=== PATIENT | female | born 1945 | race Hispanic/Latino ===

== ENCOUNTER 2016-10-29 18:25 | Emergency (ER) | payer MEDICARE, OTHER ==
[2016-10-29 18:25] VITALS: BMI 14.4
[2016-10-29 18:45] VITALS: BP 94/54; PULSE 70; RESP 20; TEMP 97.7; O2SAT 100
--- NOTE | 2016-10-29 20:02 | ED PDOC ---
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 She denies any associated trauma, chest pain, or shortness of breath, and states that she is compliant with her medications. PMD: Greg Correa Past Medical History Reviewed: Historical Data, Nursing Documentation, Vital Signs Vital Signs: Last Vital Signs Temp 97.7 F 10/29/16 18:42 Pulse 70 10/29/16 18:42 Resp 20 10/29/16 18:42 BP 94/54 L 10/29/16 18:42 Pulse Ox 100 10/29/16 18:42 - Medical History PMH: Anemia, Depression, Deep Vein Thrombosis, Chronic Kidney Disease Denies: HIV - Family History Family History: States: Unknown Family Hx - Home Medications Home Medications: Ambulatory Orders Medication Instructions Recorded Potassium Chloride [K-Dur 20 mEq 20 meq PO DAILY 07/23/16 ER Tab] Lactobacillus Acidophilus 1 cap PO DAILY 08/27/16 [Acidophilus] Sodium Bicarbonate Tab 1,300 mg PO BID 08/27/16 Acetaminophen [Tylenol 325mg tab] 650 mg PO ONCE tab 10/03/16 Calcitriol [Rocaltrol] 0.5 mcg PO BID #14 sgl 10/04/16 Calcium Carbonate [Tums] 1,000 mg PO BID #30 ctb 10/04/16 Cholestyramine [Questran] 4 gm PO BID #14 packet 10/04/16 Cyanocobalamin (Vitamin B-12) 1,000 mcg PO DAILY #7 tablet.er 10/04/16 [B-12] Ergocalciferol [Drisdol 50,000 1 cap PO Q7D cap 10/04/16 Intl Units Cap] Escitalopram [Lexapro] 10 mg PO DAILY #7 tab 10/04/16 Folic Acid 1 mg PO DAILY #7 tab 10/04/16 Apixaban [Eliquis] 2.5 mg PO DAILY 10/22/16 Non-Formulary 1 ea .ROUTE DAILY #3 10/29/16 - Allergies Allergies/Adverse Reactions: Allergies Allergy/AdvReac Type Severity Reaction Status Date / Time ciprofloxacin [From Cipro] Allergy RASH Verified 10/29/16 18:42 ciprofloxacin HCl Allergy RASH Verified 10/29/16 18:42 [From Cipro] vancomycin Allergy RASH Verified 10/29/16 18:42 Review of Systems Cardiovascular: Positive for: Edema (swelling around left ankle). Negative for : Chest Pain Respiratory: Negative for: Shortness of Breath Physical Exam - Reviewed Nursing Documentation Reviewed: Yes Vital Signs Reviewed: Yes - Physical Exam Appears: Positive for: Non-toxic, No Acute Distress (Patient is well-appearing) Head Exam: Positive for: ATRAUMATIC, NORMOCEPHALIC Skin: Positive for: Normal Color, Warm Cardiovascular/Chest: Positive for: Regular Rate, Rhythm. Negative for: Murmur Respiratory: Positive for: Normal Breath Sounds. Negative for: Respiratory Distress Extremity: Positive for: Pedal Edema (2+ pitting edema localized to left ankle) , Calf Tenderness (mild bilateral calf tenderness), Other (mild ecchymosis to anterior tibia bilaterally). Negative for: Tenderness (no tenderness to palpation), Deformity Neurologic/Psych: Positive for: Alert, Oriented - ECG O2 Sat by Pulse Oximetry: 100 (RA) Pulse Ox Interpretation: Normal Medical Decision Making Medical Decision Makin:54 Initial Impression: Left Ankle Swelling from Sprain vs. DVT Initial Plan: * US Lower Extremities * Reevaluation 21:10 US Lower Extremities Findings FINDINGS: Deep veins: Lack of compressibility of common femoral, mid to distal superficial femoral veins. No significant flow on color or spectral Doppler imaging. Incomplete compressibility of proximal superficial femoral vein. Flow on color or spectral Doppler imaging. Duplicated superficial femoral vein with compressibility, color and spectral Doppler flow. Superficial veins: No thrombosis. Soft tissues: No popliteal cyst. IMPRESSION: 1. Occlusive and nonocclusive thrombus as above. 2. Incidental/non-acute findings are described above. Discussed findings with jamil Martíneztient will have left ankle x-ray performed as well. If negative, patient will be discharged home with recommendation for compression stockings. LEFT ankle xray: No fx/dislocation. +osteopenia Scribe Attestation: Documented by Hedy Doston, acting as a scribe for Patricia Valencia MD. Provider Scribe Attestation: All medical record entries made by the Scribe were at my direction and personally dictated by me. I have reviewed the chart and agree that the record accurately reflects my personal performance of the history, physical exam, medical decision making, and the department course for this patient. I have also personally directed, reviewed, and agree with the discharge instructions and disposition Disposition - Clinical Impression Clinical Impression: Swelling of ankle joint, left Counseled Patient/Family Regarding: Studies Performed, Diagnosis, Need For Followup - Disposition Referrals: Greg Correa MD [Family Provider] - 10/30/16 Disposition: Routine/Home Disposition Time: 21:45 Condition: STABLE Additional Instructions: PLEASE USE GRADUATED COMPRESSION STOCKINGS IN YOUR LEGS TO IMPROVE SWELLING SEE DR CORREA TOMORROW FOR REEVALUATION Prescriptions: Non-Formulary 1 ea .ROUTE DAILY #3 Instructions: Leg Edema (ED)
--- NOTE | 2016-10-29 21:03 | US ---
EXAM: US Duplex Left Lower Extremity Veins CLINICAL HISTORY: 71 years old, female; Signs and symptoms; Swelling of limb; Lower extremity, left; Additional info: Lle swelling R/O new dvt TECHNIQUE: Real-time ultrasound scan of the veins of the left lower extremity with color Doppler flow, spectral waveform analysis and compression. COMPARISON: No relevant prior studies available. FINDINGS: Deep veins: Lack of compressibility of common femoral, mid to distal superficial femoral veins. No significant flow on color or spectral Doppler imaging. Incomplete compressibility of proximal superficial femoral vein. Flow on color or spectral Doppler imaging. Duplicated superficial femoral vein with compressibility, color and spectral Doppler flow. Superficial veins: No thrombosis. Soft tissues: No popliteal cyst. IMPRESSION: 1. Occlusive and nonocclusive thrombus as above. 2. Incidental/non-acute findings are described above.
--- NOTE | 2016-10-30 10:34 | RAD ---
PROCEDURE: Left Ankle Radiographs. HISTORY: ankle swelling COMPARISON: None FINDINGS: BONES: There is diffuse bone demineralization. There is no acute displaced fracture or bone destruction. JOINTS: Normal. No osteoarthritis. Ankle mortise maintained. Talar dome intact SOFT TISSUES: There is mild lateral soft tissue swelling. OTHER FINDINGS: None. IMPRESSION: No acute displaced fracture or dislocation. Mild lateral soft tissue swelling.
== END 2016-10-29 22:39 | disposition home or self-care (01) ==
LOC: H.ER 18:25
DX: M25.472 Effusion, left ankle (principal); N18.9 Chronic kidney disease, unspecified; Z79.01 Long term (current) use of anticoagulants; Z86.718 Personal history of other venous thrombosis and embolism

== ENCOUNTER 2016-12-25 10:41 | Inpatient (IN) | payer MEDICARE, OTHER ==
[2016-12-25 10:47] VITALS: BMI 14.9
--- NOTE | 2016-12-25 11:21 | ED PDOC ---
HPI: General Adult Time Seen by Provider: 12/25/16 11:07 Chief Complaint (Nursing): Weakness/Neurological Deficit History Per: Patient, Family History/Exam Limitations: no limitations Onset/Duration Of Symptoms: Gradual (chronic sx worse this week) Current Symptoms Are (Timing): Still Present Severity: Mild Additional History Per: Patient, Family Additional Complaint(s): per pt and family has chronic dehydration treated weakly for iv fluids pmd [facility] but just transferred care from [facility]. pt has urostomy and ileostomy with nml floow. no head trauma no cp or sob Past Medical History Reviewed: Historical Data, Nursing Documentation, Vital Signs Vital Signs: Last Vital Signs Temp 97.8 F 12/25/16 10:47 Pulse 76 12/25/16 10:47 Resp 19 12/25/16 10:47 BP 114/77 12/25/16 10:47 Pulse Ox 100 12/25/16 11:23 - Medical History PMH: Anemia, Depression, Deep Vein Thrombosis, Chronic Kidney Disease Denies: HIV - Family History Family History: States: Unknown Family Hx - Living Arrangements Living Arrangements: With Family - Social History Current smoker - smoking cessation education provided: No - Home Medications Home Medications: Ambulatory Orders Medication Instructions Recorded Potassium Chloride [K-Dur 20 mEq 20 meq PO DAILY 07/23/16 ER Tab] Lactobacillus Acidophilus 1 cap PO DAILY 08/27/16 [Acidophilus] Sodium Bicarbonate Tab 1,300 mg PO BID 08/27/16 Calcitriol [Rocaltrol] 0.5 mcg PO BID #14 sgl 10/04/16 Cholestyramine [Questran] 4 gm PO BID #14 packet 10/04/16 Cyanocobalamin (Vitamin B-12) 1,000 mcg PO DAILY #7 tablet.er 10/04/16 [B-12] Escitalopram [Lexapro] 10 mg PO DAILY #7 tab 10/04/16 Folic Acid 1 mg PO DAILY #7 tab 10/04/16 Apixaban [Eliquis] 2.5 mg PO BID 10/22/16 Calcium Carbonate [Caltrate] 600 mg PO BID 12/25/16 Calcium Carbonate [Tums] 750 mg PO BID 12/25/16 Ergocalciferol [Drisdol 50,000 50,000 unit PO SAT 12/25/16 Intl Units Cap] - Allergies Allergies/Adverse Reactions: Allergies Allergy/AdvReac Type Severity Reaction Status Date / Time ciprofloxacin [From Cipro] Allergy RASH Verified 12/25/16 11:16 ciprofloxacin HCl Allergy RASH Verified 12/25/16 11:16 [From Cipro] vancomycin Allergy RASH Verified 12/25/16 11:16 Review of Systems ROS Statement: Except As Marked, All Systems Reviewed And Found Negative Constitutional: Positive for: Weakness (diffuse). Negative for: Fever, Chills Cardiovascular: Negative for: Chest Pain, Palpitations Respiratory: Negative for: Cough, Shortness of Breath Gastrointestinal: Negative for: Nausea, Vomiting, Abdominal Pain, Diarrhea Neurological: Negative for: Weakness, Numbness, Headache Physical Exam - Reviewed Nursing Documentation Reviewed: Yes Vital Signs Reviewed: Yes - Physical Exam Appears: Positive for: Well, No Acute Distress Head Exam: Positive for: ATRAUMATIC, NORMAL INSPECTION, NORMOCEPHALIC Eye Exam: Positive for: Normal appearance, EOMI, PERRL Neck: Positive for: Normal, Painless ROM, Supple Cardiovascular/Chest: Positive for: Regular Rate, Rhythm. Negative for: Edema, Gallop, Murmur, Bradycardia, Tachycardia Respiratory: Positive for: Normal Breath Sounds. Negative for: Decreased Breath Sounds, Accessory Muscle Use, Crackles, Rales, Rhonchi, Stridor, Wheezing Gastrointestinal/Abdominal: Positive for: Soft, Other (urostomy in llq with clear urine and rlq ileostomy with brown stool). Negative for: Tenderness Back: Positive for: Normal Inspection. Negative for: L CVA Tenderness, R CVA Tenderness Extremity: Positive for: Normal ROM. 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 Negative for: Motor/Sensory Deficits - Laboratory Results Result Diagrams: 12/25/16 11:45 12/25/16 11:45 - ECG ECG: Positive for: Interpreted By Me ECG Rhythm: Positive for: Normal QRS, Normal ST Segment, Sinus Rhythm (64). Negative for: ST/T Changes Interpretation Of Abn EKG: no evidence of ischemia O2 Sat by Pulse Oximetry: 100 Pulse Ox Interpretation: Normal - Radiology X-Ray: Interpreted by Me X-Ray Interpretation: No Acute Disease - Progress ED Course And Treament: per dr ford will give magnesium and admit to tele obs Re-evaluation Time: 13:00 Condition: Unchanged Disposition - Clinical Impression Clinical Impression: Hypomagnesemia - Patient ED Disposition Is Patient to be Admitted: No Counseled Patient/Family Regarding: Studies Performed, Diagnosis - Disposition Disposition Time: 13:00 Condition: STABLE - Pt Status Changed To: Hospital Disposition Of: Observation - POA Present On Arrival: None
[2016-12-25] MEDS: Sodium Chloride 0.9% 1,000 ML IV SCH (11:54)
[2016-12-25 12:03] LABS: BASO % 0.4 % (0.0-2.0); EOS # 0.1 K/uL (0.0-0.7); EOS % 1.7 % (0.0-4.0); HEMATOCRIT 27.1 % (34.0-47.0); LYMPH # 0.9 K/uL (1.0-4.3); LYMPH % 14.6 % (20.0-40.0); MEAN CELL VOLUME 100.6 fl (81.0-99.0); MEAN CORPUSCULAR HEMOGLOBIN 33.7 pg (27.0-31.0); MEAN CORPUSCULAR HGB CONC 33.5 g/dL (33.0-37.0); MEAN PLATELET VOLUME 8.6 fl (7.2-11.7); MONO # 0.5 K/uL (0.0-0.8); MONO % 7.5 % (0.0-10.0); NEUT # 4.7 K/uL (1.8-7.0); NEUT % 75.8 % (50.0-75.0); NRBC % 0.1 % (0.0-0.0); WHITE BLOOD COUNT 6.2 K/uL (4.8-10.8)
[2016-12-25 12:11] LABS: ALB/GLOB RATIO 1.1 (1.0-2.1); BILIRUBIN,TOTAL 0.2 mg/dl (0.2-1.3); CALCIUM 12.3 mg/dL (8.4-10.2); POTASSIUM 4.4 MMOL/L (3.6-5.0); TOTAL PROTEIN 7.4 G/DL (6.3-8.2)
[2016-12-25 12:14] LABS: RBC URINE 38 /hpf (0-3); URINE BACTERIA OCC (<OCC); URINE BILIRUBIN NEGATIVE (NEGATIVE); URINE BLOOD SMALL (NEGATIVE); URINE COLOR YELLOW (YELLOW); URINE GLUCOSE (UA) NEG (Normal); URINE KETONE NEGATIVE (NEGATIVE); URINE LEUKOCYTE ESTERASE LARGE Leu/uL (Negative); URINE PROTEIN 100 mg/dL (NEGATIVE); URINE UROBILINOGEN 0.2-1.0 mg/dL (0.2-1.0); WBC URINE 493 /hpf (0-5)
--- NOTE | 2016-12-25 12:55 | CT ---
PROCEDURE: CT HEAD WITHOUT CONTRAST. HISTORY: ams COMPARISON: None available. TECHNIQUE: Axial computed tomography images were obtained through the head/brain without intravenous contrast. Radiation dose: Total exam DLP = 827 mGy-cm. This CT exam was performed using one or more of the following dose reduction techniques: Automated exposure control, adjustment of the mA and/or kV according to patient size, and/or use of iterative reconstruction technique. FINDINGS: HEMORRHAGE: No intracranial hemorrhage. BRAIN: No mass effect or edema. atrophy and chronic microvascular ischemic changes. VENTRICLES: Unremarkable. No hydrocephalus. CALVARIUM: Unremarkable. PARANASAL SINUSES: Unremarkable as visualized. No significant inflammatory changes. MASTOID AIR CELLS: Unremarkable as visualized. No inflammatory changes. OTHER FINDINGS: None. IMPRESSION: No bleed.
[2016-12-25] MEDS ORDERED: Magnesium Sulfate 1 gm in D5W 1 GM/100 ML BAG IVPB ONE (13:57)
[2016-12-25] MEDS ORDERED: Magnesium Sulfate 2 GM in Sodium Chloride 0.9% 100 ML IVPB ONE (14:03)
[2016-12-25] MEDS ORDERED: Magnesium Sulfate 2 gm/50 ml 2 GM/50 ML BAG ONE (14:15)
[2016-12-25] MEDS ORDERED: Magnesium Sulfate 2 gm/50 ml 2 GM/50 ML BAG IVPB ONE (14:30)
--- NOTE | 2016-12-25 15:44 | RAD ---
HISTORY: weak COMPARISON: 08/27/2016 FINDINGS: The right MediPort terminates in the SVC. LUNGS: The lungs are hyperinflated and there is peribronchial thickening with chronic changes in both lungs. PLEURA: No significant pleural effusion identified, no pneumothorax apparent. CARDIOVASCULAR: Normal. OSSEOUS STRUCTURES: No significant abnormalities. VISUALIZED UPPER ABDOMEN: Normal. OTHER FINDINGS: None. IMPRESSION: No active pulmonary disease. COPD.
--- NOTE | 2016-12-25 15:59 | CARD ---
APPROVED REPORT EKG Measurement Heart [id number] <Conclusion> Sinus rhythm with short [place] Otherwise normal ECG
[2016-12-25] MEDS ORDERED: Potassium Chl 20 mEq in D5-NS 1,000 ML IV SCH (23:45)
[2016-12-26] MEDS ORDERED: CALCIUM CARBONATE 750 MG PO SCH (09:00)
[2016-12-26] MEDS ORDERED: LACTOBACILLUS ACIDOPHILUS PO SCH (09:00)
[2016-12-26] MEDS ORDERED: Patient's Own Med (Cyanocobalamin (Vitamin B-12) [B-12] 1,000 MCG) PO SCH (09:00)
[2016-12-26] MEDS: Potassium Chloride 20 mEq ER Tab PO SCH (09:57)
[2016-12-26] MEDS: Cholestyramine 4 gm/Pkt UD PO SCH ×2 (09:58→17:56)
[2016-12-26 11:25] LABS: CALCIUM 10.3 mg/dL (8.4-10.2); MAGNESIUM 1.4 MG/DL (1.6-2.3); POTASSIUM 4.2 MMOL/L (3.6-5.0)
[2016-12-26] MEDS ORDERED: Magnesium Sulfate 1 gm in D5W 1 GM/100 ML BAG IVPB ONE (11:34)
[2016-12-26] MEDS: Dextrose 5%/0.9% NS 1,000 ML IV SCH ×2 (13:18→21:45)
[2016-12-26] MEDS: Lactobacillus Acidophilus 500 MU Cap PO SCH (13:21)
[2016-12-26] MEDS: Sodium Chloride 0.9% 1,000 ML IV SCH ×2 (18:00→18:01)
[2016-12-27 07:16] LABS: CALCIUM 9.7 mg/dL (8.4-10.2); MAGNESIUM 1.5 MG/DL (1.6-2.3); POTASSIUM 3.8 MMOL/L (3.6-5.0)
--- NOTE | 2016-12-27 08:28 | HP ---
HISTORY OF PRESENT ILLNESS: This is a 71-year-old female with history of multiple medical problems, presented to Emergency Room with symptoms of generalized weakness and change of mental status. The patient was evaluated in the Emergency Room, and she was found to be dehydrated with electrolyte imbalance. The patient was found to have hypercalcemia and increased BUN of 45 and creatinine 2.0 and magnesium 0.9. The patient has colostomy bag and urine diversion into an ileostomy. The patient was not fully aware of why she was in the hospital today. The patient was brought by her daughter. REVIEW OF SYSTEMS: Other review of systems is negative. PAST MEDICAL HISTORY: Cancer of the cervix status post radiation therapy and eventually the patient had a colostomy as well as urine diversion to ileostomy. The patient has chronic normal anion gap metabolic acidosis and chronic kidney disease stage III. SOCIAL HISTORY: No history of smoking, ETOH or substance abuse. FAMILY HISTORY: Noncontributory. HOME MEDICATIONS: vitamin D 50,000 once a week, sodium bicarbonate 1300 mg twice a day, potassium chloride 20 mEq once a day, Lexapro 10 mg daily, vitamin B12 at 1000 mg daily, cholestyramine 4 grams twice a day, Rocaltrol 0.5 mcg twice a day, Eliquis 2.5 mg twice a day for bilateral DVT. PHYSICAL EXAMINATION: GENERAL: The patient is not in cardiopulmonary distress. VITAL SIGNS: Blood pressure 110/72, respiratory rate 18, pulse 82. HEENT: Pupils equal, round and reactive to light. Mildly pale mucosa of the conjunctivae. NECK: Supple, no JVD, no carotid bruits, no lymph nodes, no thyromegaly. CHEST AND LUNGS: Bilateral symmetrical expansion, good air exchange bilaterally. No rales, no rhonchi. CARDIOVASCULAR: PMI not localized. S1, S2. There are no additional sounds. ABDOMEN: Colostomy and ileostomy bags are in place and there is dark cloudy urine as well as there is watery stool in the colostomy bag. EXTREMITIES: No cyanosis, no clubbing, no edema. CENTRAL NERVOUS SYSTEM: Alert, awake, oriented x 2. No neurologic deficits are appreciated. LABORATORY DATA: Blood work showed BUN of 45, creatinine 2.0, calcium 12.6, magnesium 0.9. Urine culture showed gram negative rods and the ID of the organism are not identified yet. ASSESSMENT: Dehydration, hypercalcemia, hypomagnesemia, chronic kidney disease stage III, bacteriuria. PLAN: We will continue IV fluids and we will supplement magnesium. Will stop calcium, Glucotrol and vitamin D as calcium level is high on admission. Physical therapy. Resume Eliquis 2.5 mg twice a day. [facility] S Sunny FELICIANO cc: 167 TT: 12/27/2016 00:11:02 12/27/2016 04:09:35 FELIPA
[2016-12-27] MEDS: Dextrose 5%/0.9% NS 1,000 ML IV SCH (09:50)
[2016-12-27] MEDS: Cholestyramine 4 gm/Pkt UD PO SCH ×2 (09:52→16:55)
[2016-12-27] MEDS: Potassium Chloride 20 mEq ER Tab PO SCH (09:52)
[2016-12-27] MEDS: Lactobacillus Acidophilus 500 MU Cap PO SCH (09:53)
--- NOTE | 2016-12-27 10:11 | PQF GENQUE ---
This form is a permanent part of the medical record 12/27/16 Dr. Correa, Please clarify the site(s) and acuity of the bilateral DVT if known. Please see physician response section Documentation that the patient is being treated with Eliquis for bilateral DVT. Clarification of your documentation is requested to better reflect the severity of illness and intensity of treatment of your patient. PHYSICIAN'S RESPONSE 1) Please specify the acuity: [ ] Acute [ ] Chronic [ ] History of/healed with prophylaxis [ ] Other (please specify) [ ] Unable to determine [ ] Unknown 2) Please specify the specific vessel (vein) involved, including laterality Based on your medical judgment of the clinical indicators outlined above please clarify the following: [] Practitioner response [] If unable to determine, please check the box, sign and date. Present On Admission (POA) Indicator: [] Present at the time of admission [] Not present at the time of admission [] Clinically Undetermined In responding to this query, please exercise your independent professional judgment. The fact that a question is asked does not imply that any particular answer is desired or expected. Thank you for your clarification on this documentation. If you have any questions please call:extension [phone] * Thank you, Theodora Ly RN CDMP It is a history of bilateral DVT MTDD
--- NOTE | 2016-12-27 20:49 | PN ---
DATE: 12/27/2016 SUBJECTIVE: The patient is seen today, 12/27/2016. She continued to be more alert and awake. PHYSICAL EXAMINATION: VITAL SIGNS: Blood pressure is 122/75, temperature 98.4, respiratory rate 20, and pulse 72. HEENT: Pupils equal, reactive to light. Normal-appearing mucosa of the conjunctivae, oropharyngeal and nasal membrane mucosa. NECK: Supple, no JVD, no carotid bruit, no lymph node, no thyromegaly. CHEST AND LUNGS: Bilateral symmetrical expansion, good air exchange, no rales, no rhonchi. CARDIOVASCULAR: PMI not localized. S1, S2. No additional sounds. ABDOMEN: Normoactive bowel sounds, no tenderness, no organomegaly, no masses. EXTREMITIES: No cyanosis, no clubbing, no edema. CENTRAL NERVOUS SYSTEM: Alert, awake, oriented x 2. No neurological deficits could be appreciated. ASSESSMENT: 1. Dehydration. 2. Acute on chronic kidney disease stage III. 3. History of cancer cervix, status post radiation with colostomy and ileostomy and urine divergent into ileostomy. 4. Hypomagnesemia. 5. Hypercalcemia. PLAN: Supplement magnesium. Continue IV fluids. We will repeat blood work in the morning. Suellen Catherine Correa MD cc: 167 TT: 12/27/2016 20:48:50 Confirmation # [id number] Dictation # [id number] mike
[2016-12-28] MEDS: Cholestyramine 4 gm/Pkt UD PO SCH (09:34)
[2016-12-28] MEDS: Potassium Chloride 20 mEq ER Tab PO SCH (09:35)
[2016-12-28] MEDS: Lactobacillus Acidophilus 500 MU Cap PO SCH (09:36)
[2016-12-28 12:01] LABS: CALCIUM 9.2 mg/dL (8.4-10.2); POTASSIUM 3.8 MMOL/L (3.6-5.0)
[2016-12-28 15:42] VITALS: BP 111/66; PULSE 73; RESP 20; TEMP 97.9; O2SAT 99
--- NOTE | 2016-12-28 19:08 | DS ---
REASON FOR ADMISSION: This is a 71-year-old female with history of multiple medical proble ms who was admitted for dehydration and electrolyte imbalance. COURSE OF HOSPITALIZATION: The patient was admitted to telemetry floor and magnesium was supplemente d and patient was started on IV fluid due to hypercalcemia with calcium level 12.3 on admission and c kyra down to 9.2. The patient also had bacteriuria, but it was asymptomatic and antibiotics were with held at this point as patient did not have any fever or leukocytosis. The patient has urine diversio n through an ileostomy and she has colostomy bag also. The patient was advised to stop Rocaltrol and calcium supplement and to continue IV fluid therapy with sodium bicarbonate as an outpatient. FINAL DIAGNOSES: Dehydration, hypercalcemia, acute on chronic kidney disease stage III, history of c ancer of cervix, status post radiation with current colostomy and urine diversion to ileostomy. Suellen Catherine Correa MD cc: 167 TT: 12/28/2016 19:07:54 maribell
[2016-12-29] MEDS ORDERED: Ergocalciferol 50,000 Intl Units Cap PO SCH (09:00)
== END 2016-12-28 18:30 | disposition home or self-care (01) | DRG 641 ==
LOC: H.ER 10:41 → H.ERHOLD 14:04 → H.TEL 12-26 00:06 → OBSVTOIN 12-26 11:42
PROVIDERS: ADMIT Internal Medicine; ATTEND Internal Medicine
DX: E86.0 Dehydration (principal); N18.3 Chronic kidney disease, stage 3 (moderate); E83.52 Hypercalcemia; E83.42 Hypomagnesemia; R82.71 Bacteriuria; D64.9 Anemia, unspecified; Z93.3 Colostomy status; Z93.2 Ileostomy status; Z85.41 Personal history of malignant neoplasm of cervix uteri; Z92.3 Personal history of irradiation; Z86.718 Personal history of other venous thrombosis and embolism; Z79.01 Long term (current) use of anticoagulants; Z88.1 Allergy status to other antibiotic agents

== ENCOUNTER 2017-01-10 10:38 | Inpatient (IN) | payer MEDICARE, OTHER ==
[2017-01-10 10:39] VITALS: BMI 15.4
[2017-01-10] MEDS ORDERED: Calcitonin 400 Intl Units/2mL Inj IM STA (11:23)
[2017-01-10] MEDS ORDERED: Sodium Chloride 0.9% 1,000 ML IV SCH (11:30)
--- NOTE | 2017-01-10 11:43 | ED PDOC ---
HPI: Altered Mental Status Chief Complaint (Provider): "not sure" History Per: Family History/Exam Limitations: Clinical Condition Onset/Duration Of Symptoms: Days Onset Of Symptoms: Cannot Confirm Onset Current Symptoms Are (Timing): Still Present Description Of Symptoms: Not At Baseline Usual Baseline: Alert Oriented (greater than 1 month ago) Use Of Anticoag/Antiplatlets: Yes (Eliquis) Associated Symptoms: Fever (home 100.1F), Chills, Confused, Trouble Thinking. denies: Sweating, Agitated, Vomiting, Dyspnea, Syncope Additional Complaint(s): 71 yo F w PMHx CKD, urostomy, and colostomy presents to ER from TCU for r/o fever, dehydration, and one month h/o confusion. She is unaware as to why she has been transferred to ER, but son describes that he had mentioned the patient' s home temperature last night was 100.1. She states abdominal pain, but is unable to recall when it began, describe it's intensity or quality. Her son states her confusion has been slowly worsening over previous month, to point of her calling same person(s) several times within several minutes for the same request. PMHx: h/o Cervical Cancer s/p rad therapy, Colostomy, Urostomy, CKD, chronic normal anion gap metabolic acidosis PSHx: Colostomy, Urostomy, Ileostomy Home Meds: Vit D, NaHCO3 twice weekly, KCl 20 mEq Daily, Lexapro 10mg Daily, Vit B12 1000mg Daily, Cholestyramine 4g BID, Rocaltrol 0.5mcg BID, Eliquis 2.5mg BID <Randal Cash T - Last Filed: 01/10/17 13:15> <Lamont Oconnor F - Last Filed: 01/10/17 13:43> Time Seen by Provider: 01/10/17 11:16 Chief Complaint (Nursing): Fever Past Medical History Vital Signs: Last Vital Signs Temp 97.7 F 01/10/17 11:02 Pulse 53 L 01/10/17 11:02 Resp 16 01/10/17 11:02 BP 135/78 01/10/17 11:02 Pulse Ox 97 01/10/17 11:02 - Medical History PMH: Anemia, Depression, Deep Vein Thrombosis, Chronic Kidney Disease Denies: HIV - Family History Family History: States: Unknown Family Hx <Randal Cash T - Last Filed: 01/10/17 13:15> Vital Signs: Last Vital Signs Temp 97.7 F 01/10/17 11:02 Pulse 53 L 01/10/17 11:02 Resp 16 01/10/17 11:02 BP 135/78 01/10/17 11:02 Pulse Ox 97 01/10/17 13:15 <Lamont Oconnor F - Last Filed: 01/10/17 13:43> - Home Medications Home Medications: Ambulatory Orders Medication Instructions Recorded Potassium Chloride [K-Dur 20 mEq 20 meq PO DAILY 07/23/16 ER Tab] Lactobacillus Acidophilus 1 cap PO DAILY 08/27/16 [Acidophilus] Sodium Bicarbonate Tab 1,300 mg PO BID 08/27/16 Cholestyramine [Questran] 4 gm PO BID #14 packet 10/04/16 Escitalopram [Lexapro] 10 mg PO DAILY #7 tab 10/04/16 Folic Acid 1 mg PO DAILY #7 tab 10/04/16 Apixaban [Eliquis] 2.5 mg PO BID 10/22/16 Ergocalciferol [Drisdol 50,000 50,000 unit PO SAT 12/25/16 Intl Units Cap] Calcitriol [Rocaltrol] 0.5 mcg PO BID 01/10/17 Calcium Carbonate [Caltrate] 1 tab PO BID 01/10/17 Calcium Carbonate [Tums] 1 tab PO BID 01/10/17 [place]-3 Fatty Acids/Fish Oil [Fish 1 cap PO DAILY 01/10/17 Oil 1,000 mg Capsule] - Allergies Allergies/Adverse Reactions: Allergies Allergy/AdvReac Type Severity Reaction Status Date / Time ciprofloxacin [From Cipro] Allergy RASH Verified 12/25/16 11:16 ciprofloxacin HCl Allergy RASH Verified 12/25/16 11:16 [From Cipro] vancomycin Allergy RASH Verified 12/25/16 11:16 Review of Systems ROS Statement: Except As Marked, All Systems Reviewed And Found Negative (see HPI) <Randal Cash T - Last Filed: 01/10/17 13:15> Physical Exam - Reviewed Nursing Documentation Reviewed: Yes Vital Signs Reviewed: Yes - Physical Exam Appears: Positive for: No Acute Distress Head Exam: Positive for: ATRAUMATIC, NORMOCEPHALIC Skin: Positive for: Normal Color, Warm, Dry Eye Exam: Positive for: Normal appearance, EOMI Neck: Positive for: Normal Cardiovascular/Chest: Positive for: Regular Rate, Rhythm. Negative for: Edema Respiratory: Positive for: Normal Breath Sounds. Negative for: Rhonchi, Wheezing Gastrointestinal/Abdominal: Positive for: Soft, Other (urostomy on R, colostomy on L; no erythematous or inflamed skin observed). Negative for: Tenderness, Distended, Guarding Back: Positive for: Normal Inspection. Negative for: L CVA Tenderness, R CVA Tenderness Extremity: Negative for: Pedal Edema, Calf Tenderness Neurologic/Psych: Positive for: Alert, Oriented (AAOx2) <Randal Cash T - Last Filed: 01/10/17 13:15> - Laboratory Results Result Diagrams: 01/10/17 11:59 01/10/17 11:59 - ECG O2 Sat by Pulse Oximetry: 97 - Progress ED Course And Treament: 71 yo F w PMHx CKD, urostomy, and colostomy presents to ER from TCU for r/o fever, dehydration, and one month h/o confusion -CBC -CMP -Mg -Phos -UA -UCx -BCx -CXR -EKG -NS 1L x1 -Zometa Update 1300: -Hypercalcemia 13.8 --pt had been receiving calcium supplements at home -No acute EKG changes -Zometa d/c'ed due to newly discovered source of Hypercalcemia -Spoken w Dr Correa. Will admit patient under his service. Condition: Re-examined <Randal Cash T - Last Filed: 01/10/17 13:15> - Laboratory Results Result Diagrams: 01/10/17 11:59 01/10/17 11:59 <Lamont Oconnor F - Last Filed: 01/10/17 13:43> Medical Decision Making Medical Decision Making: Discussed with family who report continuing giving the patient calcium pills twice a day despite previous discharge instructions. Hypercalcemia is most likely due to iatrogenic administration of calcium. Family made aware to discontinue administering calcium. <Lamont Oconnor - Last Filed: 01/10/17 13:43> Disposition - Patient ED Disposition Is Patient to be Admitted: Yes Discussed With DrXochitl: Greg Correa Doctor Will See Patient In The: Hospital - Disposition Disposition Time: 13:00 - Pt Status Changed To: Hospital Disposition Of: Observation <Randal Cash T - Last Filed: 01/10/17 13:15> <Lamont Oconnor - Last Filed: 01/10/17 13:43> - Clinical Impression Clinical Impression: Hypercalcemia, Altered mental status - Disposition Condition: STABLE
[2017-01-10] MEDS ORDERED: Zoledronic Acid 4 MG in Sodium Chloride 0.9% 100 ML IVPB ONE (11:50)
[2017-01-10 12:09] LABS: BASO % 0.5 % (0.0-2.0); EOS # 0.2 K/uL (0.0-0.7); EOS % 2.6 % (0.0-4.0); HEMATOCRIT 34.7 % (34.0-47.0); LYMPH # 1.1 K/uL (1.0-4.3); LYMPH % 16.2 % (20.0-40.0); MEAN CORPUSCULAR HEMOGLOBIN 32.4 pg (27.0-31.0); MEAN CORPUSCULAR HGB CONC 33.1 g/dL (33.0-37.0); MONO # 0.4 K/uL (0.0-0.8); MONO % 6.1 % (0.0-10.0); NEUT # 4.8 K/uL (1.8-7.0); NEUT % 74.6 % (50.0-75.0); NRBC % 0.1 % (0.0-0.0); RED CELL DISTRIBUTION WIDTH 13.7 % (11.5-14.5); WHITE BLOOD COUNT 6.5 K/uL (4.8-10.8)
[2017-01-10 12:16] LABS: BILIRUBIN,TOTAL 0.3 mg/dl (0.2-1.3); MAGNESIUM 1.2 MG/DL (1.6-2.3); PHOSPHOROUS 3.8 mg/dl (2.5-4.5); POTASSIUM 4.2 MMOL/L (3.6-5.0); TOTAL PROTEIN 6.9 G/DL (6.3-8.2)
[2017-01-10 12:20] LABS: CALCIUM 13.8 mg/dL (8.4-10.2)
--- NOTE | 2017-01-10 12:42 | RAD ---
HISTORY: r/o infectious process COMPARISON: Comparison made with prior study 12/25/2016 TECHNIQUE: Chest PA and lateral FINDINGS: LUNGS: Re- demonstrated is hyperinflation. Previously noted mild bibasilar atelectasis slightly improved. Mild biapical pleural thickening. No effusion. PLEURA: As above. No apparent pneumothorax apparent. CARDIOVASCULAR: Heart size within range of normal OSSEOUS STRUCTURES: No significant abnormalities. VISUALIZED UPPER ABDOMEN: Normal. OTHER FINDINGS: No change right IJ MediPort. IMPRESSION: Re- demonstrated is hyperinflation. Next Previously noted mild bibasilar atelectasis slightly improved. Mild biapical pleural thickening. No effusion.
[2017-01-10 13:04] LABS: RBC URINE 24 /hpf (0-3); URINE BACTERIA MANY (<OCC); URINE BILIRUBIN NEGATIVE (NEGATIVE); URINE BLOOD MODERATE (NEGATIVE); URINE COLOR YELLOW (YELLOW); URINE GLUCOSE (UA) NEG (Normal); URINE KETONE NEGATIVE (NEGATIVE); URINE LEUKOCYTE ESTERASE LARGE Leu/uL (Negative); URINE PROTEIN 100 mg/dL (NEGATIVE); URINE UROBILINOGEN 0.2-1.0 mg/dL (0.2-1.0); WBC CLUMPS MANY /hpf; WBC URINE 351 /hpf (0-5)
[2017-01-10] MEDS ORDERED: Magnesium Sulfate 2 gm/50 ml 2 GM/50 ML BAG IVPB ONE (14:38)
[2017-01-10] MEDS: Sodium Chloride 0.9% 1,000 ML IV SCH (16:27)
[2017-01-11] MEDS: Sodium Chloride 0.9% 1,000 ML IV SCH ×3 (03:10→17:07)
[2017-01-11 06:53] LABS: CALCIUM 11.8 mg/dL (8.4-10.2); MAGNESIUM 1.9 MG/DL (1.6-2.3); POTASSIUM 4.2 MMOL/L (3.6-5.0)
--- NOTE | 2017-01-11 08:11 | HP ---
HISTORY OF PRESENT ILLNESS: This is a 71-year-old female with history of multiple medical problems including cancer or cervix status post total hysterectomy, as well as followed by radiation therapy and complicated years later by colostomy and urine diversion to an ileostomy. The patient wa s noted by the family to be lethargic and she was brought to Emergency Room for evaluation where she was found to have hypercalcemia with calcium level of . The patient was started on IV fluid and admitted for further management. REVIEWOF SYSTEMS: Generalized weakness. ALLERGIES: THE PATIENT HAS ALLERGY TO CIPROFLOXACIN AND VANCOMYCIN. SOCIAL HISTORY: No history of smoking, ETOH or substance. FAMILY HISTORY: Noncontributory. PAST MEDICAL HISTORY: As above. HOME MEDICATIONS: Lexapro 10 mg daily, vitamin B12 1000 mg daily, omega-3 two capsules daily, sodium bicarbonate 2 tablets twice a day. PHYSICAL EXAMINATION: GENERAL: The patient is in bed, comfortable, not in any cardiopulmonary distress. VITAL SIGNS: Blood pressure 132/70, temperature 97.6, respiratory rate 18, and pulse 50. HEENT: Pupils equal, reactive to light. Normal appearing mucosa of conjunctivae NECK: Supple , no JVD, no carotid bruit, no lymph node, no thyromegaly. CARDIOVASCULAR: PMI not localized. S1, S2. No additional sounds. ABDOMEN: Normal back in place . EXTREMITIES: No cyanosis, clubbing, no edema. CENTRAL NERVOUS SYSTEM: Alert, awake, oriented x 2. No neurological deficits could be appreciated. ASSESSMENT: 1. Severe hypercalcemia. 2. Chronic kidney disease stage III. 3. History of cancer or cervix, status post ____. PLAN: Continue calcium and daily progress note. Greg Correa MD cc: [phone] TT: 01/10/2017 23:22:37 loi
--- NOTE | 2017-01-11 13:24 | CP.PCM.CON ---
History of Present Illness - History of Present Illness History of Present Illness: Infectious Disease Consultation note- asked to see this patient at the request of for pos blood cx. HPI- pt. known to me from previous admission in 08/2016. Pt. is a 71 year old female with pmh of cervical cancer s/p CTX and radiation s/ p colostomy and Ileostomy who is admitted for AMS and is found to have gram pod cocci in pairs on admission blood cx and hence i'm asked to evaluate and treat. Pt. has h/o c.diff in past along with h/o enterobacter bacteremia for which she was treated with IV antibiotics and infection was cleared. Pt. has been afebrile since admission and has norm a wbc and normal BP and vital. Pt. does not have any port or picc or central line. She states her colostomy and ileostomy bags have been leaking slightly recently. She is alert currently and can answer my questions and denies any chills or any abd. pain. She states the colostomy output is about the same. Review of Systems - Review of Systems Review of Systems: ROS- denies any fever or chills, denies any n/v, denies any MO, states is eating well , denies any bad. pain , sattes the colostomy and ileostomy bags have been leaking, denies any cough, denies any sob, denies any chest pain Past Patient History - Infectious Disease Hx of Infectious Diseases: None - Past Medical History & Family History Past Medical History?: Yes - Past Social History Smoking Status: Former Smoker Home Situation {Lives}: With Family - CARDIAC Hx Cardiac Disorders: No - PULMONARY Hx Respiratory Disorders: No - NEUROLOGICAL Hx Neurological Disorder: No - HEENT Hx HEENT Problems: Yes Hx Cataracts: Yes ([place] 2012) - RENAL Hx Chronic Kidney Disease: Yes Hx Dialysis: No Other/Comment: urostomy - ENDOCRINE/METABOLIC Hx Endocrine Disorders: No Other/Comment: DEHYDRATION - HEMATOLOGICAL/ONCOLOGICAL Hx Human Immunodeficiency Virus (HIV): No - INTEGUMENTARY Hx Dermatological Problems: No - MUSCULOSKELETAL/RHEUMATOLOGICAL Hx Musculoskeletal Disorders: No Hx Falls: No - GASTROINTESTINAL Hx Gastrointestinal Disorders: Yes Other/Comment: Ileostomy - GENITOURINARY/GYNECOLOGICAL Hx Genitourinary Disorders: Yes Hx Cervical Cancer: Yes - PSYCHIATRIC Hx Psychophysiologic Disorder: Yes Hx Depression: Yes Hx Substance Use: No - SURGICAL HISTORY Hx Surgeries: Yes Hx Hysterectomy: Yes Hx Joint Replacement: Yes (Right hip replacement) Hx Vascular Access Device: Yes (Right s/c Portacath) Other/Comment: Left Urostomy - ANESTHESIA Hx Anesthesia: Yes Hx Anesthesia Reactions: No Hx Malignant Hyperthermia: No Meds Allergies/Adverse Reactions: Allergies Allergy/AdvReac Type Severity Reaction Status Date / Time ciprofloxacin [From Cipro] Allergy RASH Verified 12/25/16 11:16 ciprofloxacin HCl Allergy RASH Verified 12/25/16 11:16 [From Cipro] vancomycin Allergy RASH Verified 12/25/16 11:16 - Medications Medications: Current Medications Apixaban (Eliquis) 2.5 mg PO BID [facility] PRN Reason: Protocol Last Admin: 01/11/17 08:14 Dose: 2.5 mg Escitalopram Oxalate (Lexapro) 10 mg PO DAILY [facility] Last Admin: 01/11/17 08:14 Dose: 10 mg Folic Acid (Folic Acid) 1 mg PO DAILY [facility] Last Admin: 01/11/17 08:14 Dose: 1 mg Sodium Chloride (Sodium Chloride 0.9%) 1,000 mls @ 100 mls/hr IV .Q10H [facility] Stop: 01/11/17 15:03 Last Admin: 01/11/17 03:10 Dose: 100 mls/hr Sodium Chloride (Sodium Chloride 0.9%) 1,000 mls @ 100 mls/hr IV .Q10H [facility] Stop: 01/12/17 11:18 Physical Exam - Constitutional Appears: No Acute Distress - Head Exam Head Exam: ATRAUMATIC - Eye Exam Eye Exam: EOMI - Neck Exam Neck exam: Positive for: Full Rom - Respiratory Exam Respiratory Exam: Clear to Auscultation Bilateral, NORMAL BREATHING PATTERN - Cardiovascular Exam Cardiovascular Exam: RRR, +S1, +S2 - GI/Abdominal Exam Additional comments: soft, +BS No tenderness colostomy bag full of light brown liquid with foul odor ileostomy bag full of yellow fluid no surrounding erythema of the skin - Extremities Exam Additional comments: No edema in B/L LE - Neurological Exam Neurological exam: Alert, Oriented x3 Results - Vital Signs Recent Vital Signs: Last Vital Signs Temp 98.8 F 01/11/17 12:37 Pulse 53 L 01/11/17 12:37 Resp 20 01/11/17 12:37 BP 92/52 L 01/11/17 12:37 Pulse Ox 98 01/11/17 12:37 - Labs Result Diagrams: 01/10/17 11:59 01/11/17 05:45 Labs: Laboratory Results - last 24 hr 01/11/17 05:45 Sodium 136 Potassium 4.2 Chloride 108 H Carbon Dioxide 24 Anion Gap 8 L BUN 52 H Creatinine 2.1 H Est GFR ( Amer) 28 Est GFR (Non-Af Amer) 23 Random Glucose 77 Calcium 11.8 H Magnesium 1.9 Laboratory Results - last 72 hr 01/10/17 01/10/17 01/10/17 11:59 11:59 12:00 WBC 6.5 RBC 3.54 L Hgb 11.5 L D Hct 34.7 MCV 98.0 D MCH 32.4 H MCHC 33.1 RDW 13.7 Plt Count 139 MPV 8.0 Neut % (Auto) 74.6 Lymph % (Auto) 16.2 L [place] % (Auto) 6.1 Eos % (Auto) 2.6 Baso % (Auto) 0.5 Neut # 4.8 Lymph # 1.1 [place] # 0.4 Eos # 0.2 Baso # 0.0 Sodium 137 Potassium 4.2 Chloride 104 Carbon Dioxide 27 Anion Gap 10 BUN 47 H Creatinine 2.0 H Est GFR ( Amer) 30 Est GFR (Non-Af Amer) 25 Random Glucose 77 Calcium 13.8 H* Phosphorus 3.8 Magnesium 1.2 L Total Bilirubin 0.3 AST 19 ALT 28 Alkaline Phosphatase 48 Total Protein 6.9 Albumin 3.5 Globulin 3.4 Albumin/Globulin Ratio 1.0 Urine Color Yellow Urine Clarity Cloudy Urine pH 7.0 Ur Specific [place] 1.009 Urine Protein 100 Urine Glucose (UA) Neg Urine Ketones Negative Urine Blood Moderate Urine Nitrate Negative Urine Bilirubin Negative Urine Urobilinogen 0.2-1.0 Ur Leukocyte Esterase Large Urine RBC (Auto) 24 H Urine WBC Clumps (Auto) Many H Urine Microscopic WBC 351 H Amorphous Sediment Rare H Urine Bacteria Many H 01/11/17 05:45 WBC RBC Hgb Hct MCV MCH MCHC RDW Plt Count MPV Neut % (Auto) Lymph % (Auto) [place] % (Auto) Eos % (Auto) Baso % (Auto) Neut # Lymph # Treasure # Eos # Baso # Sodium 136 Potassium 4.2 Chloride 108 H Carbon Dioxide 24 Anion Gap 8 L BUN 52 H Creatinine 2.1 H Est GFR ( Amer) 28 Est GFR (Non-Af Amer) 23 Random Glucose 77 Calcium 11.8 H Phosphorus Magnesium 1.9 Total Bilirubin AST ALT Alkaline Phosphatase Total Protein Albumin Globulin Albumin/Globulin Ratio Urine Color Urine Clarity Urine pH Ur Specific [place] Urine Protein Urine Glucose (UA) Urine Ketones Urine Blood Urine Nitrate Urine Bilirubin Urine Urobilinogen Ur Leukocyte Esterase Urine RBC (Auto) Urine WBC Clumps (Auto) Urine Microscopic WBC Amorphous Sediment Urine Bacteria Microbiology 01/10/17 12:00 Urine Urine Culture - Final 50-100,000 CFU/ML. MULTIPLE SPECIES. SUGGEST REPEAT SPECIMEM. 01/10/17 11:59 Blood Blood Culture - Preliminary Gram Positive Cocci 01/10/17 11:59 Blood Gram Stain - Final Microbiology 08/31/16 18:45 Blood-Venous Blood Culture - Final 08/31/16 18:45 Blood-Venous Gram Stain - Final NO GROWTH AFTER 5 DAYS TEST NOT PERFORMED 08/29/16 15:00 Blood-Venous Blood Culture - Final 08/29/16 15:00 Blood-Venous Gram Stain - Final NO GROWTH AFTER 5 DAYS TEST NOT PERFORMED 08/27/16 22:10 Blood-Thru Central Line Blood Culture - Final 08/27/16 22:10 Blood-Thru Central Line Gram Stain - Final Enterobacter Aerogenes 08/27/16 19:55 Urine,Suprapubic Urine Culture - Final Enterobacter Aerogenes Accession No. : [id number] Patient Name / ID : SHANICE GILES / [id number] Exam Date : 01/10/2017 11:59:18 ( Approved ) Study Comment : Sex / Age : F / 71Y Creator : Brayan West MD Dictator : Brayan West MD Technical Support Representative : Audio Visual Coordinator : Brayan West MD Approver2 : Report Date : 01/10/2017 12:40:44 My Comment : HISTORY: r/o infectious process COMPARISON: Comparison made with prior study 12/25/2016 TECHNIQUE: Chest PA and lateral FINDINGS: LUNGS: Re- demonstrated is hyperinflation. Previously noted mild bibasilar atelectasis slightly improved. Mild biapical pleural thickening. No effusion. PLEURA: As above. No apparent pneumothorax apparent. CARDIOVASCULAR: Heart size within range of normal OSSEOUS STRUCTURES: No significant abnormalities. VISUALIZED UPPER ABDOMEN: Normal. OTHER FINDINGS: No change right IJ MediPort. IMPRESSION: Re- demonstrated is hyperinflation. Next Previously noted mild bibasilar atelectasis slightly improved. Mild biapical pleural thickening. No effusion. Assessment & Plan (1) Bacteremia Status: Acute (2) Acute kidney injury Status: Acute (3) History of UTI Status: Acute (4) CKD (chronic kidney disease), stage III Status: Acute (5) S/P colostomy Status: Acute - Assessment and Plan (Free Text) Assessment: A/P- 71 year old female with h/o cervical ca s/p ctx and radiation and s/p both colostomy and Ileostomy with h/o CKD and UTI and enterobacter bactermia and c.diff who was admitted with AMS found to be hypercalcemic and prelim blood cx GPC in pairs. currently pt. is not septic. is afebrile has normal wbc count is alert and oriented. does have foul smelling liquid from colostomy bag and hence advise to rule out recurrent c.diff. blood cx- prelim GPC in pairs plan- await final ID adn sensitivity of GPC in pairs in blood cx could be enterococci. check repeat blood cx. start pt. on Linezolid 600 mg q12 pending ID and sensitivity of the blood cx. check Ua and urine cx result. check stool c.diff x 3 start Pt. empirically on oral flagyl Thank you for allowing met o take part in the care oft his patient. Will f/u while inpatient.
[2017-01-11 19:00] LABS: RBC URINE 17 /hpf (0-3); URINE BACTERIA OCC (<OCC); URINE BILIRUBIN NEGATIVE (NEGATIVE); URINE BLOOD SMALL (NEGATIVE); URINE COLOR YELLOW (YELLOW); URINE GLUCOSE (UA) NEG (Normal); URINE KETONE NEGATIVE (NEGATIVE); URINE LEUKOCYTE ESTERASE LARGE Leu/uL (Negative); URINE PROTEIN 30 mg/dL (NEGATIVE); URINE UROBILINOGEN 0.2-1.0 mg/dL (0.2-1.0); WBC CLUMPS MANY /hpf; WBC URINE 471 /hpf (0-5)
--- NOTE | 2017-01-11 19:28 | CARD ---
APPROVED REPORT EKG Measurement Heart [id number] <Conclusion> Sinus bradycardia
[2017-01-11] MEDS: Linezolid 600 mg in D5W 300 ml 600 MG/300 ML BAG IVPB SCH (21:03)
--- NOTE | 2017-01-11 23:36 | PN ---
DATE: 01/11/2017 SUBJECTIVE: The patient is seen today on 01/11/2017. She is not in any cardiopulmonary distress. PHYSICAL EXAMINATION: VITAL SIGNS: Blood pressure is 107/58, temperature 98.1, respiratory rate 18, and pulse is 51. HEENT: Pupils equal, reactive to light. Normal-appearing mucosa of the conjunctivae, oropharyngeal and nasal membrane mucosa. NECK: Supple, no JVD, no carotid bruit, no lymph node, no thyromegaly. CHEST AND LUNGS: Bilateral symmetrical expansion, good air exchange, no rales, no rhonchi. CARDIOVASCULAR: PMI not localized. S1, S2. No additional sounds. ABDOMEN: Normoactive bowel sounds, no tenderness, no organomegaly, no masses. EXTREMITIES: No cyanosis, no clubbing, no edema. CENTRAL NERVOUS SYSTEM: Alert, awake, oriented x 2. No neurological deficits could be appreciated. ASSESSMENT: Severe hypercalcemia, dehydration, chronic kidney disease stage III. PLAN: Continue current IV fluids and hold all agents and continue also Eliquis and current med ications. [facility] Catherine Correa MD cc: [phone] TT: 01/11/2017 23:36:03 Confirmation # [id number] Dictation # [id number]
[2017-01-12] MEDS: Sodium Chloride 0.9% 1,000 ML IV SCH ×2 (01:57→11:43)
[2017-01-12] MEDS: Linezolid 600 mg in D5W 300 ml 600 MG/300 ML BAG IVPB SCH ×2 (10:17→21:22)
[2017-01-13] MEDS: Linezolid 600 mg in D5W 300 ml 600 MG/300 ML BAG IVPB SCH ×2 (10:14→20:46)
--- NOTE | 2017-01-13 17:39 | CP.PCM.PN ---
Subjective - Date & Time of Evaluation Date of Evaluation: 01/13/17 Time of Evaluation: 15:40 - Subjective Subjective: ID Note- Pt. seen and examined today. She denies any fever or chills, denies any abd. pain. Objective - Vital Signs/Intake and Output Vital Signs (last 24 hours): Temp Pulse Resp BP Pulse Ox 97.8 F 57 L 18 101/60 99 01/13/17 17:00 01/13/17 17:00 01/13/17 17:00 01/13/17 17:00 01/13/17 17:00 Intake and Output: 01/13/17 01/13/17 06:59 18:59 Intake Total 350 Output Total 1050 Balance -700 - Medications Medications: Current Medications - Additional Findings Additional findings: - Constitutional Appears: No Acute Distress - Head Exam Head Exam: ATRAUMATIC - Eye Exam Eye Exam: EOMI - Neck Exam Neck exam: Positive for: Full Rom - Respiratory Exam Respiratory Exam: Clear to Auscultation Bilateral, NORMAL BREATHING PATTERN - Cardiovascular Exam Cardiovascular Exam: RRR, +S1, +S2 - GI/Abdominal Exam Additional comments: soft, +BS No tenderness colostomy bag half full of watery brown liquid ileostomy bag full of yellow fluid no surrounding erythema of the skin - Extremities Exam Additional comments: No edema in B/L LE - Neurological Exam Neurological exam: Alert, Oriented x 3 Lines- right chest life port in plcae ( as per pt. has been in place for past 6 months). Laboratory Results - last 72 hr 01/11/17 01/11/17 01/12/17 05:45 18:40 15:08 Sodium 136 Potassium 4.2 Chloride 108 H Carbon Dioxide 24 Anion Gap 8 L BUN 52 H Creatinine 2.1 H Est GFR ( Amer) 28 Est GFR (Non-Af Amer) 23 Random Glucose 77 Calcium 11.8 H Magnesium 1.9 Urine Color Yellow Urine Clarity Cloudy Urine pH 7.0 Ur Specific [place] 1.006 Urine Protein 30 Urine Glucose (UA) Neg Urine Ketones Negative Urine Blood Small Urine Nitrate Negative Urine Bilirubin Negative Urine Urobilinogen 0.2-1.0 Ur Leukocyte Esterase Large Urine RBC (Auto) 17 H Urine WBC Clumps (Auto) Many H Urine Microscopic WBC 471 H Urine Bacteria Occ H Urine Yeast (Budding) Many H C. difficile Ag & Toxin Negative Microbiology 01/11/17 18:30 Blood-Venous Blood Culture - Preliminary NO GROWTH AFTER 48 HOURS 01/10/17 11:59 Blood S.aureus & Coag-Neg Staph PNA FISH - Final 01/10/17 11:59 Blood Blood Culture - Final Vancomycin Resistant E.faecium 01/10/17 11:59 Blood Gram Stain - Final 01/11/17 23:23 Urine Urine Culture - Preliminary Gram Negative Rey 01/11/17 18:40 Blood-Venous S.aureus & Coag-Neg Staph PNA FISH - Preliminary 01/11/17 18:40 Blood-Venous Blood Culture - Preliminary Gram Positive Cocci 01/11/17 18:40 Blood-Venous Gram Stain - Final 01/10/17 12:00 Urine Urine Culture - Final 50-100,000 CFU/ML. MULTIPLE SPECIES. SUGGEST REPEAT SPECIMEM. Assessment and Plan (1) Bacteremia Status: Acute (2) Acute kidney injury Status: Acute (3) History of UTI Status: Acute (4) CKD (chronic kidney disease), stage III Status: Acute (5) S/P colostomy Status: Acute - Assessment and Plan (Free Text) Assessment: A/P- 71 year old female with h/o cervical ca s/p ctx and radiation and s/p both colostomy and Ileostomy with h/o CKD and UTI and enterobacter bactermia and c.diff who was admitted with AMS found to be hypercalcemic and prelim blood cx GPC in pairs. clinically stable remains afebrile. has normal wbc count blood cx reported today- VRE x 2 urine cx- GNR anna c.diff - neg x 1 plan- Continue with Linezolid. day #3. check 2 blood cx one from port and one peripherally. monitor platelets while on linezolid. If blood cx from port comes back as pos then port may need to be removed. continue with empiric flagyl.
--- NOTE | 2017-01-13 22:56 | PN ---
DATE: 01/13/2017 SUBJECTIVE: The patient is seen today, 01/13/2017. She is more alert, awake. PHYSICAL EXAMINATION: VITAL SIGNS: Blood pressure 101/ , temperature , respiratory rate , pulse 57. HEENT: Pupils equal, reactive to light. Normal-appearing mucosa of the conjunctivae, oropharyngeal and nasal membrane mucosa. NECK: Supple, no JVD, no carotid bruit, no lymph node, no thyromegaly. CHEST AND LUNGS: Bilateral symmetrical expansion, good air exchange, no rales, no rhonchi. CARDIOVASCULAR: PMI not localized. S1, S2. No additional sounds. ABDOMEN: Normoactive bowel sounds, no tenderness, no organomegaly, no masses. The patient has colos yisel and ileostomy in place. EXTREMITIES: No cyanosis, no clubbing, no edema. CENTRAL NERVOUS SYSTEM: Alert, awake, oriented x 2. Moves all extremities equally. ASSESSMENT: 1. Hypercalcemia. 2. Chronic kidney disease, stage III. 3. Cancer of cervix with radiation. 4. Status post colostomy and urine diversion to ileostomy. 5. bacteremia. PLAN: Follow ID recommendations. Continue current IV antibiotics. Greg Correa MD cc: [phone] TT: 01/13/2017 22:55:28 Confirmation # [id number] Dictation # [id number] mn
[2017-01-14 05:25] LABS: BASO % 0.4 % (0.0-2.0); EOS # 0.2 K/uL (0.0-0.7); EOS % 3.8 % (0.0-4.0); HEMATOCRIT 33.7 % (34.0-47.0); LYMPH # 1.1 K/uL (1.0-4.3); LYMPH % 19.4 % (20.0-40.0); MEAN CELL VOLUME 100.2 fl (81.0-99.0); MEAN CORPUSCULAR HEMOGLOBIN 32.8 pg (27.0-31.0); MEAN CORPUSCULAR HGB CONC 32.7 g/dL (33.0-37.0); MEAN PLATELET VOLUME 8.4 fl (7.2-11.7); MONO # 0.5 K/uL (0.0-0.8); MONO % 7.9 % (0.0-10.0); NEUT % 68.5 % (50.0-75.0); WHITE BLOOD COUNT 5.8 K/uL (4.8-10.8)
[2017-01-14] MEDS: Linezolid 600 mg in D5W 300 ml 600 MG/300 ML BAG IVPB SCH ×2 (08:32→21:23)
--- NOTE | 2017-01-14 10:34 | PQF GENQUE ---
Dr. Correa, Please clarify the underlying cause of patient's altered mental status and relate that cause to the alteration in mental status: if known Cardiac condition Electrolyte/metabolic imbalance Infectious process Neurologic condition Psychiatric condition Respiratory condition Other condition (please specify) OR: Unable to determine OR: Unknown ER MD note: Chief Complaint (Provider): "not sure" Associated Symptoms: Fever (home 100.1F), Chills, Confused, Trouble Thinking; Additional Complaint(s) : 71 yo F w PMHx CKD, urostomy, and colostomy presents to ER from TCU for r/o fever, dehydration, and one month h/o confusion. She is unaware as to why she has been transferred to ER, but son describes that he had mentioned the patient' s home temperature last night was 100.1. She states abdominal pain , but is unable to recall when it began, describe it's intensity or quality. Her son states her confusion has been slowly worsening over previous month, to point of her calling same person(s) several times within several minutes for the same request Clinical Impression: Hypercalcemia, Altered mental status ID consult: : admitted with AMS found to be hypercalcemic and prelim blood cx GPC in pairs. ;currently pt. is not septic ;is afebrile has normal wbc count is alert and oriented. does have foul smelling liquid from colostomy bag and hence advise to rule out recurrent c.diff. blood cx- prelim GPC in pairs plan- : await final ID adn sensitivity of GPC in pairs in blood cx could be enterococci. check repeat blood cx. start pt. on Linezolid 600 mg q12 pending ID and sensitivity of the blood cx. check Ua and urine cx result. check stool c.diff x 3 start Pt. empirically on oral flagyl ID: Assessment (1) Bacteremia Status: Acute (2) Acute kidney injury Status: Acute (3) History of UTI Status: Acute (4) CKD (chronic kidney disease), stage III Status: Acute (5) S/P colostomy Status: Acute urine culture: Klebsiella Pneumoniae Ssp Pneu This form is a permanent part of the medical record Clarification of your documentation is requested to better reflect the severity of illness and intensity of treatment of your patient. Indicators present [] Specify: [] [] Specify: [] [] Specify: [] [] Specify: [] Location in the medical record that reflects the above clinical findings: [] Treatment Provided: [] PHYSICIAN'S RESPONSE Based on your medical judgment of the clinical indicators outlined above please clarify the following: [] Practitioner response [] If unable to determine, please check the box, sign and date. Present On Admission (POA) Indicator: [] Present at the time of admission [] Not present at the time of admission [] Clinically Undetermined In responding to this query, please exercise your independent professional judgment. The fact that a question is asked does not imply that any particular answer is desired or expected. Thank you for your clarification on this documentation. If you have any questions please call. * Thank you, Lakia Gomez RN BSN ext. #[phone] MTDD
--- NOTE | 2017-01-14 10:41 | PQF GENQUE ---
Dr. Correa, Is there an associated diagnosis to go along with the BMI:15.4 :listed in the RD note? OR: Disagree OR:Other explanation of clinical finding OR: Unable to determine RD note:BMI 15.4: Underweight:monitor wt,labs, intake and skin EMR: BMI 15.4 5ft 4in 90lb Clarification of your documentation is requested to better reflect the severity of illness and intensity of treatment of your patient. Indicators present [] Specify: [] [] Specify: [] [] Specify: [] [] Specify: [] Location in the medical record that reflects the above clinical findings: [] Treatment Provided: [] PHYSICIAN'S RESPONSE Based on your medical judgment of the clinical indicators outlined above please clarify the following: [] Practitioner response [] If unable to determine, please check the box, sign and date. Present On Admission (POA) Indicator: [] Present at the time of admission [] Not present at the time of admission [] Clinically Undetermined In responding to this query, please exercise your independent professional judgment. The fact that a question is asked does not imply that any particular answer is desired or expected. Thank you for your clarification on this documentation. If you have any questions please call. * Thank you, Lakia Gomez RN BSN ext. #[phone] MTDD
[2017-01-14 12:15] LABS: POTASSIUM 3.9 MMOL/L (3.6-5.0)
[2017-01-14 12:18] LABS: CALCIUM 9.6 mg/dL (8.4-10.2)
[2017-01-14 12:38] LABS: BASO % 0.5 % (0.0-2.0); EOS # 0.2 K/uL (0.0-0.7); EOS % 2.7 % (0.0-4.0); LYMPH % 15.9 % (20.0-40.0); MEAN CELL VOLUME 99.5 fl (81.0-99.0); MEAN CORPUSCULAR HEMOGLOBIN 32.8 pg (27.0-31.0); MEAN PLATELET VOLUME 8.2 fl (7.2-11.7); MONO # 0.4 K/uL (0.0-0.8); MONO % 6.9 % (0.0-10.0); NEUT # 4.7 K/uL (1.8-7.0); NRBC % 0.1 % (0.0-0.0); RED CELL DISTRIBUTION WIDTH 13.8 % (11.5-14.5); WHITE BLOOD COUNT 6.4 K/uL (4.8-10.8)
[2017-01-14 13:06] LABS: CALCIUM 9.9 mg/dL (8.4-10.2); POTASSIUM 4.4 MMOL/L (3.6-5.0)
--- NOTE | 2017-01-14 13:08 | CP.PCM.PN ---
Subjective - Date & Time of Evaluation Date of Evaluation: 01/14/17 Time of Evaluation: 13:08 - Subjective Subjective: ID Note- Pt. seen and examined today. Denies any complaints. Objective - Vital Signs/Intake and Output Vital Signs (last 24 hours): Temp Pulse Resp BP Pulse Ox 97.3 F L 59 L 18 92/62 L 97 01/14/17 11:58 01/14/17 11:58 01/14/17 11:58 01/14/17 11:58 01/14/17 11:58 Intake and Output: 01/14/17 01/14/17 06:59 18:59 Intake Total 420 Output Total 955 Balance -535 - Medications Medications: Current Medications Apixaban (Eliquis) 2.5 mg PO BID [facility] PRN Reason: Protocol Last Admin: 01/14/17 08:30 Dose: 2.5 mg Escitalopram Oxalate (Lexapro) 10 mg PO DAILY [facility] Last Admin: 01/14/17 08:32 Dose: 10 mg Folic Acid (Folic Acid) 1 mg PO DAILY [facility] Last Admin: 01/14/17 08:31 Dose: 1 mg Linezolid (Zyvox 600mg/300ml D5w) 600 mg in 300 mls @ 300 mls/hr IVPB Q12 [facility] Last Admin: 01/14/17 08:32 Dose: 300 mls/hr Sodium Chloride (Sodium Chloride 0.9%) 1,000 mls @ 100 mls/hr IV .Q10H [facility] Stop: 01/15/17 12:57 Metronidazole (Flagyl) 500 mg PO Q8 [facility] Last Admin: 01/14/17 08:32 Dose: 500 mg Ondansetron HCl (Zofran Inj) 4 mg IVP Q6 PRN PRN Reason: Nausea/Vomiting - Labs Labs: - Additional Findings Additional findings: - Constitutional Appears: No Acute Distress - Head Exam Head Exam: ATRAUMATIC - Eye Exam Eye Exam: EOMI - Neck Exam Neck exam: Positive for: Full Rom - Respiratory Exam Respiratory Exam: Clear to Auscultation Bilateral, NORMAL BREATHING PATTERN - Cardiovascular Exam Cardiovascular Exam: RRR, +S1, +S2 - GI/Abdominal Exam Additional comments: soft, +BS No tenderness colostomy bag half full of watery brown liquid ileostomy bag full of yellow fluid no surrounding erythema of the skin - Extremities Exam Additional comments: No edema in B/L LE - Neurological Exam Neurological exam: Alert, Oriented x 3 Lines- right chest life port in plcae ( as per pt. has been in place for past 6 months). Laboratory Results - last 72 hr 01/11/17 01/12/17 01/14/17 18:40 15:08 04:45 WBC 5.8 RBC 3.37 L Hgb 11.0 L Hct 33.7 L MCV 100.2 H D MCH 32.8 H MCHC 32.7 L RDW 14.0 Plt Count 132 MPV 8.4 Neut % (Auto) 68.5 Lymph % (Auto) 19.4 L Webster % (Auto) 7.9 Eos % (Auto) 3.8 Baso % (Auto) 0.4 Neut # 4.0 Lymph # 1.1 Webster # 0.5 Eos # 0.2 Baso # 0.0 Sodium Potassium Chloride Carbon Dioxide Anion Gap BUN Creatinine Est GFR ( Amer) Est GFR (Non-Af Amer) Random Glucose Calcium Urine Color Yellow Urine Clarity Cloudy Urine pH 7.0 Ur Specific Armstrong 1.006 Urine Protein 30 Urine Glucose (UA) Neg Urine Ketones Negative Urine Blood Small Urine Nitrate Negative Urine Bilirubin Negative Urine Urobilinogen 0.2-1.0 Ur Leukocyte Esterase Large Urine RBC (Auto) 17 H Urine WBC Clumps (Auto) Many H Urine Microscopic WBC 471 H Urine Bacteria Occ H Urine Yeast (Budding) Many H C. difficile Ag & Toxin Negative 01/14/17 01/14/17 01/14/17 11:40 12:10 12:10 WBC 6.4 RBC 3.62 L Hgb 11.9 L Hct 36.0 MCV 99.5 H MCH 32.8 H MCHC 33.0 RDW 13.8 Plt Count 147 MPV 8.2 Neut % (Auto) 74.0 Lymph % (Auto) 15.9 L Webster % (Auto) 6.9 Eos % (Auto) 2.7 Baso % (Auto) 0.5 Neut # 4.7 Lymph # 1.0 Webster # 0.4 Eos # 0.2 Baso # 0.0 Sodium 133 136 Potassium 3.9 4.4 Chloride 108 H 112 H Carbon Dioxide 16 L 14 L Anion Gap 13 14 BUN 46 H 47 H Creatinine 2.7 H 2.7 H Est GFR ( Amer) 21 21 Est GFR (Non-Af Amer) 17 17 Random Glucose 140 H 75 Calcium 9.6 9.9 Urine Color Urine Clarity Urine pH Ur Specific Armstrong Urine Protein Urine Glucose (UA) Urine Ketones Urine Blood Urine Nitrate Urine Bilirubin Urine Urobilinogen Ur Leukocyte Esterase Urine RBC (Auto) Urine WBC Clumps (Auto) Urine Microscopic WBC Urine Bacteria Urine Yeast (Budding) C. difficile Ag & Toxin Microbiology 01/11/17 23:23 Urine Urine Culture - Final Klebsiella Pneumoniae Ssp Pneu 01/11/17 18:30 Blood-Venous Blood Culture - Preliminary NO GROWTH AFTER 48 HOURS 01/10/17 11:59 Blood S.aureus & Coag-Neg Staph PNA FISH - Final 01/10/17 11:59 Blood Blood Culture - Final Vancomycin Resistant E.faecium 01/10/17 11:59 Blood Gram Stain - Final 01/11/17 18:40 Blood-Venous S.aureus & Coag-Neg Staph PNA FISH - Preliminary 01/11/17 18:40 Blood-Venous Blood Culture - Preliminary Gram Positive Cocci 01/11/17 18:40 Blood-Venous Gram Stain - Final 01/10/17 12:00 Urine Urine Culture - Final 50-100,000 CFU/ML. MULTIPLE SPECIES. SUGGEST REPEAT SPECIMEM. Assessment and Plan (1) Bacteremia Status: Acute (2) Acute kidney injury Status: Acute (3) History of UTI Status: Acute (4) CKD (chronic kidney disease), stage III Status: Acute (5) S/P colostomy Status: Acute - Assessment and Plan (Free Text) Assessment: A/P- 71 year old female with h/o cervical ca s/p ctx and radiation and s/p both colostomy and Ileostomy with h/o CKD and UTI and enterobacter bactermia and c.diff who was admitted with AMS found to be hypercalcemic and prelim blood cx GPC in pairs. clinically stable remains afebrile. has normal wbc count blood cx reported today- VRE x 2 urine cx- Klebsiella pneumonia not ESBL anna c.diff - neg x 1 plan- Continue with Linezolid. day #4 for VRE bacteremia. await 2 repeat blood cx one from port and one peripherally. monitor platelets while on linezolid. If blood cx from port comes back as pos then port may need to be removed. continue with empiric flagyl. also start pt. on cefepime to treat the Klebsiella pneumonia UTI.
[2017-01-14] MEDS: Sodium Chloride 0.9% 1,000 ML IV SCH (14:00)
[2017-01-14] MEDS: Cefepime 1 GM in Sodium Chloride 0.9% 100 ML IVPB SCH (15:40)
[2017-01-14] MEDS ORDERED: Cefepime 1 GM in Sodium Chloride 0.9% 100 ML IVPB SCH (21:00)
--- NOTE | 2017-01-14 23:30 | PN ---
DATE: 01/14/2017 SUBJECTIVE: The patient is seen today 01/14/2017. She is more alert and awake. PHYSICAL EXAMINATION: VITAL SIGNS: Temperature is 96/59, temperature 98.5, respiratory rate 20, and pulse 65. HEENT: Pupils equal, reactive to light. Normal-appearing mucosa of the conjunctivae, oropharyngeal and nasal membrane mucosa. NECK: Supple, no JVD, no carotid bruit. No lymph node. No thyromegaly. CHEST AND LUNGS: Bilateral symmetrical expansion, good air exchange, no rales, no rhonchi. CARDIOVASCULAR: PMI not localized. S1, S2. No additional sounds. ABDOMEN: Normoactive bowel sounds, no tenderness, no organomegaly, no masses. The patient has a col ostomy and ileostomy bags are in place. EXTREMITIES: No cyanosis, no clubbing, no edema. CENTRAL NERVOUS SYSTEM: Alert, awake, oriented x 2. No neurological deficits could be appreciated. ASSESSMENT: 1. Hypercalcemia. 2. Chronic kidney disease stage III. 3. Anemia, multifactorial. 4. anion gap metabolic acidosis. PLAN: We will add sodium bicarbonate and continue current IV antibiotics as per infectious disease c onsultant. Greg Correa MD cc: [phone] TT: 01/14/2017 23:29:43 Confirmation # [id number] Dictation # [id number] mn
[2017-01-15] MEDS: Sodium Chloride 0.9% 1,000 ML IV SCH (00:45)
[2017-01-15 06:47] LABS: CALCIUM 9.1 mg/dL (8.4-10.2); POTASSIUM 3.7 MMOL/L (3.6-5.0)
[2017-01-15] MEDS: Linezolid 600 mg in D5W 300 ml 600 MG/300 ML BAG IVPB SCH ×2 (09:17→21:35)
[2017-01-15] MEDS: Cefepime 1 GM in Sodium Chloride 0.9% 100 ML IVPB SCH (10:52)
--- NOTE | 2017-01-15 11:15 | CP.PCM.PN ---
Subjective - Date & Time of Evaluation Date of Evaluation: 01/15/17 Time of Evaluation: 13:00 - Subjective Subjective: Id Note- Pt. seen and examined today. She denies any fever or chills, denies any abd. pain. is in good spirits. Objective - Vital Signs/Intake and Output Vital Signs (last 24 hours): Temp Pulse Resp BP Pulse Ox 97.6 F 52 L 20 97/62 L 98 01/15/17 08:00 01/15/17 08:00 01/15/17 08:00 01/15/17 08:00 01/15/17 08:00 Intake and Output: 01/15/17 01/15/17 06:59 18:59 Intake Total 1500 Output Total 2100 Balance -600 - Medications Medications: Current Medications Apixaban (Eliquis) 2.5 mg PO BID [facility] PRN Reason: Protocol Last Admin: 01/15/17 09:13 Dose: 2.5 mg Escitalopram Oxalate (Lexapro) 10 mg PO DAILY [facility] Last Admin: 01/15/17 09:15 Dose: 10 mg Folic Acid (Folic Acid) 1 mg PO DAILY [facility] Last Admin: 01/15/17 09:13 Dose: 1 mg Linezolid (Zyvox 600mg/300ml D5w) 600 mg in 300 mls @ 300 mls/hr IVPB Q12 [facility] Last Admin: 01/15/17 09:17 Dose: 300 mls/hr Sodium Chloride (Sodium Chloride 0.9%) 1,000 mls @ 100 mls/hr IV .Q10H [facility] Stop: 01/15/17 12:57 Last Admin: 01/15/17 00:45 Dose: 100 mls/hr Cefepime HCl 1 gm/ Sodium (Chloride) 100 mls @ 100 mls/hr IVPB DAILY [facility] Last Admin: 01/15/17 10:52 Dose: 100 mls/hr Metronidazole (Flagyl) 500 mg PO Q8 [facility] Last Admin: 01/15/17 09:13 Dose: 500 mg Ondansetron HCl (Zofran Inj) 4 mg IVP Q6 PRN PRN Reason: Nausea/Vomiting Sodium Bicarbonate (Sodium Bicarbonate Tab) 650 mg PO Q6 [facility] Last Admin: 01/15/17 09:15 Dose: 650 mg - Labs Labs: - Additional Findings Additional findings: - Constitutional Appears: No Acute Distress - Head Exam Head Exam: ATRAUMATIC - Eye Exam Eye Exam: EOMI - Neck Exam Neck exam: Positive for: Full Rom - Respiratory Exam Respiratory Exam: Clear to Auscultation Bilateral, NORMAL BREATHING PATTERN - Cardiovascular Exam Cardiovascular Exam: RRR, +S1, +S2 - GI/Abdominal Exam Additional comments: soft, +BS No tenderness colostomy bag half full of watery brown liquid ileostomy bag full of yellow fluid no surrounding erythema of the skin - Extremities Exam Additional comments: No edema in B/L LE - Neurological Exam Neurological exam: Alert, Oriented x 3 Lines- right chest life port in plcae ( as per pt. has been in place for past 6 months). Laboratory Results - last 72 hr 01/14/17 01/14/17 01/14/17 04:45 11:40 12:10 WBC 5.8 6.4 RBC 3.37 L 3.62 L Hgb 11.0 L 11.9 L Hct 33.7 L 36.0 MCV 100.2 H D 99.5 H MCH 32.8 H 32.8 H MCHC 32.7 L 33.0 RDW 14.0 13.8 Plt Count 132 147 MPV 8.4 8.2 Neut % (Auto) 68.5 74.0 Lymph % (Auto) 19.4 L 15.9 L Gove % (Auto) 7.9 6.9 Eos % (Auto) 3.8 2.7 Baso % (Auto) 0.4 0.5 Neut # 4.0 4.7 Lymph # 1.1 1.0 Gove # 0.5 0.4 Eos # 0.2 0.2 Baso # 0.0 0.0 Sodium 133 Potassium 3.9 Chloride 108 H Carbon Dioxide 16 L Anion Gap 13 BUN 46 H Creatinine 2.7 H Est GFR ( Amer) 21 Est GFR (Non-Af Amer) 17 Random Glucose 140 H Calcium 9.6 01/14/17 01/15/17 12:10 05:30 WBC RBC Hgb Hct MCV MCH MCHC RDW Plt Count MPV Neut % (Auto) Lymph % (Auto) Gove % (Auto) Eos % (Auto) Baso % (Auto) Neut # Lymph # Gove # Eos # Baso # Sodium 136 140 Potassium 4.4 3.7 Chloride 112 H 114 H Carbon Dioxide 14 L 15 L Anion Gap 14 15 BUN 47 H 47 H Creatinine 2.7 H 3.1 H Est GFR ( Amer) 21 18 Est GFR (Non-Af Amer) 17 15 Random Glucose 75 74 Calcium 9.9 9.1 Microbiology 01/13/17 15:30 Blood-Venous S.aureus & Coag-Neg Staph PNA FISH - Final 01/13/17 15:30 Blood-Venous Blood Culture - Preliminary Gram Positive Cocci 01/13/17 15:30 Blood-Venous Gram Stain - Final 01/11/17 18:40 Blood-Venous S.aureus & Coag-Neg Staph PNA FISH - Final 01/11/17 18:40 Blood-Venous Blood Culture - Final Vancomycin Resistant E.faecium 01/11/17 18:40 Blood-Venous Gram Stain - Final 01/11/17 18:30 Blood-Venous Blood Culture - Preliminary NO GROWTH AFTER 3 DAYS 01/13/17 16:05 Blood-Thru Central Line Blood Culture - Preliminary NO GROWTH AFTER 24 HOURS 01/11/17 23:23 Urine Urine Culture - Final Klebsiella Pneumoniae Ssp Pneu 01/10/17 11:59 Blood S.aureus & Coag-Neg Staph PNA FISH - Final 01/10/17 11:59 Blood Blood Culture - Final Vancomycin Resistant E.faecium 01/10/17 11:59 Blood Gram Stain - Final 01/10/17 12:00 Urine Urine Culture - Final 50-100,000 CFU/ML. MULTIPLE SPECIES. SUGGEST REPEAT SPECIMEM. Assessment and Plan (1) Bacteremia Status: Acute (2) Acute kidney injury Status: Acute (3) History of UTI Status: Acute (4) CKD (chronic kidney disease), stage III Status: Acute (5) S/P colostomy Status: Chronic - Assessment and Plan (Free Text) Assessment: A/P- 71 year old female with h/o cervical ca s/p ctx and radiation and s/p both colostomy and Ileostomy with h/o CKD and UTI and enterobacter bactermia and c.diff who was admitted with AMS found to be hypercalcemic and prelim blood cx GPC in pairs. clinically stable remains afebrile. has normal wbc count blood cx reported today- VRE x 2 urine cx- Klebsiella pneumonia not ESBL anna c.diff - neg x 1 repeat blood cx- from peripheral - pos VRE from port- negative plan- Continue with Linezolid. day #5 for VRE bacteremia. monitor platelets while on linezolid. If blood cx from port comes back as pos then port may need to be removed. continue with empiric flagyl. continue with cefepime to treat the Klebsiella pneumonia UTI. day #2. check echo r/o any vegetations in light of VRE bacteremia.
[2017-01-15] MEDS ORDERED: Sodium Bicarbonate 8.4% 50 MEQ in Dextrose 5%/0.9% NS 1,000 ML IV SCH ×2 (11:45→12:45)
--- NOTE | 2017-01-15 12:47 | CP.PCM.CON ---
History of Present Illness - History of Present Illness History of Present Illness: This patient who is 71 years old, I was called to see her for abnormal electrolytes and abnormal kidney function. This patient known to me previously from previous admission was multitude of medical problem. Patient had past medical history related to cervical CVA and status post radiation and chemotherapy around 2004. Then patient did have abdominal hysterectomy and bilateral oophorectomy on or around 2006. Her also on 2004 this patient has what appeared to be ureterostomy and ileal a conduit and also cholesterol mating. Patient complaining of a lot of diarrhea and the last time as discussed with the primary care physician patient was come in as outpatient to receive intravenous fluid with sodium bicarbonate twice in the last time she had that infusion this past Saturday. Past medical and surgical history as above cervical CVA with chemoirradiation ileostomy and colostomy and chronic electrolyte imbalance and abnormal kidney function intermittently was recurrent dehydration and recurrent metabolic acidosis. Patient was seen by a urologist in [place] and the nothing specific to be done. Review of Systems - Constitutional Constitutional: As Per HPI - Cardiovascular Cardiovascular: absent: Chest Pain - Respiratory Respiratory: absent: Dyspnea - Gastrointestinal Gastrointestinal: As Per HPI, Abdominal Pain, Bloating - Genitourinary Genitourinary: As Per HPI - Musculoskeletal Musculoskeletal: Muscle Weakness - Neurological Neurological: As Per HPI, Abnormal Gait Past Patient History - Infectious Disease Hx of Infectious Diseases: None - Past Medical History & Family History Past Medical History?: Yes - Past Social History Smoking Status: Former Smoker Home Situation {Lives}: With Family - CARDIAC Hx Cardiac Disorders: No - PULMONARY Hx Respiratory Disorders: No - NEUROLOGICAL Hx Neurological Disorder: No - HEENT Hx HEENT Problems: Yes Hx Cataracts: Yes (milan 2012) - RENAL Hx Chronic Kidney Disease: Yes Hx Dialysis: No Other/Comment: urostomy - ENDOCRINE/METABOLIC Hx Endocrine Disorders: No Other/Comment: DEHYDRATION - HEMATOLOGICAL/ONCOLOGICAL Hx Human Immunodeficiency Virus (HIV): No - INTEGUMENTARY Hx Dermatological Problems: No - MUSCULOSKELETAL/RHEUMATOLOGICAL Hx Musculoskeletal Disorders: No Hx Falls: No - GASTROINTESTINAL Hx Gastrointestinal Disorders: Yes Other/Comment: Ileostomy - GENITOURINARY/GYNECOLOGICAL Hx Genitourinary Disorders: Yes Hx Cervical Cancer: Yes - PSYCHIATRIC Hx Psychophysiologic Disorder: Yes Hx Depression: Yes Hx Substance Use: No - SURGICAL HISTORY Hx Surgeries: Yes Hx Hysterectomy: Yes Hx Joint Replacement: Yes (Right hip replacement) Hx Vascular Access Device: Yes (Right s/c Portacath) Other/Comment: Left Urostomy - ANESTHESIA Hx Anesthesia: Yes Hx Anesthesia Reactions: No Hx Malignant Hyperthermia: No Meds Allergies/Adverse Reactions: Allergies Allergy/AdvReac Type Severity Reaction Status Date / Time ciprofloxacin [From Cipro] Allergy RASH Verified 12/25/16 11:16 ciprofloxacin HCl Allergy RASH Verified 12/25/16 11:16 [From Cipro] vancomycin Allergy RASH Verified 12/25/16 11:16 - Medications Medications: Current Medications Apixaban (Eliquis) 2.5 mg PO BID [facility] PRN Reason: Protocol Last Admin: 01/15/17 09:13 Dose: 2.5 mg Escitalopram Oxalate (Lexapro) 10 mg PO DAILY [facility] Last Admin: 01/15/17 09:15 Dose: 10 mg Folic Acid (Folic Acid) 1 mg PO DAILY [facility] Last Admin: 01/15/17 09:13 Dose: 1 mg Linezolid (Zyvox 600mg/300ml D5w) 600 mg in 300 mls @ 300 mls/hr IVPB Q12 [facility] Last Admin: 01/15/17 09:17 Dose: 300 mls/hr Cefepime HCl 1 gm/ Sodium (Chloride) 100 mls @ 100 mls/hr IVPB DAILY [facility] Last Admin: 01/15/17 10:52 Dose: 100 mls/hr Sodium Bicarbonate 50 meq/ (Dextrose/Sodium Chloride) 1,050 mls @ 100 mls/min IV .Q11M [facility] Stop: 01/15/17 12:55 Metronidazole (Flagyl) 500 mg PO Q8 [facility] Last Admin: 01/15/17 09:13 Dose: 500 mg Ondansetron HCl (Zofran Inj) 4 mg IVP Q6 PRN PRN Reason: Nausea/Vomiting Sodium Bicarbonate (Sodium Bicarbonate Tab) 650 mg PO Q6 [facility] Last Admin: 01/15/17 09:15 Dose: 650 mg Physical Exam - Constitutional Appears: No Acute Distress, Cachectic - ENT Exam ENT Exam: Mucous Membranes Dry - Respiratory Exam Respiratory Exam: NORMAL BREATHING PATTERN. absent: Chest Wall Tenderness - Cardiovascular Exam Cardiovascular Exam: REGULAR RHYTHM. absent: Rubs - GI/Abdominal Exam GI & Abdominal Exam: Normal Bowel Sounds - Extremities Exam Extremities exam: Negative for: calf tenderness - Back Exam Back exam: absent: CVA tenderness (L), CVA tenderness (R) - Neurological Exam Neurological exam: Alert Results - Vital Signs Recent Vital Signs: Last Vital Signs Temp 97.6 F 01/15/17 08:00 Pulse 52 L 01/15/17 08:00 Resp 20 01/15/17 08:00 BP 97/62 L 01/15/17 08:00 Pulse Ox 98 01/15/17 08:00 - Labs Result Diagrams: 01/14/17 12:10 01/15/17 05:30 Labs: Laboratory Results - last 24 hr 01/14/17 01/15/17 12:10 05:30 Sodium 136 140 Potassium 4.4 3.7 Chloride 112 H 114 H Carbon Dioxide 14 L 15 L Anion Gap 14 15 BUN 47 H 47 H Creatinine 2.7 H 3.1 H Est GFR ( Amer) 21 18 Est GFR (Non-Af Amer) 17 15 Random Glucose 75 74 Calcium 9.9 9.1 Assessment & Plan (1) Hypercalcemia Status: Acute (2) Acute kidney injury Assessment and Plan: Patient appeared to have acute kidney injury superimposed on chronic kidney disease perhaps his stage III in addition patient has chronic metabolic acidosis chronic dehydration secondary to severe diarrhea and ileostomy patient has been receiving intravenous infusion with sodium bicarbonate as outpatient twice a week. For now we will continue IV D5 half-normal saline with 1 amp of sodium bicarbonate at 100 mL/h Monitor serum magnesium at present it's normal 1.9 Metabolic acidosis with hyperchloremic near-normal Anion gap consistent perhaps with renal tubular acidosis. Continue hydration we will monitor the kidney function closely Patient did have previously about 6 month ago ultrasound which was consistent with bilateral hydronephrosis we might have to repeat renal ultrasound if not done in the recent past. To get serum phosphorus level and PTH Status: Acute (3) Dehydration Status: Acute (4) S/P colostomy Status: Chronic (5) S/P ileostomy Status: Chronic
--- NOTE | 2017-01-15 23:38 | PN ---
DATE: 01/15/2017 SUBJECTIVE: This patient is seen today at, 01/15/2017. She is not in any cardiopulmonary distress. PHYSICAL EXAMINATION: VITAL SIGNS: Blood pressure 197/60, temperature 97.6, respiratory rate 18 and pulse 58. HEENT: Pupils equal, reactive to light. Normal-appearing mucosa of the conjunctivae, oropharyngeal and nasal membrane mucosa. NECK: Supple, no JVD, no carotid bruit, no lymph node, no thyromegaly. CHEST AND LUNGS: Bilateral symmetrical expansion. Good air exchange. No rales. No rhonchi. CARDIOVASCULAR: PMI not localized. S1, S2. No additional sounds. ABDOMEN: Colostomy and ileostomy bags in place. Positive bowel sounds. EXTREMITIES: No cyanosis, no clubbing, no edema. CENTRAL NERVOUS SYSTEM: Alert, awake, oriented x 2 and moves all extremities equally. ASSESSMENT: 1. VRE bacteremia. 2. Urinary tract infection. 3. Status post hypercalcemia. 4. Chronic kidney disease, stage III, which has been worsening recently. PLAN: Continue IV fluid, renal consultation and follow the recommendations. Continue current antibi otics as per ID. Greg Correa MD cc: [id number] TT: 01/15/2017 23:37:12 Confirmation # [id number] Dictation # [id number]
[2017-01-16 05:48] LABS: CALCIUM 8.4 mg/dL (8.4-10.2); POTASSIUM 3.3 MMOL/L (3.6-5.0)
[2017-01-16] MEDS: Linezolid 600 mg in D5W 300 ml 600 MG/300 ML BAG IVPB SCH ×2 (08:51→20:36)
[2017-01-16] MEDS: Cefepime 1 GM in Sodium Chloride 0.9% 100 ML IVPB SCH (08:52)
--- NOTE | 2017-01-16 09:16 | CP.PCM.PN ---
Subjective - Date & Time of Evaluation Date of Evaluation: 01/16/17 Time of Evaluation: 09:14 - Subjective Subjective: Patient sitting got been bed awake she is taken have breakfast Patient continued to complain of a lot of diarrhea. Objective - Vital Signs/Intake and Output Vital Signs (last 24 hours): Temp Pulse Resp BP Pulse Ox 97.8 F 54 L 20 94/56 L 99 01/16/17 08:00 01/16/17 08:00 01/16/17 08:00 01/16/17 08:00 01/16/17 08:00 - Medications Medications: Current Medications Apixaban (Eliquis) 2.5 mg PO BID [facility] PRN Reason: Protocol Last Admin: 01/16/17 08:52 Dose: 2.5 mg Escitalopram Oxalate (Lexapro) 10 mg PO DAILY [facility] Last Admin: 01/16/17 08:52 Dose: 10 mg Folic Acid (Folic Acid) 1 mg PO DAILY [facility] Last Admin: 01/16/17 08:52 Dose: 1 mg Linezolid (Zyvox 600mg/300ml D5w) 600 mg in 300 mls @ 300 mls/hr IVPB Q12 [facility] Last Admin: 01/16/17 08:51 Dose: 300 mls/hr Cefepime HCl 1 gm/ Sodium (Chloride) 100 mls @ 100 mls/hr IVPB DAILY [facility] Last Admin: 01/16/17 08:52 Dose: 100 mls/hr Sodium Bicarbonate 50 meq/ (Dextrose/Sodium Chloride) 1,050 mls @ 80 mls/hr IV .Q13H8M [facility] Stop: 01/17/17 08:32 Metronidazole (Flagyl) 500 mg PO Q8 [facility] Last Admin: 01/16/17 08:52 Dose: 500 mg Ondansetron HCl (Zofran Inj) 4 mg IVP Q6 PRN PRN Reason: Nausea/Vomiting Potassium Chloride (K-Dur 20 Meq Er Tab) 20 meq PO BID [facility] Sodium Bicarbonate (Sodium Bicarbonate Tab) 650 mg PO Q6 [facility] Last Admin: 01/16/17 08:59 Dose: 650 mg - Labs Labs: 01/14/17 12:10 01/16/17 04:30 - Constitutional Appears: No Acute Distress - ENT Exam ENT Exam: Mucous Membranes Dry - Respiratory Exam Respiratory Exam: NORMAL BREATHING PATTERN - Cardiovascular Exam Cardiovascular Exam: REGULAR RHYTHM. absent: Rubs - Extremities Exam Extremities Exam: absent: Calf Tenderness - Back Exam Back Exam: absent: CVA tenderness (L), CVA tenderness (R) - Neurological Exam Neurological Exam: Alert Assessment and Plan (1) Hypercalcemia Status: Acute (2) Acute kidney injury Assessment & Plan: Patient appeared to have acute kidney injury superimposed on chronic kidney disease perhaps his stage III in addition patient has chronic metabolic acidosis chronic dehydration secondary to severe diarrhea and ileostomy Serum bicarbonate still low around 16 continue intravenous D5 and half-normal saline and sodium bicarbonate I discussed with the nurse at the bedside to continue with the IV fluid as ordered. Also serum potassium low or other potassium chloride has been given however we will consider intravenous of potassium chloride hypocalcemia corrected continue to monitor repeat serum magnesium Status: Acute (3) Dehydration Status: Acute (4) S/P colostomy Status: Chronic (5) S/P ileostomy Status: Chronic
[2017-01-16] MEDS ORDERED: Magnesium Sulfate 2 gm/50 ml 2 GM/50 ML BAG IVPB ONE (10:41)
[2017-01-16] MEDS: Sodium Bicarbonate 8.4% 50 MEQ in Dextrose 5%/0.45% NS 1,000 ML IV SCH (10:54)
[2017-01-16] MEDS: Potassium Chloride 20 mEq ER Tab PO SCH ×2 (10:55→16:17)
--- NOTE | 2017-01-16 19:00 | PN ---
DATE: 01/16/2017 SUBJECTIVE: The patient is seen today, 01/16/2017. PHYSICAL EXAMINATION: GENERAL: She is not in any cardiopulmonary distress. VITAL SIGNS:. Blood pressure is 102/64, temperature 98.0, respiratory rate , pulse 58. HEENT: Pupils equal, reactive to light. Normal-appearing mucosa of the conjunctivae, oropharyngeal and nasal membrane mucosa. NECK: Supple, no JVD, no carotid bruit, no lymph node, no thyromegaly. CHEST AND LUNGS: Bilateral symmetrical expansion, good air exchange, no rales, no rhonchi. CARDIOVASCULAR: PMI not localized. S1, S2. No additional sounds. ABDOMEN: Normoactive bowel sounds, no tenderness, no organomegaly, no masses. EXTREMITIES: No cyanosis, no clubbing, no edema. CENTRAL NERVOUS SYSTEM: Alert, awake, oriented x 2. No neurological deficits could be appreciated. ASSESSMENT: 1. Vancomycin-resistant bacteremia. 2. Urinary tract infection. 3. Acute on chronic kidney disease with metabolic acidosis. PLAN: Continue IV fluid with sodium bicarb, continue current IV antibiotics as per ID. [facility] Catherine Correa MD cc: [phone] TT: 01/16/2017 19:00:12 Confirmation # [id number] Dictation # [id number]
[2017-01-17] MEDS: Sodium Bicarbonate 8.4% 50 MEQ in Dextrose 5%/0.45% NS 1,000 ML IV SCH (05:33)
[2017-01-17 08:36] LABS: CALCIUM 8.3 mg/dL (8.4-10.2); MAGNESIUM 1.6 MG/DL (1.6-2.3); POTASSIUM 3.7 MMOL/L (3.6-5.0)
[2017-01-17] MEDS: Potassium Chloride 20 mEq ER Tab PO SCH ×2 (09:22→17:04)
[2017-01-17] MEDS: Cefepime 1 GM in Sodium Chloride 0.9% 100 ML IVPB SCH (09:23)
[2017-01-17] MEDS: Linezolid 600 mg in D5W 300 ml 600 MG/300 ML BAG IVPB SCH ×2 (09:25→21:00)
--- NOTE | 2017-01-17 10:42 | CP.PCM.PN ---
Subjective - Date & Time of Evaluation Date of Evaluation: 01/17/17 Time of Evaluation: 10:41 - Subjective Subjective: Patient appeared to be comfortable continued to have diarrhea Serum sodium corrected Serum chloride is still elevated as noted CO2 improving up to 18 Continue D5 and half-normal saline with sodium bicarbonate Kidney function is still elevated consistent with acute kidney injury superimposed on chronic kidney disease perhaps his stage IV apportioning stage V. We will continue to monitor Objective - Vital Signs/Intake and Output Vital Signs (last 24 hours): Temp Pulse Resp BP Pulse Ox 97.6 F 54 L 20 111/72 99 01/17/17 08:00 01/17/17 08:00 01/17/17 08:00 01/17/17 08:00 01/17/17 08:00 - Medications Medications: Current Medications Apixaban (Eliquis) 2.5 mg PO BID [facility] PRN Reason: Protocol Last Admin: 01/17/17 09:21 Dose: 2.5 mg Escitalopram Oxalate (Lexapro) 10 mg PO DAILY [facility] Last Admin: 01/17/17 09:23 Dose: 10 mg Folic Acid (Folic Acid) 1 mg PO DAILY [facility] Last Admin: 01/17/17 09:22 Dose: 1 mg Linezolid (Zyvox 600mg/300ml D5w) 600 mg in 300 mls @ 300 mls/hr IVPB Q12 [facility] Last Admin: 01/17/17 09:25 Dose: 300 mls/hr Cefepime HCl 1 gm/ Sodium (Chloride) 100 mls @ 100 mls/hr IVPB DAILY [facility] Last Admin: 01/17/17 09:23 Dose: 100 mls/hr Metronidazole (Flagyl) 500 mg PO Q8 [facility] Last Admin: 01/17/17 09:22 Dose: 500 mg Ondansetron HCl (Zofran Inj) 4 mg IVP Q6 PRN PRN Reason: Nausea/Vomiting Last Admin: 01/16/17 10:54 Dose: 4 mg Potassium Chloride (K-Dur 20 Meq Er Tab) 20 meq PO BID [facility] Last Admin: 01/17/17 09:22 Dose: 20 meq Sodium Bicarbonate (Sodium Bicarbonate Tab) 650 mg PO Q6 [facility] Last Admin: 01/17/17 09:24 Dose: 650 mg - Labs Labs: 01/14/17 12:10 01/17/17 06:30 Assessment and Plan (1) Hypercalcemia Status: Acute (2) Acute kidney injury Status: Acute (3) Dehydration Status: Acute (4) S/P colostomy Status: Chronic (5) S/P ileostomy Status: Chronic
--- NOTE | 2017-01-17 10:55 | PN ---
DATE: 01/17/2017 The patient is seen today, 01/17/2017. She is not in any cardiopulmonary distress. The patient is s till on IV antibiotics. PHYSICAL EXAMINATION: VITAL SIGNS: Blood pressure is 111/72, temperature 97.6, respiratory rate 20, and pulse 54. HEENT: Pupils equal, reactive to light. Normal-appearing mucosa of the conjunctivae, oropharyngeal, nasal membrane mucosa. NECK: Supple, no JVD, no carotid bruit, no lymph node, no thyromegaly. CHEST AND LUNGS: Bilateral expansion, good air exchange, no rales, no rhonchi. CARDIOVASCULAR: PMI not localized. S1, S2. No additional sounds. ABDOMEN: Normoactive bowel sounds, no tenderness, no organomegaly, no masses. EXTREMITIES: No cyanosis, no clubbing, no edema. CENTRAL NERVOUS SYSTEM: Alert, awake, oriented x 3. No neurological deficits could be appreciated. ASSESSMENT: 1. Bacteremia. 2. Urinary tract infection. 3. Acute on chronic kidney disease. 4. Hypomagnesemia. PLAN: Continue current IV fluid and antibiotics as per applications systems analyst and ID and follow the recommenda tions. The patient is also for echocardiogram today as per infectious disease reimbursement consultant. Greg Correa MD cc: [phone] TT: 01/17/2017 10:55:24 Confirmation # [id number] Dictation # [id number]
--- NOTE | 2017-01-17 11:55 | CP.PCM.PN ---
Subjective - Date & Time of Evaluation Date of Evaluation: 01/17/17 Time of Evaluation: 11:55 - Subjective Subjective: Id Note- Pt. seen and examined today. denies any complaints. denies any fever or chills. Objective - Vital Signs/Intake and Output Vital Signs (last 24 hours): Temp Pulse Resp BP Pulse Ox 97.6 F 54 L 20 111/72 99 01/17/17 08:00 01/17/17 08:00 01/17/17 08:00 01/17/17 08:00 01/17/17 08:00 - Medications Medications: Current Medications Apixaban (Eliquis) 2.5 mg PO BID [facility] PRN Reason: Protocol Last Admin: 01/17/17 09:21 Dose: 2.5 mg Escitalopram Oxalate (Lexapro) 10 mg PO DAILY [facility] Last Admin: 01/17/17 09:23 Dose: 10 mg Folic Acid (Folic Acid) 1 mg PO DAILY [facility] Last Admin: 01/17/17 09:22 Dose: 1 mg Linezolid (Zyvox 600mg/300ml D5w) 600 mg in 300 mls @ 300 mls/hr IVPB Q12 [facility] Last Admin: 01/17/17 09:25 Dose: 300 mls/hr Cefepime HCl 1 gm/ Sodium (Chloride) 100 mls @ 100 mls/hr IVPB DAILY [facility] Last Admin: 01/17/17 09:23 Dose: 100 mls/hr Metronidazole (Flagyl) 500 mg PO Q8 [facility] Last Admin: 01/17/17 09:22 Dose: 500 mg Ondansetron HCl (Zofran Inj) 4 mg IVP Q6 PRN PRN Reason: Nausea/Vomiting Last Admin: 01/16/17 10:54 Dose: 4 mg Potassium Chloride (K-Dur 20 Meq Er Tab) 20 meq PO BID [facility] Last Admin: 01/17/17 09:22 Dose: 20 meq Sodium Bicarbonate (Sodium Bicarbonate Tab) 650 mg PO Q6 [facility] Last Admin: 01/17/17 09:24 Dose: 650 mg - Labs Labs: - Additional Findings Additional findings: - Constitutional Appears: No Acute Distress - Head Exam Head Exam: ATRAUMATIC - Eye Exam Eye Exam: EOMI - Neck Exam Neck exam: Positive for: Full Rom - Respiratory Exam Respiratory Exam: Clear to Auscultation Bilateral, NORMAL BREATHING PATTERN - Cardiovascular Exam Cardiovascular Exam: RRR, +S1, +S2 - GI/Abdominal Exam Additional comments: soft, +BS No tenderness colostomy bag half full of watery brown liquid ileostomy bag full of yellow fluid no surrounding erythema of the skin - Extremities Exam Additional comments: No edema in B/L LE - Neurological Exam Neurological exam: Alert, Oriented x 3 Lines- right chest life port in place ( as per pt. has been in place for past 6 months). Laboratory Results - last 72 hr 01/14/17 01/15/17 01/16/17 12:10 05:30 04:30 Sodium 136 140 141 Potassium 4.4 3.7 3.3 L Chloride 112 H 114 H 114 H Carbon Dioxide 14 L 15 L 16 L Anion Gap 14 15 14 BUN 47 H 47 H 41 H Creatinine 2.7 H 3.1 H 3.0 H Est GFR ( Amer) 21 18 19 Est GFR (Non-Af Amer) 17 15 15 Random Glucose 75 74 74 Calcium 9.9 9.1 8.4 Magnesium 01/16/17 01/17/17 09:51 06:30 Sodium 140 Potassium 3.7 Chloride 112 H Carbon Dioxide 18 L Anion Gap 14 BUN 37 H Creatinine 3.0 H Est GFR ( Amer) 19 Est GFR (Non-Af Amer) 15 Random Glucose 84 Calcium 8.3 L Magnesium 0.9 L* D 1.6 Microbiology 01/11/17 18:30 Blood-Venous Blood Culture - Final NO GROWTH AFTER 5 DAYS 01/11/17 18:30 Blood-Venous Gram Stain - Final TEST NOT PERFORMED 01/13/17 16:05 Blood-Thru Central Line Blood Culture - Preliminary NO GROWTH AFTER 3 DAYS 01/13/17 15:30 Blood-Venous S.aureus & Coag-Neg Staph PNA FISH - Final 01/13/17 15:30 Blood-Venous Blood Culture - Final Coagulase Neg Staphylococcus 01/13/17 15:30 Blood-Venous Gram Stain - Final 01/11/17 18:40 Blood-Venous S.aureus & Coag-Neg Staph PNA FISH - Final 01/11/17 18:40 Blood-Venous Blood Culture - Final Vancomycin Resistant E.faecium 01/11/17 18:40 Blood-Venous Gram Stain - Final 01/11/17 23:23 Urine Urine Culture - Final Klebsiella Pneumoniae Ssp Pneu 01/10/17 11:59 Blood S.aureus & Coag-Neg Staph PNA FISH - Final 01/10/17 11:59 Blood Blood Culture - Final Vancomycin Resistant E.faecium 01/10/17 11:59 Blood Gram Stain - Final 01/10/17 12:00 Urine Urine Culture - Final 50-100,000 CFU/ML. MULTIPLE SPECIES. SUGGEST REPEAT SPECIMEM. Assessment and Plan (1) Bacteremia Status: Acute (2) Acute kidney injury Status: Acute (3) History of UTI Status: Acute (4) CKD (chronic kidney disease), stage III Status: Acute (5) S/P colostomy Status: Chronic - Assessment and Plan (Free Text) Assessment: A/P- 71 year old female with h/o cervical ca s/p ctx and radiation and s/p both colostomy and Ileostomy with h/o CKD and UTI and enterobacter bactermia and c.diff who was admitted with AMS found to be hypercalcemic and prelim blood cx GPC in pairs. clinically stable remains afebrile. has normal wbc count blood cx reported today- VRE x 2 urine cx- Klebsiella pneumonia not ESBL anna c.diff - neg x 1 repeat blood cx- one is coag neg staph peripheral blood cx blood cx from port- negative plan- Continue with Linezolid. day #6 for VRE bacteremia and would treat the coag neg staph as well. could be contaminant the coag neg staph. repeat 2 more blood cx. monitor platelets while on linezolid. If blood cx from port comes back as pos then port may need to be removed. continue with empiric flagyl. also start pt. on cefepime to treat the Klebsiella pneumonia UTI. day #3. await echo report r/o vegetations.
--- NOTE | 2017-01-17 23:09 | CARD ---
APPROVED REPORT EXAM: Two-dimensional and M-mode echocardiogram with Doppler and color Doppler. Other Information Quality : GoodRhythm : NSR INDICATION Infection:Subacute bacterial endocarditis 2D DIMENSIONS IVSd1.19 (0.7-1.1cm)LVDd4.45 (3.9-5.9cm) PWd0.92 (0.7-1.1cm)IVSs1.13 (0.8-1.2cm) LVDs2.76 (2.5-4.0cm)FS (%) 38.0 % PWs1.01 (0.8-1.2cm)LVEF (%)55.0 (>50%) M-Mode DIMENSIONS Left Atrium (MM)2.53 (2.5-4.0cm)Aortic Root2.82 (2.2-3.7cm) Aortic Cusp Exc.1.88 (1.5-2.0cm) Mitral Valve MV E Dohrdien70.4cm/sMV DECEL [id number] A Terecjjw00.1cm/s MV [id number] ratio1.0MVA (PHT)3.30cm2 TDI Lateral E' Peak V11.33cm/sMedial E' Peak V10.10cm/sE/Lateral E'7.2 E/Medial E'8.1 Tricuspid Valve TR Peak [id number]/sRAP [id number] Peak Gr.15mmHg [id number] LEFT VENTRICLE The left ventricle is normal size. There is normal left ventricular wall thickness. The left ventricular function is normal. The left ventricular ejection fraction is within the normal range. There is normal LV segmental wall motion. Transmitral Doppler flow pattern is Grade I-abnormal relaxation pattern. RIGHT VENTRICLE The right ventricle is normal size. There is normal right ventricular wall thickness. The right ventricular systolic function is normal. ATRIA The left atrium size is normal. The right atrium size is normal. AORTIC VALVE The aortic valve is not well visualized. No aortic regurgitation is present. There is no aortic valvular stenosis. MITRAL VALVE The mitral valve is moderately thickened, no mitral vegitation seen There is no mitral valve stenosis. Mitral regurgitation is trace. TRICUSPID VALVE The tricuspid valve is normal in structure and function. There is no tricuspid valve regurgitation noted. PULMONIC VALVE The pulmonary valve is normal in structure and function. There is no pulmonic valvular regurgitation. GREAT VESSELS The aortic root is normal in size. The IVC was not visualized. PERICARDIAL EFFUSION The pericardium appears normal. <Conclusion> The left ventricle is normal size. There is normal left ventricular wall thickness. The left ventricular function is normal. The left ventricular ejection fraction is within the normal range. There is normal LV segmental wall motion. Transmitral Doppler flow pattern is Grade I-abnormal relaxation pattern. The aortic valve is not well visualized. The mitral valve is moderately thickened, no mitral vegitation seen
[2017-01-18 07:08] LABS: BASO % 0.6 % (0.0-2.0); EOS # 0.2 K/uL (0.0-0.7); EOS % 2.9 % (0.0-4.0); HEMATOCRIT 32.5 % (34.0-47.0); LYMPH % 12.5 % (20.0-40.0); MEAN CELL VOLUME 99.6 fl (81.0-99.0); MEAN CORPUSCULAR HEMOGLOBIN 32.4 pg (27.0-31.0); MEAN CORPUSCULAR HGB CONC 32.6 g/dL (33.0-37.0); MEAN PLATELET VOLUME 8.1 fl (7.2-11.7); MONO # 0.4 K/uL (0.0-0.8); MONO % 5.3 % (0.0-10.0); NEUT # 6.4 K/uL (1.8-7.0); NEUT % 78.7 % (50.0-75.0); NRBC % 0.1 % (0.0-0.0); RED CELL DISTRIBUTION WIDTH 13.7 % (11.5-14.5); WHITE BLOOD COUNT 8.2 K/uL (4.8-10.8)
[2017-01-18] MEDS: Potassium Chloride 20 mEq ER Tab PO SCH ×2 (09:17→16:46)
[2017-01-18] MEDS: Cefepime 1 GM in Sodium Chloride 0.9% 100 ML IVPB SCH (09:19)
[2017-01-18] MEDS: Linezolid 600 mg in D5W 300 ml 600 MG/300 ML BAG IVPB SCH ×2 (09:20→21:08)
--- NOTE | 2017-01-18 12:53 | CP.PCM.PN ---
Subjective - Date & Time of Evaluation Date of Evaluation: 01/18/17 Time of Evaluation: 12:50 - Subjective Subjective: Patient appeared to be comfortable although still complaining of chronic diarrhea Serum creatinine is still around 3.0 consistent with the same chronic kidney disease Serum bicarbonate improving And electrolyte improving except of chloride is still high Then patient and plan history as above cervical CA with chemoirradiation ileostomy and colostomy and chronic electrolyte imbalance With a chronic metabolic acidosis continue intravenous with sodium bicarbonate as ordered Objective - Vital Signs/Intake and Output Vital Signs (last 24 hours): Temp Pulse Resp BP Pulse Ox 97.7 F 61 20 101/64 98 01/18/17 08:33 01/18/17 08:33 01/18/17 08:33 01/18/17 08:33 01/18/17 08:33 - Medications Medications: Current Medications Acetaminophen (Tylenol 325mg Tab) 650 mg PO Q6 PRN PRN Reason: Headache Last Admin: 01/17/17 23:45 Dose: 650 mg Escitalopram Oxalate (Lexapro) 10 mg PO DAILY [facility] Last Admin: 01/18/17 09:17 Dose: 10 mg Folic Acid (Folic Acid) 1 mg PO DAILY [facility] Last Admin: 01/18/17 09:17 Dose: 1 mg Linezolid (Zyvox 600mg/300ml D5w) 600 mg in 300 mls @ 300 mls/hr IVPB Q12 [facility] Last Admin: 01/18/17 09:20 Dose: 300 mls/hr Cefepime HCl 1 gm/ Sodium (Chloride) 100 mls @ 100 mls/hr IVPB DAILY [facility] Last Admin: 01/18/17 09:19 Dose: 100 mls/hr Metronidazole (Flagyl) 500 mg PO Q8 [facility] Last Admin: 01/18/17 09:17 Dose: 500 mg Ondansetron HCl (Zofran Inj) 4 mg IVP Q6 PRN PRN Reason: Nausea/Vomiting Last Admin: 01/16/17 10:54 Dose: 4 mg Potassium Chloride (K-Dur 20 Meq Er Tab) 20 meq PO BID [facility] Last Admin: 01/18/17 09:17 Dose: 20 meq Sodium Bicarbonate (Sodium Bicarbonate Tab) 650 mg PO Q6 [facility] Last Admin: 01/18/17 09:17 Dose: 650 mg - Labs Labs: 01/18/17 06:30 01/17/17 06:30 Assessment and Plan (1) Hypercalcemia Status: Acute (2) Acute kidney injury Status: Acute (3) Dehydration Status: Acute (4) S/P colostomy Status: Chronic (5) S/P ileostomy Status: Chronic
[2017-01-18 13:01] LABS: POTASSIUM 3.8 MMOL/L (3.6-5.0)
--- NOTE | 2017-01-18 13:32 | CP.PCM.PN ---
Subjective - Date & Time of Evaluation Date of Evaluation: 01/18/17 Time of Evaluation: 13:32 - Subjective Subjective: ID Note- Pt. seen and examined today. denies any complaints. Objective - Vital Signs/Intake and Output Vital Signs (last 24 hours): Temp Pulse Resp BP Pulse Ox 97.7 F 61 20 101/64 98 01/18/17 08:33 01/18/17 08:33 01/18/17 08:33 01/18/17 08:33 01/18/17 08:33 - Medications Medications: Current Medications Acetaminophen (Tylenol 325mg Tab) 650 mg PO Q6 PRN PRN Reason: Headache Last Admin: 01/17/17 23:45 Dose: 650 mg Escitalopram Oxalate (Lexapro) 10 mg PO DAILY [facility] Last Admin: 01/18/17 09:17 Dose: 10 mg Folic Acid (Folic Acid) 1 mg PO DAILY [facility] Last Admin: 01/18/17 09:17 Dose: 1 mg Linezolid (Zyvox 600mg/300ml D5w) 600 mg in 300 mls @ 300 mls/hr IVPB Q12 [facility] Last Admin: 01/18/17 09:20 Dose: 300 mls/hr Cefepime HCl 1 gm/ Sodium (Chloride) 100 mls @ 100 mls/hr IVPB DAILY [facility] Last Admin: 01/18/17 09:19 Dose: 100 mls/hr Metronidazole (Flagyl) 500 mg PO Q8 [facility] Last Admin: 01/18/17 09:17 Dose: 500 mg Ondansetron HCl (Zofran Inj) 4 mg IVP Q6 PRN PRN Reason: Nausea/Vomiting Last Admin: 01/16/17 10:54 Dose: 4 mg Potassium Chloride (K-Dur 20 Meq Er Tab) 20 meq PO BID [facility] Last Admin: 01/18/17 09:17 Dose: 20 meq Sodium Bicarbonate (Sodium Bicarbonate Tab) 650 mg PO Q6 [facility] Last Admin: 01/18/17 09:17 Dose: 650 mg - Labs Labs: - Additional Findings Additional findings: - Constitutional Appears: No Acute Distress - Head Exam Head Exam: ATRAUMATIC - Eye Exam Eye Exam: EOMI - Neck Exam Neck exam: Positive for: Full Rom - Respiratory Exam Respiratory Exam: Clear to Auscultation Bilateral, NORMAL BREATHING PATTERN - Cardiovascular Exam Cardiovascular Exam: RRR, +S1, +S2 - GI/Abdominal Exam Additional comments: soft, +BS No tenderness colostomy bag half full of watery brown liquid ileostomy bag full of yellow fluid no surrounding erythema of the skin - Extremities Exam Additional comments: No edema in B/L LE - Neurological Exam Neurological exam: Alert, Oriented x 3 Lines- right chest life port in place ( as per pt. has been in place for past 6 months). No erythema, no tenderness Laboratory Results - last 72 hr 01/16/17 01/16/17 01/17/17 04:30 09:51 06:30 WBC RBC Hgb Hct MCV MCH MCHC RDW Plt Count MPV Neut % (Auto) Lymph % (Auto) [place] % (Auto) Eos % (Auto) Baso % (Auto) Neut # Lymph # [place] # Eos # Baso # Sodium 141 140 Potassium 3.3 L 3.7 Chloride 114 H 112 H Carbon Dioxide 16 L 18 L Anion Gap 14 14 BUN 41 H 37 H Creatinine 3.0 H 3.0 H Est GFR ( Amer) 19 19 Est GFR (Non-Af Amer) 15 15 Random Glucose 74 84 Calcium 8.4 8.3 L Magnesium 0.9 L* D 1.6 01/18/17 01/18/17 06:30 11:05 WBC 8.2 RBC 3.26 L Hgb 10.6 L Hct 32.5 L MCV 99.6 H MCH 32.4 H MCHC 32.6 L RDW 13.7 Plt Count 135 MPV 8.1 Neut % (Auto) 78.7 H Lymph % (Auto) 12.5 L [place] % (Auto) 5.3 Eos % (Auto) 2.9 Baso % (Auto) 0.6 Neut # 6.4 Lymph # 1.0 [place] # 0.4 Eos # 0.2 Baso # 0.0 Sodium 139 Potassium 3.8 Chloride 111 H Carbon Dioxide 16 L Anion Gap 16 BUN 33 H Creatinine 2.8 H Est GFR ( Amer) 20 Est GFR (Non-Af Amer) 17 Random Glucose 97 Calcium 8.0 L Magnesium Microbiology 01/17/17 14:55 Blood-Venous Blood Culture - Preliminary NO GROWTH AFTER 24 HOURS 01/17/17 14:40 Blood-Venous Blood Culture - Preliminary NO GROWTH AFTER 24 HOURS 01/17/17 14:30 Blood-Thru Central Line Blood Culture - Preliminary NO GROWTH AFTER 24 HOURS 01/13/17 16:05 Blood-Thru Central Line Blood Culture - Preliminary NO GROWTH AFTER 4 DAYS 01/11/17 18:30 Blood-Venous Blood Culture - Final NO GROWTH AFTER 5 DAYS 01/11/17 18:30 Blood-Venous Gram Stain - Final TEST NOT PERFORMED 01/13/17 15:30 Blood-Venous S.aureus & Coag-Neg Staph PNA FISH - Final 01/13/17 15:30 Blood-Venous Blood Culture - Final Coagulase Neg Staphylococcus 01/13/17 15:30 Blood-Venous Gram Stain - Final 01/11/17 18:40 Blood-Venous S.aureus & Coag-Neg Staph PNA FISH - Final 01/11/17 18:40 Blood-Venous Blood Culture - Final Vancomycin Resistant E.faecium 01/11/17 18:40 Blood-Venous Gram Stain - Final 01/11/17 23:23 Urine Urine Culture - Final Klebsiella Pneumoniae Ssp Pneu 01/10/17 11:59 Blood S.aureus & Coag-Neg Staph PNA FISH - Final 01/10/17 11:59 Blood Blood Culture - Final Vancomycin Resistant E.faecium 01/10/17 11:59 Blood Gram Stain - Final 01/10/17 12:00 Urine Urine Culture - Final 50-100,000 CFU/ML. MULTIPLE SPECIES. SUGGEST REPEAT SPECIMEM. Assessment and Plan (1) Bacteremia Status: Acute (2) Acute kidney injury Status: Acute (3) History of UTI Status: Acute (4) CKD (chronic kidney disease), stage III Status: Acute (5) S/P colostomy Status: Chronic - Assessment and Plan (Free Text) Assessment: A/P- 71 year old female with h/o cervical ca s/p ctx and radiation and s/p both colostomy and Ileostomy with h/o CKD and UTI and enterobacter bactermia and c.diff who was admitted with AMS found to be hypercalcemic and prelim blood cx GPC in pairs. clinically stable remains afebrile. has normal wbc count initial blood cx - VRE x 2 urine cx- Klebsiella pneumonia not ESBL anna c.diff - neg x 1 repeat blood cx- one is coag neg staph peripheral blood cx blood cx from port- negative repeat blood cx from 01/17/2017- neg x 3 one from port and 2 from peripheral blood TTE- no vegetation as per report read by chemical mixer. plan- Continue with Linezolid. day #7 for VRE bacteremia and would treat the coag neg staph as well. could be contaminant the coag neg staph. repeat blood cx from both peripheral and port negative. monitor platelets while on linezolid. advise 2 more week of abx for the bacteremia. If blood cx from port comes back as pos then port may need to be removed. continue with empiric flagyl. also continue with cefepime to treat the Klebsiella pneumonia UTI. day #4 advise 6 more days of abx for the UTI. abx can be done as outpatient once pt. is deemed stable for discharge.
--- NOTE | 2017-01-18 20:41 | PN ---
DATE: 01/18/2017 SUBJECTIVE: The patient is seen today 10/18/2016. The patient is not in . PHYSICAL EXAMINATION: VITAL SIGNS: Blood pressure 117/75, temperature 98.5, respiratory rate 20, and pulse is 61. HEENT: Pupils equal, reactive to light. Normal-appearing mucosa of the conjunctivae, oropharyngeal and nasal membrane mucosa. NECK: Supple, no JVD, no carotid bruit, no lymph node, no thyromegaly. CHEST AND LUNGS: Bilateral symmetrical expansion, good air exchange, no rales, no rhonchi. CARDIOVASCULAR: PMI not localized. S1, S2. No additional sounds. ABDOMEN: Normoactive bowel sounds. The colostomy and ileostomy bag in place. EXTREMITIES: No cyanosis, no clubbing, no edema. CENTRAL NERVOUS SYSTEM: Alert, awake, oriented x 3. No neurological deficits could be appreciated. ASSESSMENT: 1. Vancomycin-resistant enterococcus bacteremia. 2. Urinary tract infection. 3. Gdpdx-jk-nmesezz kidney disease. PLAN: Continue current IV antibiotics as per ID and continue IV fluid hydration and follow recommend ations of both infectious disease and regional office coordinator. I will be away until Monday 01/22. Dr. Chris Quintero will be covering for me. Greg Correa MD cc: [phone] TT: 01/18/2017 20:41:42 Confirmation # [id number] Dictation # [id number] dn
[2017-01-19] MEDS: Potassium Chloride 20 mEq ER Tab PO SCH ×2 (09:32→17:04)
[2017-01-19] MEDS: Cefepime 1 GM in Sodium Chloride 0.9% 100 ML IVPB SCH (09:33)
[2017-01-19] MEDS: Linezolid 600 mg in D5W 300 ml 600 MG/300 ML BAG IVPB SCH ×2 (09:35→20:48)
--- NOTE | 2017-01-19 09:42 | PN ---
DATE: 01/19/2017 The patient seen and examined. The patient seen for Dr. Correa while he is away. The patient is not able to provide informative history or review of systems. The patient remains in progressive care un it on telemetry monitoring. The patient with vancomycin-resistant bacteremia, urinary tract infectio n, renal insufficiency. No specific issues reported by nursing staff. PHYSICAL EXAMINATION: GENERAL: The patient is in no acute distress. VITAL SIGNS: Temperature 98.3, pulse 65, respiration 18, blood pressure 110/72. HEENT: Pupils reacting to light. HEART: S1, S2 normal, regular. LUNGS: Good bilateral air exchange. ABDOMEN: Soft, nontender. EXTREMITIES: No edema, no calf swelling, no tenderness. No acute ischemia. CENTRAL NERVOUS SYSTEM: Essentially unchanged. DIAGNOSTIC DATA: Available diagnostic data reviewed. Telemetry monitoring does not reveal significa nt arrhythmias. WBC 8, hemoglobin 10.6, hematocrit 32.5, platelet 135. Sodium 139, potassium 3.8, c hloride 111, bicarb 16, BUN 33, creatinine 2.8. Infectious disease and nephrology consult and follow up noted and appreciated. Overall, patient's general medical condition is essentially the same. PLAN: As ordered. Chris Quintero MD cc: [id number] TT: 01/19/2017 09:42:05 Confirmation # [id number] Dictation # [id number] tn
--- NOTE | 2017-01-19 22:38 | CP.PCM.PN ---
Subjective - Date & Time of Evaluation Date of Evaluation: 01/19/17 Time of Evaluation: 14:00 - Subjective Subjective: no events overnight Objective - Vital Signs/Intake and Output Vital Signs (last 24 hours): Temp Pulse Resp BP Pulse Ox 98.7 F 70 20 111/73 97 01/19/17 17:00 01/19/17 17:00 01/19/17 17:00 01/19/17 17:00 01/19/17 17:00 - Medications Medications: Current Medications Acetaminophen (Tylenol 325mg Tab) 650 mg PO Q6 PRN PRN Reason: Headache Last Admin: 01/17/17 23:45 Dose: 650 mg Apixaban (Eliquis) 2.5 mg PO BID@0900,2100 [facility] PRN Reason: Protocol Last Admin: 01/19/17 20:51 Dose: 2.5 mg Escitalopram Oxalate (Lexapro) 10 mg PO DAILY [facility] Last Admin: 01/19/17 09:32 Dose: 10 mg Folic Acid (Folic Acid) 1 mg PO DAILY [facility] Last Admin: 01/19/17 09:32 Dose: 1 mg Linezolid (Zyvox 600mg/300ml D5w) 600 mg in 300 mls @ 300 mls/hr IVPB Q12 [facility] Last Admin: 01/19/17 20:48 Dose: 300 mls/hr Metronidazole (Flagyl) 500 mg PO Q8 [facility] Last Admin: 01/19/17 17:04 Dose: 500 mg Ondansetron HCl (Zofran Inj) 4 mg IVP Q6 PRN PRN Reason: Nausea/Vomiting Last Admin: 01/19/17 04:22 Dose: 4 mg Potassium Chloride (K-Dur 20 Meq Er Tab) 20 meq PO BID [facility] Last Admin: 01/19/17 17:04 Dose: 20 meq Sodium Bicarbonate (Sodium Bicarbonate Tab) 650 mg PO Q6 [facility] Last Admin: 01/19/17 22:35 Dose: 650 mg - Labs Labs: 01/18/17 06:30 01/18/17 11:05 - Constitutional Appears: Non-toxic, Chronically Ill - Head Exam Head Exam: NORMAL INSPECTION - Eye Exam Eye Exam: Normal appearance - ENT Exam ENT Exam: Mucous Membranes Moist - Neck Exam Neck Exam: Normal Inspection - Respiratory Exam Respiratory Exam: NORMAL BREATHING PATTERN - Cardiovascular Exam Cardiovascular Exam: +S1, +S2 - GI/Abdominal Exam GI & Abdominal Exam: Soft - Extremities Exam Extremities Exam: Normal Inspection - Neurological Exam Neurological Exam: Alert, Awake, Oriented x3 Assessment and Plan - Assessment and Plan (Free Text) Plan: ckd stage 4/chronic diarrhea/acidosis cr stable acidosis sec to ckd and diarrhea: she has been switched to oral bicarb by primary team, monitor levels closely non oliguric
--- NOTE | 2017-01-20 08:19 | PN ---
DATE: 01/20/2017 The patient seen and examined. Interim events noted. The patient seen for Dr. Correa while he is annalisa y. The patient feels better. No chest pain, no shortness of breath, no dizziness. PHYSICAL EXAMINATION: GENERAL: The patient is in no acute distress. VITAL SIGNS: Stable. HEART: S1, S2 normal, regular. LUNGS: Good bilateral air exchange. ABDOMEN: Soft, nontender. EXTREMITIES: No calf swelling, no tenderness, no acute ischemia. CENTRAL NERVOUS SYSTEM: Essentially unchanged. DIAGNOSTIC DATA: Available diagnostic data reviewed. Nephrology consult noted and appreciated. The patient is now transferred to regular floor. Overall, patient is clinically stable. PLAN: As ordered. Chris Quintero MD cc: [id number] TT: 01/20/2017 08:18:03 Confirmation # [id number] Dictation # [id number]
[2017-01-20] MEDS: Potassium Chloride 20 mEq ER Tab PO SCH ×2 (08:54→16:23)
[2017-01-20] MEDS: Linezolid 600 mg in D5W 300 ml 600 MG/300 ML BAG IVPB SCH ×2 (10:16→21:34)
[2017-01-20 10:52] LABS: MEAN CELL VOLUME 99.3 fl (81.0-99.0); MEAN CORPUSCULAR HEMOGLOBIN 32.7 pg (27.0-31.0); MEAN CORPUSCULAR HGB CONC 32.9 g/dL (33.0-37.0); RED CELL DISTRIBUTION WIDTH 14.3 % (11.5-14.5)
[2017-01-20 11:05] LABS: BILIRUBIN,TOTAL 0.6 mg/dl (0.2-1.3); CALCIUM 8.8 mg/dL (8.4-10.2); POTASSIUM 4.5 MMOL/L (3.6-5.0); TOTAL PROTEIN 8.4 G/DL (6.3-8.2)
[2017-01-21 06:15] LABS: HEMATOCRIT 40.4 % (34.0-47.0); MEAN CELL VOLUME 98.4 fl (81.0-99.0); MEAN CORPUSCULAR HEMOGLOBIN 32.7 pg (27.0-31.0); MEAN CORPUSCULAR HGB CONC 33.2 g/dL (33.0-37.0); RED CELL DISTRIBUTION WIDTH 14.2 % (11.5-14.5); WHITE BLOOD COUNT 11.2 K/uL (4.8-10.8)
[2017-01-21 06:32] LABS: ALB/GLOB RATIO 1.1 (1.0-2.1); BILIRUBIN,TOTAL 0.5 mg/dl (0.2-1.3); CALCIUM 8.7 mg/dL (8.4-10.2); POTASSIUM 3.9 MMOL/L (3.6-5.0); TOTAL PROTEIN 8.2 G/DL (6.3-8.2)
[2017-01-21] MEDS: Linezolid 600 mg in D5W 300 ml 600 MG/300 ML BAG IVPB SCH (08:33)
[2017-01-21] MEDS: Potassium Chloride 20 mEq ER Tab PO SCH (08:34)
[2017-01-21] MEDS ORDERED: Cefepime 1 GM in Sodium Chloride 0.9% 100 ML IVPB SCH (09:00)
[2017-01-21 09:01] VITALS: BP 101/66; RESP 20; TEMP 99
--- NOTE | 2017-01-21 10:57 | CP.PCM.PN ---
Subjective - Date & Time of Evaluation Date of Evaluation: 01/21/17 Time of Evaluation: 10:55 - Subjective Subjective: Patient and bed no significant changes Patient is chronically ill and debilitated Continue to have a chronic diarrhea Sodium bicarbonate dropping down again Plan Restart the IV D5 and half-normal saline with 1 amp of sodium bicarbonate at 80 mL/h Again metabolic acidosis was worsening kidney function chronic renal failure with superimposed element of prerenal I discussed with the patient for the possibility of dialysis in the future perhaps Objective - Vital Signs/Intake and Output Vital Signs (last 24 hours): Temp Pulse Resp BP Pulse Ox 99 F 80 20 101/66 98 01/21/17 09:01 01/21/17 09:01 01/21/17 09:01 01/21/17 09:01 01/21/17 09:01 - Medications Medications: Current Medications Acetaminophen (Tylenol 325mg Tab) 650 mg PO Q6 PRN PRN Reason: Headache Last Admin: 01/17/17 23:45 Dose: 650 mg Apixaban (Eliquis) 2.5 mg PO BID@0900,2100 [facility] PRN Reason: Protocol Last Admin: 01/21/17 08:34 Dose: 2.5 mg Escitalopram Oxalate (Lexapro) 10 mg PO DAILY [facility] Last Admin: 01/21/17 08:34 Dose: 10 mg Folic Acid (Folic Acid) 1 mg PO DAILY [facility] Last Admin: 01/21/17 08:34 Dose: 1 mg Linezolid (Zyvox 600mg/300ml D5w) 600 mg in 300 mls @ 300 mls/hr IVPB Q12 [facility] Last Admin: 01/21/17 08:33 Dose: 300 mls/hr Cefepime HCl 1 gm/ Sodium (Chloride) 100 mls @ 100 mls/hr IVPB DAILY [facility] Metronidazole (Flagyl) 500 mg PO Q8 [facility] Last Admin: 01/21/17 08:34 Dose: 500 mg Ondansetron HCl (Zofran Inj) 4 mg IVP Q6 PRN PRN Reason: Nausea/Vomiting Last Admin: 01/21/17 01:44 Dose: 4 mg Potassium Chloride (K-Dur 20 Meq Er Tab) 20 meq PO BID [facility] Last Admin: 01/21/17 08:34 Dose: 20 meq Sodium Bicarbonate (Sodium Bicarbonate Tab) 650 mg PO Q6 [facility] Last Admin: 01/21/17 10:35 Dose: 650 mg - Labs Labs: 01/21/17 05:00 01/21/17 05:00 - Constitutional Appears: No Acute Distress - ENT Exam ENT Exam: Mucous Membranes Dry - Respiratory Exam Respiratory Exam: NORMAL BREATHING PATTERN. absent: Chest Wall Tenderness - GI/Abdominal Exam GI & Abdominal Exam: Guarding - Extremities Exam Extremities Exam: absent: Calf Tenderness - Back Exam Back Exam: absent: CVA tenderness (L), CVA tenderness (R) - Neurological Exam Neurological Exam: Alert Assessment and Plan (1) Hypercalcemia Status: Acute (2) Acute kidney injury Status: Acute (3) Dehydration Status: Acute (4) S/P colostomy Status: Chronic (5) S/P ileostomy Status: Chronic
[2017-01-21] MEDS ORDERED: SODIUM BICARBONATE IV SCH ×2 (12:15)
[2017-01-21] MEDS ORDERED: DEXTROSE IV SCH ×2 (12:15)
[2017-01-21] MEDS ORDERED: [UNRECOGNIZED DRUG - OTHER] IV SCH (12:15)
[2017-01-21] MEDS ORDERED: SODIUM CHLORIDE IV SCH (12:15)
--- NOTE | 2017-01-21 13:44 | CP.PCM.PN ---
Subjective - Date & Time of Evaluation Date of Evaluation: 01/21/17 Time of Evaluation: 13:43 - Subjective Subjective: ID Note- Pt. seen and examined today. Pt. in good spirits and denies any complaints. as per P[employer] OPERATOR pt. going to TCU today for IV hydration and to complete her abx therapy. Objective - Vital Signs/Intake and Output Vital Signs (last 24 hours): Temp Pulse Resp BP Pulse Ox 99 F 80 20 101/66 98 01/21/17 09:01 01/21/17 09:01 01/21/17 09:01 01/21/17 09:01 01/21/17 09:01 - Medications Medications: Current Medications Acetaminophen (Tylenol 325mg Tab) 650 mg PO Q6 PRN PRN Reason: Headache Last Admin: 01/17/17 23:45 Dose: 650 mg Apixaban (Eliquis) 2.5 mg PO BID@0900,2100 [facility] PRN Reason: Protocol Last Admin: 01/21/17 08:34 Dose: 2.5 mg Escitalopram Oxalate (Lexapro) 10 mg PO DAILY [facility] Last Admin: 01/21/17 08:34 Dose: 10 mg Folic Acid (Folic Acid) 1 mg PO DAILY [facility] Last Admin: 01/21/17 08:34 Dose: 1 mg Linezolid (Zyvox 600mg/300ml D5w) 600 mg in 300 mls @ 300 mls/hr IVPB Q12 [facility] Last Admin: 01/21/17 08:33 Dose: 300 mls/hr Cefepime HCl 1 gm/ Sodium (Chloride) 100 mls @ 100 mls/hr IVPB DAILY [facility] Last Admin: 01/21/17 11:45 Dose: 100 mls/hr Sodium Bicarbonate 44.6 meq/ (Dextrose/Sodium Chloride) 1,050 mls @ 80 mls/hr IV .Q13H8M [facility] Stop: 01/23/17 03:37 Metronidazole (Flagyl) 500 mg PO Q8 [facility] Last Admin: 01/21/17 08:34 Dose: 500 mg Ondansetron HCl (Zofran Inj) 4 mg IVP Q6 PRN PRN Reason: Nausea/Vomiting Last Admin: 01/21/17 01:44 Dose: 4 mg Potassium Chloride (K-Dur 20 Meq Er Tab) 20 meq PO BID [facility] Last Admin: 01/21/17 08:34 Dose: 20 meq Sodium Bicarbonate (Sodium Bicarbonate Tab) 650 mg PO Q6 [facility] Last Admin: 01/21/17 10:35 Dose: 650 mg - Labs Labs: - Additional Findings Additional findings: - Constitutional Appears: No Acute Distress - Head Exam Head Exam: ATRAUMATIC - Eye Exam Eye Exam: EOMI - Neck Exam Neck exam: Positive for: Full Rom - Respiratory Exam Respiratory Exam: Clear to Auscultation Bilateral, NORMAL BREATHING PATTERN - Cardiovascular Exam Cardiovascular Exam: RRR, +S1, +S2 - GI/Abdominal Exam Additional comments: soft, +BS No tenderness colostomy bag full of watery brown liquid ileostomy bag full of yellow fluid no surrounding erythema of the skin - Extremities Exam Additional comments: No edema in B/L LE - Neurological Exam Neurological exam: Alert, Oriented x 3 Lines- right chest life port in place ( as per pt. has been in place for past 6 months). No erythema, no tenderness Laboratory Results - last 72 hr 01/18/17 01/20/17 01/20/17 11:05 10:30 10:30 WBC 10.0 RBC 3.72 L Hgb 12.2 Hct 37.0 MCV 99.3 H MCH 32.7 H MCHC 32.9 L RDW 14.3 Plt Count 133 Sodium 139 140 Potassium 3.8 4.5 Chloride 111 H 109 H Carbon Dioxide 16 L 16 L Anion Gap 16 20 BUN 33 H 40 H Creatinine 2.8 H 3.3 H Est GFR ( Amer) 20 17 Est GFR (Non-Af Amer) 17 14 Random Glucose 97 86 Calcium 8.0 L 8.8 Total Bilirubin 0.6 AST 22 ALT 38 Alkaline Phosphatase 54 Total Protein 8.4 H Albumin 4.2 Globulin 4.2 H Albumin/Globulin Ratio 1.0 01/21/17 01/21/17 05:00 05:00 WBC 11.2 H RBC 4.10 Hgb 13.4 Hct 40.4 MCV 98.4 MCH 32.7 H MCHC 33.2 RDW 14.2 Plt Count 146 Sodium 139 Potassium 3.9 Chloride 111 H Carbon Dioxide 13 L Anion Gap 19 BUN 43 H Creatinine 3.4 H Est GFR ( Amer) 16 Est GFR (Non-Af Amer) 13 Random Glucose 97 Calcium 8.7 Total Bilirubin 0.5 AST 16 ALT 34 Alkaline Phosphatase 56 Total Protein 8.2 Albumin 4.2 Globulin 4.0 H Albumin/Globulin Ratio 1.1 Microbiology 01/17/17 14:55 Blood-Venous Blood Culture - Preliminary NO GROWTH AFTER 3 DAYS 01/17/17 14:40 Blood-Venous Blood Culture - Preliminary NO GROWTH AFTER 3 DAYS 01/17/17 14:30 Blood-Thru Central Line Blood Culture - Preliminary NO GROWTH AFTER 3 DAYS 01/13/17 16:05 Blood-Thru Central Line Blood Culture - Final NO GROWTH AFTER 5 DAYS 01/13/17 16:05 Blood-Thru Central Line Gram Stain - Final TEST NOT PERFORMED 01/11/17 18:30 Blood-Venous Blood Culture - Final NO GROWTH AFTER 5 DAYS 01/11/17 18:30 Blood-Venous Gram Stain - Final TEST NOT PERFORMED 01/13/17 15:30 Blood-Venous S.aureus & Coag-Neg Staph PNA FISH - Final 01/13/17 15:30 Blood-Venous Blood Culture - Final Coagulase Neg Staphylococcus 01/13/17 15:30 Blood-Venous Gram Stain - Final 01/11/17 18:40 Blood-Venous S.aureus & Coag-Neg Staph PNA FISH - Final 01/11/17 18:40 Blood-Venous Blood Culture - Final Vancomycin Resistant E.faecium 01/11/17 18:40 Blood-Venous Gram Stain - Final 01/11/17 23:23 Urine Urine Culture - Final Klebsiella Pneumoniae Ssp Pneu 01/10/17 11:59 Blood S.aureus & Coag-Neg Staph PNA FISH - Final 01/10/17 11:59 Blood Blood Culture - Final Vancomycin Resistant E.faecium 01/10/17 11:59 Blood Gram Stain - Final 01/10/17 12:00 Urine Urine Culture - Final 50-100,000 CFU/ML. MULTIPLE SPECIES. SUGGEST REPEAT SPECIMEM. Assessment and Plan (1) Bacteremia Status: Acute (2) Acute kidney injury Status: Acute (3) History of UTI Status: Acute (4) CKD (chronic kidney disease), stage III Status: Acute (5) S/P colostomy Status: Chronic - Assessment and Plan (Free Text) Assessment: A/P- 71 year old female with h/o cervical ca s/p ctx and radiation and s/p both colostomy and Ileostomy with h/o CKD and UTI and enterobacter bactermia and c.diff who was admitted with AMS found to be hypercalcemic and prelim blood cx GPC in pairs. clinically stable remains afebrile. slight leukocytosis today. initial blood cx - VRE x 2 urine cx- Klebsiella pneumonia not ESBL anna c.diff - neg x 1 repeat blood cx- one is coag neg staph blood cx from port- negative x2 repeat blood cx from 01/17/2017- neg x 3 one from port and 2 from peripheral blood TTE- no vegetation as per report read by dermatology specialist. plan- Continue with Linezolid. day #10 for VRE bacteremia and would treat the coag neg staph as well. could be contaminant the coag neg staph. repeat blood cx from both peripheral and port negative. monitor platelets while on linezolid. advise 10 more days of abx for the bacteremia. after 7 more days of IV linezolid can be switched to oral linezolid for another 3 days. continue with empiric flagyl. also continue with cefepime to treat the Klebsiella pneumonia UTI. day #7 advise 3 more days of abx for the UTI. check another stool c.diff today. All above d/w Pt and with Cardiac Rehab Nurse Meghan.
[2017-01-21 14:04] VITALS: PULSE 76; O2SAT 99
== END 2017-01-21 15:30 | DRG 683 ==
LOC: H.ER 10:38 → H.ERHOLD 13:15 → H.TEL 14:56 → OBSVTOIN 01-11 11:23 → H.TEL 01-12 05:20 → H.MEDSURG1 01-19 18:30
PROVIDERS: ADMIT Internal Medicine; ATTEND Internal Medicine
DX: N17.9 Acute kidney failure, unspecified (principal); E87.2 Acidosis; N39.0 Urinary tract infection, site not specified; B96.1 Klebsiella pneumoniae [K. pneumoniae] as the cause of diseases classified elsewhere; Z68.1 Body mass index [BMI] 19.9 or less, adult; E86.0 Dehydration; E83.52 Hypercalcemia; N18.3 Chronic kidney disease, stage 3 (moderate); K52.9 Noninfective gastroenteritis and colitis, unspecified; B95.2 Enterococcus as the cause of diseases classified elsewhere; E83.42 Hypomagnesemia; D64.89 Other specified anemias; R63.6 Underweight; Z16.21 Resistance to vancomycin; Z93.6 Other artificial openings of urinary tract status; Z93.3 Colostomy status; Z93.2 Ileostomy status; Z87.891 Personal history of nicotine dependence; Z85.41 Personal history of malignant neoplasm of cervix uteri; Z90.710 Acquired absence of both cervix and uterus; Z92.21 Personal history of antineoplastic chemotherapy; Z92.3 Personal history of irradiation; Z79.01 Long term (current) use of anticoagulants; Z96.641 Presence of right artificial hip joint; Z87.440 Personal history of urinary (tract) infections; Z86.718 Personal history of other venous thrombosis and embolism; Z88.1 Allergy status to other antibiotic agents; Z88.3 Allergy status to other anti-infective agents

== ENCOUNTER 2017-01-21 13:50 | Inpatient (IN) | payer OTHER ==
[2017-01-21 15:40] VITALS: BMI 15.0
[2017-01-21 16:24] VITALS: RESP 20
[2017-01-21] MEDS ORDERED: DEXTROSE IV SCH (16:35)
[2017-01-21] MEDS ORDERED: NS IV SCH (16:35)
[2017-01-21] MEDS ORDERED: SODIUM BICARBONATE IV SCH (16:35)
[2017-01-21] MEDS: SODIUM BICARBONATE IV SCH (17:15)
[2017-01-21] MEDS: DEXTROSE IV SCH (17:15)
[2017-01-21] MEDS: [UNRECOGNIZED DRUG - OTHER] IV SCH (17:15)
[2017-01-21] MEDS ORDERED: Patient's Own Med (Linezolid 600 Mg In D5w 300 Ml [Zyvox 600mg/300ml D5w] 600 MG) IVPB SCH (21:00)
[2017-01-21] MEDS: Linezolid 600 mg in D5W 300 ml 600 MG/300 ML BAG IVPB SCH (21:30)
[2017-01-22] MEDS: [UNRECOGNIZED DRUG - OTHER] IV SCH (06:44)
[2017-01-22] MEDS: DEXTROSE IV SCH (06:44)
[2017-01-22] MEDS: SODIUM BICARBONATE IV SCH (06:44)
[2017-01-22] MEDS: Potassium Chloride 20 mEq ER Tab PO SCH (08:05)
[2017-01-22] MEDS: Cefepime 1 GM in Sodium Chloride 0.9% 100 ML IVPB SCH (08:07)
[2017-01-22] MEDS ORDERED: CEFEPIME IVPB SCH (09:00)
[2017-01-22] MEDS ORDERED: NS IVPB SCH (09:00)
[2017-01-22 15:35] LABS: HEMOGLOBIN 12.2 g/dL (12.0-16.0); MEAN CELL VOLUME 99.6 fl (81.0-99.0); MEAN CORPUSCULAR HEMOGLOBIN 32.5 pg (27.0-31.0); MEAN CORPUSCULAR HGB CONC 32.6 g/dL (33.0-37.0); RBC 3.74 Mil/uL (3.80-5.20); RED CELL DISTRIBUTION WIDTH 13.8 % (11.5-14.5)
[2017-01-22 15:44] LABS: CALCIUM 8.2 mg/dL (8.4-10.2); MAGNESIUM 1.4 MG/DL (1.6-2.3)
[2017-01-22] MEDS: Linezolid 600 mg in D5W 300 ml 600 MG/300 ML BAG IVPB SCH ×2 (16:44→16:46)
[2017-01-22] MEDS ORDERED: Magnesium Sulfate 2 gm/50 ml 2 GM/50 ML BAG IVPB ONE (20:29)
[2017-01-23] MEDS: SODIUM BICARBONATE IV SCH ×2 (00:51→09:46)
[2017-01-23] MEDS: DEXTROSE IV SCH ×2 (00:51→09:46)
[2017-01-23] MEDS: [UNRECOGNIZED DRUG - OTHER] IV SCH ×2 (00:51→09:46)
[2017-01-23] MEDS: Linezolid 600 mg in D5W 300 ml 600 MG/300 ML BAG IVPB SCH ×2 (04:32→16:27)
[2017-01-23] MEDS: Potassium Chloride 20 mEq ER Tab PO SCH (08:26)
[2017-01-23] MEDS: Cefepime 1 GM in Sodium Chloride 0.9% 100 ML IVPB SCH ×2 (12:27→16:26)
[2017-01-24] MEDS: Linezolid 600 mg in D5W 300 ml 600 MG/300 ML BAG IVPB SCH ×2 (05:19→17:58)
[2017-01-24] MEDS: Potassium Chloride 20 mEq ER Tab PO SCH (08:45)
[2017-01-24 15:29] LABS: CALCIUM 8.7 mg/dL (8.4-10.2)
[2017-01-24] MEDS: Cefepime 1 GM in Sodium Chloride 0.9% 100 ML IVPB SCH (17:06)
[2017-01-24] MEDS ORDERED: Potassium Chloride 20 mEq ER Tab PO ONE (19:40)
--- NOTE | 2017-01-24 21:49 | CP.PCM.PN ---
Subjective - Date & Time of Evaluation Date of Evaluation: 01/24/17 Time of Evaluation: 10:00 - Subjective Subjective: Feels better , , cooperative with PT and OT Objective - Vital Signs/Intake and Output Vital Signs (last 24 hours): Temp Pulse Resp BP Pulse Ox 98.8 F 86 20 111/75 97 01/24/17 21:03 01/24/17 21:03 01/24/17 21:03 01/24/17 21:03 01/24/17 21:03 - Medications Medications: Current Medications Apixaban (Eliquis) 2.5 mg PO BID [facility] PRN Reason: Protocol Last Admin: 01/24/17 17:53 Dose: 2.5 mg Escitalopram Oxalate (Lexapro) 10 mg PO DAILY [facility] Last Admin: 01/24/17 08:45 Dose: 10 mg Folic Acid (Folic Acid) 1 mg PO DAILY [facility] Last Admin: 01/24/17 08:45 Dose: 1 mg Linezolid (Zyvox 600mg/300ml D5w) 600 mg in 300 mls @ 300 mls/hr IVPB Q12H [facility] Last Admin: 01/24/17 17:58 Dose: 300 mls/hr Cefepime HCl 1 gm/ Sodium (Chloride) 100 mls @ 100 mls/hr IVPB DAILY@1700 [facility] Last Admin: 01/24/17 17:06 Dose: 100 mls/hr Metronidazole (Flagyl) 500 mg PO Q8 [facility] Last Admin: 01/24/17 17:54 Dose: 500 mg Nystatin (Nystop Topical Powder) 1 applic TOP TID [facility] Last Admin: 01/24/17 17:00 Dose: 1 applic Ondansetron HCl (Zofran Inj) 4 mg IVP Q4 [facility] PRN Reason: Nausea/Vomiting Last Admin: 01/24/17 13:11 Dose: 4 mg Potassium Chloride (K-Dur 20 Meq Er Tab) 20 meq PO DAILY [facility] Last Admin: 01/24/17 08:45 Dose: 20 meq Sodium Bicarbonate (Sodium Bicarbonate Tab) 650 mg PO Q6 [facility] Last Admin: 01/24/17 21:33 Dose: 650 mg - Labs Labs: 01/22/17 15:20 01/24/17 15:09 - Head Exam Head Exam: ATRAUMATIC, NORMOCEPHALIC - Eye Exam Eye Exam: Normal appearance, PERRL - Neck Exam Neck Exam: Full ROM - Respiratory Exam Respiratory Exam: Clear to Ausculation Bilateral, NORMAL BREATHING PATTERN - Cardiovascular Exam Cardiovascular Exam: REGULAR RHYTHM - GI/Abdominal Exam GI & Abdominal Exam: Normal Bowel Sounds - Exam Additional comments: Colostomy and iliostomy bags are in place - Extremities Exam Extremities Exam: Full ROM - Neurological Exam Neurological Exam: Oriented x3 Assessment and Plan - Assessment and Plan (Free Text) Assessment: Acute on chronic kidney disease Bactremia UTI H/O cancer cervix Plan: Continue IV fluids Continue current antibiotics and follow recommendation of ID oracle consultant
--- NOTE | 2017-01-24 22:03 | CP.PCM.HP ---
History of Present Illness - History of Present Illness History of Present Illness: 71 years old caucasion female with history of multiple medical problems. Recently patient was admitted for bacteremia and UTI. Patient is being admitted to TCU for completion of IV antibiotic course as well as deconditioning and PT. Past Patient History - Infectious Disease Hx of Infectious Diseases: None - Past Medical History & Family History Past Medical History?: Yes - Past Social History Smoking Status: Former Smoker - CARDIAC Hx Hypercholesterolemia: Yes Hx Hypertension: Yes - PULMONARY Hx Respiratory Disorders: No - NEUROLOGICAL Hx Neurological Disorder: No - HEENT Hx HEENT Problems: Yes Hx Cataracts: Yes (bilat 2012) - RENAL Hx Chronic Kidney Disease: Yes Hx Dialysis: No Other/Comment: urostomy - ENDOCRINE/METABOLIC Hx Endocrine Disorders: No Other/Comment: DEHYDRATION - HEMATOLOGICAL/ONCOLOGICAL Hx Human Immunodeficiency Virus (HIV): No - INTEGUMENTARY Hx Dermatological Problems: No - MUSCULOSKELETAL/RHEUMATOLOGICAL Hx Musculoskeletal Disorders: No Hx Falls: No - GASTROINTESTINAL Hx Gastrointestinal Disorders: Yes Other/Comment: Ileostomy - GENITOURINARY/GYNECOLOGICAL Hx Genitourinary Disorders: Yes Hx Cervical Cancer: Yes - PSYCHIATRIC Hx Psychophysiologic Disorder: Yes Hx Depression: Yes Hx Substance Use: No - SURGICAL HISTORY Hx Surgeries: Yes Hx Hysterectomy: Yes Hx Joint Replacement: Yes (Right hip replacement) Hx Vascular Access Device: Yes (Right s/c Portacath) Other/Comment: Left Urostomy - ANESTHESIA Hx Anesthesia: Yes Hx Anesthesia Reactions: No Hx Malignant Hyperthermia: No Meds Allergies/Adverse Reactions: Allergies Allergy/AdvReac Type Severity Reaction Status Date / Time ciprofloxacin [From Cipro] Allergy RASH Verified 01/21/17 15:40 ciprofloxacin HCl Allergy RASH Verified 01/21/17 15:40 [From Cipro] vancomycin Allergy RASH Verified 01/21/17 15:40 Physical Exam - Head Exam Head Exam: ATRAUMATIC, NORMOCEPHALIC - Eye Exam Eye Exam: Normal appearance, PERRL - ENT Exam ENT Exam: Mucous Membranes Moist - Neck Exam Neck exam: Positive for: Full Rom - Respiratory Exam Respiratory Exam: Clear to Auscultation Bilateral, NORMAL BREATHING PATTERN - Cardiovascular Exam Cardiovascular Exam: REGULAR RHYTHM - GI/Abdominal Exam Additional comments: Colostomy and iliostomy bags are in place. Results - Vital Signs Recent Vital Signs: Last Vital Signs Temp 98.8 F 01/24/17 21:03 Pulse 86 01/24/17 21:03 Resp 20 01/24/17 21:03 BP 111/75 01/24/17 21:03 Pulse Ox 97 01/24/17 21:03 - Labs Result Diagrams: 01/22/17 15:20 01/24/17 15:09 Labs: Laboratory Results - last 24 hr 01/24/17 15:09 Sodium 138 Potassium 3.1 L Chloride 104 Carbon Dioxide 19 L Anion Gap 18 BUN 35 H Creatinine 2.6 H Est GFR ( Amer) 22 Est GFR (Non-Af Amer) 18 Random Glucose 156 H Calcium 8.7 Magnesium 2.0 Assessment & Plan - Assessment and Plan (Free Text) Assessment: Acute on Chronic kidney disease Bacteremia UTI H/O of Cancer cervix Plan: Continue current IV fluids and antibiotcs , f/u recommendations of ID - Date & Time Date: 01/22/17 Time: 10:00
[2017-01-25] MEDS: Linezolid 600 mg in D5W 300 ml 600 MG/300 ML BAG IVPB SCH ×2 (05:34→16:37)
[2017-01-25] MEDS: Potassium Chloride 20 mEq ER Tab PO SCH (08:47)
--- NOTE | 2017-01-25 14:56 | CP.PCM.PN ---
Subjective - Date & Time of Evaluation Date of Evaluation: 01/25/17 Time of Evaluation: 14:55 - Subjective Subjective: ID Note- Pt. seen and examined in TCU today. Pt. transferred to TCU to get PT and complete her Iv abx and IV fluids . Pt. is in good spirits and denies any complaints. denies any fever or chills, states has good appetite Objective - Vital Signs/Intake and Output Vital Signs (last 24 hours): Temp Pulse Resp BP Pulse Ox 98.4 F 88 20 101/62 97 01/25/17 10:00 01/25/17 10:00 01/25/17 10:00 01/25/17 10:00 01/25/17 10:00 - Medications Medications: Current Medications Apixaban (Eliquis) 2.5 mg PO BID [facility] PRN Reason: Protocol Last Admin: 01/25/17 08:46 Dose: 2.5 mg Escitalopram Oxalate (Lexapro) 10 mg PO DAILY [facility] Last Admin: 01/25/17 08:47 Dose: 10 mg Folic Acid (Folic Acid) 1 mg PO DAILY [facility] Last Admin: 01/25/17 08:47 Dose: 1 mg Linezolid (Zyvox 600mg/300ml D5w) 600 mg in 300 mls @ 300 mls/hr IVPB Q12H [facility] Last Admin: 01/25/17 05:34 Dose: 300 mls/hr Cefepime HCl 1 gm/ Sodium (Chloride) 100 mls @ 100 mls/hr IVPB DAILY@1700 [facility] Last Admin: 01/24/17 17:06 Dose: 100 mls/hr Metronidazole (Flagyl) 500 mg PO Q8 [facility] Last Admin: 01/25/17 08:46 Dose: 500 mg Nystatin (Nystop Topical Powder) 1 applic TOP TID [facility] Last Admin: 01/25/17 10:26 Dose: 1 applic Ondansetron HCl (Zofran Inj) 4 mg IVP Q4 PRN PRN Reason: Nausea/Vomiting Last Admin: 01/24/17 13:11 Dose: 4 mg Potassium Chloride (K-Dur 20 Meq Er Tab) 20 meq PO DAILY [facility] Last Admin: 01/25/17 08:47 Dose: 20 meq Sodium Bicarbonate (Sodium Bicarbonate Tab) 650 mg PO Q6 [facility] Last Admin: 01/25/17 10:26 Dose: 650 mg - Labs Labs: - Additional Findings Additional findings: - Constitutional Appears: No Acute Distress - Head Exam Head Exam: ATRAUMATIC - Eye Exam Eye Exam: EOMI - Neck Exam Neck exam: Positive for: Full Rom - Respiratory Exam Respiratory Exam: Clear to Auscultation Bilateral, NORMAL BREATHING PATTERN - Cardiovascular Exam Cardiovascular Exam: RRR, +S1, +S2 - GI/Abdominal Exam Additional comments: soft, +BS No tenderness colostomy bag full of watery brown liquid ileostomy bag full of yellow fluid no surrounding erythema of the skin - Extremities Exam Additional comments: No edema in B/L LE - Neurological Exam Neurological exam: Alert, Oriented x 3 Lines- right chest life port in place ( as per pt. has been in place for past 6 months). No erythema, no tenderness Laboratory Results - last 72 hr 01/22/17 01/22/17 01/24/17 15:20 15:20 15:09 WBC 7.0 RBC 3.74 L Hgb 12.2 Hct 37.3 MCV 99.6 H MCH 32.5 H MCHC 32.6 L RDW 13.8 Plt Count 109 L D Sodium 136 138 Potassium 3.9 3.1 L Chloride 105 104 Carbon Dioxide 17 L 19 L Anion Gap 18 18 BUN 43 H 35 H Creatinine 3.0 H 2.6 H Est GFR ( Amer) 19 22 Est GFR (Non-Af Amer) 15 18 Random Glucose 92 156 H Calcium 8.2 L 8.7 Magnesium 1.4 L 2.0 Microbiology 01/17/17 14:55 Blood-Venous Blood Culture - Final 01/17/17 14:55 Blood-Venous Gram Stain - Final NO GROWTH AFTER 5 DAYS TEST NOT PERFORMED 01/17/17 14:40 Blood-Venous Blood Culture - Final 01/17/17 14:40 Blood-Venous Gram Stain - Final NO GROWTH AFTER 5 DAYS TEST NOT PERFORMED 01/17/17 14:30 Blood-Thru Central Line Blood Culture - Final 01/17/17 14:30 Blood-Thru Central Line Gram Stain - Final NO GROWTH AFTER 5 DAYS TEST NOT PERFORMED 01/13/17 16:05 Blood-Thru Central Line Blood Culture - Final 01/13/17 16:05 Blood-Thru Central Line Gram Stain - Final NO GROWTH AFTER 5 DAYS TEST NOT PERFORMED 01/11/17 23:23 Urine Urine Culture - Final Klebsiella Pneumoniae Ssp Pneu 01/11/17 18:40 Blood-Venous S.aureus & Coag-Neg Staph PNA FISH - Final 01/11/17 18:40 Blood-Venous Gram Stain - Final Vancomycin Resistant E.faecium 01/11/17 18:30 Blood-Venous Blood Culture - Final 01/11/17 18:30 Blood-Venous Gram Stain - Final NO GROWTH AFTER 5 DAYS TEST NOT PERFORMED Assessment and Plan (1) Bacteremia Status: Acute (2) CKD (chronic kidney disease), stage III Status: Acute (3) S/P colostomy Status: Chronic (4) S/P ileostomy Status: Chronic (5) UTI (urinary tract infection) Status: Acute - Assessment and Plan (Free Text) Assessment: A/P- 71 year old female with h/o cervical ca s/p ctx and radiation and s/p both colostomy and Ileostomy with h/o CKD and UTI and enterobacter bactermia and c.diff who was admitted with AMS found to be hypercalcemic and prelim blood cx GPC in pairs. clinically stable remains afebrile. slight leukocytosis today. initial blood cx - VRE x 2 urine cx- Klebsiella pneumonia not ESBL anna c.diff - neg x 1 repeat blood cx- one is coag neg staph blood cx from port- negative x2 repeat blood cx from 01/17/2017- neg x 3 one from port and 2 from peripheral blood TTE- no vegetation as per report read by chemical production technician. plan- Continue with Linezolid. day #14 for VRE bacteremia and would treat the coag neg staph as well. repeat blood cx from both peripheral and port negative. monitor platelets while on linezolid. advise 7 more days of abx for the bacteremia. can be switched darwin linezolid. continue with empiric flagyl while on antibiotics. check repeat UA today. today is day #10 of cefepime for treatment of the Klebsiella pneumonia UTI. day #10 can d/c cefepime at this time. All above d/w pt. and her nurse.
[2017-01-25 17:34] LABS: HEMOGLOBIN 13.1 g/dL (12.0-16.0); MEAN CELL VOLUME 97.2 fl (81.0-99.0); MEAN CORPUSCULAR HEMOGLOBIN 32.5 pg (27.0-31.0); MEAN CORPUSCULAR HGB CONC 33.5 g/dL (33.0-37.0); RBC 4.02 Mil/uL (3.80-5.20); RED CELL DISTRIBUTION WIDTH 13.8 % (11.5-14.5)
[2017-01-25 20:58] LABS: URINE BACTERIA OCC (<OCC); URINE BILIRUBIN NEGATIVE (NEGATIVE); URINE BLOOD SMALL (NEGATIVE); URINE CLARITY CLOUDY (Clear); URINE COLOR YELLOW (YELLOW); URINE GLUCOSE (UA) NEG (Normal); URINE LEUKOCYTE ESTERASE LARGE Leu/uL (Negative); URINE NITRATE NEGATIVE (NEGATIVE); URINE PROTEIN 100 mg/dL (NEGATIVE); URINE UROBILINOGEN 0.2-1.0 mg/dL (0.2-1.0); WBC CLUMPS MOD /hpf
[2017-01-26] MEDS: Linezolid 600 mg in D5W 300 ml 600 MG/300 ML BAG IVPB SCH (04:14)
[2017-01-26 08:25] LABS: HEMOGLOBIN 12.3 g/dL (12.0-16.0); MEAN CELL VOLUME 97.7 fl (81.0-99.0); MEAN CORPUSCULAR HEMOGLOBIN 32.2 pg (27.0-31.0); RBC 3.82 Mil/uL (3.80-5.20); RED CELL DISTRIBUTION WIDTH 13.9 % (11.5-14.5); WHITE BLOOD COUNT 5.9 K/uL (4.8-10.8)
[2017-01-26] MEDS: Potassium Chloride 20 mEq ER Tab PO SCH (08:55)
[2017-01-26] MEDS ORDERED: Potassium Chloride 20 mEq ER Tab PO ONE (09:00)
[2017-01-26] MEDS ORDERED: Linezolid 600 mg in D5W 300 ml IVPB ONE (09:00)
[2017-01-26] MEDS ORDERED: metroNIDAZOLE 500mg/100ml NS IVPB ONE (09:00)
--- NOTE | 2017-01-26 22:12 | CP.PCM.PN ---
Subjective - Date & Time of Evaluation Date of Evaluation: 01/26/17 Time of Evaluation: 10:30 - Subjective Subjective: Feels better , cooperative to physical therapy Objective - Vital Signs/Intake and Output Vital Signs (last 24 hours): Temp Pulse Resp BP Pulse Ox 97.7 F 82 20 104/72 97 01/26/17 08:43 01/26/17 08:43 01/26/17 08:43 01/26/17 08:43 01/26/17 08:43 - Medications Medications: Current Medications Apixaban (Eliquis) 2.5 mg PO BID [facility] PRN Reason: Protocol Last Admin: 01/26/17 08:55 Dose: 2.5 mg Escitalopram Oxalate (Lexapro) 10 mg PO DAILY [facility] Last Admin: 01/26/17 08:55 Dose: 10 mg Folic Acid (Folic Acid) 1 mg PO DAILY [facility] Last Admin: 01/26/17 08:54 Dose: 1 mg Linezolid (Zyvox 600mg/300ml D5w) 600 mg in 300 mls @ 300 mls/hr IVPB Q12H [facility] Last Admin: 01/26/17 04:14 Dose: 300 mls/hr Metronidazole (Flagyl) 500 mg PO Q8 [facility] Last Admin: 01/26/17 08:54 Dose: 500 mg Nystatin (Nystop Topical Powder) 1 applic TOP TID [facility] Last Admin: 01/26/17 12:37 Dose: 1 applic Ondansetron HCl (Zofran Inj) 4 mg IVP Q4 PRN PRN Reason: Nausea/Vomiting Last Admin: 01/26/17 08:55 Dose: 4 mg Potassium Chloride (K-Dur 20 Meq Er Tab) 20 meq PO DAILY [facility] Last Admin: 01/26/17 08:55 Dose: 20 meq Sodium Bicarbonate (Sodium Bicarbonate Tab) 650 mg PO Q6 [facility] Last Admin: 01/26/17 21:52 Dose: 650 mg - Labs Labs: 01/26/17 05:30 01/24/17 15:09 - Constitutional Appears: Non-toxic - Head Exam Head Exam: ATRAUMATIC, NORMOCEPHALIC - Eye Exam Eye Exam: PERRL Pupil Exam: NORMAL ACCOMODATION, PERRL - ENT Exam ENT Exam: Mucous Membranes Moist - Neck Exam Neck Exam: Full ROM, Normal Inspection - Respiratory Exam Respiratory Exam: Clear to Ausculation Bilateral, NORMAL BREATHING PATTERN - Cardiovascular Exam Cardiovascular Exam: REGULAR RHYTHM Assessment and Plan - Assessment and Plan (Free Text) Assessment: Acute on Chronic kidney disease Bacteremia UTI H/O of Cancer cervix Plan: Continue current IV antibiotics, will follow the ID recommendations
[2017-01-27] MEDS: Linezolid 600 mg in D5W 300 ml 600 MG/300 ML BAG IVPB SCH (04:53)
[2017-01-27] MEDS: Potassium Chloride 20 mEq ER Tab PO SCH (09:10)
[2017-01-28] MEDS: Potassium Chloride 20 mEq ER Tab PO SCH (08:51)
--- NOTE | 2017-01-28 11:21 | CP.PCM.PN ---
Subjective - Date & Time of Evaluation Date of Evaluation: 01/28/17 Time of Evaluation: 11:21 - Subjective Subjective: ID Note- Pt. seen and examined today. Pt. in good spirits and drinking milkshake . Her daughter at her bedside. Pt. denies any fever or chills. denies any abd pain. asper her nurse she had some nausea the other day but not now. Objective - Vital Signs/Intake and Output Vital Signs (last 24 hours): Temp Pulse Resp BP Pulse Ox 97.3 F L 90 20 98/58 L 99 01/28/17 08:00 01/28/17 08:00 01/28/17 08:00 01/28/17 08:00 01/28/17 08:00 - Medications Medications: Current Medications Apixaban (Eliquis) 2.5 mg PO BID [facility] PRN Reason: Protocol Last Admin: 01/28/17 08:51 Dose: 2.5 mg Escitalopram Oxalate (Lexapro) 10 mg PO DAILY [facility] Last Admin: 01/28/17 08:51 Dose: 10 mg Folic Acid (Folic Acid) 1 mg PO DAILY [facility] Last Admin: 01/28/17 08:51 Dose: 1 mg Linezolid (Zyvox) 600 mg PO Q12 [facility] Last Admin: 01/28/17 08:51 Dose: 600 mg Nystatin (Nystop Topical Powder) 1 applic TOP TID [facility] Last Admin: 01/28/17 08:51 Dose: 1 applic Ondansetron HCl (Zofran Inj) 4 mg IVP Q4 PRN PRN Reason: Nausea/Vomiting Last Admin: 01/28/17 10:30 Dose: 4 mg Potassium Chloride (K-Dur 20 Meq Er Tab) 20 meq PO DAILY [facility] Last Admin: 01/28/17 08:51 Dose: 20 meq Sodium Bicarbonate (Sodium Bicarbonate Tab) 650 mg PO Q6 [facility] Last Admin: 01/28/17 09:32 Dose: 650 mg - Labs Labs: - Additional Findings Additional findings: - Constitutional Appears: No Acute Distress - Head Exam Head Exam: ATRAUMATIC - Eye Exam Eye Exam: EOMI - Neck Exam Neck exam: Positive for: Full Rom - Respiratory Exam Respiratory Exam: Clear to Auscultation Bilateral, NORMAL BREATHING PATTERN - Cardiovascular Exam Cardiovascular Exam: RRR, +S1, +S2 - GI/Abdominal Exam Additional comments: soft, +BS No tenderness, No distention colostomy bag empty, Ileostomy bag empty - Extremities Exam Additional comments: No edema in B/L LE - Neurological Exam Neurological exam: Alert, Oriented x 3 Lines- right chest life port in place No erythema, no tenderness Laboratory Results - last 72 hr 01/25/17 01/25/17 01/26/17 16:45 20:47 05:30 WBC 8.0 5.9 RBC 4.02 3.82 Hgb 13.1 12.3 Hct 39.1 37.3 MCV 97.2 D 97.7 MCH 32.5 H 32.2 H MCHC 33.5 33.0 RDW 13.8 13.9 Plt Count 123 L 97 L D Urine Color Yellow Urine Clarity Cloudy Urine pH 7.0 Ur Specific [place] 1.012 Urine Protein 100 Urine Glucose (UA) Neg Urine Ketones Negative Urine Blood Small Urine Nitrate Negative Urine Bilirubin Negative Urine Urobilinogen 0.2-1.0 Ur Leukocyte Esterase Large Urine RBC (Auto) 16 H Urine WBC Clumps (Auto) Mod H Urine Microscopic WBC 198 H Urine Bacteria Occ H Urine Yeast (Budding) Occ H Microbiology 01/17/17 14:55 Blood-Venous Blood Culture - Final 01/17/17 14:55 Blood-Venous Gram Stain - Final NO GROWTH AFTER 5 DAYS TEST NOT PERFORMED 01/17/17 14:40 Blood-Venous Blood Culture - Final 01/17/17 14:40 Blood-Venous Gram Stain - Final NO GROWTH AFTER 5 DAYS TEST NOT PERFORMED 01/17/17 14:30 Blood-Thru Central Line Blood Culture - Final 01/17/17 14:30 Blood-Thru Central Line Gram Stain - Final NO GROWTH AFTER 5 DAYS TEST NOT PERFORMED 01/13/17 16:05 Blood-Thru Central Line Blood Culture - Final 01/13/17 16:05 Blood-Thru Central Line Gram Stain - Final NO GROWTH AFTER 5 DAYS TEST NOT PERFORMED 01/13/17 15:30 Blood-Venous S.aureus & Coag-Neg Staph PNA FISH - Final 01/13/17 15:30 Blood-Venous Gram Stain - Final Coagulase Neg Staphylococcus 01/11/17 23:23 Urine Urine Culture - Final Klebsiella Pneumoniae Ssp Pneu 01/11/17 18:40 Blood-Venous S.aureus & Coag-Neg Staph PNA FISH - Final 01/11/17 18:40 Blood-Venous Gram Stain - Final Vancomycin Resistant E.faecium 01/11/17 18:30 Blood-Venous Blood Culture - Final 01/11/17 18:30 Blood-Venous Gram Stain - Final NO GROWTH AFTER 5 DAYS TEST NOT PERFORMED 01/10/17 12:00 Urine Urine Culture - Final 50-100,000 CFU/ML. MULTIPLE SPECIES. SUGGEST REPEAT SPECIMEM. 01/10/17 11:59 Blood S.aureus & Coag-Neg Staph PNA FISH - Final 01/10/17 11:59 Blood Gram Stain - Final Vancomycin Resistant E.faecium Assessment and Plan (1) Bacteremia Status: Acute (2) CKD (chronic kidney disease), stage III Status: Acute (3) S/P colostomy Status: Chronic (4) S/P ileostomy Status: Chronic (5) UTI (urinary tract infection) Status: Acute - Assessment and Plan (Free Text) Assessment: A/P- 71 year old female with h/o cervical ca s/p ctx and radiation and s/p both colostomy and Ileostomy with h/o CKD and UTI and enterobacter bactermia and c.diff who was admitted with AMS found to be hypercalcemic and prelim blood cx GPC in pairs. clinically stable remains afebrile. normal wbc count initial blood cx - VRE x 2 urine cx- Klebsiella pneumonia not ESBL anna c.diff - neg x 1 repeat blood cx- one is coag neg staph blood cx from port- negative x 2 repeat blood cx from 01/17/2017- neg x 4 both from port and peripheral TTE- no vegetation as per report read by services rep. plan- day #16 of linezolid for VRE bacteremia repeat blood cx from both peripheral and port negative. advise to hold linezolid since plt slightly decreased . check repeat plt count today. completed 10 days of Iv cefepime for klebsiella UTI. continue with prophylactic oral flagyl for now. All above d/w pt. and her nurse.
[2017-01-28 15:28] LABS: BASO % 0.6 % (0.0-2.0); EOS # 0.1 K/uL (0.0-0.7); HEMOGLOBIN 13.6 g/dL (12.0-16.0); LYMPH % 15.3 % (20.0-40.0); MEAN CELL VOLUME 95.6 fl (81.0-99.0); MEAN CORPUSCULAR HEMOGLOBIN 32.1 pg (27.0-31.0); MEAN CORPUSCULAR HGB CONC 33.6 g/dL (33.0-37.0); MEAN PLATELET VOLUME 9.4 fl (7.2-11.7); MONO # 0.6 K/uL (0.0-0.8); MONO % 8.8 % (0.0-10.0); NEUT # 5.1 K/uL (1.8-7.0); NEUT % 74.3 % (50.0-75.0); NRBC % 0.1 % (0.0-0.0); RBC 4.23 Mil/uL (3.80-5.20); RED CELL DISTRIBUTION WIDTH 13.4 % (11.5-14.5); WHITE BLOOD COUNT 6.8 K/uL (4.8-10.8)
[2017-01-28 15:36] LABS: ALB/GLOB RATIO 1.2 (1.0-2.1); ALBUMIN 4.4 g/dL (3.5-5.0); CALCIUM 9.6 mg/dL (8.4-10.2); MAGNESIUM 1.7 MG/DL (1.6-2.3)
[2017-01-28] MEDS: DEXTROSE IV SCH (17:30)
[2017-01-28] MEDS: SODIUM BICARBONATE IV SCH (17:30)
[2017-01-28] MEDS: NS IV SCH (17:30)
[2017-01-29] MEDS: SODIUM BICARBONATE IV SCH (06:26)
[2017-01-29] MEDS: NS IV SCH (06:26)
[2017-01-29] MEDS: DEXTROSE IV SCH (06:26)
[2017-01-29] MEDS: Potassium Chloride 20 mEq ER Tab PO SCH (08:47)
--- NOTE | 2017-01-29 15:49 | CP.PCM.PN ---
Subjective - Date & Time of Evaluation Date of Evaluation: 01/28/17 Time of Evaluation: 15:20 - Subjective Subjective: Pt. is feeling dry mouth . She vomited twice. she is also slightly confused. Objective - Vital Signs/Intake and Output Vital Signs (last 24 hours): Temp Pulse Resp BP Pulse Ox 97.2 F L 74 20 91/34 L 100 01/29/17 07:56 01/29/17 07:56 01/29/17 07:56 01/29/17 07:56 01/29/17 07:56 - Medications Medications: Current Medications Apixaban (Eliquis) 2.5 mg PO BID [facility] PRN Reason: Protocol Last Admin: 01/29/17 13:00 Dose: 2.5 mg Escitalopram Oxalate (Lexapro) 10 mg PO DAILY [facility] Last Admin: 01/29/17 08:46 Dose: 10 mg Folic Acid (Folic Acid) 1 mg PO DAILY [facility] Last Admin: 01/29/17 08:47 Dose: 1 mg Metronidazole (Flagyl) 250 mg PO Q8 [facility] Last Admin: 01/29/17 08:47 Dose: 250 mg Nystatin (Nystop Topical Powder) 1 applic TOP TID [facility] Last Admin: 01/29/17 13:47 Dose: 1 applic Ondansetron HCl (Zofran Inj) 4 mg IVP Q4 PRN PRN Reason: Nausea/Vomiting Last Admin: 01/29/17 08:51 Dose: 4 mg Potassium Chloride (K-Dur 20 Meq Er Tab) 20 meq PO DAILY [facility] Last Admin: 01/29/17 08:47 Dose: 20 meq Sodium Bicarbonate (Sodium Bicarbonate Tab) 650 mg PO Q6 [facility] Last Admin: 01/29/17 10:00 Dose: 650 mg - Labs Labs: 01/28/17 15:00 01/28/17 15:00 - Head Exam Head Exam: ATRAUMATIC, NORMOCEPHALIC - Eye Exam Eye Exam: Normal appearance, PERRL - ENT Exam ENT Exam: Mucous Membranes Moist, Normal Exam - Neck Exam Neck Exam: Full ROM - Respiratory Exam Respiratory Exam: Clear to Ausculation Bilateral, NORMAL BREATHING PATTERN - Cardiovascular Exam Cardiovascular Exam: REGULAR RHYTHM - GI/Abdominal Exam GI & Abdominal Exam: Normal Bowel Sounds Additional comments: Both colostomy and iliostomy bags are in place. - Back Exam Back Exam: Full ROM - Neurological Exam Neurological Exam: Awake Assessment and Plan - Assessment and Plan (Free Text) Assessment: (1) Bacteremia Status: Acute (2) CKD (chronic kidney disease), stage III Status: Acute (3) S/P colostomy Status: Chronic (4) S/P ileostomy Status: Chronic (5) UTI (urinary tract infection) Status: Acute Plan: Follow ID recommendations . Start IV fluids with sod bicarbonate. Continue anticoagulant treating recurrent DVT
[2017-01-29] MEDS ORDERED: SODIUM BICARBONATE IV SCH (19:15)
[2017-01-29] MEDS ORDERED: NS IV SCH (19:15)
[2017-01-29] MEDS ORDERED: DEXTROSE IV SCH (19:15)
[2017-01-30] MEDS: DEXTROSE IV ONE ×2 (04:52→13:29)
[2017-01-30] MEDS: NS IV ONE ×2 (04:52→13:29)
[2017-01-30] MEDS: SODIUM BICARBONATE IV ONE ×2 (04:52→13:29)
[2017-01-30] MEDS: Potassium Chloride 20 mEq ER Tab PO SCH (09:34)
[2017-01-30] MEDS ORDERED: Sodium Bicarbonate 8.4% 10 MEQ/10 ML (PED) IV SCH (13:00)
--- NOTE | 2017-01-30 22:47 | CP.PCM.PN ---
Subjective - Date & Time of Evaluation Date of Evaluation: 01/30/17 Time of Evaluation: 17:00 - Subjective Subjective: Life port is not functioning. IV fluids was temporarirly stopped due to lack of venous access. Patient is tolerating food today without vomiting. Objective - Vital Signs/Intake and Output Vital Signs (last 24 hours): Temp Pulse Resp BP Pulse Ox 98.2 F 78 20 95/58 L 98 01/30/17 20:19 01/30/17 20:19 01/30/17 20:19 01/30/17 20:19 01/30/17 20:19 - Medications Medications: Current Medications Apixaban (Eliquis) 2.5 mg PO BID [facility] PRN Reason: Protocol Last Admin: 01/30/17 17:09 Dose: 2.5 mg Escitalopram Oxalate (Lexapro) 10 mg PO DAILY [facility] Last Admin: 01/30/17 09:35 Dose: 10 mg Folic Acid (Folic Acid) 1 mg PO DAILY [facility] Last Admin: 01/30/17 09:35 Dose: 1 mg Sodium Bicarbonate 44 meq/ (Dextrose/Sodium Chloride) 1,049.327 mls @ 80 mls/ hr IV .Q13H7M ONE Stop: 01/31/17 02:06 Last Admin: 01/30/17 13:29 Dose: 80 mls/hr Metronidazole (Flagyl) 250 mg PO Q8 [facility] Last Admin: 01/30/17 17:09 Dose: 250 mg Nystatin (Nystop Topical Powder) 1 applic TOP TID [facility] Last Admin: 01/30/17 17:09 Dose: 1 applic Ondansetron HCl (Zofran Inj) 4 mg IVP Q4 PRN PRN Reason: Nausea/Vomiting Last Admin: 01/29/17 08:51 Dose: 4 mg Potassium Chloride (K-Dur 20 Meq Er Tab) 20 meq PO DAILY [facility] Last Admin: 01/30/17 09:34 Dose: 20 meq Sodium Bicarbonate (Sodium Bicarbonate Tab) 650 mg PO Q6 [facility] Last Admin: 01/30/17 21:17 Dose: 650 mg - Labs Labs: 01/28/17 15:00 01/28/17 15:00 - Head Exam Head Exam: ATRAUMATIC, NORMOCEPHALIC - Eye Exam Eye Exam: PERRL - ENT Exam ENT Exam: Mucous Membranes Moist - Neck Exam Neck Exam: Full ROM - Respiratory Exam Respiratory Exam: Clear to Ausculation Bilateral, NORMAL BREATHING PATTERN - Cardiovascular Exam Cardiovascular Exam: REGULAR RHYTHM - Rectal Exam Additional comments: Colostomy and iliostomy bags are in place. - Neurological Exam Neurological Exam: Awake - Skin Skin Exam: Normal Color, Warm Assessment and Plan - Assessment and Plan (Free Text) Assessment: (1) Bacteremia Status: Acute (2) CKD (chronic kidney disease), stage III Status: Acute (3) S/P colostomy Status: Chronic (4) S/P ileostomy Status: Chronic (5) UTI (urinary tract infection) Status: Acute Plan: IR for malfunctioning life port. Continue current medications. Discharge planning on IV fluid therapy after life port is repaired.
[2017-01-31] MEDS: Potassium Chloride 20 mEq ER Tab PO SCH (09:37)
[2017-02-01] MEDS: Potassium Chloride 20 mEq ER Tab PO SCH (08:58)
[2017-02-02] MEDS: Potassium Chloride 20 mEq ER Tab PO SCH (08:31)
--- NOTE | 2017-02-02 14:00 | CP.PCM.PN ---
Subjective - Date & Time of Evaluation Date of Evaluation: 02/02/17 Time of Evaluation: 14:00 - Subjective Subjective: ID Note- Pt. seen and examined today. Pt's daughter is at her bedside. as per nurse pt's port is not functioning well and pt. is supposed to have CT done today to see if there is any clot. Pt. denies any pain around port site. She denies any fever or chills. denies any cough. Objective - Vital Signs/Intake and Output Vital Signs (last 24 hours): Temp Pulse Resp BP Pulse Ox 97.5 F L 80 20 106/70 98 02/02/17 08:37 02/02/17 08:37 02/02/17 08:37 02/02/17 08:37 02/02/17 08:37 Intake and Output: 02/02/17 02/02/17 06:59 18:59 Output Total 300 Balance -300 - Medications Medications: Current Medications Apixaban (Eliquis) 2.5 mg PO BID [facility] PRN Reason: Protocol Last Admin: 02/02/17 08:30 Dose: 2.5 mg Escitalopram Oxalate (Lexapro) 10 mg PO DAILY [facility] Last Admin: 02/02/17 08:31 Dose: 10 mg Folic Acid (Folic Acid) 1 mg PO DAILY [facility] Last Admin: 02/02/17 08:31 Dose: 1 mg Metronidazole (Flagyl) 250 mg PO Q8 [facility] Last Admin: 02/02/17 08:30 Dose: 250 mg Nystatin (Nystop Topical Powder) 1 applic TOP TID [facility] Last Admin: 02/02/17 12:00 Dose: 1 applic Ondansetron HCl (Zofran Inj) 4 mg IVP Q4 PRN PRN Reason: Nausea/Vomiting Last Admin: 01/29/17 08:51 Dose: 4 mg Potassium Chloride (K-Dur 20 Meq Er Tab) 20 meq PO DAILY [facility] Last Admin: 02/02/17 08:31 Dose: 20 meq Sodium Bicarbonate (Sodium Bicarbonate Tab) 650 mg PO Q6 [facility] Last Admin: 02/02/17 10:52 Dose: 650 mg - Labs Labs: - Additional Findings Additional findings: - Head Exam Head Exam: ATRAUMATIC - Eye Exam Eye Exam: EOMI - Neck Exam Neck exam: Positive for: Full Rom - Respiratory Exam Respiratory Exam: Clear to Auscultation Bilateral, NORMAL BREATHING PATTERN - Cardiovascular Exam Cardiovascular Exam: RRR, +S1, +S2 - GI/Abdominal Exam Additional comments: soft, +BS No tenderness, No distention colostomy bag half full with brown semi liquid stool, Ileostomy bag full of yellow fluid - Extremities Exam Additional comments: No edema in B/L LE - Neurological Exam Neurological exam: Alert, Oriented x 3 Lines- right chest life port in place No erythema, no tenderness Microbiology 01/17/17 14:55 Blood-Venous Blood Culture - Final 01/17/17 14:55 Blood-Venous Gram Stain - Final NO GROWTH AFTER 5 DAYS TEST NOT PERFORMED 01/17/17 14:40 Blood-Venous Blood Culture - Final 01/17/17 14:40 Blood-Venous Gram Stain - Final NO GROWTH AFTER 5 DAYS TEST NOT PERFORMED 01/17/17 14:30 Blood-Thru Central Line Blood Culture - Final 01/17/17 14:30 Blood-Thru Central Line Gram Stain - Final NO GROWTH AFTER 5 DAYS TEST NOT PERFORMED 01/13/17 16:05 Blood-Thru Central Line Blood Culture - Final 01/13/17 16:05 Blood-Thru Central Line Gram Stain - Final NO GROWTH AFTER 5 DAYS TEST NOT PERFORMED 01/13/17 15:30 Blood-Venous S.aureus & Coag-Neg Staph PNA FISH - Final 01/13/17 15:30 Blood-Venous Gram Stain - Final Coagulase Neg Staphylococcus 01/11/17 23:23 Urine Urine Culture - Final Klebsiella Pneumoniae Ssp Pneu 01/11/17 18:40 Blood-Venous S.aureus & Coag-Neg Staph PNA FISH - Final 01/11/17 18:40 Blood-Venous Gram Stain - Final Vancomycin Resistant E.faecium Assessment and Plan (1) Bacteremia Status: Acute (2) CKD (chronic kidney disease), stage III Status: Acute (3) S/P colostomy Status: Chronic (4) S/P ileostomy Status: Chronic (5) UTI (urinary tract infection) Status: Acute - Assessment and Plan (Free Text) Assessment: A/P- 71 year old female with h/o cervical ca s/p ctx and radiation and s/p both colostomy and Ileostomy with h/o CKD and UTI and enterobacter bactermia and c.diff who was admitted with AMS found to be hypercalcemic and prelim blood cx GPC in pairs. clinically stable remains afebrile. normal wbc count initial blood cx - VRE x 2 urine cx- Klebsiella pneumonia not ESBL anna c.diff - neg x 1 repeat blood cx- one is coag neg staph blood cx from port- negative x 2 repeat blood cx from 01/17/2017- neg x 4 both from port and peripheral TTE- no vegetation as per report read by traverse rod assembler. plan- completed 16 days of linezolid for VRE bacteremia on 01/28/2017. completed 10 days of Iv cefepime for klebsiella UTI. continue with prophylactic oral flagyl for now. port management as per primary doc,if there is no need for continued IV hydration as outpatient then maybe port can be removed . All above d/w pt. and her daughter who is at her bedside and they verbalize full understanding of all above and her nurse.
[2017-02-02 21:36] VITALS: BP 111/75; PULSE 76; TEMP 98.1; O2SAT 98
== END 2017-02-02 21:05 | disposition home health service (06) | DRG 872 ==
LOC: H.TCU 15:47
PROVIDERS: ADMIT Internal Medicine; ATTEND Internal Medicine
PROC: 3E03329 Introduction of Other Anti-infective into Peripheral Vein, Percutaneous Approach (ICD-10-PCS; principal; 2017-01-21)
PROC: F07Z9FZ Gait Training/Functional Ambulation Treatment using Assistive, Adaptive, Supportive or Protective Equipment (ICD-10-PCS; 2017-01-21)
PROC: F08Z4FZ Home Management Treatment using Assistive, Adaptive, Supportive or Protective Equipment (ICD-10-PCS; 2017-01-22)
DX: R78.81 Bacteremia (principal); N39.0 Urinary tract infection, site not specified; N18.3 Chronic kidney disease, stage 3 (moderate); B96.1 Klebsiella pneumoniae [K. pneumoniae] as the cause of diseases classified elsewhere; Z16.21 Resistance to vancomycin; Z93.6 Other artificial openings of urinary tract status; Z93.3 Colostomy status; Z93.2 Ileostomy status; Z96.641 Presence of right artificial hip joint; Z88.1 Allergy status to other antibiotic agents; Z85.41 Personal history of malignant neoplasm of cervix uteri; Z87.891 Personal history of nicotine dependence; Z92.21 Personal history of antineoplastic chemotherapy; Z92.3 Personal history of irradiation; Z90.710 Acquired absence of both cervix and uterus

== ENCOUNTER 2017-02-01 09:17 | Day surgery (SDC) | payer MEDICARE, OTHER ==
[2017-02-01 10:01] VITALS: BMI 14.9
[2017-02-01] MEDS ORDERED: Iodixanol 320 MG/ML 100 ML BOTTLE IV ONE (11:38)
[2017-02-01 11:53] VITALS: RESP 18; O2SAT 100
--- NOTE | 2017-02-01 12:01 | CP.SDSHP ---
Same Day Surgery H & P - History Proposed Procedure: Port evaluation Pre-Op Diagnosis: Port dysfunction - Allergies Allergies: Allergies ciprofloxacin [From Cipro] Allergy (Verified 01/21/17 15:40) RASH ciprofloxacin HCl [From Cipro] Allergy (Verified 01/21/17 15:40) RASH vancomycin Allergy (Verified 01/21/17 15:40) RASH - Physical Exam Vital Signs: Vital Signs 02/01/17 02/01/17 02/01/17 09:53 10:05 11:52 Temperature 98 F 97.2 F L Pulse Rate 76 76 76 Respiratory 16 18 Rate Blood Pressure 99/71 L 125/75 O2 Sat by Pulse 99 100 Oximetry - Impression Impression: Pt referred for port evaluation. Pt. Evaluated Today:Candidate for Anesthesia & Procedure: No Short Stay Discharge - Short Stay Discharge Admitting Diagnosis/Reason for Visit: MALFUNCTIONING LIFE PORT Disposition: REHAB FACILITY/REHAB UNIT Referrals: FAMILY PROVIDER,NO [Primary Care Provider] -
--- NOTE | 2017-02-01 12:03 | PCM.SURG1 ---
Surgeon's Initial Post Op Note - Surgeon's Notes Surgeon: Carlos Myers MD Bicycle Service Technician: NONE Type of Anesthesia: None Pre-Operative Diagnosis: Port dysfunction Operative Findings: Right subclavian vein port is intact. SVC gram showed filling defect in the SVC. This may represent thrombus. Injection through the port is unremarkable. Unable to reliably aspirate. Post-Operative Diagnosis: Port dysfunction Operation Performed: Port evaluation, superIOR venacavagram. Specimen/Specimens Removed: nONE Estimated Blood Loss: EBL {In ML}: 0 Blood Products Given: N/A Drains Used: No Drains Post-Op Condition: Good Date of Surgery/Procedure: 02/01/17 Time of Surgery/Procedure: 12:00
[2017-02-01 12:34] VITALS: BP 104/62; PULSE 74; TEMP 97.6
--- NOTE | 2017-02-01 14:30 | VASCULAR ---
PROCEDURE: Date of study: 02/01/2017 Procedure: 1. Portogram. 2. Superior vena cavagram. Medications: None EBL: 0 Fluoro time: 10.7 seconds. Radiation: 1.56 MGy HISTORY: No blood return from right subclavian vein port. TECHNIQUE: History and physical performed prior to the procedure. Following formed consent the procedure time-out, the patient placed supine on interventional table and the right neck and chest were prepped and draped in the usual sterile fashion. A fluoroscopic image showed a right subclavian port catheter placement The port was accessed with a Prajapati needle using standard sterile technique. Contrast injected through the needle a showed outline of the port and catheter which are intact. A superior vena cavagram was performed. Superior vena cavagram showed a filling defect within the SVC likely representing thrombus. There is also small amount of fibrin sheeth at the end of the port catheter. Blood was aspirated from the port but not reliably. The port was flushed and locked with heparin. IMPRESSION: Right subclavian port is intact. Superior vena cavagram showed filling defect within the SVC likely representing thrombus. There is also fibrin sheath at the tip of the port catheter preventing aspiration. Findings were communicated to referring physician.
== END 2017-02-01 12:36 ==
LOC: H.OPSURG 09:17
PROVIDERS: ATTEND Internal Medicine
DX: T82.318A Breakdown (mechanical) of other vascular grafts, initial encounter (principal); Y83.8 Other surgical procedures as the cause of abnormal reaction of the patient, or of later complication, without mention of misadventure at the time of the procedure; Z88.1 Allergy status to other antibiotic agents
CPT/HCPCS: 36598; 75827; A4310; Q9967

== ENCOUNTER 2017-03-28 08:48 | Inpatient (IN) | payer MEDICARE, OTHER ==
[2017-03-28 08:48] VITALS: BMI 14.7
[2017-03-28] MEDS ORDERED: Sodium Chloride 0.9% 500 ML IV SCH (09:15)
[2017-03-28] MEDS ORDERED: SODIUM CHLORIDE 0.9% IV SCH (09:19)
[2017-03-28] MEDS ORDERED: SODIUM BICARBONATE IV SCH (09:19)
--- NOTE | 2017-03-28 10:57 | ED PDOC ---
Lower Extremity Pain/Injury Time Seen by Provider: 03/28/17 08:51 Chief Complaint (Nursing): Lower Extremity Problem/Injury History Per: Patient, Family History/Exam Limitations: no limitations Onset/Duration Of Symptoms: Days (3 weeks) Current Symptoms Are (Timing): Still Present Severity: Moderate Pain Scale Rating Of: 0 Additional Complaint(s): 71 y/o female with pmhx of DVT, depression, chronic dehydration, Chronic renal insufficiency, seen at bedside in the ED for left lower extremity swelling and redness x 3 weeks. Patient's daughter states that her mother has been confused the last 48 hours and noticed leg swelling. Patient states that she comes to the hospital for IV fluid replacement on mondays and . Patient states that she had a previous DVT in august and is on eliquis and had an IVC filter placed. Patient denies any pain in her leg or calf tenderness. She denies any other complaints at this time. Patient denies n/f/c/d/v/sob/ cp. PMD: Dr. Correa Pmhx: DVT, depression, chronic dehydration, chronic renal insufficiency, cervical cancer Pshx: colostomy, ileostomy, SH: quit smoking 30 years ago, denies etoh use All: Cipro, Vanco - Risk Factors DVT Risk Factors: Pos: History Of DVT Past Medical History - Medical History PMH: Anemia, Depression, Deep Vein Thrombosis, HTN, Hypercholesterolemia, Chronic Kidney Disease Denies: HIV - Family History Family History: States: Unknown Family Hx - Home Medications Home Medications: Ambulatory Orders Medication Instructions Recorded Potassium Chloride [K-Dur 20 mEq 20 meq PO DAILY 07/23/16 ER Tab] Sodium Bicarbonate Tab 1,300 mg PO BID 08/27/16 Cholestyramine [Questran] 4 gm PO BID #14 packet 10/04/16 Folic Acid 1 mg PO DAILY #7 tab 10/04/16 Apixaban [Eliquis] 2.5 mg PO BID 10/22/16 Cyanocobalamin [Vitamin B12 1000 1,000 mcg PO DAILY 01/10/17 mcg Tab] [place]-3 Fatty Acids/Fish Oil [Fish 2 cap PO DAILY 01/10/17 Oil 1,000 mg Capsule] Escitalopram [Lexapro] 20 mg PO DAILY 03/28/17 - Allergies Allergies/Adverse Reactions: Allergies Allergy/AdvReac Type Severity Reaction Status Date / Time ciprofloxacin [From Cipro] Allergy RASH Verified 03/11/17 10:56 ciprofloxacin HCl Allergy RASH Verified 03/11/17 10:56 [From Cipro] vancomycin Allergy RASH Verified 03/11/17 10:56 Wells Criteria for PE - Wells Criteria for Pulmonary Embolism Clinical Signs and Symptoms of DVT: Yes Heart Rate >100: No Immobilization at least 3 days;Surgery previous 4 weeks: No Previous, objectively diagnosed PE or DVT: Yes Hemoptysis: No Malignancy w/treatment within 6 months, or palliative: No Total Score: 4.5 Review of Systems Constitutional: Negative for: Fever, Chills, Sweats, Weakness, Malaise Eyes: Negative for: Vision Change Cardiovascular: Negative for: Chest Pain, Palpitations, Orthopnea Respiratory: Negative for: Cough, Shortness of Breath, Hemoptysis Gastrointestinal: Negative for: Nausea, Vomiting, Abdominal Pain, Diarrhea, Constipation Musculoskeletal: Negative for: Neck Pain Neurological: Positive for: Confusion Psych: Positive for: Anxiety, Depression Physical Exam - Physical Exam Appears: Positive for: Well, Non-toxic, No Acute Distress Eye Exam: Positive for: Normal appearance ENT: Positive for: Normal ENT Inspection Neck: Positive for: Normal Cardiovascular/Chest: Positive for: Chest Non Tender Respiratory: Positive for: Normal Breath Sounds Gastrointestinal/Abdominal: Positive for: Normal Exam Extremity: Positive for: Pedal Edema (nonpitting), Swelling, Other (left leg edema, erythema, palpable pedal pulses). Negative for: Tenderness, Calf Tenderness Neurologic/Psych: Positive for: Alert, Oriented - Laboratory Results Result Diagrams: 03/28/17 10:31 Medical Decision Making Medical Decision Makin71 y/o female presents to ED for left leg swelling and redness x 3 weeks with previous history of DVT Plan: CBC, BMP, hepatic panel, PT/INR Venous duplex US L leg- positive for DVT IV fluids with sodium bicarb for fluid replacement EKG IV calcium admit to obs for hypocalcemia PCP= Dr. Correa consult- Dr. Felix Disposition - Clinical Impression Clinical Impression: DVT (deep venous thrombosis), Hypocalcemia - Patient ED Disposition Is Patient to be Admitted: Yes - Disposition Referrals: Malu Felix MD [Medical Doctor] - Disposition Time: 11:47 Condition: FAIR Forms: [employer] ([place]) - Pt Status Changed To: Hospital Disposition Of: Observation
[2017-03-28 11:10] LABS: POTASSIUM 3.7 MMOL/L (3.6-5.0)
[2017-03-28 11:15] LABS: CALCIUM 5.7 mg/dL (8.4-10.2)
--- NOTE | 2017-03-28 11:19 | US ---
HISTORY: rule out DVT . PRIORS: 10/29/2016 FINDINGS: 2-D, color and duplex Doppler analysis of the lower extremity venous circulation using routine protocol from the femoral veins through the popliteal veins. Venous compressibility: There is redemonstration of lack of compressibility in the common femoral, mid and distal superficial femoral veins. There is also thrombus at the greater saphenous junction. There is normal flow in the popliteal vein and posterior tibial vein. Flow and augmentation patterns: Absent. Visualized veins upper third of calf: Thrombosis in the posterior tibial vein. Kulkarni cyst: None. IMPRESSION: Acute thrombosis in the left greater saphenous junction, common femoral, mid and distal superficial femoral veins.
[2017-03-28 12:46] LABS: BASO % 0.8 % (0.0-2.0); EOS # 0.1 K/uL (0.0-0.7); EOS % 2.2 % (0.0-4.0); HEMATOCRIT 26.8 % (34.0-47.0); LYMPH % 22.6 % (20.0-40.0); MEAN CELL VOLUME 103.3 fl (81.0-99.0); MEAN CORPUSCULAR HEMOGLOBIN 33.4 pg (27.0-31.0); MEAN CORPUSCULAR HGB CONC 32.4 g/dL (33.0-37.0); MEAN PLATELET VOLUME 8.2 fl (7.2-11.7); MONO # 0.3 K/uL (0.0-0.8); MONO % 6.5 % (0.0-10.0); NEUT # 2.9 K/uL (1.8-7.0); NEUT % 67.9 % (50.0-75.0); NRBC % 0.1 % (0.0-0.0); RED CELL DISTRIBUTION WIDTH 15.7 % (11.5-14.5); WHITE BLOOD COUNT 4.3 K/uL (4.8-10.8)
[2017-03-28 13:07] LABS: BILIRUBIN,TOTAL 0.4 mg/dl (0.2-1.3); TOTAL PROTEIN 6.5 G/DL (6.3-8.2)
[2017-03-28 13:15] LABS: CALCIUM 5.6 mg/dL (8.4-10.2)
[2017-03-28 13:16] LABS: POTASSIUM 4.3 MMOL/L (3.6-5.0)
[2017-03-28] MEDS: Cholestyramine 4 gm/Pkt UD PO SCH (21:58)
--- NOTE | 2017-03-28 23:54 | CARD ---
APPROVED REPORT EKG Measurement Heart [id number] <Conclusion> Sinus rhythm with premature atrial complexes Otherwise normal ECG
--- NOTE | 2017-03-29 03:05 | CON ---
ENDOCRINOLOGY CONSULT LOCATION: ER holding. HISTORY OF PRESENT ILLNESS: This is a 71-year-old female with known history of hypertension and dyslipidemia, currently admitted with sudden onset of altered mental status and progressively worsening left leg swelling and evaluated to have a left deep vein thrombosis as noted. She is being referred also now for evaluation of hypocalcemia with the calcium level done of 5.7 mg/dL. PAST MEDICAL HISTORY: History of previous hypocalcemia, the etiology of which was not related to parathyroid disorder by the chemical assessment; history of hypertension and dyslipidemia; history of chronic kidney disease with underlying progressive renal insufficiency; history of deep vein thrombosis and had the previous admission in August for the same thing and has been placed on Eliquis with a subsequent IVC filter insertion; history of prior colonic obstruction with ileostomy and colostomy procedures undertaken; other prior history of cervical cancer with cervicectomy procedure undertaken; history of generalized anxiety and depression. FAMILY HISTORY: Positive for hypertension and diabetes. SOCIAL HISTORY: The patient has a supportive family. No known substance use. REVIEW OF SYSTEMS: As mentioned above. Admits to generalized body weakness with easy fatigability and tiredness and suboptimal energy level. Also admits to episodic dizziness and lightheadedness, worse on the day of admission. No chest pains or palpitations or PNDs. Her oral intake has been variable with nausea, dyspepsia and vague upper abdominal pain. Also admits to habitual constipation. PHYSICAL EXAMINATION GENERAL: This is an average-built female, in no apparent distress. VITAL SIGNS: Blood pressure of 140/80, pulse of 70 beats per minute and regular, temperature 98, respirations 20, height is 5 feet 4 inches, weight is 90 pounds. HEENT: Head normocephalic. Eyes anicteric with pink conjunctivae. Funduscopy was not possible at this time. Ears, nose and throat otherwise normal. NECK: Supple. Thyroid gland is normal in size. No carotid bruits or cervical adenopathy. HEART: Adynamic precordium. S1 and S2 is rapid and regular. LUNGS: Clear to auscultation. ABDOMEN: Flat and soft with positive bowel sounds. EXTREMITIES: No peripheral edema. Pulses are +2 bilaterally. LABORATORY DATA: The initial chemistry shows a BUN of 41, sodium 143, potassium 3.7, chloride 114, CO2 of 16, glucose is 80 and creatinine is 2.6 with a calcium level of 5.7. ASSESSMENT: This is a 71-year-old female with symptomatic hypocalcemia and associated upper and lower extremity paresthesias with generalized body weakness and increasing lethargy with progressively worsening, altered mental status with the family. The possibility of whether we are dealing with the parathyroid versus non-parathyroid, etiology of the hypocalcemia is yet to be determined. Moreover, the possibility of hypovitaminosis D also has to be considered as noted. PLAN OF MANAGEMENT: As discussed with the patient and the staff. We will obtain a comprehensive metabolic profile with TSH and parathyroid hormone intact level and serum phosphorus and magnesium levels to be obtained tomorrow morning. We will also do a 25-hydroxyvitamin D level, and in the meantime, start empirically on calcitriol, given at 0.25 mcg b.i.d. as well as normal saline. We will obtain serial chemistry and supplement accordingly as needed. We will also continue the calcium gluconate infusion that was given initially in the emergency room as ER physician in the emergency room. We will follow and advise accordingly. Malu Felix MD
[2017-03-29 07:29] LABS: BILIRUBIN,TOTAL 0.3 mg/dl (0.2-1.3); MAGNESIUM 0.5 MG/DL (1.6-2.3); PHOSPHOROUS 3.7 mg/dl (2.5-4.5); POTASSIUM 3.4 MMOL/L (3.6-5.0); TOTAL PROTEIN 6.2 G/DL (6.3-8.2)
[2017-03-29 07:31] LABS: CALCIUM 5.7 mg/dL (8.4-10.2)
[2017-03-29 07:58] LABS: THYROID STIMULATING HORMONE 4.45 mIU/ML (0.46-4.68)
[2017-03-29] MEDS ORDERED: Potassium Chloride 20 mEq ER Tab PO ONE (08:19)
[2017-03-29] MEDS ORDERED: Magnesium Sulfate 2 gm/50 ml 2 GM/50 ML BAG IVPB ONE (08:20)
[2017-03-29] MEDS ORDERED: Calcium Gluconate 1,000 MG in Sodium Chloride 0.45% 1,000 ML IV SCH (08:30)
[2017-03-29] MEDS: Cholestyramine 4 gm/Pkt UD PO SCH ×2 (10:39→17:02)
[2017-03-29] MEDS: Omega-3-Acid Ethyl Esters 1 GM Cap PO SCH (10:41)
[2017-03-29] MEDS: Potassium Chloride 20 mEq ER Tab PO SCH (10:41)
[2017-03-29 11:53] LABS: HEMATOCRIT 25.7 % (34.0-47.0); MEAN CELL VOLUME 102.2 fl (81.0-99.0); MEAN CORPUSCULAR HEMOGLOBIN 33.2 pg (27.0-31.0); MEAN CORPUSCULAR HGB CONC 32.5 g/dL (33.0-37.0); RED CELL DISTRIBUTION WIDTH 15.3 % (11.5-14.5); WHITE BLOOD COUNT 4.8 K/uL (4.8-10.8)
[2017-03-29] MEDS: SODIUM CHLORIDE 0.9% IV SCH ×2 (11:56→23:09)
[2017-03-29] MEDS: CALCIUM GLUCONATE IV SCH ×2 (11:56→23:09)
--- NOTE | 2017-03-29 13:20 | HP ---
HISTORY OF PRESENT ILLNESS: This is a 71-year-old female with past medical history of deep venous thrombosis, status post IVC filter placement; chronic kidney disease; history of cancer cervix with status post radiation with current colostomy and urinary diversion to ileostomy. The patient was brought to emergency room by her daughter due to the swelling of the left lower extremity. The patient's daughter states that her mother had been confused for the last 48 hours and noticed leg swelling. The patient has been on IV fluid therapy twice a week. The patient is currently on Eliquis for recurrent DVT. The patient was evaluated in the emergency room and she was found to have an acute DVT in spite of the Eliquis and also she was found to be in severe hypocalcemia even the albumin is above 3. The patient was started on calcium gluconate, endocrinology consult was called and the patient was admitted to telemetry floor. REVIEW OF SYSTEMS: All the review of systems is negative. ALLERGIES: The patient has allergy to CIPROFLOXACIN AND VANCOMYCIN. SOCIAL HISTORY: No history of smoking, EtOH or substance abuse. FAMILY HISTORY: Not contributory. MEDICATIONS: Include Eliquis 2.5 mg twice a day, potassium chloride 20 mEq daily, omega-3 1000 two capsule twice a day, folic acid 1 mg daily, Lexapro 20 mg daily, vitamin B12 of 1000 mg daily, and Questran 4 g twice a day p.r.n. PAST MEDICAL HISTORY: As above. PHYSICAL EXAMINATION: GENERAL: The patient is in bed, comfortable. Not in any cardiopulmonary distress at the time of this examination. VITAL SIGNS: Blood pressure 117/72, temperature 98.1, respiratory rate 18 and pulse 76. HEENT: Pupils are equal and reactive to light. Normal appearing mucosa of the conjunctivae, oropharyngeal, and nasal membrane mucosa. NECK: Supple. No JVD. No carotid bruit. No lymph nodes. No thyromegaly. CHEST AND LUNGS: Bilateral symmetrical expansion. No rhonchi, no rales. CARDIOVASCULAR SYSTEM: PMI not localized. S1 and S2. No additional sounds. ABDOMEN: Normoactive bowel sounds. No tenderness. No organomegaly. No masses. EXTREMITIES: No cyanosis, no clubbing. There is slight swelling of the left lower extremity. ASSESSMENT: 1. Severe hypocalcemia. 2. Acute deep venous thrombosis of the left lower extremity, status post inferior vena cava placement. Currently, she is on anticoagulant. 3. Chronic kidney disease. 4. History of cancer cervix, status post radiation with current colostomy and urinary diversion to ileostomy. PLAN: 1. Endocrinology consult and follow recommendations of calcium supplement. 2. Monitor the patient on telemetry. 3. Resume the patient's home medications. [facility] MD Sunny
--- NOTE | 2017-03-29 13:28 | PN ---
DATE: Room #411. This is a 71-year-old female with recent admission for generalized body weakness and weight loss and was found to have marked hypocalcemia. She admits occasional bouts of upper and lower extremity paresthesias, but they are quite bearable with no extremes of cramping sensation or painful dysesthesias. Her latest chemistry showed a BUN of 38, sodium 141, potassium 3.4, chloride 116, CO2 is 14, glucose is 79 and creatinine is 2.6. Her calcium level is 5.7 with an albumin level of 3.1 and a corrected calcium of 6.6 mg/dL. So, at this time we will restart once again the calcium infusion therapy with calcium gluconate 1 amp to be placed in half normal saline to run a 100 mL/hour as ordered. Moreover, her magnesium level was also 0.5 which will contribute to the hypocalcemia and so we will add magnesium sulphate 2 g, given IV piggyback as ordered and noted. We will obtain serum chemistry and supplement accordingly as needed. We are awaiting the reports of the parathyroid hormone intact level as we speak today. We will obtain serial chemistry and supplement accordingly as needed. Malu Felix MD
[2017-03-30 07:29] LABS: HEMATOCRIT 26.2 % (34.0-47.0); MEAN CELL VOLUME 103.6 fl (81.0-99.0); MEAN CORPUSCULAR HEMOGLOBIN 33.4 pg (27.0-31.0); MEAN CORPUSCULAR HGB CONC 32.2 g/dL (33.0-37.0); RED CELL DISTRIBUTION WIDTH 15.7 % (11.5-14.5); WHITE BLOOD COUNT 4.9 K/uL (4.8-10.8)
[2017-03-30 07:41] LABS: MAGNESIUM 1.1 MG/DL (1.6-2.3)
[2017-03-30] MEDS: Cholestyramine 4 gm/Pkt UD PO SCH ×2 (09:24→16:58)
[2017-03-30] MEDS: Potassium Chloride 20 mEq ER Tab PO SCH (09:24)
[2017-03-30] MEDS: Omega-3-Acid Ethyl Esters 1 GM Cap PO SCH (09:24)
[2017-03-30] MEDS: SODIUM CHLORIDE 0.9% IV SCH (09:36)
[2017-03-30] MEDS: CALCIUM GLUCONATE IV SCH (09:36)
[2017-03-30] MEDS ORDERED: Magnesium Sulfate 2 gm/50 ml 2 GM/50 ML BAG IVPB ONE (13:20)
--- NOTE | 2017-03-30 15:28 | PN ---
ROOM: 411 This is a 71-year-old female with symptomatic hypocalcemia, yet to be determined etiology and is now being followed closely for metabolic management. She admits to having had subsidence of the upper and lower extremity paresthesia as noted. Her physical well-being is improving with less dizziness and lightheadedness and easy fatigability and tiredness. Her latest chemistries today showed a BUN of 38, sodium 141, potassium 3.4, chloride 116, CO2 is 14, glucose is 79 and creatinine is 2.6. Her calcium level now is 7 with an albumin level of 3.1 and a selective corrected calcium of 7.9 mg/dL. She received calcium gluconate infusion for 24 hours with remarkable improvement thereof. However, the vitamin D levels are less than 12.8, so the patient will be started on calcitriol, which was given at admission, at a dose of 0.5 mcg b.i.d. as ordered. We will also add vitamin B2 given at 50,000 units once a week as ordered. We will also add Os-Asad at 500 with vitamin D to be taken as 1 tablet b.i.d. as ordered. We will titrate incremental as indicated to optimize metabolic control. We will also supplement the magnesium level, which is still low at 1.1 today. It was 0.5 yesterday whereupon she received magnesium sulfate IV piggyback as ordered. We will add magnesium oxide b.i.d. as ordered. We will obtain serial chemistries and supplement accordingly as needed. We are also awaiting the reports of the parathyroid hormone level, which will confirm whether we are dealing with parathyroid versus non-parathyroid etiology for the hypocalcemia. We will follow and advise accordingly. Malu Felix MD
[2017-03-30] MEDS: Calcium-Vit D 500 mg-200 Units Tab UD PO SCH (16:58)
[2017-03-31 08:09] VITALS: O2SAT 100
[2017-03-31 08:13] LABS: BILIRUBIN,TOTAL 0.4 mg/dl (0.2-1.3); POTASSIUM 4.1 MMOL/L (3.6-5.0); TOTAL PROTEIN 6.2 G/DL (6.3-8.2)
[2017-03-31 08:27] LABS: HEMATOCRIT 30.2 % (34.0-47.0); MEAN CELL VOLUME 100.5 fl (81.0-99.0); MEAN CORPUSCULAR HEMOGLOBIN 32.6 pg (27.0-31.0); MEAN CORPUSCULAR HGB CONC 32.5 g/dL (33.0-37.0); RED CELL DISTRIBUTION WIDTH 16.3 % (11.5-14.5); WHITE BLOOD COUNT 4.5 K/uL (4.8-10.8)
[2017-03-31] MEDS: Cholestyramine 4 gm/Pkt UD PO SCH (08:52)
[2017-03-31] MEDS: Potassium Chloride 20 mEq ER Tab PO SCH (08:52)
[2017-03-31] MEDS: Omega-3-Acid Ethyl Esters 1 GM Cap PO SCH (08:53)
[2017-03-31] MEDS: Calcium-Vit D 500 mg-200 Units Tab UD PO SCH (08:53)
--- NOTE | 2017-03-31 13:47 | PN ---
DATE: ENDO FOLLOWUP NOTE LOCATION: Room 411 SUBJECTIVE: This is a 71-year-old female presenting here with symptomatic hypocalcemia. The etiology of this has to be ascertained whether we are dealing with a parathyroid versus non-parathyroid condition at this time. She received calcium gluconate bolus injection at the emergency room and followed by a calcium infusion in the telemetry unit. She has since then been taken off the calcium infusion as of yesterday with improved calcium levels as noted. LABORATORY DATA: Her latest calcium today is 8.0 with an albumin of 3.1 and corrected calcium of 8.9 mg/dL. Her vitamin D level is extremely low at 12.8. The albumin is 3.1 as mentioned. The magnesium level is 1.1, which is still low, but improved, otherwise. The hypomagnesemia will also contribute to the hypocalcemia. Likewise, the hypovitaminosis D will also contribute to hypocalcemia. Her latest chemistry showed a BUN of 34, sodium 141, potassium 4.1, chloride 118, CO2 of 14, glucose is 78 and creatinine is 2.2. PLAN: So, at this time, we will discontinue the potassium supplementation especially with underlying renal insufficiency as noted. We will supplement the magnesium level as indicated and we will continue the Os-Asad 500 mg given as a b.i.d. dosing as ordered. We will also continue the calcitriol given as 0.5 mcg b.i.d. as ordered. We will obtain serial chemistries and supplement accordingly as needed. We will follow. Malu Felix MD
[2017-03-31 15:41] VITALS: BP 92/53; PULSE 62; RESP 20; TEMP 98.2
[2017-03-31] MEDS ORDERED: Magnesium Oxide 400 mg Tab UD PO SCH (17:00)
--- NOTE | 2017-04-01 15:00 | DS ---
REASON FOR ADMISSION: This is a 71-year-old female with history of multiple medical problems including cancer of cervix, status post radiation and colostomy and urinary diversion to an ileostomy. The patient was admitted for severe hypocalcemia. COURSE OF HOSPITALIZATION: The patient was admitted to telemetry floor and she had endocrinology consult done by Dr. Malu Felix. The patient was started on calcium supplement as well as magnesium and potassium supplement. The patient also was transfused 1 unit of packed RBCs. The patient did well and she was discharged home to continue her current anticoagulation, and the patient was asked to be compliant with the Eliquis 2.5 mg twice a day as a renal dose and also Rocaltrol 0.25 mg twice a day, sodium bicarb 1300 mg twice a day, and to continue her IV fluid therapy and follow up with primary care physician as an outpatient. FINAL DIAGNOSES: 1. Severe hypocalcemia. 2. Chronic kidney disease stage III to IV. 3. History of cancer to cervix. 4. Recurrent deep venous thrombosis secondary to underlying malignancy and the patient is not compliant with the anticoagulants, and currently she has IVC filter in place. Greg Correa MD
--- NOTE | 2017-04-02 08:22 | PN ---
DATE: 03/29/2017 LATE ENTRY FOR DAILY PROGRESS NOTE SUBJECTIVE: The patient was not in any cardiopulmonary distress and she is more alert and awake. PHYSICAL EXAMINATION: VITAL SIGNS: Blood pressure was 108/69, temperature 97.8, respiratory rate 18 and pulse 76. HEENT: Pupils equal, reactive to light. Pale mucosa of the conjunctivae. NECK: Supple. No JVD. No carotid bruit. No lymph node. No thyromegaly. CHEST AND LUNGS: Bilateral symmetrical expansion. Good air exchange. No rales. No rhonchi. CARDIOVASCULAR SYSTEM: PMI not localized. S1 and S2. No additional sounds. ABDOMEN: Normoactive bowel sounds. No tenderness. No organomegaly. No masses. The patient has the colostomy and the urine diversion ileostomy in place. EXTREMITIES: No cyanosis. No clubbing. No edema. CENTRAL NERVOUS SYSTEM: Alert, awake, and oriented x2. No neurological deficit could be appreciated. LABORATORY DATA: Blood work today reveal that the patient has hemoglobin of 8.3 and potassium of 5.7 with magnesium 0.5. ASSESSMENT: Severe hypocalcemia, hypomagnesemia, chronic kidney disease, metabolic acidosis, hypokalemia. PLAN: Supplement the magnesium and potassium as well as the calcium, Follow recommendations of rotational moulding operator. Guarded prognosis. Greg Correa MD
--- NOTE | 2017-04-02 09:22 | PQF GENQUE ---
Dr. Correa, Please clarify the underlying cause of patient's altered mental status and relate that cause to the alteration in mental status: Cardiac condition Electrolyte/metabolic imbalance Infectious process Neurologic condition Psychiatric condition Respiratory condition Other condition (please specify) Clinically unable to determine Unknown H and P: Impression: Severe hypocalcemia. 2. Acute deep venous thrombosis of the left lower extremity, status post inferior vena cava placement. Currently, she is on anticoagulant. 3. Chronic kidney disease. 4. History of cancer cervix , status post radiation with current colostomy and urinary diversion to ileostomy. Attending: progress note:Assessment: Severe hypocalcemia, hypomagnesemia, chronic kidney disease, metabolic acidosis, hypokalemia Endocrinology note:with sudden onset of altered mental status and progressively worsening left leg swelling and evaluated to have a left deep vein thrombosis as noted. She is being referred also now for evaluation of hypocalcemia with the calcium level done of 5.7 mg/dL. PMH: History of previous hypocalcemia, the etiology of which was not related to parathyroid disorder by the chemical assessment; Plan of Management: start empirically on calcitriol, given at 0.25 mcg b.i.d. as well as normal saline. We will obtain serial chemistry and supplement accordingly as needed. We will also continue the calcium gluconate infusion that was given initially in the ER. D/C Summary: D/C Summary: admitted for severe hypocalcemia. Imp.: 1. Severe hypocalcemia. 2. Chronic kidney disease stage III to IV. 3. History of cancer to cervix. 4. Recurrent deep venous thrombosis secondary to underlying malignancy and This form is a permanent part of the medical record Clarification of your documentation is requested to better reflect the severity of illness and intensity of treatment of your patient. Indicators present [] Specify: [] [] Specify: [] [] Specify: [] [] Specify: [] Location in the medical record that reflects the above clinical findings: [] Treatment Provided: [] PHYSICIAN'S RESPONSE Based on your medical judgment of the clinical indicators outlined above please clarify the following: [] Practitioner response [] If unable to determine, please check the box, sign and date. Present On Admission (POA) Indicator: [] Present at the time of admission [] Not present at the time of admission [] Clinically Undetermined In responding to this query, please exercise your independent professional judgment. The fact that a question is asked does not imply that any particular answer is desired or expected. Thank you for your clarification on this documentation. If you have any questions please call. * Thank you, Lakia Gomez RN BSN ext. #[phone] MTDD
== END 2017-03-31 16:14 | disposition home or self-care (01) | DRG 640 ==
LOC: H.ER 08:48 → H.ERHOLD 11:31 → H.TEL 16:05 → OBSVTOIN 03-29 08:20
PROVIDERS: ADMIT Internal Medicine; ATTEND Internal Medicine
PROC: 30233N1 Transfusion of Nonautologous Red Blood Cells into Peripheral Vein, Percutaneous Approach (ICD-10-PCS; principal; 2017-03-30)
DX: E83.51 Hypocalcemia (principal); G93.41 Metabolic encephalopathy; E87.2 Acidosis; I82.402 Acute embolism and thrombosis of unspecified deep veins of left lower extremity; N18.4 Chronic kidney disease, stage 4 (severe); E87.6 Hypokalemia; I12.9 Hypertensive chronic kidney disease with stage 1 through stage 4 chronic kidney disease, or unspecified chronic kidney disease; E83.42 Hypomagnesemia; E78.5 Hyperlipidemia, unspecified; F41.1 Generalized anxiety disorder; F32.9 Major depressive disorder, single episode, unspecified; Z93.3 Colostomy status; Z93.2 Ileostomy status; Z85.41 Personal history of malignant neoplasm of cervix uteri; Z86.718 Personal history of other venous thrombosis and embolism; Z79.01 Long term (current) use of anticoagulants; Z87.891 Personal history of nicotine dependence; Z92.3 Personal history of irradiation; Z88.1 Allergy status to other antibiotic agents

== ENCOUNTER 2017-11-04 18:44 | Inpatient (IN) | payer MEDICARE, OTHER ==
[2017-11-04 18:44] VITALS: BMI 14.6
[2017-11-04] MEDS ORDERED: Sodium Chloride 0.9% 1,000 ML IV STA ×2 (20:14→20:27)
--- NOTE | 2017-11-04 20:36 | ED PDOC ---
HPI: General Adult Time Seen by Provider: 11/04/17 20:06 Chief Complaint (Nursing): GI Problem Chief Complaint (Provider): GI Problem History Per: Patient History/Exam Limitations: no limitations Additional Complaint(s): 72 y/o female with past medical history of colon cancer, Ileostomy, colostomy, and ureteral diversion presents to the ED for dehydration. She gets twice weekly normal saline IV fusion due to recurring malabsorption. Patient went to [place] for two weeks and missed her treatment. She was scheduled today and but she came back late and wasnt able to go for it. She is feeling weak, dizzy and lightheaded. Denies nausea, vomiting, fever or any further medical complaints. PMD: Nato Correa MD Past Medical History Reviewed: Historical Data, Nursing Documentation, Vital Signs Vital Signs: Last Vital Signs Temp 97.4 F L 11/05/17 00:57 Pulse 64 11/05/17 00:57 Resp 18 11/05/17 00:57 BP 117/73 11/05/17 00:57 Pulse Ox 99 11/05/17 04:37 - Medical History PMH: Anemia, Depression, Deep Vein Thrombosis, HTN, Hypercholesterolemia, Chronic Kidney Disease Denies: HIV Other PMH: Colon cancer - Surgical History Other surgeries: colostomy, ureteral diversion, Ileostomy - Family History Family History: States: Unknown Family Hx - Social History Current smoker - smoking cessation education provided: No (Never smoked) Alcohol: None Drugs: Denies - Home Medications Home Medications: Ambulatory Orders Medication Instructions Recorded Potassium Chloride [K-Dur 20 mEq 20 meq PO DAILY 07/23/16 ER Tab] Sodium Bicarbonate Tab 1,300 mg PO BID 08/27/16 Cholestyramine [Questran] 4 gm PO BID #14 packet 10/04/16 Folic Acid 1 mg PO DAILY #7 tab 10/04/16 Cyanocobalamin [Vitamin B12 1000 1,000 mcg PO DAILY 01/10/17 mcg Tab] Escitalopram [Lexapro] 10 mg PO DAILY 03/28/17 Calcitriol [Rocaltrol] 0.5 mcg PO BID 04/22/17 Enoxaparin [Lovenox] 40 mg SQ DAILY 04/22/17 Lactobacillus Acidophilus 1 each PO DAILY 04/22/17 [Acidophilus] - Allergies Allergies/Adverse Reactions: Allergies Allergy/AdvReac Type Severity Reaction Status Date / Time ciprofloxacin [From Cipro] Allergy RASH Verified 11/04/17 21:19 ciprofloxacin HCl Allergy RASH Verified 11/04/17 21:19 [From Cipro] vancomycin Allergy RASH Verified 11/04/17 21:19 Review of Systems ROS Statement: Except As Marked, All Systems Reviewed And Found Negative (As per HPI, otherwise negative) Constitutional: Positive for: Weakness, Other (Dehydration) Neurological: Positive for: Dizziness (and lighheadedness) Physical Exam - Reviewed Nursing Documentation Reviewed: Yes Vital Signs Reviewed: Yes - Physical Exam Appears: Positive for: Non-toxic, No Acute Distress Head Exam: Positive for: ATRAUMATIC, NORMAL INSPECTION, NORMOCEPHALIC Skin: Positive for: Normal Color (Slightly pale), Warm, Dry Eye Exam: Positive for: EOMI, Normal appearance, PERRL ENT: Positive for: Other (Dry mucouse membranes) Neck: Positive for: Normal, Painless ROM Cardiovascular/Chest: Positive for: Regular Rate, Rhythm Respiratory: Positive for: CNT, Normal Breath Sounds Gastrointestinal/Abdominal: Positive for: Normal Exam (Colostomy and ileostomy intact), Soft. Negative for: Tenderness Back: Positive for: Normal Inspection Extremity: Positive for: Normal ROM. Negative for: Deformity Neurologic/Psych: Positive for: Alert, Oriented (x3) - Laboratory Results Result Diagrams: 11/04/17 21:50 11/04/17 21:50 - ECG O2 Sat by Pulse Oximetry: 99 (RA) Pulse Ox Interpretation: Normal Medical Decision Making Medical Decision Making: Time: 21:08 Initial Impression: Patient with acute dehydration in setting of known malabsorption Plan: CMP Lactic acid Magnesium Urine dipstick CBC w/ differential Prothrombin time Sodium chloride 1L IV Heplock insertion Accucheck Urinalysis Reevaluation --Case discussed with Dr. Pitt Time: 00:15 --Labs reviewed and are significant for marked depression in carbon dioxide level consistent with metabolic acidosis with worsening anemia noted. --Hemoglobin levels have dropped approximately two grams from previous labs. --Blood type and screen were ordered as well as ABG. --Patient was upgraded to full admission in telemetry. Scribe Attestation: Documented by Sandra Waters acting as a scribe for Narendra Pagan MD. MD Roa Attestation: All medical record entries made by the Scribe were at my direction and personally dictated by me. I have reviewed the chart and agree that the record accurately reflects my personal performance of the history, physical exam, medical decision making, and the department course for this patient. I have also personally directed, reviewed, and agree with the discharge instructions and disposition. Disposition - Clinical Impression Clinical Impression: Dehydration, Metabolic acidosis, Anemia - Patient ED Disposition Is Patient to be Admitted: Yes Discussed With DrXochitl: Pancho Pitt - Disposition Disposition Time: 00:30 Condition: GUARDED - Pt Status Changed To: Hospital Disposition Of: Inpatient - Admit Certification Admit to Inpatient:: After my assessment, the patient will require hospitalization for at least two midnights. This is because of the severity of symptoms shown, intensity of services needed, and/or the medical risk in this patient being treated as an outpatient.
--- NOTE | 2017-11-04 20:51 | CP.PCM.HP ---
History of Present Illness - History of Present Illness History of Present Illness: PCP: Nato Correa MD Complaint: Generalized weakness/Vomiting The patient was seen and examined in the Ed HPI: This is a 72 years old female with hx of Cervical Cancer with Colostomy and Iliostomy, CKD with electrolyte abnormality receiving IV infusion twice weekly Mondays and . She missed two sessions of her IV fluids , today being her third missed day, [place]. She comes to the ED with generalized weakness, lightheadedness and vomited twice. No fever, headache , chest pain, body aches nor coughing. PMH: Anemia; Depression; DVT;HTN; HLD; CKD; Chronic Dehydration on chronic IV fluid therapy Mondays and ; Cervical Cancer s/p radiotherapy and Chemotherapy(2004) PSH: Colostomy; Ileostomy; Urostomy; IVC Filter; Hysterectomy with bilateral Oophorectomy 2006 [facility]: former Smoker Quit 31 years ago; Occasional Alcohol; No illegal drug use; live with daughter FH: States: Unknown Family Hx Allergies: Ciprofloxacin; Vancomycin Medication: Reviewed Present on Admission - Present on Admission Any Indicators Present on Admission: No History of DVT/PE: No History of Uncontrolled Diabetes: No Urinary Catheter: No Decubitus Ulcer Present: No Review of Systems - Constitutional Constitutional: Fatigue, Weakness. absent: Anorexia, Chills, Fever, Headache - EENT Eyes: Requires Corrective Lenses. absent: Diplopia, Floaters, Sees Flashes Ears: absent: Decreased Hearing, Ear Discharge, Ear Pain, Tinnitus Nose/Mouth/Throat: absent: Epistaxis, Nasal Congestion, Nasal Discharge, Sinus Pain, Sinus Pressure - Cardiovascular Cardiovascular: absent: Chest Pain, Dyspnea Additional comments: Intermittent lower extremity edemas - Respiratory Respiratory: Dyspnea. absent: Cough, Wheezing, Stridor - Gastrointestinal Gastrointestinal: Nausea, Vomiting. absent: Abdominal Pain Additional comments: Colostomy - Genitourinary Additional comments: Urostomy - Musculoskeletal Musculoskeletal: Muscle Cramps, Muscle Weakness. absent: Arthralgias, Back Pain - Integumentary Integumentary: absent: Pruritus, Rash, Skin Ulcer, Sores, Striae, Swelling - Neurological Neurological: Dizziness, Weakness. absent: Confusion, Focal Weakness, Headaches - Psychiatric Psychiatric: absent: Anxiety, Depression, Panic Attacks - Endocrine Endocrine: absent: Palpitations, Polydipsia, Polyphagia, Polyuria - Hematologic/Lymphatic Hematologic: absent: Easy Bleeding, Easy Bruising Past Patient History - Infectious Disease Hx of Infectious Diseases: None - Past Medical History & Family History Past Medical History?: Yes - Past Social History Smoking Status: Former Smoker Chewing Tobacco Use: No Cigar Use: No Alcohol: Occasional Drugs: Denies Home Situation {Lives}: With Family - CARDIAC Hx Hypercholesterolemia: Yes Hx Hypertension: Yes - PULMONARY Hx Respiratory Disorders: No - NEUROLOGICAL Hx Neurological Disorder: No - HEENT Hx HEENT Problems: Yes Hx Cataracts: Yes (bilat 2012) - RENAL Hx Chronic Kidney Disease: Yes - ENDOCRINE/METABOLIC Hx Endocrine Disorders: No Other/Comment: DEHYDRATION - HEMATOLOGICAL/ONCOLOGICAL Hx Anemia: Yes Hx Human Immunodeficiency Virus (HIV): No - INTEGUMENTARY Hx Dermatological Problems: No - MUSCULOSKELETAL/RHEUMATOLOGICAL Hx Falls: No - GASTROINTESTINAL Hx Gastrointestinal Disorders: Yes Other/Comment: Ileostomy - GENITOURINARY/GYNECOLOGICAL Hx Genitourinary Disorders: Yes Hx Cervical Cancer: Yes - PSYCHIATRIC Hx Depression: Yes - SURGICAL HISTORY Other/Comment: Left Urostomy; portagram - ANESTHESIA Hx Anesthesia: Yes Hx Anesthesia Reactions: No Hx Malignant Hyperthermia: No Meds Allergies/Adverse Reactions: Allergies Allergy/AdvReac Type Severity Reaction Status Date / Time ciprofloxacin [From Cipro] Allergy RASH Verified 11/04/17 21:19 ciprofloxacin HCl Allergy RASH Verified 11/04/17 21:19 [From Cipro] vancomycin Allergy RASH Verified 11/04/17 21:19 Physical Exam - Constitutional Appears: No Acute Distress - Head Exam Head Exam: ATRAUMATIC, NORMAL INSPECTION, NORMOCEPHALIC - Eye Exam Eye Exam: EOMI, Normal appearance Pupil Exam: NORMAL ACCOMODATION, PERRL - ENT Exam ENT Exam: Mucous Membranes Dry, Normal Exam, Normal External Ear Exam - Neck Exam Neck exam: Positive for: Full Rom, Normal Inspection. Negative for: Lymphadenopathy, Tenderness - Respiratory Exam Respiratory Exam: Clear to Auscultation Bilateral. absent: Rales, Rhonchi, Wheezes - Cardiovascular Exam Cardiovascular Exam: REGULAR RHYTHM, RRR, +S1, +S2 - GI/Abdominal Exam Additional comments: Abdominal flat with colostomy bag with stool and gas, Urostomy bag with urine - Rectal Exam Rectal Exam: Deferred - Extremities Exam Extremities exam: Positive for: full ROM, normal inspection - Back Exam Back exam: NORMAL INSPECTION. absent: CVA tenderness (L), CVA tenderness (R) - Neurological Exam Neurological exam: Alert, CN II-XII Intact, Oriented x3, Reflexes Normal - Psychiatric Exam Psychiatric exam: Normal Affect, Normal Mood - Skin Skin Exam: Dry, Intact, Normal Color, Warm Results - Vital Signs Recent Vital Signs: Last Vital Signs Temp 98.5 F 11/04/17 19:13 Pulse 88 11/04/17 19:13 Resp 18 11/04/17 19:13 BP 100/61 11/04/17 19:13 Pulse Ox 99 11/04/17 20:36 - Labs Result Diagrams: 11/04/17 21:50 11/04/17 21:50 Assessment & Plan - Assessment and Plan (Free Text) Assessment: #. Acute on Chronic Kidney disease #. Symptomatic Anemia #. Metabolic acidosis #. Depression #. hx of Cervical Cancer s/p radiation/ Chemotherapy Plan: 72 years old female with hx of Cervical Cancer with Colostomy and Iliostomy, CKD with electrolyte abnormality receiving IV infusion twice weekly Mondays and . She missed two sessions of her IV fluids , today being her third missed day. She comes to the ED with generalized weakness, lightheadedness and vomited twice. #. Acute on Chronic Kidney disease - Consult Dr Salas nephrology - IV Fluid - Follow renal labs #. Symptomatic Anemia - transfuse one unit of PRBC - Follow HB #. Metabolic acidosis - IV Fluid D5/NS with 100mEq Sodium Bicarbonate at 100mls/hr - Follow bicarb #. Depression - Lexapro #. DVT prophylaxis with SCD Hold Lovenox #. hx of Cervical Cancer s/p radiation/ Chemotherapy #. Code Status: Full - Date & Time Date: 11/04/17 Time: 20:51
[2017-11-04 21:54] LABS: BASO % 0.6 % (0.0-2.0); EOS # 0.1 K/uL (0.0-0.7); EOS % 1.8 % (0.0-4.0); LYMPH # 0.8 K/uL (1.0-4.3); LYMPH % 18.7 % (20.0-40.0); MEAN CELL VOLUME 93.7 fl (81.0-99.0); MEAN PLATELET VOLUME 7.8 fl (7.2-11.7); MONO # 0.5 K/uL (0.0-0.8); MONO % 11.9 % (0.0-10.0); NEUT # 2.9 K/uL (1.8-7.0); NRBC % 0.1 % (0.0-0.0); RBC 2.32 Mil/uL (3.80-5.20); RED CELL DISTRIBUTION WIDTH 14.4 % (11.5-14.5); WHITE BLOOD COUNT 4.3 K/uL (4.8-10.8)
[2017-11-04 22:10] LABS: ALB/GLOB RATIO 0.8 (1.0-2.1); ALBUMIN 2.9 g/dL (3.5-5.0); CALCIUM 7.3 mg/dL (8.4-10.2)
[2017-11-04 22:16] LABS: PROTHROMBIN TIME 11.2 Seconds (9.8-13.1)
[2017-11-04] MEDS ORDERED: Sodium Bicarbonate 8.4% 100 MEQ in Dextrose 5%/0.9% NS 1,000 ML IV SCH (23:15)
[2017-11-05 00:06] LABS: ABG ALLEN TEST YES; ARTERIAL BLOOD GAS HCO3 15.6 mmol/L (21-28); ARTERIAL BLOOD GAS HEMOGLOBIN 7.9 g/dL (11.7-17.4); ARTERIAL BLOOD GAS O2 CAPACITY 11.3 mL/dL (16-24); ARTERIAL BLOOD GAS O2 CONTENT 10.9 ML/dL (15-23); ARTERIAL BLOOD GAS O2 SAT 96.4 % (95-98); ARTERIAL BLOOD GAS PCO2 30 mm/Hg (35-45); ARTERIAL BLOOD GAS PH 7.27 (7.35-7.45); ARTERIAL BLOOD GAS PO2 115 mm/Hg (80-100); ARTERIAL BLOOD GAS TCO2 14.7 mmol/L (22-28)
[2017-11-05] MEDS ORDERED: Magnesium Sulfate 2 gm/50 ml 2 GM/50 ML BAG IVPB ONE (08:00)
[2017-11-05] MEDS: Lactobacillus Acidophilus 500 MU Cap PO SCH (09:15)
[2017-11-05 10:15] LABS: HEMOGLOBIN 8.6 g/dL (12.0-16.0); MEAN CORPUSCULAR HEMOGLOBIN 30.2 pg (27.0-31.0); RBC 2.86 Mil/uL (3.80-5.20); RED CELL DISTRIBUTION WIDTH 14.4 % (11.5-14.5); WHITE BLOOD COUNT 3.5 K/uL (4.8-10.8)
[2017-11-05 10:19] LABS: CALCIUM 8.3 mg/dL (8.4-10.2)
[2017-11-05 10:20] LABS: MEAN CELL VOLUME 91.5 fl (81.0-99.0)
--- NOTE | 2017-11-05 11:33 | PQF GENQUE ---
Dr. Roach, 2 queries: 1. Please provide a nutritional diagnosis, if known, related to the information below The following clinical indicators are present in the medical record: BMI:15.8 5ft 4in 2. Please include the BMI in your next progress note if in agreement with the listed BMI OR: Disagree OR: Other explantion of clinical finding ER: presents to the ED for dehydration. She gets twice weekly normal saline IV fusion due to recurring malabsorptionLabs reviewed sign for marked depression in carbon dioxide level consistent with metabolic acidosis with worsening anemia noted. Clinical Impression : Dehydration, Metabolic acidosis, Anemia H and P: H and P: #Acute on Chronic Kidney disease - Consult nephro- IV Fluid - Follow renal labs #. Symptomatic Anemia - transfuse one unit of PRBC - Follow HB #. Metabolic acidosis - IV Fluid D5/NS with 100mEq Sodium Bicarbonate at 100mls/ hr - Follow bicarb #. Depression - Lexapro #. DVT prophylaxis with SCD Hold Lovenox #. hx of Cervical Cancer s/p radiation/ Chemotherapy This form is a permanent part of the medical record Clarification of your documentation is requested to better reflect the severity of illness and intensity of treatment of your patient. Indicators present [] Specify: [] [] Specify: [] [] Specify: [] [] Specify: [] Location in the medical record that reflects the above clinical findings: [] Treatment Provided: [] PHYSICIAN'S RESPONSE Based on your medical judgment of the clinical indicators outlined above please clarify the following: [] Practitioner response [] If unable to determine, please check the box, sign and date. Present On Admission (POA) Indicator: [] Present at the time of admission [] Not present at the time of admission [] Clinically Undetermined In responding to this query, please exercise your independent professional judgment. The fact that a question is asked does not imply that any particular answer is desired or expected. Thank you for your clarification on this documentation. If you have any questions please call. * Thank you, Lakia Gomez RN ext. #[phone] MTDD
--- NOTE | 2017-11-05 11:35 | CP.PCM.CON ---
History of Present Illness - History of Present Illness History of Present Illness: This patient is 72 years of age known to me with many previous admissions. I was called to see for abnormal kidney function and electrolyte. She has admitted many time with dehydration and severe metabolic acidosis related to her condition as noted below. HPI: This is a 72 years old female with hx of Cervical Cancer with Colostomy and Iliostomy, CKD with electrolyte abnormality receiving IV infusion twice weekly Mondays and . She missed two sessions of her IV fluids , today being her third missed day, [place]. She comes to the ED with generalized weakness, lightheadedness and vomited twice. No fever, headache , chest pain, body aches nor coughing. PMH: Anemia; Depression; DVT;HTN; HLD; CKD; Chronic Dehydration on chronic IV fluid therapy Mondays and ; Cervical Cancer s/p radiotherapy and Chemotherapy(2004) PSH: Colostomy; Ileostomy; Urostomy; IVC Filter; Hysterectomy with bilateral Oophorectomy 2006 SH: former Smoker Quit 31 years ago; Occasional Alcohol; No illegal drug use; live with daughter FH: States: Unknown Family Hx Allergies: Ciprofloxacin; Vancomycin Review of Systems - Constitutional Constitutional: Anorexia. absent: Chills, Headache, Night Sweats - EENT Nose/Mouth/Throat: absent: Epistaxis, Nasal Discharge - Breasts Breasts: As Per HPI - Cardiovascular Cardiovascular: As Per HPI. absent: Acrocyanosis, Chest Pain, Dyspnea, Edema, Leg Edema - Respiratory Respiratory: absent: Cough, Chest Congestion - Gastrointestinal Gastrointestinal: absent: Abdominal Pain, Coffee Ground Emesis, Melena - Genitourinary Genitourinary: As Per HPI, Urinary Incontinence. absent: Hematuria - Musculoskeletal Musculoskeletal: Abnormal Gait, Back Pain, Muscle Weakness, Numbness - Neurological Neurological: Abnormal Gait. absent: Dizziness, Numbness - Hematologic/Lymphatic Hematologic: absent: Easy Bleeding Past Patient History - Infectious Disease Hx of Infectious Diseases: None - Past Medical History & Family History Past Medical History?: Yes - Past Social History Alcohol: None Drugs: Denies - CARDIAC Hx Hypercholesterolemia: Yes Hx Hypertension: Yes - PULMONARY Hx Respiratory Disorders: No - NEUROLOGICAL Hx Neurological Disorder: No - HEENT Hx HEENT Problems: Yes Hx Cataracts: Yes (bilat 2012) - RENAL Hx Chronic Kidney Disease: Yes - ENDOCRINE/METABOLIC Hx Endocrine Disorders: No Other/Comment: DEHYDRATION - HEMATOLOGICAL/ONCOLOGICAL Hx Anemia: Yes Hx Human Immunodeficiency Virus (HIV): No - INTEGUMENTARY Hx Dermatological Problems: No - MUSCULOSKELETAL/RHEUMATOLOGICAL Hx Falls: No - GASTROINTESTINAL Hx Gastrointestinal Disorders: Yes Other/Comment: Ileostomy - GENITOURINARY/GYNECOLOGICAL Hx Genitourinary Disorders: Yes Hx Cervical Cancer: Yes - PSYCHIATRIC Hx Depression: Yes - SURGICAL HISTORY Other/Comment: Left Urostomy; portagram - ANESTHESIA Hx Anesthesia: Yes Hx Anesthesia Reactions: No Hx Malignant Hyperthermia: No Meds Allergies/Adverse Reactions: Allergies Allergy/AdvReac Type Severity Reaction Status Date / Time ciprofloxacin [From Cipro] Allergy RASH Verified 11/04/17 21:19 ciprofloxacin HCl Allergy RASH Verified 11/04/17 21:19 [From Cipro] vancomycin Allergy RASH Verified 11/04/17 21:19 - Medications Medications: Current Medications Calcitriol (Rocaltrol) 0.5 mcg PO BID [facility] Last Admin: 11/05/17 09:12 Dose: 0.5 mcg Cyanocobalamin (Vitamin B12 1000 Mcg Tab) 1,000 mcg PO DAILY [facility] Last Admin: 11/05/17 09:13 Dose: 1,000 mcg Escitalopram Oxalate (Lexapro) 10 mg PO DAILY [facility] Last Admin: 11/05/17 09:12 Dose: 10 mg Folic Acid (Folic Acid) 1 mg PO DAILY [facility] Last Admin: 11/05/17 09:12 Dose: 1 mg Sodium Bicarbonate 100 meq/ (Dextrose/Sodium Chloride) 1,100 mls @ 140 mls/hr IV .Q7H52M [facility] Lactobacillus Acidophilus (Bacid Acidophilus) 1 cap PO DAILY [facility] Last Admin: 11/05/17 09:15 Dose: 1 cap Sodium Bicarbonate (Sodium Bicarbonate Tab) 1,300 mg PO BID [facility] Last Admin: 11/05/17 09:12 Dose: 1,300 mg Physical Exam - ENT Exam ENT Exam: Mucous Membranes Dry - Neck Exam Neck exam: Negative for: Lymphadenopathy - Respiratory Exam Respiratory Exam: NORMAL BREATHING PATTERN. absent: Chest Wall Tenderness - Cardiovascular Exam Cardiovascular Exam: absent: Gallop, JVD, Rubs - GI/Abdominal Exam GI & Abdominal Exam: Normal Bowel Sounds. absent: Guarding - Extremities Exam Extremities exam: Negative for: calf tenderness - Back Exam Back exam: absent: CVA tenderness (L), CVA tenderness (R) - Neurological Exam Neurological exam: Alert - Psychiatric Exam Psychiatric exam: Normal Affect Results - Vital Signs Recent Vital Signs: Last Vital Signs Temp 97.3 F L 11/05/17 07:42 Pulse 53 L 11/05/17 07:42 Resp 18 11/05/17 07:42 BP 95/59 L 11/05/17 07:42 Pulse Ox 99 11/05/17 07:42 - Labs Result Diagrams: 11/05/17 09:57 11/05/17 09:57 Labs: Laboratory Results - last 24 hr 11/04/17 11/04/17 11/04/17 21:50 21:50 21:50 WBC 4.3 L RBC 2.32 L Hgb 7.0 L D Hct 21.8 L MCV 93.7 D MCH 30.0 MCHC 32.0 L RDW 14.4 Plt Count 206 MPV 7.8 Neut % (Auto) 67.0 Lymph % (Auto) 18.7 L [place] % (Auto) 11.9 H Eos % (Auto) 1.8 Baso % (Auto) 0.6 Neut # (Auto) 2.9 Lymph # (Auto) 0.8 L [place] # (Auto) 0.5 Eos # (Auto) 0.1 Baso # (Auto) 0.0 PT INR APTT pCO2 pO2 HCO3 ABG pH ABG Total CO2 ABG O2 Saturation ABG O2 Content ABG Base Excess ABG Hemoglobin ABG Carboxyhemoglobin POC ABG HHb (Measured) ABG Methemoglobin ABG O2 Capacity Reji Test A-a O2 Difference Hgb O2 Saturation FiO2 Sodium 134 Potassium 3.7 Chloride 109 H Carbon Dioxide 8 L* D Anion Gap 21 H BUN 79 H Creatinine 3.6 H Est GFR ( Amer) 15 Est GFR (Non-Af Amer) 12 Random Glucose 89 Lactic Acid 1.0 Calcium 7.3 L Magnesium 1.2 L Total Bilirubin 0.2 AST 12 L D ALT 23 Alkaline Phosphatase 49 Total Protein 6.5 Albumin 2.9 L D Globulin 3.6 Albumin/Globulin Ratio 0.8 L Blood Type Antibody Screen Crossmatch BBK History Checked 11/04/17 11/04/17 11/04/17 21:50 22:05 23:52 WBC RBC Hgb Hct MCV MCH MCHC RDW Plt Count MPV Neut % (Auto) Lymph % (Auto) [place] % (Auto) Eos % (Auto) Baso % (Auto) Neut # (Auto) Lymph # (Auto) [place] # (Auto) Eos # (Auto) Baso # (Auto) PT 11.2 INR 1.0 APTT 26.0 pCO2 30 L pO2 115 H HCO3 15.6 L ABG pH 7.27 L ABG Total CO2 14.7 L ABG O2 Saturation 96.4 ABG O2 Content 10.9 L ABG Base Excess -12.0 L ABG Hemoglobin 7.9 L ABG Carboxyhemoglobin 0 L POC ABG HHb (Measured) 3.6 ABG Methemoglobin 0.0 ABG O2 Capacity 11.3 L Reji Test Yes A-a O2 Difference -3.0 Hgb O2 Saturation 96.4 FiO2 21.0 Sodium Potassium Chloride Carbon Dioxide Anion Gap BUN Creatinine Est GFR ( Amer) Est GFR (Non-Af Amer) Random Glucose Lactic Acid Calcium Magnesium Total Bilirubin AST ALT Alkaline Phosphatase Total Protein Albumin Globulin Albumin/Globulin Ratio Blood Type O NEGATIVE Antibody Screen Negative Crossmatch See Detail BBK History Checked Patient has bt 11/05/17 11/05/17 09:57 09:57 WBC 3.5 L RBC 2.86 L Hgb 8.6 L Hct 26.2 L MCV 91.5 D MCH 30.2 MCHC 33.0 RDW 14.4 Plt Count 188 MPV Neut % (Auto) Lymph % (Auto) [place] % (Auto) Eos % (Auto) Baso % (Auto) Neut # (Auto) Lymph # (Auto) [place] # (Auto) Eos # (Auto) Baso # (Auto) PT INR APTT pCO2 pO2 HCO3 ABG pH ABG Total CO2 ABG O2 Saturation ABG O2 Content ABG Base Excess ABG Hemoglobin ABG Carboxyhemoglobin POC ABG HHb (Measured) ABG Methemoglobin ABG O2 Capacity Reji Test A-a O2 Difference Hgb O2 Saturation FiO2 Sodium 138 Potassium 3.7 Chloride 107 Carbon Dioxide 14 L Anion Gap 21 H BUN 89 H Creatinine 4.1 H Est GFR ( Amer) 13 Est GFR (Non-Af Amer) 11 Random Glucose 129 H Lactic Acid Calcium 8.3 L Magnesium Total Bilirubin AST ALT Alkaline Phosphatase Total Protein Albumin Globulin Albumin/Globulin Ratio Blood Type Antibody Screen Crossmatch BBK History Checked Assessment & Plan (1) Chronic kidney disease, stage IV (severe) Assessment and Plan: Patient has baseline of chronic kidney disease between the stage III to stage IV. Patient appears to have superimposed acute kidney injury that is superimposed on the above CKD Severe metabolic acidosis, secondary to her dehydration and uremia and element of renal tubular acidosis. Review of blood tests previously over last year showed serum creatinine baseline in the range of 2.5-3. Secondary hyperparathyroidism Hyperphosphatemia Rule out hypomagnesemia The plan Continue IV fluid which has been increased from 100 mL 150 mL because of the continuation of elevation BUN and creatinine and patient appears to be dehydrated. Continue monitoring electrolyte Magnesium level to be done now PTH and phosphorus level BUN and creatinine continued to rise we should do ultrasound of the abdomen or CAT scan to rule out obstructive uropathy. Status: Acute (2) Anemia Status: Acute (3) Dehydration Status: Acute (4) Metabolic acidosis Status: Acute (5) Acute kidney injury Status: Acute
[2017-11-05] MEDS: Sodium Bicarbonate 8.4% 100 MEQ in Dextrose 5%/0.9% NS 1,000 ML IV SCH ×2 (13:51→23:34)
--- NOTE | 2017-11-05 14:03 | PQF GENQUE ---
Dr. Roach, Please clarify the type of anemia: if known after the work up is completed Blood loss anemia, acute Blood loss anemia, chronic Chronic anemia Deficiency anemia (please specify type) Due to/in/with antineoplastic chemotherapy Due to/in/with chronic kidney disease Due to/in/with kidney failure Due to/in/with neoplastic disease Iron deficiency anemia Macrocytic anemia Microcytic anemia Normocytic anemia Postoperative blood loss anemia Pernicious anemia Other anemia (please specify) Clinically unable to determine Unknown RBC:2.32->2.86 H/H:7.0/21.8->8.6/26.2 H and P: dxs. include: Symptomatic Anemia- transfuse one unit of PRBC - Follow HB This form is a permanent part of the medical record Clarification of your documentation is requested to better reflect the severity of illness and intensity of treatment of your patient. Indicators present [] Specify: [] [] Specify: [] [] Specify: [] [] Specify: [] Location in the medical record that reflects the above clinical findings: [] Treatment Provided: [] PHYSICIAN'S RESPONSE Based on your medical judgment of the clinical indicators outlined above please clarify the following: [] Practitioner response [] If unable to determine, please check the box, sign and date. Present On Admission (POA) Indicator: [] Present at the time of admission [] Not present at the time of admission [] Clinically Undetermined In responding to this query, please exercise your independent professional judgment. The fact that a question is asked does not imply that any particular answer is desired or expected. Thank you for your clarification on this documentation. If you have any questions please call. * Thank you, Lakia Gomez RN ext. #[phone] MTDD
--- NOTE | 2017-11-05 14:40 | CP.PCM.PN ---
Subjective - Date & Time of Evaluation Date of Evaluation: 11/05/17 Time of Evaluation: 09:30 - Subjective Subjective: Patient seen and examined bedside . Feeling a little better but still weak and tired. Hemodynamically stable, afebrile IVF infusion ongoing HCO3 trending up from 8 -- 114 and Hgb from 7 to 8 after transfusion of 1 unit PRBC Objective - Vital Signs/Intake and Output Vital Signs (last 24 hours): Temp Pulse Resp BP Pulse Ox 98.1 F 60 18 106/55 L 99 11/05/17 12:07 11/05/17 12:07 11/05/17 12:07 11/05/17 12:07 11/05/17 12:07 - Medications Medications: Current Medications Calcitriol (Rocaltrol) 0.5 mcg PO BID [facility] Last Admin: 11/05/17 09:12 Dose: 0.5 mcg Cyanocobalamin (Vitamin B12 1000 Mcg Tab) 1,000 mcg PO DAILY [facility] Last Admin: 11/05/17 09:13 Dose: 1,000 mcg Escitalopram Oxalate (Lexapro) 10 mg PO DAILY [facility] Last Admin: 11/05/17 09:12 Dose: 10 mg Folic Acid (Folic Acid) 1 mg PO DAILY [facility] Last Admin: 11/05/17 09:12 Dose: 1 mg Sodium Bicarbonate 100 meq/ (Dextrose/Sodium Chloride) 1,100 mls @ 140 mls/hr IV .Q7H52M [facility] Last Admin: 11/05/17 13:51 Dose: 140 mls/hr Lactobacillus Acidophilus (Bacid Acidophilus) 1 cap PO DAILY [facility] Last Admin: 11/05/17 09:15 Dose: 1 cap Sodium Bicarbonate (Sodium Bicarbonate Tab) 1,300 mg PO BID [facility] Last Admin: 11/05/17 09:12 Dose: 1,300 mg - Labs Labs: 11/05/17 09:57 11/05/17 09:57 PT 11.2 Seconds (9.8-13.1) 11/04/17 21:50 INR 1.0 (0.9-1.2) 11/04/17 21:50 APTT 26.0 Seconds (25.6-37.1) 11/04/17 21:50 - Constitutional Appears: Non-toxic, No Acute Distress, Cachectic - Head Exam Head Exam: ATRAUMATIC, NORMAL INSPECTION, NORMOCEPHALIC - Eye Exam Eye Exam: EOMI, Normal appearance, PERRL Pupil Exam: NORMAL ACCOMODATION - ENT Exam ENT Exam: Mucous Membranes Moist, Normal Exam - Neck Exam Neck Exam: Full ROM, Normal Inspection - Respiratory Exam Respiratory Exam: Clear to Ausculation Bilateral, NORMAL BREATHING PATTERN. absent: Rales, Rhonchi, Wheezes - Cardiovascular Exam Cardiovascular Exam: REGULAR RHYTHM, RRR, +S1, +S2. absent: JVD - GI/Abdominal Exam GI & Abdominal Exam: Soft, Normal Bowel Sounds. absent: Distended, Guarding, Rebound Additional comments: colostomy bag to rLQ urostomny bag to left side - Rectal Exam Rectal Exam: Deferred - Extremities Exam Extremities Exam: Full ROM, Normal Capillary Refill, Normal Inspection. absent : Calf Tenderness, Pedal Edema - Back Exam Back Exam: NORMAL INSPECTION - Neurological Exam Neurological Exam: Alert, Awake, CN II-XII Intact, Oriented x3 - Psychiatric Exam Psychiatric exam: Normal Affect, Normal Mood - Skin Skin Exam: Dry, Pallor Assessment and Plan - Assessment and Plan (Free Text) Assessment: 72 years old female with hx of Cervical Cancer with Colostomy and Iliostomy, CKD with electrolyte abnormality receiving IV infusion twice weekly Mondays and . She missed two sessions of her IV fluids , today being her third missed day. She comes to the ED with generalized weakness, lightheadedness and vomited twice. She was found to be dehydrated with metabolic acidosis and DIPESH superimposed on CKD. She was admitted started on IVF with HCO3 supplements Her Hgb founds to be 7 and she was transfused 1 unit PRBC since she was feeling lightheaded and weak. 1. Acute on Chronic Kidney disease stage III-IV Consult with Dr Salas nephrology, appreciated HCO3 improving with IVF and HCO3 from 8 -- 15 increased fluid rate to 150 ml/hr Replace electrolytes Check PTH and Ph to rule out hyperparathyroidism and hyperphosphatemia check Mg 2. Symptomatic Anemia most likely anemia of chronic disease Hgb 7 on admission s/p 1 unit PRBC transfusion with Hgb 8.6 now 3. Metabolic acidosis secondary to severe dehydration Continue IVF with HCO3 4. Depression on Lexapro 5. Cachexia BMI 15 6. History cervical cancer s/p radiation/ Chemotherapy s/p colostomy and iliostomy 7. DVT prophylaxis with SCD Hold Lovenox due to anemia
[2017-11-06] MEDS: Sodium Bicarbonate 8.4% 100 MEQ in Dextrose 5%/0.9% NS 1,000 ML IV SCH ×2 (09:35→13:13)
[2017-11-06] MEDS: Lactobacillus Acidophilus 500 MU Cap PO SCH (10:02)
[2017-11-06 11:38] LABS: HEMOGLOBIN 8.1 g/dL (12.0-16.0); MEAN CELL VOLUME 90.8 fl (81.0-99.0); MEAN CORPUSCULAR HEMOGLOBIN 30.3 pg (27.0-31.0); MEAN CORPUSCULAR HGB CONC 33.4 g/dL (33.0-37.0); RBC 2.68 Mil/uL (3.80-5.20); RED CELL DISTRIBUTION WIDTH 14.2 % (11.5-14.5); WHITE BLOOD COUNT 3.6 K/uL (4.8-10.8)
[2017-11-06 11:52] LABS: CALCIUM 7.4 mg/dL (8.4-10.2)
--- NOTE | 2017-11-06 11:54 | CP.PCM.PN ---
Subjective - Date & Time of Evaluation Date of Evaluation: 10/30/17 Time of Evaluation: 11:54 - Subjective Subjective: Patient M date May feeling much better no acute distress Vital sign noted to be stable No abdominal pain reported Objective - Vital Signs/Intake and Output Vital Signs (last 24 hours): Temp Pulse Resp BP Pulse Ox 98.8 F 76 18 102/61 97 11/06/17 07:54 11/06/17 07:54 11/06/17 07:54 11/06/17 07:54 11/06/17 07:54 Intake and Output: 11/06/17 11/06/17 06:59 18:59 Intake Total 1930 Output Total 850 Balance 1080 - Medications Medications: Current Medications Calcitriol (Rocaltrol) 0.5 mcg PO BID [facility] Last Admin: 11/06/17 09:33 Dose: 0.5 mcg Cyanocobalamin (Vitamin B12 1000 Mcg Tab) 1,000 mcg PO DAILY [facility] Last Admin: 11/06/17 09:34 Dose: 1,000 mcg Escitalopram Oxalate (Lexapro) 10 mg PO DAILY [facility] Last Admin: 11/06/17 09:32 Dose: 10 mg Folic Acid (Folic Acid) 1 mg PO DAILY [facility] Last Admin: 11/06/17 09:32 Dose: 1 mg Sodium Bicarbonate 100 meq/ (Dextrose/Sodium Chloride) 1,100 mls @ 140 mls/hr IV .Q7H52M [facility] Last Admin: 11/06/17 09:35 Dose: 140 mls/hr Lactobacillus Acidophilus (Bacid Acidophilus) 1 cap PO DAILY [facility] Last Admin: 11/06/17 10:02 Dose: 1 cap Sodium Bicarbonate (Sodium Bicarbonate Tab) 1,300 mg PO BID [facility] Last Admin: 11/06/17 09:33 Dose: 1,300 mg - Labs Labs: 11/06/17 11:28 11/05/17 09:57 PT 11.2 Seconds (9.8-13.1) 11/04/17 21:50 INR 1.0 (0.9-1.2) 11/04/17 21:50 APTT 26.0 Seconds (25.6-37.1) 11/04/17 21:50 - Constitutional Appears: No Acute Distress - ENT Exam ENT Exam: Mucous Membranes Moist - Neck Exam Neck Exam: absent: Lymphadenopathy - Respiratory Exam Respiratory Exam: absent: Chest Wall Tenderness - Cardiovascular Exam Cardiovascular Exam: absent: Gallop, JVD, Rubs - GI/Abdominal Exam GI & Abdominal Exam: Soft, Normal Bowel Sounds - Extremities Exam Extremities Exam: absent: Calf Tenderness - Back Exam Back Exam: absent: CVA tenderness (L), CVA tenderness (R) - Neurological Exam Neurological Exam: Alert - Psychiatric Exam Psychiatric exam: Normal Affect - Skin Skin Exam: absent: Cyanosis Assessment and Plan (1) Chronic kidney disease, stage IV (severe) Assessment & Plan: patient is stable clinically however serum creatinine has risen up yesterday. Today BMP is still pending we will follow-up chronic kidney disease stage IV continue to monitor and continue IV fluid and to get update of the blood test. Serum bicarbonate trending up Other medical problem patient status post colostomy and ileostomy Anemia; Depression; DVT;HTN; HLD; CKD; Chronic Dehydration on chronic IV fluid therapy Mondays and ; Cervical Cancer s/p radiotherapy and Chemotherapy (2004) : Colostomy; Ileostomy; Urostomy; IVC Filter; Hysterectomy with bilateral Oophorectomy 2006 Status: Acute (2) Anemia Status: Acute (3) Dehydration Status: Acute (4) Metabolic acidosis Status: Acute (5) Acute kidney injury Status: Acute
[2017-11-06] MEDS ORDERED: Potassium Chloride 20 mEq/15 ml LIQ UD PO ONE (12:30)
[2017-11-06] MEDS: Potassium Chloride 20 mEq 100 ML IVPB SCH ×2 (15:28→17:39)
--- NOTE | 2017-11-06 16:10 | CP.PCM.PN ---
Subjective - Date & Time of Evaluation Date of Evaluation: 11/06/17 Time of Evaluation: 10:30 - Subjective Subjective: Patient seen and examined bedside .Feling better .With 2 episodes of vomiting today , unable to tolerate Po K supplements K 2.8 BUN/ Cr improving 68/3.1 Objective - Vital Signs/Intake and Output Vital Signs (last 24 hours): Temp Pulse Resp BP Pulse Ox 99.4 F 80 17 108/69 98 11/06/17 15:58 11/06/17 15:58 11/06/17 15:58 11/06/17 15:58 11/06/17 15:58 Intake and Output: 11/06/17 11/06/17 06:59 18:59 Intake Total 1930 Output Total 850 Balance 1080 - Medications Medications: Current Medications Calcitriol (Rocaltrol) 0.5 mcg PO BID [facility] Last Admin: 11/06/17 09:33 Dose: 0.5 mcg Cyanocobalamin (Vitamin B12 1000 Mcg Tab) 1,000 mcg PO DAILY [facility] Last Admin: 11/06/17 09:34 Dose: 1,000 mcg Escitalopram Oxalate (Lexapro) 10 mg PO DAILY [facility] Last Admin: 11/06/17 09:32 Dose: 10 mg Folic Acid (Folic Acid) 1 mg PO DAILY [facility] Last Admin: 11/06/17 09:32 Dose: 1 mg Sodium Bicarbonate 100 meq/ (Dextrose/Sodium Chloride) 1,100 mls @ 140 mls/hr IV .Q7H52M [facility] Last Admin: 11/06/17 13:13 Dose: Not Given Potassium Chloride (Potassium Chloride 20 Meq/100 Ml) 100 mls @ 50 mls/hr IVPB Q2 [facility] Stop: 11/06/17 19:59 Last Admin: 11/06/17 15:28 Dose: 50 mls/hr Lactobacillus Acidophilus (Bacid Acidophilus) 1 cap PO DAILY [facility] Last Admin: 11/06/17 10:02 Dose: 1 cap Ondansetron HCl (Zofran Inj) 4 mg IVP Q6 PRN PRN Reason: Nausea/Vomiting Sodium Bicarbonate (Sodium Bicarbonate Tab) 1,300 mg PO BID [facility] Last Admin: 11/06/17 09:33 Dose: 1,300 mg - Labs Labs: 11/06/17 11:28 11/06/17 11:28 PT 11.2 Seconds (9.8-13.1) 11/04/17 21:50 INR 1.0 (0.9-1.2) 11/04/17 21:50 APTT 26.0 Seconds (25.6-37.1) 11/04/17 21:50 - Constitutional Appears: Non-toxic, No Acute Distress, Cachectic, Chronically Ill - Head Exam Head Exam: ATRAUMATIC, NORMAL INSPECTION, NORMOCEPHALIC - Eye Exam Eye Exam: EOMI, Normal appearance, PERRL Pupil Exam: NORMAL ACCOMODATION - ENT Exam ENT Exam: Mucous Membranes Moist, Normal Exam - Neck Exam Neck Exam: Full ROM, Normal Inspection - Respiratory Exam Respiratory Exam: Clear to Ausculation Bilateral, NORMAL BREATHING PATTERN. absent: Rales, Rhonchi, Wheezes - Cardiovascular Exam Cardiovascular Exam: Clicks, REGULAR RHYTHM, RRR, +S1, +S2. absent: JVD - GI/Abdominal Exam GI & Abdominal Exam: Soft. absent: Distended, Guarding, Tenderness, Rebound Additional comments: colostomy to Right quadrant and urostomy bag to left quadrant - Rectal Exam Rectal Exam: Deferred - Extremities Exam Extremities Exam: Full ROM, Normal Capillary Refill, Normal Inspection. absent : Calf Tenderness, Pedal Edema - Back Exam Back Exam: NORMAL INSPECTION - Neurological Exam Neurological Exam: Alert, Awake, CN II-XII Intact, Oriented x3 - Psychiatric Exam Psychiatric exam: Normal Affect, Normal Mood - Skin Skin Exam: Dry, Pallor, Warm Assessment and Plan - Assessment and Plan (Free Text) Assessment: 72 years old female with hx of Cervical Cancer with Colostomy and Iliostomy, CKD with electrolyte abnormality receiving IV infusion twice weekly Mondays and presented after missing 3 sessions of her IV fluids.She came to the ED with generalized weakness, lightheadedness and vomiting twice. She was found to be dehydrated with metabolic acidosis and DIPESH superimposed on CKD. She was admitted started on IVF with HCO3 supplements Her Hgb found to be 7 and she was transfused 1 unit PRBC since she was feeling lightheaded and weak. At present feeling better , still with 2 episodes of vomiting and K 2.8 1. Acute on Chronic Kidney disease stage III-[address] Salas nephrology, appreciated Bun /Cr improving with hydration from 89/4.1 to 68 /3.1 acidosis resolving HCO3 25 Continue IVF Replace KCl IV since patient unable to tolerate Po KCl 2. Symptomatic Anemia most likely anemia of chronic disease Hgb 7 on admission s/p 1 unit PRBC transfusion with Hgb 8.1 now 3. Hypokalemia unable to tolerate PO KCl replacement due to vomiting Will provide IVF 4. Metabolic acidosis secondary to severe dehydration Improved with IVF with HCO3 5. Depression on Lexapro 6. Cachexia BMI 15 7. History cervical cancer s/p radiation/ Chemotherapy s/p colostomy and iliostomy 8. Secondary Hypoparathyroidism PTH 70 9. DVT prophylaxis with SCD Hold Lovenox due to anemia
[2017-11-06] MEDS: Potassium Chl 20 mEq in NS 1,000 ML IV SCH (19:59)
[2017-11-07 00:37] VITALS: RESP 18
[2017-11-07 07:50] VITALS: TEMP 98.3
[2017-11-07 07:58] LABS: HEMOGLOBIN 8.6 g/dL (12.0-16.0); MEAN CELL VOLUME 92.4 fl (81.0-99.0); MEAN CORPUSCULAR HEMOGLOBIN 30.1 pg (27.0-31.0); MEAN CORPUSCULAR HGB CONC 32.6 g/dL (33.0-37.0); RBC 2.85 Mil/uL (3.80-5.20); RED CELL DISTRIBUTION WIDTH 14.9 % (11.5-14.5); WHITE BLOOD COUNT 3.4 K/uL (4.8-10.8)
--- NOTE | 2017-11-07 08:19 | CP.PCM.PN ---
Subjective - Date & Time of Evaluation Date of Evaluation: 11/07/17 Time of Evaluation: 08:19 - Subjective Subjective: Patient with consciousness not in acute distress appetite is good Patient appears to be in good mood and spirit. Objective - Vital Signs/Intake and Output Vital Signs (last 24 hours): Temp Pulse Resp BP Pulse Ox 98.3 F 62 18 97/60 L 97 11/07/17 07:50 11/07/17 07:50 11/07/17 07:50 11/07/17 07:50 11/07/17 07:50 Intake and Output: 11/07/17 11/07/17 06:59 18:59 Intake Total 2180 Balance 2180 - Medications Medications: Current Medications Calcitriol (Rocaltrol) 0.5 mcg PO BID [facility] Last Admin: 11/06/17 16:57 Dose: 0.5 mcg Cyanocobalamin (Vitamin B12 1000 Mcg Tab) 1,000 mcg PO DAILY [facility] Last Admin: 11/06/17 09:34 Dose: 1,000 mcg Escitalopram Oxalate (Lexapro) 10 mg PO DAILY [facility] Last Admin: 11/06/17 09:32 Dose: 10 mg Folic Acid (Folic Acid) 1 mg PO DAILY [facility] Last Admin: 11/06/17 09:32 Dose: 1 mg Potassium Chloride/Sodium Chloride (Potassium Chl 20 Meq In Ns) 1,000 mls @ 80 mls/hr IV .[id number] [facility] Stop: 11/07/17 18:24 Last Admin: 11/06/17 19:59 Dose: 80 mls/hr Lactobacillus Acidophilus (Bacid Acidophilus) 1 cap PO DAILY [facility] Last Admin: 11/06/17 10:02 Dose: 1 cap Ondansetron HCl (Zofran Odt) 4 mg PO Q8H PRN PRN Reason: Nausea/Vomiting Last Admin: 11/06/17 16:58 Dose: 4 mg Sodium Bicarbonate (Sodium Bicarbonate Tab) 1,300 mg PO BID [facility] Last Admin: 11/06/17 16:58 Dose: 1,300 mg - Labs Labs: 11/07/17 07:50 11/06/17 11:28 PT 11.2 Seconds (9.8-13.1) 11/04/17 21:50 INR 1.0 (0.9-1.2) 11/04/17 21:50 APTT 26.0 Seconds (25.6-37.1) 11/04/17 21:50 - Constitutional Appears: No Acute Distress - Eye Exam Eye Exam: absent: Conjunctival injection - ENT Exam ENT Exam: Mucous Membranes Moist - Neck Exam Neck Exam: absent: Lymphadenopathy - Respiratory Exam Respiratory Exam: NORMAL BREATHING PATTERN. absent: Chest Wall Tenderness - Cardiovascular Exam Cardiovascular Exam: absent: Gallop, JVD, Rubs - GI/Abdominal Exam GI & Abdominal Exam: Soft, Normal Bowel Sounds - Extremities Exam Extremities Exam: absent: Calf Tenderness - Back Exam Back Exam: absent: CVA tenderness (L), CVA tenderness (R) - Neurological Exam Neurological Exam: Alert - Psychiatric Exam Psychiatric exam: Normal Affect - Skin Skin Exam: absent: Cyanosis Assessment and Plan (1) Chronic kidney disease, stage IV (severe) Assessment & Plan: Kidney function improving serum creatinine came down somewhat. Still in stage IV CK D Metabolic acidosis corrected therefore DC sodium bicarbonate intravenously and keep sodium bicarbonate PO. Cut down IV fluid Hypokalemia patient was given potassium chloride supplement and waiting to repeat BMP from this morning. secondary hyperparaoidism PTH 70 patient is receiving calcitriol. hyperphosphatemia appear to be controlled Follow-up serum magnesium,hypomagnesemia Other medical problem patient status post colostomy and ileostomy Anemia; Depression; DVT;HTN; HLD; CKD; Chronic Dehydration on chronic IV fluid therapy Mondays and ; Cervical Cancer s/p radiotherapy and Chemotherapy (2004) : Colostomy; Ileostomy; Urostomy; IVC Filter; Hysterectomy with bilateral Oophorectomy 2006 Status: Acute (2) Anemia Status: Acute (3) Dehydration Status: Acute (4) Metabolic acidosis Status: Acute (5) Acute kidney injury Status: Acute
[2017-11-07 08:34] LABS: CALCIUM 7.8 mg/dL (8.4-10.2)
[2017-11-07] MEDS: Potassium Chl 20 mEq in NS 1,000 ML IV SCH (09:53)
[2017-11-07] MEDS: Lactobacillus Acidophilus 500 MU Cap PO SCH (09:57)
[2017-11-07 12:07] VITALS: BP 94/57; PULSE 67; O2SAT 98
--- NOTE | 2017-11-07 12:48 | CP.PCM.DIS ---
Provider - Provider Date of Admission: 11/04/17 20:30 Attending physician: Pancho Pitt Primary care physician: Dr Correa Consults: Nephrology : Dr Salas Time Spent in preparation of Discharge (in minutes): 30 Diagnosis - Discharge Diagnosis (1) Metabolic acidosis Status: Acute (2) Acute kidney injury Status: Acute (3) Anemia Status: Chronic (4) Chronic kidney disease, stage IV (severe) Status: Chronic (5) S/P colostomy Status: Chronic (6) S/P ileostomy Status: Chronic Hospital Course - Lab Results Lab Results: Most Recent Lab Values WBC 3.4 K/uL (4.8-10.8) L 11/07/17 07:50 RBC 2.85 Mil/uL (3.80-5.20) L 11/07/17 07:50 Hgb 8.6 g/dL (12.0-16.0) L 11/07/17 07:50 Hct 26.4 % (34.0-47.0) L 11/07/17 07:50 MCV 92.4 fl (81.0-99.0) 11/07/17 07:50 MCH 30.1 pg (27.0-31.0) 11/07/17 07:50 MCHC 32.6 g/dL (33.0-37.0) L 11/07/17 07:50 RDW 14.9 % (11.5-14.5) H 11/07/17 07:50 Plt Count 171 K/uL (130-400) 11/07/17 07:50 MPV 7.8 fl (7.2-11.7) 11/04/17 21:50 Neut % (Auto) 67.0 % (50.0-75.0) 11/04/17 21:50 Lymph % (Auto) 18.7 % (20.0-40.0) L 11/04/17 21:50 [place] % (Auto) 11.9 % (0.0-10.0) H 11/04/17 21:50 Eos % (Auto) 1.8 % (0.0-4.0) 11/04/17 21:50 Baso % (Auto) 0.6 % (0.0-2.0) 11/04/17 21:50 Neut # (Auto) 2.9 K/uL (1.8-7.0) 11/04/17 21:50 Lymph # (Auto) 0.8 K/uL (1.0-4.3) L 11/04/17 21:50 [place] # (Auto) 0.5 K/uL (0.0-0.8) 11/04/17 21:50 Eos # (Auto) 0.1 K/uL (0.0-0.7) 11/04/17 21:50 Baso # (Auto) 0.0 K/uL (0.0-0.2) 11/04/17 21:50 PT 11.2 Seconds (9.8-13.1) 11/04/17 21:50 INR 1.0 (0.9-1.2) 11/04/17 21:50 APTT 26.0 Seconds (25.6-37.1) 11/04/17 21:50 pCO2 30 mm/Hg (35-45) L 11/04/17 23:52 pO2 115 mm/Hg (80-100) H 11/04/17 23:52 HCO3 15.6 mmol/L (21-28) L 11/04/17 23:52 ABG pH 7.27 (7.35-7.45) L 11/04/17 23:52 ABG Total CO2 14.7 mmol/L (22-28) L 11/04/17 23:52 ABG O2 Saturation 96.4 % (95-98) 11/04/17 23:52 ABG O2 Content 10.9 ML/dL (15-23) L 11/04/17 23:52 ABG Base Excess -12.0 mmol/L (-2.0-3.0) L 11/04/17 23:52 ABG Hemoglobin 7.9 g/dL (11.7-17.4) L 11/04/17 23:52 ABG Carboxyhemoglobin 0 % (0.5-1.5) L 11/04/17 23:52 POC ABG HHb (Measured) 3.6 % (0.0-5.0) 11/04/17 23:52 ABG Methemoglobin 0.0 % (0.0-3.0) 11/04/17 23:52 ABG O2 Capacity 11.3 mL/dL (16-24) L 11/04/17 23:52 Reji Test Yes 11/04/17 23:52 A-a O2 Difference -3.0 mm/Hg 11/04/17 23:52 Hgb O2 Saturation 96.4 % (95.0-98.0) 11/04/17 23:52 FiO2 21.0 % 11/04/17 23:52 Sodium 145 mmol/l (132-148) 11/07/17 07:50 Potassium 4.0 MMOL/L (3.6-5.0) 11/07/17 07:50 Chloride 109 mmol/L (98-107) H 11/07/17 07:50 Carbon Dioxide 23 mmol/L (22-30) 11/07/17 07:50 Anion Gap 17 (10-20) 11/07/17 07:50 BUN 56 mg/dl (7-17) H 11/07/17 07:50 Creatinine 3.1 mg/dl (0.7-1.2) H 11/07/17 07:50 Est GFR ( Amer) 18 11/07/17 07:50 Est GFR (Non-Af Amer) 15 11/07/17 07:50 Random Glucose 88 mg/dL (65-105) 11/07/17 07:50 Lactic Acid 1.0 MMOL/L (0.7-2.1) 11/04/17 21:50 Calcium 7.8 mg/dL (8.4-10.2) L 11/07/17 07:50 Phosphorus 2.6 mg/dl (2.5-4.5) 11/06/17 11:28 Magnesium 1.7 MG/DL (1.6-2.3) 11/06/17 11:28 Total Bilirubin 0.2 mg/dl (0.2-1.3) 11/04/17 21:50 AST 12 U/L (14-36) L D 11/04/17 21:50 ALT 23 U/L (9-52) 11/04/17 21:50 Alkaline Phosphatase 49 U/L (38-126) 11/04/17 21:50 Total Protein 6.5 G/DL (6.3-8.2) 11/04/17 21:50 Albumin 2.9 g/dL (3.5-5.0) L D 11/04/17 21:50 Globulin 3.6 gm/dL (2.2-3.9) 11/04/17 21:50 Albumin/Globulin Ratio 0.8 (1.0-2.1) L 11/04/17 21:50 PTH Intact Whole Molec 70 pg/mL (14-64) H 11/05/17 12:06 Blood Type O NEGATIVE 11/04/17 22:05 Antibody Screen Negative 11/04/17 22:05 Crossmatch See Detail 11/04/17 22:05 BBK History Checked Patient has bt 11/04/17 22:05 - Hospital Course Hospital Course: 72 years old female with hx of Cervical Cancer with Colostomy and Iliostomy, CKD with electrolyte abnormality receiving IVF with Bicarb infusion twice weekly Mondays and presented after missing 3 sessions of her IV fluids. She came to the ED with generalized weakness, lightheadedness and vomiting twice. She was found to be dehydrated with metabolic acidosis and DIPESH superimposed on CKD. She was admitted started on IVF with HCO3 supplements Her Hgb found to be 7 and she was transfused 1 unit PRBC since she was feeling lightheaded and weak. At present feeling better , vomiting resolved, HCO3 and K levels now normal. Tolerating PO diet. 1. Acute on Chronic Kidney disease stage III-IV Consulted Dr Salas nephrology Bun /Cr improving with hydration from 89/4.1 to 68 /3.1 acidosis resolved HCO3 25 Replaced KCl IV since patient unable to tolerate Po KCl 2. Symptomatic Anemia most likely anemia of chronic disease Hgb 7 on admission s/p 1 unit PRBC transfusion with Hgb 8.6 now 3. Hypokalemia unable to tolerate PO KCl replacement due to vomiting K now normal vomiting resolved 4. Metabolic acidosis secondary to severe dehydration Improved with IVF with HCO3 5. Depression on Lexapro 6. Cachexia BMI 15 7. History cervical cancer s/p radiation/ Chemotherapy s/p colostomy and iliostomy 8. Secondary Hypoparathyroidism PTH 70 9. DVT prophylaxis with SCD Held Lovenox due to anemia Discharge Exam - Head Exam Head Exam: ATRAUMATIC, NORMAL INSPECTION, NORMOCEPHALIC - Eye Exam Eye Exam: EOMI, Normal appearance Pupil Exam: NORMAL ACCOMODATION - ENT Exam ENT Exam: Mucous Membranes Moist, Normal External Ear Exam - Neck Exam Neck exam: Full Rom - Respiratory Exam Respiratory Exam: NORMAL BREATHING PATTERN. absent: Respiratory Distress - Cardiovascular Exam Cardiovascular Exam: REGULAR RHYTHM, +S1, +S2 - GI/Abdominal Exam GI & Abdominal Exam: Normal Bowel Sounds, Soft. absent: Tenderness Additional comments: with iliostomy bag with urine and Colostomy bag with yellow liquid stool - Extremities Exam Extremities exam: normal capillary refill, pedal pulses present Additional comments: no calf tenderness - Neurological Exam Neurological exam: Alert, CN II-XII Intact, Oriented x3, Reflexes Normal - Psychiatric Exam Psychiatric exam: Normal Affect, Normal Mood - Skin Skin Exam: Dry, Normal Color, Warm Discharge Plan - Follow Up Plan Condition: IMPROVED Disposition: HOME/ ROUTINE Instructions: Anemia of Chronic Disease, Dehydration, Adult (DC) Additional Instructions: follow up with pmd in 1week cont Bicarb infusion 2x per week as scheduled ff up with Dr Salas in 1-2 wks Referrals: Greg Correa MD [Staff Provider] - Brent Salas MD [Staff Provider] -
== END 2017-11-07 16:20 | disposition home or self-care (01) | DRG 683 ==
LOC: H.ER 18:44 → OBSVTOIN 20:30 → H.ERHOLD 20:30 → H.TEL 11-05 00:38
PROVIDERS: ADMIT Internal Medicine; ATTEND Internal Medicine
PROC: 30233N1 Transfusion of Nonautologous Red Blood Cells into Peripheral Vein, Percutaneous Approach (ICD-10-PCS; principal; 2017-11-05)
DX: N17.9 Acute kidney failure, unspecified (principal); E87.2 Acidosis; R64 Cachexia; Z68.1 Body mass index [BMI] 19.9 or less, adult; K90.9 Intestinal malabsorption, unspecified; E87.6 Hypokalemia; E86.0 Dehydration; N18.4 Chronic kidney disease, stage 4 (severe); I12.9 Hypertensive chronic kidney disease with stage 1 through stage 4 chronic kidney disease, or unspecified chronic kidney disease; Z93.3 Colostomy status; Z93.2 Ileostomy status; D63.8 Anemia in other chronic diseases classified elsewhere; N25.89 Other disorders resulting from impaired renal tubular function; E20.8 Other hypoparathyroidism; E78.5 Hyperlipidemia, unspecified; E78.00 Pure hypercholesterolemia, unspecified; N25.81 Secondary hyperparathyroidism of renal origin; F32.9 Major depressive disorder, single episode, unspecified; Z88.1 Allergy status to other antibiotic agents; Z86.718 Personal history of other venous thrombosis and embolism; Z85.038 Personal history of other malignant neoplasm of large intestine; Z85.41 Personal history of malignant neoplasm of cervix uteri; Z92.3 Personal history of irradiation; Z87.891 Personal history of nicotine dependence; Z90.710 Acquired absence of both cervix and uterus; Z92.21 Personal history of antineoplastic chemotherapy

== ENCOUNTER 2017-12-27 15:21 | Inpatient (IN) | payer MEDICARE, OTHER ==
[2017-12-27 15:22] VITALS: BMI 13.9
--- NOTE | 2017-12-27 16:10 | ED PDOC ---
HPI: General Adult Time Seen by Provider: 12/27/17 15:37 Chief Complaint (Nursing): Abnormal Labs History Per: Patient History/Exam Limitations: no limitations (This is a 72 yo female with h/o cervical cancer, chronic kidney disease who is referred from fluid therapy because of progressive weakness, anemia and acutely worsening creatinine. Dr. Priya Correa called to transfer the patient to the ER for evaluation and then for admission for further treatment. ) Past Medical History Vital Signs: Last Vital Signs Temp 97.8 F 12/27/17 15:28 Pulse 67 12/27/17 15:28 Resp 16 12/27/17 15:28 BP 104/64 12/27/17 15:28 Pulse Ox 99 12/27/17 15:28 - Medical History PMH: Anemia, Depression, Deep Vein Thrombosis, HTN, Hypercholesterolemia, Chronic Kidney Disease, Sickle Cell Disease Denies: HIV - Surgical History Other surgeries: colostomy, diverting ileostomy - Family History Family History: States: Unknown Family Hx - Living Arrangements Living Arrangements: With Family - Social History Current smoker - smoking cessation education provided: No - Home Medications Home Medications: Ambulatory Orders Medication Instructions Recorded Potassium Chloride [K-Dur 20 mEq 20 meq PO DAILY 07/23/16 ER Tab] Sodium Bicarbonate Tab 1,300 mg PO BID 08/27/16 Folic Acid 1 mg PO DAILY #7 tab 10/04/16 Cyanocobalamin [Vitamin B12 1000 1,000 mcg PO DAILY 01/10/17 mcg Tab] Escitalopram [Lexapro] 10 mg PO DAILY 03/28/17 Calcitriol [Rocaltrol] 0.5 mcg PO BID 04/22/17 Lactobacillus Acidophilus 1 each PO DAILY 04/22/17 [Acidophilus] Cholestyramine [Questran] 4 gm PO BID 11/11/17 Enoxaparin [Lovenox] 40 mg SQ DAILY 11/11/17 - Allergies Allergies/Adverse Reactions: Allergies Allergy/AdvReac Type Severity Reaction Status Date / Time ciprofloxacin [From Cipro] Allergy RASH Verified 11/28/17 10:24 ciprofloxacin HCl Allergy RASH Verified 11/28/17 10:24 [From Cipro] vancomycin Allergy RASH Verified 11/28/17 10:24 Review of Systems ROS Statement: Except As Marked, All Systems Reviewed And Found Negative Constitutional: Positive for: Weakness, Malaise Physical Exam - Reviewed Nursing Documentation Reviewed: Yes Vital Signs Reviewed: Yes - Physical Exam Appears: Positive for: Well, Non-toxic, No Acute Distress Head Exam: Positive for: ATRAUMATIC, NORMAL INSPECTION, NORMOCEPHALIC Skin: Positive for: Normal Color, Warm, DRY Eye Exam: Positive for: Normal appearance, EOMI ENT: Positive for: Normal ENT Inspection Neck: Positive for: Normal, Painless ROM Cardiovascular/Chest: Positive for: Regular Rate, Rhythm Respiratory: Positive for: CNT, Normal Breath Sounds Gastrointestinal/Abdominal: Positive for: Normal Exam, Soft Back: Positive for: Normal Inspection Extremity: Positive for: Normal ROM Neurologic/Psych: Positive for: Alert, Oriented - ECG O2 Sat by Pulse Oximetry: 99 Medical Decision Making Medical Decision Making: Case d/w Dr. Correa. Patient has worsening kidney function, anemia. Will need transfusion and renal consult. Disposition - Clinical Impression Clinical Impression: Renal insufficiency, Anemia - Patient ED Disposition Is Patient to be Admitted: Yes Doctor Will See Patient In The: Hospital - Disposition Disposition: Transfer of Care Disposition Time: 16:12 Condition: FAIR - Pt Status Changed To: Hospital Disposition Of: Inpatient - Admit Certification Admit to Inpatient:: After my assessment, the patient will require hospitalization for at least two midnights. This is because of the severity of symptoms shown, intensity of services needed, and/or the medical risk in this patient being treated as an outpatient. - POA Present On Arrival: None
[2017-12-27 16:11] LABS: HEMOGLOBIN 6.7 g/dL (12.0-16.0); MEAN CELL VOLUME 91.7 fl (81.0-99.0); MEAN CORPUSCULAR HEMOGLOBIN 29.7 pg (27.0-31.0); MEAN CORPUSCULAR HGB CONC 32.4 g/dL (33.0-37.0); RBC 2.27 Mil/uL (3.80-5.20); RED CELL DISTRIBUTION WIDTH 16.2 % (11.5-14.5); WHITE BLOOD COUNT 5.2 K/uL (4.8-10.8)
[2017-12-27 16:24] LABS: ALB/GLOB RATIO 0.8 (1.0-2.1); ALBUMIN 3.1 g/dL (3.5-5.0); CALCIUM 9.1 mg/dL (8.4-10.2)
[2017-12-27 16:25] LABS: PARTIAL THROMBOPLASTIN TIME 19.2 Seconds (25.6-37.1); PROTHROMBIN TIME 10.8 Seconds (9.8-13.1)
[2017-12-28] MEDS: Potassium Chloride 20 mEq ER Tab PO SCH ×3 (00:59→22:39)
[2017-12-28] MEDS: Magnesium Oxide 400 mg Tab UD PO SCH ×3 (01:00→22:38)
[2017-12-28 09:57] LABS: BASO % 0.5 % (0.0-2.0); EOS # 0.2 K/uL (0.0-0.7); EOS % 3.2 % (0.0-4.0); LYMPH # 0.6 K/uL (1.0-4.3); LYMPH % 11.5 % (20.0-40.0); MEAN CELL VOLUME 86.9 fl (81.0-99.0); MEAN CORPUSCULAR HEMOGLOBIN 29.2 pg (27.0-31.0); MEAN CORPUSCULAR HGB CONC 33.6 g/dL (33.0-37.0); MEAN PLATELET VOLUME 7.5 fl (7.2-11.7); MONO # 0.4 K/uL (0.0-0.8); MONO % 8.5 % (0.0-10.0); NEUT % 76.3 % (50.0-75.0); RBC 3.68 Mil/uL (3.80-5.20); RED CELL DISTRIBUTION WIDTH 18.1 % (11.5-14.5); WHITE BLOOD COUNT 5.2 K/uL (4.8-10.8)
[2017-12-28 10:00] LABS: HEMOGLOBIN 10.8 g/dL (12.0-16.0)
[2017-12-28 10:02] LABS: CALCIUM 8.9 mg/dL (8.4-10.2)
--- NOTE | 2017-12-28 14:24 | CP.PCM.CON ---
History of Present Illness - History of Present Illness History of Present Illness: RENAL Consult 72 years old female with hx of Cervical Ca w/ colostomy and diveriting urinary iliostomy, ckd that presented w/ anemia. She was told by infusion center where she goes twice weekly for IV bicarb infusion that she was severely anemic and dehydrated so told to come in. SHe received infusions this week on Mon and Fri. She otherwise is feeling well. She states she has not seen urology in very long time. She denies any urinary changes. ros: a full detailed ros is negative except as in my hpi PMH: Anemia, CKD IV, cerical ca, depression, hypertension, chronic hypovolemia PSH: Colostomy; Ileostomy; Urostomy; IVC Filter; Hysterectomy with bilateral Oophorectomy 2006 SH: former Smoker Quit 31 years ago; Occasional Alcohol; No illegal drug use; live with daughter FH: no esrd Allergies: Ciprofloxacin; Vancomycin Medication: Reviewed pe: vs as below gen: nad sclera: anicteric op: clear neck: no thyromegaly cv: +s1+s2 no rub lungs cta abd: + ostomy + ileostomy ext: no edema neuro: a+Ox3 no focal deficit psych: nml affect skin no rash labs reviewed imp: ARF/ Metabolic Acidosis/ Anemia / Cervical Ca/ Hyperphosphatemia plan: DIPESH - worse than baseline - ? hypovolemia related - will start [id number] acidosis hopefuly should improve w/ hco3 gtt- its not clear if the acidosis is from the high outpt stool v slow transit time of the ileal conduit urinary diversion, would recommend evaluate. Phos is acceptable Hgb is stable post blood may need epo as outpt. will check renal us Past Patient History - Infectious Disease Hx of Infectious Diseases: None - Past Medical History & Family History Past Medical History?: Yes - Past Social History Smoking Status: Never Smoked - CARDIAC Hx Hypercholesterolemia: Yes Hx Hypertension: Yes - PULMONARY Hx Respiratory Disorders: No - NEUROLOGICAL Hx Neurological Disorder: No - HEENT Hx HEENT Problems: Yes Hx Cataracts: Yes (milan 2012) - RENAL Hx Chronic Kidney Disease: Yes - ENDOCRINE/METABOLIC Hx Endocrine Disorders: No Other/Comment: DEHYDRATION - HEMATOLOGICAL/ONCOLOGICAL Hx Anemia: Yes Hx Human Immunodeficiency Virus (HIV): No Hx Sickle Cell Disease: Yes - INTEGUMENTARY Hx Dermatological Problems: No - MUSCULOSKELETAL/RHEUMATOLOGICAL Hx Musculoskeletal Disorders: No Hx Falls: No - GASTROINTESTINAL Hx Gastrointestinal Disorders: Yes Other/Comment: Ileostomy - GENITOURINARY/GYNECOLOGICAL Hx Genitourinary Disorders: Yes Hx Cervical Cancer: Yes - PSYCHIATRIC Hx Depression: Yes Hx Substance Use: No - SURGICAL HISTORY Hx Surgeries: Yes Other/Comment: Left Urostomy; portagram. lifeport insertion - ANESTHESIA Hx Anesthesia: Yes Hx Anesthesia Reactions: No Hx Malignant Hyperthermia: No Meds Allergies/Adverse Reactions: Allergies Allergy/AdvReac Type Severity Reaction Status Date / Time ciprofloxacin [From Cipro] Allergy RASH Verified 11/28/17 10:24 ciprofloxacin HCl Allergy RASH Verified 11/28/17 10:24 [From Cipro] vancomycin Allergy RASH Verified 11/28/17 10:24 - Medications Medications: Current Medications Calcitriol (Rocaltrol) 0.25 mcg PO Q12 [facility] Last Admin: 12/28/17 10:24 Dose: 0.25 mcg Escitalopram Oxalate (Lexapro) 10 mg PO DAILY [facility] Last Admin: 12/28/17 10:23 Dose: 10 mg Folic Acid (Folic Acid) 1 mg PO DAILY [facility] Last Admin: 12/28/17 10:21 Dose: 1 mg Magnesium Oxide (Mag-Ox) 400 mg PO Q12 [facility] Last Admin: 12/28/17 10:23 Dose: 400 mg Potassium Chloride (K-Dur 20 Meq Er Tab) 20 meq PO Q12 [facility] Last Admin: 12/28/17 10:22 Dose: 20 meq Sodium Bicarbonate (Sodium Bicarbonate Tab) 1,300 mg PO Q12 [facility] Last Admin: 12/28/17 10:24 Dose: 1,300 mg Results - Vital Signs Recent Vital Signs: Last Vital Signs Temp 98 F 12/28/17 12:22 Pulse 62 12/28/17 12:22 Resp 18 12/28/17 12:22 BP 114/70 12/28/17 12:22 Pulse Ox 96 12/28/17 12:22 - Labs Result Diagrams: 12/28/17 08:50 12/28/17 08:50 Labs: Laboratory Results - last 24 hr 12/27/17 12/27/17 12/27/17 15:50 16:07 16:07 WBC 5.2 RBC 2.27 L Hgb 6.7 L Hct 20.8 L MCV 91.7 MCH 29.7 MCHC 32.4 L RDW 16.2 H Plt Count 201 MPV Neut % (Auto) Lymph % (Auto) [place] % (Auto) Eos % (Auto) Baso % (Auto) Neut # (Auto) Lymph # (Auto) [place] # (Auto) Eos # (Auto) Baso # (Auto) PT INR APTT Sodium 136 Potassium 3.6 Chloride 106 Carbon Dioxide 18 L Anion Gap 16 BUN 75 H Creatinine 4.2 H Est GFR ( Amer) 13 Est GFR (Non-Af Amer) 10 Random Glucose 121 H Calcium 9.1 Total Bilirubin 0.2 AST 15 ALT 17 Alkaline Phosphatase 56 Total Protein 6.7 Albumin 3.1 L Globulin 3.7 Albumin/Globulin Ratio 0.8 L Blood Type O NEGATIVE Antibody Screen Negative Crossmatch See Detail BBK History Checked Patient has bt 12/27/17 12/28/17 12/28/17 16:07 08:50 08:50 WBC 5.2 RBC 3.68 L Hgb 10.8 L D Hct 32.0 L MCV 86.9 D MCH 29.2 MCHC 33.6 RDW 18.1 H Plt Count 189 MPV 7.5 Neut % (Auto) 76.3 H Lymph % (Auto) 11.5 L [place] % (Auto) 8.5 Eos % (Auto) 3.2 Baso % (Auto) 0.5 Neut # (Auto) 4.0 Lymph # (Auto) 0.6 L [place] # (Auto) 0.4 Eos # (Auto) 0.2 Baso # (Auto) 0.0 PT 10.8 INR 1.0 APTT 19.2 L Sodium 137 Potassium 4.0 Chloride 109 H Carbon Dioxide 13 L Anion Gap 19 BUN 73 H Creatinine 4.0 H Est GFR ( Amer) 13 Est GFR (Non-Af Amer) 11 Random Glucose 106 H Calcium 8.9 Total Bilirubin AST ALT Alkaline Phosphatase Total Protein Albumin Globulin Albumin/Globulin Ratio Blood Type Antibody Screen Crossmatch BBK History Checked
[2017-12-28] MEDS: Sodium Bicarbonate 8.4% 150 MEQ in Dextrose 5% In Water 1,000 ML IV SCH (16:56)
--- NOTE | 2017-12-28 17:21 | US ---
PROCEDURE: Ultrasound of the Kidneys HISTORY: arf COMPARISON: None available. TECHNIQUE: Sonogram of the kidneys. FINDINGS: RIGHT KIDNEY: Measures: 9 x 4.5 x 4.6 cm. Normal in size, contour and echogenicity. No stone, solid mass lesion or hydronephrosis visualized. Mild fullness in the collecting system of the right kidney noted. LEFT KIDNEY: Measures: 10.3 x 5.4 x 3 .9 cm. Normal in size, contour and echogenicity. No stone, solid mass lesion or hydronephrosis visualized. Mild fullness in the collecting system of the left kidney also noted. OTHER FINDINGS: None. IMPRESSION: Mild fullness in the collecting system of both kidneys noted.
--- NOTE | 2017-12-28 20:34 | HP ---
HISTORY OF PRESENT ILLNESS: This is a 72-year-old female with history of multiple medical problems including chronic kidney disease, currently on fluid therapy twice a week and IV fluid therapy twice a week due to recurrent admission for dehydration and prerenal azotemia and acidosis. The patient was noticed to have dizziness as well as generalized weakness and pallor by her daughter during the last few days prior to this admission. The patient was evaluated and sent to emergency room for evaluation where she was found to have hemoglobin of 6.7, hematocrit 20.8 and BUN 75 and creatinine 4.2. The patient was started on IV fluid as well as type and crossed for 2 units of packed RBCs and admitted to telemetry floor. REVIEW OF SYSTEMS: Other review of systems is negative. ALLERGIES: POSITIVE FOR CIPROFLOXACIN AND VANCOMYCIN. 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 FAMILY HISTORY: Noncontributory. MEDICATIONS: As per MAR. PHYSICAL EXAMINATION: GENERAL: The patient is not in any cardiopulmonary distress. VITAL SIGNS: Blood pressure 119/74, temperature 98, respiratory rate 18, and pulse 68. HEENT: Pupils equal and reactive to light. Normal-appearing mucosa of the conjunctivae, oropharynx, and nasal membrane mucosa. NECK: Supple. No JVD. No carotid bruit. No lymph node. No thyromegaly. CHEST AND LUNGS: Bilateral symmetrical expansion. Good air exchange. No rales. No rhonchi. CARDIOVASCULAR: PMI not localized. S1 and S2. No additional sounds. ABDOMEN: Normoactive bowel sounds. No tenderness. No organomegaly. No masses. Colostomy and ileostomy bags are in place. EXTREMITIES: No cyanosis. No clubbing. No edema. CENTRAL NERVOUS SYSTEM: Alert, awake, and oriented x2. No neurological deficit could be appreciated. ASSESSMENT: 1. Severe symptomatic anemia. 2. Acute on chronic kidney failure. 3. Metabolic acidosis. PLAN: The patient was transfused two units of packed RBCs. We will monitor CBC and continue IV fluids. Renal consult and monitor BUN and creatinine and the patient was started on sodium bicarb also by the biology instructor and we will continue her home medications sodium bicarbonate as well as Lexapro, potassium, and folic acid. [facility] MD [facility] # [id number]
[2017-12-29] MEDS: Sodium Bicarbonate 8.4% 150 MEQ in Dextrose 5% In Water 1,000 ML IV SCH ×2 (05:42→17:38)
[2017-12-29] MEDS: Potassium Chloride 20 mEq ER Tab PO SCH ×2 (08:35→20:47)
[2017-12-29] MEDS: Magnesium Oxide 400 mg Tab UD PO SCH ×2 (08:36→20:47)
[2017-12-29] MEDS: Potassium Chloride 20 mEq 100 ML IVPB SCH ×2 (20:44→22:50)
--- NOTE | 2017-12-29 23:26 | PN ---
DAILY PROGRESS NOTE DATE: 12/29/2017 SUBJECTIVE: The patient is seen today 12/29/2017. She is not in any cardiopulmonary distress and the patient generally feels better. PHYSICAL EXAMINATION: VITAL SIGNS: Blood pressure 99/64, temperature 99, respiratory rate 18, and pulse 87. HEENT: Slightly pale mucosa of the conjunctivae. NECK: Supple. No JVD. No carotid bruit. No lymph node. No thyromegaly. CHEST AND LUNGS: Bilateral symmetrical expansion. Good air exchange. No rales. No rhonchi. CARDIOVASCULAR: PMI not localized. S1 and S2. No additional sounds. ABDOMEN: Normoactive bowel sounds. No tenderness. No organomegaly. No masses. The patient has colostomy and ileostomy bags are in place. EXTREMITIES: No cyanosis. No clubbing. No edema. CENTRAL NERVOUS SYSTEM: Alert, awake, and oriented x2. No neurological deficits could be appreciated. ASSESSMENT: Acute on chronic kidney disease, severe symptomatic anemia, and metabolic acidosis. PLAN: Continue IV fluid and sodium bicarb as per adjunct instructor chemistry and follow the recommendations. Continue current medications and replace electrolytes. Greg Correa MD
[2017-12-30 05:20] LABS: HEMOGLOBIN 10.6 g/dL (12.0-16.0); MEAN CELL VOLUME 85.8 fl (81.0-99.0); MEAN CORPUSCULAR HEMOGLOBIN 29.4 pg (27.0-31.0); MEAN CORPUSCULAR HGB CONC 34.3 g/dL (33.0-37.0); RBC 3.62 Mil/uL (3.80-5.20); RED CELL DISTRIBUTION WIDTH 16.8 % (11.5-14.5); WHITE BLOOD COUNT 6.4 K/uL (4.8-10.8)
[2017-12-30 05:50] LABS: CALCIUM 8.3 mg/dL (8.4-10.2)
--- NOTE | 2017-12-30 08:11 | PQF GENQUE ---
Dr. Correa, Please clarify the stage of the chronic kidney disease: after the work up is completed Stage 1 Stage 2 (mild) Stage 3 (moderate) Stage 4 (severe) Stage 5 Other (please specify) Clinically unable to determine Unknown BUN:75->73->75->73 Creatinine:4.2->4.0->3.8->3.9 Est GFR ( Amer/Non-Af Amer):10/05->10/06->11/07->11/06 H and P:Imp.: 1. Severe symptomatic anemia. 2. Acute on chronic kidney failure. 3. Metabolic acidosis. PLAN: The patient was transfused two units of packed RBCs. We will monitor CBC and continue IV fluids. Renal consult and monitor BUN and creatinine and the patient was started on sodium bicarb also by the tram operator and we will continue her home medications sodium bicarbonate as well as Lexapro, potassium, and folic acid. Renal consult: PMH includes:CKD 1V Imp:ARF/ Metabolic Acidosis/ Anemia / Cervical Ca/ Hyperphosphatemia Plan: DIPESH - worse than baseline - ? hypovolemia related - will start vui4act acidosis hopefuly should improve w/ hco3 gtt- its not clear if the acidosis is from the high outpt stool v slow transit time of the ileal conduit urinary diversion, would recommend evaluate. Phos is acceptable Hgb is stable post blood may need epo as outpt. will check renal us This form is a permanent part of the medical record Clarification of your documentation is requested to better reflect the severity of illness and intensity of treatment of your patient. Indicators present [] Specify: [] [] Specify: [] [] Specify: [] [] Specify: [] Location in the medical record that reflects the above clinical findings: [] Treatment Provided: [] PHYSICIAN'S RESPONSE Based on your medical judgment of the clinical indicators outlined above please clarify the following: [] Practitioner response [] If unable to determine, please check the box, sign and date. Present On Admission (POA) Indicator: [] Present at the time of admission [] Not present at the time of admission [] Clinically Undetermined In responding to this query, please exercise your independent professional judgment. The fact that a question is asked does not imply that any particular answer is desired or expected. Thank you for your clarification on this documentation. If you have any questions please call. * Thank you, Lakia Gomez RN ext. #[phone] MTDD
[2017-12-30] MEDS: Magnesium Oxide 400 mg Tab UD PO SCH ×2 (09:07→20:34)
[2017-12-30] MEDS: Potassium Chloride 20 mEq ER Tab PO SCH ×2 (09:10→22:00)
--- NOTE | 2017-12-30 11:20 | CP.PCM.PN ---
Subjective - Date & Time of Evaluation Date of Evaluation: 12/30/17 Time of Evaluation: 11:20 - Subjective Subjective: Patient is awake and conscious Patient is feeling much better no vomiting No abdominal pain at this point Objective - Vital Signs/Intake and Output Vital Signs (last 24 hours): Temp Pulse Resp BP Pulse Ox 98.1 F 73 18 96/66 L 98 12/30/17 08:00 12/30/17 08:00 12/30/17 08:00 12/30/17 08:00 12/30/17 08:00 Intake and Output: 12/30/17 12/30/17 06:59 18:59 Intake Total 550 Output Total 1900 Balance -1350 - Medications Medications: Current Medications Acetaminophen (Tylenol 325mg Tab) 650 mg PO Q4 PRN PRN Reason: Fever >100.4 F Last Admin: 12/29/17 05:19 Dose: 650 mg Calcitriol (Rocaltrol) 0.25 mcg PO Q12 [facility] Last Admin: 12/30/17 09:08 Dose: 0.25 mcg Escitalopram Oxalate (Lexapro) 10 mg PO DAILY [facility] Last Admin: 12/30/17 09:08 Dose: 10 mg Folic Acid (Folic Acid) 1 mg PO DAILY [facility] Last Admin: 12/30/17 09:08 Dose: 1 mg Dextrose (Dextrose 5% In Water 1000 Ml) 1,000 mls @ 100 mls/hr IV .Q10H [facility] Stop: 12/31/17 09:47 Last Admin: 12/30/17 10:23 Dose: 100 mls/hr Magnesium Oxide (Mag-Ox) 400 mg PO Q12 [facility] Last Admin: 12/30/17 09:07 Dose: 400 mg Potassium Chloride (K-Dur 20 Meq Er Tab) 20 meq PO Q12 [facility] Last Admin: 12/30/17 09:10 Dose: 20 meq Sodium Bicarbonate (Sodium Bicarbonate Tab) 1,300 mg PO Q12 [facility] Last Admin: 12/30/17 09:08 Dose: 1,300 mg - Labs Labs: 12/30/17 04:20 12/30/17 04:20 PT 10.8 Seconds (9.8-13.1) 12/27/17 16:07 INR 1.0 (0.9-1.2) 12/27/17 16:07 APTT 19.2 Seconds (25.6-37.1) L 06/01/18 16:07 - Constitutional Appears: No Acute Distress - ENT Exam ENT Exam: Mucous Membranes Moist - Neck Exam Neck Exam: absent: Lymphadenopathy - Respiratory Exam Respiratory Exam: absent: Chest Wall Tenderness - Cardiovascular Exam Cardiovascular Exam: absent: Gallop, JVD, Rubs - GI/Abdominal Exam GI & Abdominal Exam: Soft, Normal Bowel Sounds - Extremities Exam Extremities Exam: absent: Calf Tenderness - Back Exam Back Exam: absent: CVA tenderness (L), CVA tenderness (R) - Neurological Exam Neurological Exam: Alert - Psychiatric Exam Psychiatric exam: Normal Affect Assessment and Plan (1) Acute kidney injury Assessment & Plan: ARF/ Metabolic Acidosis/ Anemia / Cervical Ca/ Hyperphosphatemia PMH: Anemia, CKD IV, cerical ca, depression, hypertension, chronic hypovolemia PSH: Colostomy; Ileostomy; Urostomy; IVC Filter; Hysterectomy with bilateral Oophorectomy 2006 plan: DIPESH - worse than baseline - ? hypovolemia related - will start [id number] acidosis hopefuly should improve w/ hco3 gtt- its not clear if the acidosis is from the high outpt stool v slow transit time of the ileal conduit urinary diversion, would recommend evaluate. Phos is acceptable Hgb is stable post blood may need epo as outpt. will check renal us continue IV fluid patient is not receiving IV fluid this morning. I reorder IV fluid We'll check serum magnesium and phosphorus for tomorrow Status: Acute
[2017-12-30 20:43] VITALS: RESP 18
--- NOTE | 2017-12-30 23:08 | PN ---
DAILY PROGRESS NOTE DATE: 12/30/2017 SUBJECTIVE: The patient is seen today 12/30/2017. She is not in any cardiopulmonary distress. The patient on IV fluid. OBJECTIVE: VITAL SIGNS: Blood pressure 98/62, temperature 98.7, respiratory rate 18, and pulse 74. HEENT: Pupils equal and reactive to light. Normal-appearing mucosa of the conjunctivae, oropharynx, and nasal membrane mucosa. NECK: Supple. No JVD. No carotid bruit. No lymph node. No thyromegaly. CHEST AND LUNGS: Bilateral symmetrical expansion. Good air exchange. No rales. No rhonchi. CARDIOVASCULAR: PMI not localized. S1 and S2. No additional sounds. ABDOMEN: Normoactive bowel sounds. Colostomy and ileostomy bags are . EXTREMITIES: No cyanosis. No clubbing. No edema. CENTRAL NERVOUS SYSTEM: Alert, awake, and oriented x2. No neurological deficit could be appreciated. ASSESSMENT: 1. Acute on chronic kidney disease. 2. Symptomatic anemia, status post 2 units of packed red blood cells transfusion. 3. History of cancer cervix with postradiation complication that led to colostomy and urinary diversion to ileostomy. PLAN: Continue current IV fluid and follow manager call's recommendations. Greg Correa MD
[2017-12-31 05:48] LABS: CALCIUM 8.1 mg/dL (8.4-10.2)
[2017-12-31] MEDS: Potassium Chloride 20 mEq ER Tab PO SCH (08:48)
[2017-12-31] MEDS: Magnesium Oxide 400 mg Tab UD PO SCH (08:50)
[2017-12-31] MEDS ORDERED: Sodium Chloride 0.9% 1,000 ML IV SCH (09:45)
--- NOTE | 2017-12-31 10:26 | CP.PCM.PN ---
Subjective - Date & Time of Evaluation Date of Evaluation: 12/31/17 Time of Evaluation: 10:25 - Subjective Subjective: Patient sitting up in bed awake and conscious no nausea no vomiting. Appears to be comfortable Objective - Vital Signs/Intake and Output Vital Signs (last 24 hours): Temp Pulse Resp BP Pulse Ox 97.6 F 56 L 18 104/67 99 12/31/17 07:55 12/31/17 07:55 12/31/17 07:55 12/31/17 07:55 12/31/17 07:55 Intake and Output: 12/31/17 12/31/17 06:59 18:59 Intake Total 1500 Output Total 1900 Balance -400 - Medications Medications: Current Medications Acetaminophen (Tylenol 325mg Tab) 650 mg PO Q4 PRN PRN Reason: Fever >100.4 F Last Admin: 12/29/17 05:19 Dose: 650 mg Calcitriol (Rocaltrol) 0.25 mcg PO Q12 [facility] Last Admin: 12/31/17 08:48 Dose: 0.25 mcg Escitalopram Oxalate (Lexapro) 10 mg PO DAILY [facility] Last Admin: 12/31/17 08:50 Dose: 10 mg Folic Acid (Folic Acid) 1 mg PO DAILY [facility] Last Admin: 12/31/17 08:50 Dose: 1 mg Sodium Chloride (Sodium Chloride 0.9%) 1,000 mls @ 100 mls/hr IV .Q10H [facility] Stop: 01/01/18 09:39 Last Admin: 12/31/17 09:56 Dose: 100 mls/hr Magnesium Oxide (Mag-Ox) 400 mg PO Q12 [facility] Last Admin: 12/31/17 08:50 Dose: 400 mg Potassium Chloride (K-Dur 20 Meq Er Tab) 20 meq PO Q12 [facility] Last Admin: 12/31/17 08:48 Dose: 20 meq Sodium Bicarbonate (Sodium Bicarbonate Tab) 1,300 mg PO Q12 [facility] Last Admin: 12/31/17 08:51 Dose: 1,300 mg - Labs Labs: 12/30/17 04:20 12/31/17 04:20 PT 10.8 Seconds (9.8-13.1) 12/27/17 16:07 INR 1.0 (0.9-1.2) 12/27/17 16:07 APTT 19.2 Seconds (25.6-37.1) L 12/27/17 16:07 - Constitutional Appears: No Acute Distress - ENT Exam ENT Exam: Mucous Membranes Dry - Neck Exam Neck Exam: absent: Lymphadenopathy - Respiratory Exam Respiratory Exam: NORMAL BREATHING PATTERN. absent: Chest Wall Tenderness - Cardiovascular Exam Cardiovascular Exam: absent: Gallop, JVD, Rubs - GI/Abdominal Exam GI & Abdominal Exam: Soft, Normal Bowel Sounds - Extremities Exam Extremities Exam: absent: Calf Tenderness - Back Exam Back Exam: absent: CVA tenderness (L), CVA tenderness (R) - Neurological Exam Neurological Exam: Alert - Psychiatric Exam Psychiatric exam: Normal Affect - Skin Skin Exam: absent: Cyanosis Assessment and Plan (1) Acute kidney injury Assessment & Plan: ARF/ Metabolic Acidosis/ hyponatremia serum sodium coming down 129 Change IV fluid normal saline Anemia / Cervical Ca/ Hyperphosphatemia: Anemia, CKD IV, cerical ca, depression, hypertension, chronic hypovolemia Colostomy; Ileostomy; Urostomy; IVC Filter; Hysterectomy with bilateral Oophorectomy 2006 plan: DIPESH - worse than baseline - ? hypovolemia related - will start [id number] acidosis hopefuly should improve w/ hco3 gtt- its not clear if the acidosis is from the high outpt stool v slow transit time of the ileal conduit urinary diversion, would recommend evaluate. Phos is acceptable Hgb is stable post blood may need epo as outpt. will check renal us Status: Acute
[2017-12-31 12:14] VITALS: BP 113/72; PULSE 69; TEMP 97.7; O2SAT 98
--- NOTE | 2018-01-01 07:48 | DS ---
REASON FOR ADMISSION: This is a 72-year-old female, who is known to me with multiple medical problems who was admitted for severe symptomatic anemia as well as acute renal failure. COURSE OF HOSPITALIZATION: The patient was admitted to the medical floor and telemetry floor, and she was transfused 2 units of packed RBCs. The patient also was continued on IV fluid, and she had a Nephrology consultation done by Dr. Salas. The patient's symptoms gradually improved and she was started on physical therapy and discharged to transitional care unit to continue IV fluids and physical therapy. The patient will be continued to be supplemented with the electrolytes and to continue her preadmission medications. [facility] MD Sunny
--- NOTE | 2018-01-01 08:06 | PQF GENQUE ---
Dr. Correa, Please clarify the type of anemia: if known Blood loss anemia, acute Blood loss anemia, chronic Chronic anemia Deficiency anemia (please specify type) Due to/in/with antineoplastic chemotherapy Due to/in/with chronic kidney disease Due to/in/with kidney failure Due to/in/with neoplastic disease Iron deficiency anemia Macrocytic anemia Microcytic anemia Normocytic anemia Postoperative blood loss anemia Pernicious anemia Other anemia (please specify) Clinically unable to determine Unknown H/H: 6.7/20.8->10.8/32.0->10.6/31.0 ER MD and Renal consult: PMH: Sickle Cell Disease H and P: admitted for severe symptomatic anemia as well as acute renal failure. transfused, monitored labs This form is a permanent part of the medical record Clarification of your documentation is requested to better reflect the severity of illness and intensity of treatment of your patient. Indicators present [] Specify: [] [] Specify: [] [] Specify: [] [] Specify: [] Location in the medical record that reflects the above clinical findings: [] Treatment Provided: [] PHYSICIAN'S RESPONSE Based on your medical judgment of the clinical indicators outlined above please clarify the following: [] Practitioner response [] If unable to determine, please check the box, sign and date. Present On Admission (POA) Indicator: [] Present at the time of admission [] Not present at the time of admission [] Clinically Undetermined In responding to this query, please exercise your independent professional judgment. The fact that a question is asked does not imply that any particular answer is desired or expected. Thank you for your clarification on this documentation. If you have any questions please call. * Thank you, Lakia Gomez RN ext. #[phone] MTDD
== END 2017-12-31 14:55 | DRG 683 ==
LOC: H.ER 15:21 → H.ERHOLD 16:03 → H.TEL 17:32
PROVIDERS: ADMIT Internal Medicine; ATTEND Internal Medicine
PROC: 30233N1 Transfusion of Nonautologous Red Blood Cells into Peripheral Vein, Percutaneous Approach (ICD-10-PCS; principal; 2017-12-27)
DX: N17.9 Acute kidney failure, unspecified (principal); E87.2 Acidosis; D57.1 Sickle-cell disease without crisis; E78.00 Pure hypercholesterolemia, unspecified; E83.39 Other disorders of phosphorus metabolism; E86.0 Dehydration; I12.9 Hypertensive chronic kidney disease with stage 1 through stage 4 chronic kidney disease, or unspecified chronic kidney disease; N18.4 Chronic kidney disease, stage 4 (severe); Z85.41 Personal history of malignant neoplasm of cervix uteri; Z87.891 Personal history of nicotine dependence; Z90.710 Acquired absence of both cervix and uterus; Z93.3 Colostomy status; E86.1 Hypovolemia; F32.9 Major depressive disorder, single episode, unspecified; H26.9 Unspecified cataract; Z79.899 Other long term (current) drug therapy; R79.89 Other specified abnormal findings of blood chemistry

== ENCOUNTER 2017-12-31 14:09 | Inpatient (IN) | payer OTHER ==
[2017-12-31 16:03] VITALS: BMI 16.2
[2017-12-31] MEDS: Sodium Chloride 0.9% 1,000 ML IV SCH (18:04)
--- NOTE | 2017-12-31 18:18 | RAD ---
HISTORY: r/o TB COMPARISON: 01/10/2017 FINDINGS: LUNGS: No active pulmonary disease. PLEURA: No significant pleural effusion identified, no pneumothorax apparent. CARDIOVASCULAR: No radiographic findings to suggest acute or significant cardiovascular disease. Venous access catheter in stable, satisfactory position. OSSEOUS STRUCTURES: No significant abnormalities. VISUALIZED UPPER ABDOMEN: Normal. OTHER FINDINGS: None. IMPRESSION: No active disease. No significant interval change compared to the prior examination(s). No evidence of primary or reactivation granulomatous disease.
[2017-12-31] MEDS: Potassium Chloride 20 mEq ER Tab PO SCH (21:17)
[2017-12-31] MEDS: Magnesium Oxide 400 mg Tab UD PO SCH (21:17)
[2017-12-31 22:02] VITALS: RESP 20
[2018-01-01] MEDS: Sodium Chloride 0.9% 1,000 ML IV SCH ×3 (03:28→21:02)
[2018-01-01 06:42] LABS: BASO % 0.6 % (0.0-2.0); EOS # 0.2 K/uL (0.0-0.7); HEMOGLOBIN 10.5 g/dL (12.0-16.0); LYMPH # 1.1 K/uL (1.0-4.3); LYMPH % 17.8 % (20.0-40.0); MEAN CELL VOLUME 86.6 fl (81.0-99.0); MEAN CORPUSCULAR HEMOGLOBIN 29.4 pg (27.0-31.0); MEAN PLATELET VOLUME 7.7 fl (7.2-11.7); MONO # 0.5 K/uL (0.0-0.8); NEUT # 4.1 K/uL (1.8-7.0); NEUT % 68.6 % (50.0-75.0); RBC 3.58 Mil/uL (3.80-5.20); RED CELL DISTRIBUTION WIDTH 16.5 % (11.5-14.5); WHITE BLOOD COUNT 5.9 K/uL (4.8-10.8)
[2018-01-01 07:33] LABS: ALB/GLOB RATIO 0.8 (1.0-2.1); ALBUMIN 2.9 g/dL (3.5-5.0)
[2018-01-01] MEDS: Potassium Chloride 20 mEq ER Tab PO SCH ×2 (08:43→21:02)
[2018-01-01] MEDS: Magnesium Oxide 400 mg Tab UD PO SCH ×2 (08:43→21:02)
--- NOTE | 2018-01-01 11:59 | CP.PCM.PN ---
Subjective - Date & Time of Evaluation Date of Evaluation: 01/01/18 Time of Evaluation: 11:57 - Subjective Subjective: patient who is 72 years of age female known to me with multiple of her admission related to hypovolemia abnormal kidney function acute kidney injury And a chronic kidney disease with multiple previous operation and surgery. And multiple medical problem including but not limited to metabolic acidosis in addition to the kidney problem and related to her previous surgery. patient transfer from acute floor to subacute unit ros: a full detailed ros is negative except as in my hpi PMH: Anemia, CKD IV, cervical ca, depression, hypertension, chronic hypovolemia PSH: Colostomy; Ileostomy; Urostomy; IVC Filter; Hysterectomy with bilateral Oophorectomy 2006 SH: former Smoker Quit 31 years ago; Occasional Alcohol; No illegal drug use; live with daughter FH: no esrd Allergies: Ciprofloxacin; Vancomycin Medication: Reviewed Objective - Vital Signs/Intake and Output Vital Signs (last 24 hours): Temp Pulse Resp BP Pulse Ox 97.8 F 60 20 101/56 L 100 01/01/18 07:53 01/01/18 07:53 01/01/18 07:53 01/01/18 07:53 01/01/18 07:53 - Medications Medications: Current Medications Acetaminophen (Tylenol 325mg Tab) 650 mg PO Q4 PRN PRN Reason: Pain, Mild (1-3) Acetaminophen (Tylenol 325mg Tab) 650 mg PO Q4 PRN PRN Reason: Fever >100.4 F Calcitriol (Rocaltrol) 0.25 mcg PO Q12 [facility] Last Admin: 01/01/18 08:43 Dose: 0.25 mcg Escitalopram Oxalate (Lexapro) 10 mg PO DAILY [facility] Last Admin: 01/01/18 08:44 Dose: 10 mg Folic Acid (Folic Acid) 1 mg PO DAILY [facility] Last Admin: 01/01/18 08:44 Dose: 1 mg Sodium Chloride (Sodium Chloride 0.9%) 1,000 mls @ 100 mls/hr IV .Q10H [facility] Stop: 01/01/18 17:01 Last Admin: 01/01/18 03:28 Dose: 100 mls/hr Magnesium Oxide (Mag-Ox) 400 mg PO Q12 [facility] Last Admin: 01/01/18 08:43 Dose: 400 mg Potassium Chloride (K-Dur 20 Meq Er Tab) 20 meq PO Q12 [facility] Last Admin: 01/01/18 08:43 Dose: 20 meq Sodium Bicarbonate (Sodium Bicarbonate Tab) 1,300 mg PO Q12 [facility] Last Admin: 01/01/18 08:44 Dose: 1,300 mg - Labs Labs: 01/01/18 06:00 01/01/18 06:00 - Constitutional Appears: No Acute Distress - ENT Exam ENT Exam: Mucous Membranes Moist - Respiratory Exam Respiratory Exam: NORMAL BREATHING PATTERN - Cardiovascular Exam Cardiovascular Exam: REGULAR RHYTHM. absent: Gallop, Rubs - GI/Abdominal Exam GI & Abdominal Exam: Soft, Normal Bowel Sounds - Extremities Exam Extremities Exam: absent: Calf Tenderness - Back Exam Back Exam: absent: CVA tenderness (L), CVA tenderness (R) - Neurological Exam Neurological Exam: Alert - Psychiatric Exam Psychiatric exam: Normal Affect - Skin Skin Exam: absent: Cyanosis Assessment and Plan (1) Acute kidney injury Assessment & Plan: acute kidney injury perhaps become and at this point chronic kidney disease stage IV at this point so far patient is not responding very well to the volume expansion and to keep monitoring and to keep give IV fluid. ARF/ Metabolic Acidosis/ hyponatremia serum sodium coming down 135,serum sodium improving from 129-135 Change IV fluid normal saline Anemia / Cervical Ca/ Hyperphosphatemia: Anemia, CKD IV, cerical ca, depression, hypertension, chronic hypovolemia Colostomy; Ileostomy; Urostomy; IVC Filter; Hysterectomy with bilateral Oophorectomy 2006 Status: Acute
[2018-01-02] MEDS: Sodium Chloride 0.9% 1,000 ML IV SCH ×3 (05:48→21:46)
--- NOTE | 2018-01-02 08:34 | HP ---
HISTORY OF PRESENT ILLNESS: This is a 72-year-old female with history of multiple medical problems who was admitted to Transitional Care Unit after an acute care admission. The patient was admitted in the last week to acute care for symptomatic anemia as well as acute on chronic kidney disease. The patient was started on IV fluid and electrolyte supplements. The patient also was transfused 2 units of packed RBCs. 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 REVIEW OF SYSTEMS: Other review of systems is negative. ALLERGIES: POSITIVE FOR CIPROFLOXACIN AND VANCOMYCIN. SOCIAL HISTORY: No history of smoking, EtOH, or substance abuse. FAMILY HISTORY: Noncontributory. PAST MEDICAL HISTORY: As above. MEDICATIONS: As per MAR. PHYSICAL EXAMINATION: GENERAL: The patient is in bed, not in any cardiopulmonary distress. VITAL SIGNS: Blood pressure 101/65, temperature 97.2, respiratory rate 20, and pulse 72. HEENT: Pupils equal and reactive to light. Normal-appearing mucosa of the conjunctivae, oropharynx, and nasal membrane mucosa. NECK: Supple. No JVD. No carotid bruit. No lymph node. No thyromegaly. CHEST AND LUNGS: Bilateral symmetrical expansion. Good air exchange. No rales. No rhonchi. CARDIOVASCULAR: PMI not localized. S1 and S2. No additional sounds. ABDOMEN: Colostomy and ileostomy bag are in place. EXTREMITIES: No cyanosis. No clubbing. No edema. CENTRAL NERVOUS SYSTEM: Alert, awake, and oriented x3. No neurological deficit could be appreciated. ASSESSMENT: Acute on chronic kidney disease, hypokalemia, metabolic acidosis, status post symptomatic anemia, status post transfusion of two units of packed red blood cells. 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 Monitor electrolytes and CBC. Continue the patient on IV fluid and physical therapy and occupational therapy. Greg Correa MD
[2018-01-02] MEDS: Potassium Chloride 20 mEq ER Tab PO SCH ×2 (08:45→21:47)
[2018-01-02] MEDS: Magnesium Oxide 400 mg Tab UD PO SCH ×2 (08:46→21:48)
--- NOTE | 2018-01-02 09:27 | CP.PCM.PN ---
Subjective - Date & Time of Evaluation Date of Evaluation: 01/02/18 Time of Evaluation: 09:26 - Subjective Subjective: Patient appears to be stable she is in good mood No nausea no vomiting and vital signs stable Objective - Vital Signs/Intake and Output Vital Signs (last 24 hours): Temp Pulse Resp BP Pulse Ox 97.3 F L 54 L 20 90/50 L 99 01/02/18 08:08 01/02/18 08:08 01/02/18 08:08 01/02/18 08:08 01/02/18 08:08 - Medications Medications: Current Medications Acetaminophen (Tylenol 325mg Tab) 650 mg PO Q4 PRN PRN Reason: Pain, Mild (1-3) Acetaminophen (Tylenol 325mg Tab) 650 mg PO Q4 PRN PRN Reason: Fever >100.4 F Calcitriol (Rocaltrol) 0.25 mcg PO Q12 [facility] Last Admin: 01/02/18 08:46 Dose: 0.25 mcg Escitalopram Oxalate (Lexapro) 10 mg PO DAILY [facility] Last Admin: 01/02/18 08:46 Dose: 10 mg Folic Acid (Folic Acid) 1 mg PO DAILY [facility] Last Admin: 01/02/18 08:48 Dose: 1 mg Sodium Chloride (Sodium Chloride 0.9%) 1,000 mls @ 100 mls/hr IV .Q10H [facility] Stop: 01/02/18 20:29 Last Admin: 01/02/18 05:48 Dose: 100 mls/hr Magnesium Oxide (Mag-Ox) 400 mg PO Q12 [facility] Last Admin: 01/02/18 08:46 Dose: 400 mg Potassium Chloride (K-Dur 20 Meq Er Tab) 20 meq PO Q12 [facility] Last Admin: 01/02/18 08:45 Dose: 20 meq Sodium Bicarbonate (Sodium Bicarbonate Tab) 1,300 mg PO Q12 [facility] Last Admin: 01/02/18 08:48 Dose: 1,300 mg - Labs Labs: 01/01/18 06:00 01/01/18 06:00 - Constitutional Appears: No Acute Distress - ENT Exam ENT Exam: Mucous Membranes Moist - Neck Exam Neck Exam: absent: Lymphadenopathy - Respiratory Exam Respiratory Exam: absent: Chest Wall Tenderness - GI/Abdominal Exam GI & Abdominal Exam: Soft, Normal Bowel Sounds - Extremities Exam Extremities Exam: absent: Calf Tenderness - Back Exam Back Exam: absent: CVA tenderness (L), CVA tenderness (R) - Psychiatric Exam Psychiatric exam: Normal Affect - Skin Skin Exam: absent: Cyanosis Assessment and Plan (1) Acute kidney injury Assessment & Plan: acute kidney injury perhaps become and at this point chronic kidney disease stage IV at this point so far patient is not responding very well to the volume expansion and to keep monitoring and to keep give IV fluid. ARF/ Metabolic Acidosis/ hyponatremia serum sodium coming down 135,serum sodium improving from 129-135 Change IV fluid normal saline Anemia / Cervical Ca/ Hyperphosphatemia: Anemia, CKD IV, cerical ca, depression, hypertension, chronic hypovolemia Colostomy; Ileostomy; Urostomy; IVC Filter; Hysterectomy with bilateral Oophorectomy 2006 Status: Acute
[2018-01-03] MEDS: Sodium Chloride 0.9% 1,000 ML IV SCH ×2 (08:53→17:13)
[2018-01-03] MEDS: Magnesium Oxide 400 mg Tab UD PO SCH ×2 (09:01→21:48)
[2018-01-03] MEDS: Potassium Chloride 20 mEq ER Tab PO SCH ×2 (09:02→21:47)
--- NOTE | 2018-01-03 12:19 | CP.PCM.PN ---
Subjective - Date & Time of Evaluation Date of Evaluation: 01/03/18 Time of Evaluation: 12:17 - Subjective Subjective: No significant changes. Patient appears to be comfortable. No vomiting reported. Objective - Vital Signs/Intake and Output Vital Signs (last 24 hours): Temp Pulse Resp BP Pulse Ox 97.7 F 60 20 95/50 L 99 01/03/18 08:00 01/03/18 08:00 01/03/18 08:00 01/03/18 08:00 01/03/18 08:00 - Medications Medications: Current Medications Acetaminophen (Tylenol 325mg Tab) 650 mg PO Q4 PRN PRN Reason: Pain, Mild (1-3) Acetaminophen (Tylenol 325mg Tab) 650 mg PO Q4 PRN PRN Reason: Fever >100.4 F Calcitriol (Rocaltrol) 0.25 mcg PO Q12 [facility] Last Admin: 01/03/18 09:01 Dose: 0.25 mcg Escitalopram Oxalate (Lexapro) 10 mg PO DAILY [facility] Last Admin: 01/03/18 09:01 Dose: 10 mg Folic Acid (Folic Acid) 1 mg PO DAILY [facility] Last Admin: 01/03/18 09:01 Dose: 1 mg Sodium Chloride (Sodium Chloride 0.9%) 1,000 mls @ 100 mls/hr IV .Q10H [facility] Stop: 01/03/18 21:33 Last Admin: 01/03/18 08:53 Dose: 100 mls/hr Magnesium Oxide (Mag-Ox) 400 mg PO Q12 [facility] Last Admin: 01/03/18 09:01 Dose: 400 mg Potassium Chloride (K-Dur 20 Meq Er Tab) 20 meq PO Q12 [facility] Last Admin: 01/03/18 09:02 Dose: 20 meq Sodium Bicarbonate (Sodium Bicarbonate Tab) 1,300 mg PO Q12 [facility] Last Admin: 01/03/18 09:02 Dose: 1,300 mg - Labs Labs: 01/01/18 06:00 01/01/18 06:00 - Constitutional Appears: No Acute Distress - ENT Exam ENT Exam: Mucous Membranes Moist - Neck Exam Neck Exam: absent: Lymphadenopathy - Respiratory Exam Respiratory Exam: NORMAL BREATHING PATTERN. absent: Rales - GI/Abdominal Exam GI & Abdominal Exam: Guarding, Soft, Normal Bowel Sounds - Extremities Exam Extremities Exam: absent: Calf Tenderness - Back Exam Back Exam: absent: CVA tenderness (L), CVA tenderness (R) - Neurological Exam Neurological Exam: Alert - Psychiatric Exam Psychiatric exam: Normal Affect Assessment and Plan (1) Acute kidney injury Assessment & Plan: acute kidney injury perhaps become and at this point chronic kidney disease stage IV at this point so far patient is not responding very well to the volume expansion and to keep monitoring and to keep give IV fluid. ARF/ Metabolic Acidosis/ hyponatremia serum sodium coming down 135,serum sodium improving from 129-135 Change IV fluid normal saline Anemia / Cervical Ca/ Hyperphosphatemia: Anemia, CKD IV, cerical ca, depression, hypertension, chronic hypovolemia Colostomy; Ileostomy; Urostomy; IVC Filter; Hysterectomy with bilateral Oophorectomy 2007 Need to repeat BMP today if possible to follow-up on the kidney function Status: Acute
[2018-01-03 13:42] LABS: CALCIUM 8.4 mg/dL (8.4-10.2)
--- NOTE | 2018-01-03 23:46 | PN ---
DAILY PROGRESS NOTE DATE: 01/03/2018 SUBJECTIVE: The patient is seen today 01/03/2018. She is not in any cardiopulmonary distress. She is started on IV fluid. OBJECTIVE: VITAL SIGNS: Blood pressure is 92/56, temperature 98.2, respiratory rate 20, and pulse 63. HEENT: Pupils equal and reactive to light. Normal-appearing mucosa of the conjunctivae, oropharynx, and nasal membrane mucosa. NECK: Supple. No JVD. No carotid bruit. No lymph node. No thyromegaly. CHEST AND LUNGS: Bilateral symmetrical expansion. Good air exchange. No rales. No rhonchi. CARDIOVASCULAR: PMI not localized. S1 and S2. No additional sounds. ABDOMEN: Both colostomy bag and ileostomy are in place. Positive bowel sounds. No tenderness. No organomegaly. EXTREMITIES: No cyanosis. No clubbing. No edema. CENTRAL NERVOUS SYSTEM: Alert, awake, and oriented x2. No neurological deficit could be appreciated. ASSESSMENT: Acute on chronic kidney disease, status post anemia of symptomatic anemia. PLAN: Continue current medications and IV fluid. Repeat blood work in the morning and follow recommendations of the marriage and family therapist. Greg Correa MD
[2018-01-04] MEDS: Magnesium Oxide 400 mg Tab UD PO SCH ×2 (08:30→20:59)
[2018-01-04] MEDS: Potassium Chloride 20 mEq ER Tab PO SCH ×2 (08:30→21:00)
[2018-01-04] MEDS ORDERED: Sodium Bicarbonate 8.4% 150 MEQ in Dextrose 5% In Water 1,000 ML IV SCH (18:15)
[2018-01-05 05:16] LABS: BASO % 0.6 % (0.0-2.0); EOS # 0.1 K/uL (0.0-0.7); EOS % 2.6 % (0.0-4.0); HEMOGLOBIN 8.9 g/dL (12.0-16.0); LYMPH # 0.6 K/uL (1.0-4.3); LYMPH % 13.2 % (20.0-40.0); MEAN CELL VOLUME 88.1 fl (81.0-99.0); MEAN CORPUSCULAR HEMOGLOBIN 28.7 pg (27.0-31.0); MEAN CORPUSCULAR HGB CONC 32.6 g/dL (33.0-37.0); MEAN PLATELET VOLUME 7.6 fl (7.2-11.7); MONO # 0.4 K/uL (0.0-0.8); MONO % 9.5 % (0.0-10.0); NEUT # 3.4 K/uL (1.8-7.0); NEUT % 74.1 % (50.0-75.0); RBC 3.1 Mil/uL (3.80-5.20); RED CELL DISTRIBUTION WIDTH 16.5 % (11.5-14.5); WHITE BLOOD COUNT 4.5 K/uL (4.8-10.8)
[2018-01-05] MEDS: Potassium Chloride 20 mEq ER Tab PO SCH ×2 (08:51→21:16)
[2018-01-05] MEDS: Magnesium Oxide 400 mg Tab UD PO SCH ×2 (08:52→21:16)
[2018-01-05 11:13] LABS: URINE BACTERIA RARE (<OCC); URINE BILIRUBIN NEGATIVE (NEGATIVE); URINE BLOOD SMALL (NEGATIVE); URINE CLARITY TURBID (Clear); URINE COLOR YELLOW (YELLOW); URINE GLUCOSE (UA) NEG (Normal); URINE LEUKOCYTE ESTERASE LARGE Leu/uL (Negative); URINE PROTEIN 100 mg/dL (NEGATIVE); URINE UROBILINOGEN 0.2-1.0 mg/dL (0.2-1.0)
[2018-01-05 11:33] LABS: SQUAMOUS EPITHIAL 1 /hpf (0-5)
--- NOTE | 2018-01-05 11:58 | CP.PCM.CON ---
History of Present Illness - History of Present Illness History of Present Illness: OBGYN Consult Note: 72 y/o F was consulted due to vaginal bleeding. Pt reports vaginal bleeding occurs every now and then, ~once every 1-2 months, scant in amount and resolves spontaneously. Pt has a Hx of cervical cancer, had a total hysterectomy and oopheroctomy ~2006, received radiation therapy, colostomy and diversion of urine to ileostomy due to post-radiation complication. Allergies: Ciprofloxacin and Vancomycin. PMHx: HTN, depression, Anemia, CKD stage IV. PSHx: Hysterectomy with bilateral Oophorectomy 2006. Colostomy; Ileostomy; Urostomy; IVC Filter; SHx: denies tobacco, alcohol or rec drugs. Review of Systems - Constitutional Constitutional: absent: Anorexia, Chills, Fever - EENT Eyes: absent: Blurred Vision, Change in Vision Nose/Mouth/Throat: absent: Epistaxis, Nasal Congestion - Cardiovascular Cardiovascular: absent: Chest Pain, Dyspnea - Respiratory Respiratory: absent: Cough, Dyspnea, Hemoptysis - Gastrointestinal Gastrointestinal: absent: Nausea, Vomiting - Reproductive: Female Reproductive:Female: S/P Hysterectomy Past Patient History - Infectious Disease Hx of Infectious Diseases: None - Past Medical History & Family History Past Medical History?: Yes - Past Social History Smoking Status: Former Smoker - CARDIAC Hx Hypercholesterolemia: Yes Hx Hypertension: Yes - PULMONARY Hx Respiratory Disorders: No - NEUROLOGICAL Hx Neurological Disorder: No - HEENT Hx HEENT Problems: Yes Hx Cataracts: Yes (mlian 2012) - RENAL Hx Chronic Kidney Disease: Yes - ENDOCRINE/METABOLIC Hx Endocrine Disorders: No Other/Comment: DEHYDRATION - HEMATOLOGICAL/ONCOLOGICAL Hx Anemia: Yes Hx Human Immunodeficiency Virus (HIV): No Hx Sickle Cell Disease: No - INTEGUMENTARY Hx Dermatological Problems: No - MUSCULOSKELETAL/RHEUMATOLOGICAL Hx Falls: No - GASTROINTESTINAL Hx Gastrointestinal Disorders: Yes Hx Ileostomy: Yes Other/Comment: Ileostomy - GENITOURINARY/GYNECOLOGICAL Hx Genitourinary Disorders: Yes Hx Cervical Cancer: Yes Other/Comment: Urostomy - PSYCHIATRIC Hx Depression: Yes Hx Substance Use: No - SURGICAL HISTORY Hx Surgeries: Yes Other/Comment: Left Urostomy; portagram. lifeport insertion - ANESTHESIA Hx Anesthesia: Yes Hx Anesthesia Reactions: No Hx Malignant Hyperthermia: No Meds Allergies/Adverse Reactions: Allergies Allergy/AdvReac Type Severity Reaction Status Date / Time ciprofloxacin [From Cipro] Allergy RASH Verified 12/31/17 16:04 ciprofloxacin HCl Allergy RASH Verified 12/31/17 16:04 [From Cipro] vancomycin Allergy RASH Verified 12/31/17 16:04 - Medications Medications: Current Medications Acetaminophen (Tylenol 325mg Tab) 650 mg PO Q4 PRN PRN Reason: Pain, Mild (1-3) Acetaminophen (Tylenol 325mg Tab) 650 mg PO Q4 PRN PRN Reason: Fever >100.4 F Calcitriol (Rocaltrol) 0.25 mcg PO Q12 [facility] Last Admin: 01/05/18 08:52 Dose: 0.25 mcg Escitalopram Oxalate (Lexapro) 10 mg PO DAILY [facility] Last Admin: 01/05/18 08:53 Dose: 10 mg Folic Acid (Folic Acid) 1 mg PO DAILY [facility] Last Admin: 01/05/18 08:52 Dose: 1 mg Magnesium Oxide (Mag-Ox) 400 mg PO Q12 [facility] Last Admin: 01/05/18 08:52 Dose: 400 mg Potassium Chloride (K-Dur 20 Meq Er Tab) 20 meq PO Q12 [facility] Last Admin: 01/05/18 08:51 Dose: 20 meq Sodium Bicarbonate (Sodium Bicarbonate Tab) 1,300 mg PO Q12 [facility] Last Admin: 01/05/18 08:52 Dose: 1,300 mg Results - Vital Signs Recent Vital Signs: Last Vital Signs Temp 97.8 F 01/05/18 08:13 Pulse 62 01/05/18 08:13 Resp 20 01/05/18 08:13 BP 101/56 L 01/05/18 08:13 Pulse Ox 99 01/05/18 08:13 - Labs Result Diagrams: 01/05/18 05:10 01/03/18 13:02 Labs: Laboratory Results - last 24 hr 01/05/18 01/05/18 05:10 10:50 WBC 4.5 L RBC 3.10 L Hgb 8.9 L Hct 27.3 L MCV 88.1 MCH 28.7 MCHC 32.6 L RDW 16.5 H Plt Count 162 MPV 7.6 Neut % (Auto) 74.1 Lymph % (Auto) 13.2 L [place] % (Auto) 9.5 Eos % (Auto) 2.6 Baso % (Auto) 0.6 Neut # (Auto) 3.4 Lymph # (Auto) 0.6 L [place] # (Auto) 0.4 Eos # (Auto) 0.1 Baso # (Auto) 0.0 Urine Color Yellow Urine Clarity Turbid Urine pH 7.0 Ur Specific [place] 1.008 Urine Protein 100 Urine Glucose (UA) Neg Urine Ketones Negative Urine Blood Small Urine Nitrate Negative Urine Bilirubin Negative Urine Urobilinogen 0.2-1.0 Ur Leukocyte Esterase Large Urine RBC (Auto) 24 H Urine Microscopic WBC 897 H Ur Squamous Epith Cells 1 Urine Bacteria Rare Assessment & Plan - Assessment and Plan (Free Text) Assessment: 72 y/o F with a PMHx of cervical cancer, S/P total hysterectomy and oophorectomy , with ? vaginal bleeding. Plan -U/A ordered.
[2018-01-06 07:05] LABS: CALCIUM 8.8 mg/dL (8.4-10.2)
--- NOTE | 2018-01-06 07:52 | CP.PCM.PN ---
Subjective - Date & Time of Evaluation Date of Evaluation: 01/06/18 Time of Evaluation: 07:49 - Subjective Subjective: Patient seen and examined today at bedside, reports feeling better, denies any bleeding during the night. Afebrile. No nausea, vomiting, abd or pelvic pain, no dizziness. Objective - Vital Signs/Intake and Output Vital Signs (last 24 hours): Temp Pulse Resp BP Pulse Ox 100.4 F H 74 20 103/57 L 100 01/05/18 21:29 01/05/18 21:29 01/05/18 21:29 01/05/18 21:29 01/05/18 21:29 - Medications Medications: Current Medications Acetaminophen (Tylenol 325mg Tab) 650 mg PO Q4 PRN PRN Reason: Pain, Mild (1-3) Acetaminophen (Tylenol 325mg Tab) 650 mg PO Q4 PRN PRN Reason: Fever >100.4 F Calcitriol (Rocaltrol) 0.25 mcg PO Q12 [facility] Last Admin: 01/05/18 21:16 Dose: 0.25 mcg Escitalopram Oxalate (Lexapro) 10 mg PO DAILY [facility] Last Admin: 01/05/18 08:53 Dose: 10 mg Folic Acid (Folic Acid) 1 mg PO DAILY [facility] Last Admin: 01/05/18 08:52 Dose: 1 mg Magnesium Oxide (Mag-Ox) 400 mg PO Q12 [facility] Last Admin: 01/05/18 21:16 Dose: 400 mg Potassium Chloride (K-Dur 20 Meq Er Tab) 20 meq PO Q12 [facility] Last Admin: 01/05/18 21:16 Dose: 20 meq Sodium Bicarbonate (Sodium Bicarbonate Tab) 1,300 mg PO Q12 [facility] Last Admin: 01/05/18 21:16 Dose: 1,300 mg - Labs Labs: 01/05/18 05:10 01/06/18 06:00 - Constitutional Appears: No Acute Distress - Head Exam Head Exam: NORMAL INSPECTION - Eye Exam Eye Exam: Normal appearance - Respiratory Exam Respiratory Exam: Clear to Ausculation Bilateral - Cardiovascular Exam Cardiovascular Exam: REGULAR RHYTHM - GI/Abdominal Exam GI & Abdominal Exam: Soft. absent: Distended, Tenderness Additional comments: Urostomy and colostomy bags noted. - Exam Additional comments: Exam performed by DR Carpenter: Normal external genitals exam, no masses or lesion noted, no external bleeding appreciated. Speculum exam: vagina wall pink no lesions, masses or active bleeding noted. Assessment and Plan - Assessment and Plan (Free Text) Assessment: 72 yo female pt with h/o of cervical cancer s/p GEOVANNA-BSO with vaginal bleeding. - U/A: positive for leukocyte esterase, wbc and RBC. - H/H 8.6/27.3 - Recommds: f/u with primary TRUCK DRIVER SUPERVISOR doctor. monitor H/H - continue current care as per primary team.
[2018-01-06] MEDS: Potassium Chloride 20 mEq ER Tab PO SCH ×2 (08:09→21:07)
[2018-01-06] MEDS: Magnesium Oxide 400 mg Tab UD PO SCH ×2 (08:09→21:00)
--- NOTE | 2018-01-06 08:18 | CP.PCM.CON ---
History of Present Illness - History of Present Illness History of Present Illness: OBGYN Consult Note 72 y/o F with a PMHx of cervical cancer, treated with total hysterectomy, bilateral oophorectomy and radiation therapy, was consulted to OBGYN due to an episode of vaginal bleeding. Bleeding was noticed last night on a towel pad ( placed under genital area), scant in amount and red in color with no clots, as described by patient. Pt reports bleeding episodes occurs every now and then for a few years since hysterectomy. Pt does NOT report following up with GEAR CUTTING MACHINE OPERATOR doctor. -As complication of radiation therapy, pt had a colostomy, urostomy and ileostomy (urine diverted to ileostomy.) -Pt denies abdominal pain, pelvic pain, vaginal discharge, hematuria, sexual activity or rash. -Allergies: Ciprofloxacin; Vancomycin -PMHx: Cervical cancer, Anemia, CKD IV, Depression, HTN -PSHx: Colostomy; Ileostomy; Urostomy; IVC Filter; Hysterectomy with bilateral Oophorectomy 2006 -SHx: Former Smoker quit 31 years ago; Occasional Alcohol; No illegal drug use; live with daughter. Review of Systems - Constitutional Constitutional: As Per HPI - EENT Eyes: absent: Change in Vision, Decreased Night Vision, Diplopia - Cardiovascular Cardiovascular: absent: Chest Pain, Claudication, Dyspnea - Respiratory Respiratory: absent: Cough, Dyspnea, Hemoptysis - Gastrointestinal Gastrointestinal: absent: Abdominal Pain, Coffee Ground Emesis, Nausea, Vomiting - Genitourinary Genitourinary: Hx /Renal Surgery. absent: Flank Pain, Hematuria - Hematologic/Lymphatic Hematologic: absent: Lymphadenopathy Past Patient History - Infectious Disease Hx of Infectious Diseases: None - Past Medical History & Family History Past Medical History?: Yes - Past Social History Smoking Status: Former Smoker - CARDIAC Hx Hypercholesterolemia: Yes Hx Hypertension: Yes - PULMONARY Hx Respiratory Disorders: No - NEUROLOGICAL Hx Neurological Disorder: No - HEENT Hx HEENT Problems: Yes Hx Cataracts: Yes (milan 2012) - RENAL Hx Chronic Kidney Disease: Yes - ENDOCRINE/METABOLIC Hx Endocrine Disorders: No Other/Comment: DEHYDRATION - HEMATOLOGICAL/ONCOLOGICAL Hx Anemia: Yes Hx Human Immunodeficiency Virus (HIV): No Hx Sickle Cell Disease: No - INTEGUMENTARY Hx Dermatological Problems: No - MUSCULOSKELETAL/RHEUMATOLOGICAL Hx Falls: No - GASTROINTESTINAL Hx Gastrointestinal Disorders: Yes Hx Ileostomy: Yes Other/Comment: Ileostomy - GENITOURINARY/GYNECOLOGICAL Hx Genitourinary Disorders: Yes Hx Cervical Cancer: Yes Other/Comment: Urostomy - PSYCHIATRIC Hx Depression: Yes Hx Substance Use: No - SURGICAL HISTORY Hx Surgeries: Yes Other/Comment: Left Urostomy; portagram. lifeport insertion - ANESTHESIA Hx Anesthesia: Yes Hx Anesthesia Reactions: No Hx Malignant Hyperthermia: No Meds Allergies/Adverse Reactions: Allergies Allergy/AdvReac Type Severity Reaction Status Date / Time ciprofloxacin [From Cipro] Allergy RASH Verified 12/31/17 16:04 ciprofloxacin HCl Allergy RASH Verified 12/31/17 16:04 [From Cipro] vancomycin Allergy RASH Verified 12/31/17 16:04 - Medications Medications: Current Medications Acetaminophen (Tylenol 325mg Tab) 650 mg PO Q4 PRN PRN Reason: Pain, Mild (1-3) Acetaminophen (Tylenol 325mg Tab) 650 mg PO Q4 PRN PRN Reason: Fever >100.4 F Calcitriol (Rocaltrol) 0.25 mcg PO Q12 [facility] Last Admin: 01/05/18 21:16 Dose: 0.25 mcg Escitalopram Oxalate (Lexapro) 10 mg PO DAILY [facility] Last Admin: 01/05/18 08:53 Dose: 10 mg Folic Acid (Folic Acid) 1 mg PO DAILY [facility] Last Admin: 01/05/18 08:52 Dose: 1 mg Magnesium Oxide (Mag-Ox) 400 mg PO Q12 [facility] Last Admin: 01/05/18 21:16 Dose: 400 mg Potassium Chloride (K-Dur 20 Meq Er Tab) 20 meq PO Q12 [facility] Last Admin: 01/05/18 21:16 Dose: 20 meq Sodium Bicarbonate (Sodium Bicarbonate Tab) 1,300 mg PO Q12 [facility] Last Admin: 01/05/18 21:16 Dose: 1,300 mg Physical Exam - Constitutional Appears: Non-toxic, No Acute Distress - Head Exam Head Exam: ATRAUMATIC, NORMAL INSPECTION - Eye Exam Eye Exam: EOMI - ENT Exam ENT Exam: Mucous Membranes Moist - Neck Exam Neck exam: Positive for: Normal Inspection - Respiratory Exam Respiratory Exam: Clear to Auscultation Bilateral, NORMAL BREATHING PATTERN - Cardiovascular Exam Cardiovascular Exam: +S1, +S2 - GI/Abdominal Exam GI & Abdominal Exam: Normal Bowel Sounds, Soft. absent: Distended, Guarding, Tenderness - Exam Speculum exam: absent: NORMAL SPECULUM EXAM (Unable to perform examination, py uncomfortable with examination, as speculum was inappropiately larger in size. ) Results - Vital Signs Recent Vital Signs: Last Vital Signs Temp 100.4 F H 01/05/18 21:29 Pulse 74 01/05/18 21:29 Resp 20 01/05/18 21:29 BP 103/57 L 01/05/18 21:29 Pulse Ox 100 01/05/18 21:29 - Labs Result Diagrams: 01/05/18 05:10 01/06/18 06:00 Labs: Laboratory Results - last 24 hr 01/05/18 01/06/18 10:50 06:00 Sodium 138 Potassium 3.7 Chloride 109 H Carbon Dioxide 20 L Anion Gap 13 BUN 54 H Creatinine 3.0 H Est GFR ( Amer) 19 Est GFR (Non-Af Amer) 15 Random Glucose 79 Calcium 8.8 Urine Color Yellow Urine Clarity Turbid Urine pH 7.0 Ur Specific [place] 1.008 Urine Protein 100 Urine Glucose (UA) Neg Urine Ketones Negative Urine Blood Small Urine Nitrate Negative Urine Bilirubin Negative Urine Urobilinogen 0.2-1.0 Ur Leukocyte Esterase Large Urine RBC (Auto) 24 H Urine Microscopic WBC 897 H Ur Squamous Epith Cells 1 Urine Bacteria Rare Assessment & Plan - Assessment and Plan (Free Text) Assessment: 72 y/o F with a PMHx of cervical cancer, treated with total hysterectomy and radiation therapy, has vaginal bleeding episodes -Pt admitted to TCU for rehabilitation after being treated for symptomatic anemia. Plan: -Recommends to follow up with GEAR CUTTING MACHINE OPERATOR as outpatient. -Will try to find suitable speculum for a proper pelvic examination. - Date & Time Date: 01/05/18 Time: 10:00
--- NOTE | 2018-01-06 10:13 | CP.PCM.PN ---
Subjective - Date & Time of Evaluation Date of Evaluation: 01/06/18 Time of Evaluation: 10:12 - Subjective Subjective: Patient appears to be comfortable No nausea or vomiting No significant changes clinically Objective - Vital Signs/Intake and Output Vital Signs (last 24 hours): Temp Pulse Resp BP Pulse Ox 98.1 F 66 20 92/54 L 98 01/06/18 08:40 01/06/18 08:40 01/06/18 08:40 01/06/18 08:40 01/06/18 08:40 - Medications Medications: Current Medications Acetaminophen (Tylenol 325mg Tab) 650 mg PO Q4 PRN PRN Reason: Pain, Mild (1-3) Acetaminophen (Tylenol 325mg Tab) 650 mg PO Q4 PRN PRN Reason: Fever >100.4 F Calcitriol (Rocaltrol) 0.25 mcg PO Q12 [facility] Last Admin: 01/06/18 08:09 Dose: 0.25 mcg Escitalopram Oxalate (Lexapro) 10 mg PO DAILY [facility] Last Admin: 01/06/18 08:09 Dose: 10 mg Folic Acid (Folic Acid) 1 mg PO DAILY [facility] Last Admin: 01/06/18 08:09 Dose: 1 mg Magnesium Oxide (Mag-Ox) 400 mg PO Q12 [facility] Last Admin: 01/06/18 08:09 Dose: 400 mg Potassium Chloride (K-Dur 20 Meq Er Tab) 20 meq PO Q12 [facility] Last Admin: 01/06/18 08:09 Dose: 20 meq Sodium Bicarbonate (Sodium Bicarbonate Tab) 1,300 mg PO Q12 [facility] Last Admin: 01/06/18 08:09 Dose: 1,300 mg - Labs Labs: 01/05/18 05:10 01/06/18 06:00 - Constitutional Appears: No Acute Distress - Eye Exam Eye Exam: Conjunctival injection - ENT Exam ENT Exam: Mucous Membranes Moist - Neck Exam Neck Exam: absent: Lymphadenopathy - Respiratory Exam Respiratory Exam: NORMAL BREATHING PATTERN. absent: Chest Wall Tenderness - Cardiovascular Exam Cardiovascular Exam: REGULAR RHYTHM. absent: Gallop, Rubs - GI/Abdominal Exam GI & Abdominal Exam: Soft, Normal Bowel Sounds - Extremities Exam Extremities Exam: absent: Calf Tenderness - Back Exam Back Exam: absent: CVA tenderness (L), CVA tenderness (R) - Neurological Exam Neurological Exam: Alert - Psychiatric Exam Psychiatric exam: Normal Affect - Skin Skin Exam: absent: Cyanosis Assessment and Plan (1) Acute kidney injury Assessment & Plan: ARF/ kidney function improving seruatinine keep coming down. Patient appeared to be responding down to the volume expansion. Metabolic Acidosis/ hyponatremia,corrected the last serum sodium 138 Change IV fluid normal saline Anemia / Cervical Ca/ Hyperphosphatemia: Anemia, CKD IV, cerical ca, depression, hypertension, chronic hypovolemia Colostomy; Ileostomy; Urostomy; IVC Filter; Hysterectomy with bilateral Oophorectomy 2006 Status: Acute
[2018-01-06] MEDS ORDERED: Dextrose 5%/0.45% NS 1,000 ML IV SCH (11:00)
--- NOTE | 2018-01-06 22:30 | PN ---
DATE: 01/06/2018 SUBJECTIVE: The patient is seen today 01/06/2018 in Transitional Care Unit. She is still on IV fluid and CO2 is elevated to 20. PHYSICAL EXAMINATION: VITAL SIGNS: Blood pressure is 99/53, temperature is 98.4, respiratory rate is 20, and pulse is 61. HEENT: Pupils are equal and reactive to light. Normal-appearing mucosa of the conjunctivae, oropharynx, and nasal membrane mucosa. NECK: Supple. CHEST AND LUNGS: Bilateral symmetrical expansion. Good air exchange. CARDIOVASCULAR: PMI not localized. S1 and S2. No additional sounds. ABDOMEN: Colostomy and ileostomy bag are in place. EXTREMITIES: No cyanosis. No clubbing. No edema. CENTRAL NERVOUS SYSTEM: Alert, awake, and oriented x2. No neurological deficit could be appreciated. ASSESSMENT: 1. Anemia multifactorial status post packed red blood cells transfusion. 2. Acute on chronic kidney disease. 3. Metabolic acidosis. PLAN: Continue current IV fluid and continue physical therapy and occupational therapy. [facility] MD Sunny
[2018-01-07] MEDS: Magnesium Oxide 400 mg Tab UD PO SCH (08:39)
[2018-01-07] MEDS: Potassium Chloride 20 mEq ER Tab PO SCH (08:39)
[2018-01-07] MEDS ORDERED: Dextrose 5%/0.45% NS 1,000 ML IV SCH ×2 (10:37→10:38)
--- NOTE | 2018-01-07 10:41 | CP.PCM.PN ---
Subjective - Date & Time of Evaluation Date of Evaluation: 01/07/18 Time of Evaluation: 10:40 - Subjective Subjective: Patient feeling much better No significant changes clinically Objective - Vital Signs/Intake and Output Vital Signs (last 24 hours): Temp Pulse Resp BP Pulse Ox 97.7 F 60 20 96/53 L 99 01/07/18 08:12 01/07/18 08:12 01/07/18 08:12 01/07/18 08:12 01/07/18 08:12 - Medications Medications: Current Medications Acetaminophen (Tylenol 325mg Tab) 650 mg PO Q4 PRN PRN Reason: Pain, Mild (1-3) Acetaminophen (Tylenol 325mg Tab) 650 mg PO Q4 PRN PRN Reason: Fever >100.4 F Calcitriol (Rocaltrol) 0.25 mcg PO Q12 [facility] Last Admin: 01/07/18 08:38 Dose: 0.25 mcg Escitalopram Oxalate (Lexapro) 10 mg PO DAILY [facility] Last Admin: 01/07/18 08:40 Dose: 10 mg Folic Acid (Folic Acid) 1 mg PO DAILY [facility] Last Admin: 01/07/18 08:39 Dose: 1 mg Dextrose/Sodium Chloride (Dextrose 5%/0.45% Ns 1000 Ml) 1,000 mls @ 100 mls/hr IV .Q10H [facility] Stop: 01/07/18 10:50 Magnesium Oxide (Mag-Ox) 400 mg PO Q12 [facility] Last Admin: 01/07/18 08:39 Dose: 400 mg Potassium Chloride (K-Dur 20 Meq Er Tab) 20 meq PO Q12 [facility] Last Admin: 01/07/18 08:39 Dose: 20 meq Sodium Bicarbonate (Sodium Bicarbonate Tab) 1,300 mg PO Q12 [facility] Last Admin: 01/07/18 08:40 Dose: 1,300 mg - Labs Labs: 01/05/18 05:10 01/06/18 06:00 - Constitutional Appears: No Acute Distress - ENT Exam ENT Exam: Mucous Membranes Moist - Neck Exam Neck Exam: absent: Lymphadenopathy - Cardiovascular Exam Cardiovascular Exam: REGULAR RHYTHM. absent: Gallop, JVD, Rubs - GI/Abdominal Exam GI & Abdominal Exam: Soft, Normal Bowel Sounds - Extremities Exam Extremities Exam: absent: Calf Tenderness - Back Exam Back Exam: absent: CVA tenderness (R) - Neurological Exam Neurological Exam: Alert - Psychiatric Exam Psychiatric exam: Normal Affect Assessment and Plan (1) Acute kidney injury Assessment & Plan: ARF/ kidney function improving serum creatinine keep coming down. Patient appeared to be responding to the volume expansion. Increase IV fluid 100 mL for the next perhaps 24 hours Metabolic Acidosis/ hyponatremia,corrected the last serum sodium 138 Anemia / Cervical Ca/ Hyperphosphatemia: Anemia, CKD IV, cerical ca, depression, hypertension, chronic hypovolemia Colostomy; Ileostomy; Urostomy; IVC Filter; Hysterectomy with bilateral Oophorectomy 2006 Status: Acute
[2018-01-07 15:54] VITALS: PULSE 61; TEMP 98.2; O2SAT 98
[2018-01-07 18:00] VITALS: BP 103/60
--- NOTE | 2018-01-09 01:44 | DS ---
REASON FOR ADMISSION: This is a 72-year-old female, who was admitted to transitional care unit for IV fluid therapy and deconditioning. COURSE OF HOSPITALIZATION: The patient was admitted to transitional care unit at [facility]. The patient was started on physical therapy as well as occupational therapy. IV fluids and sodium bicarbonate were continued while the patient was on the floor. The patient had a nephrology consult done by Dr. Salas. The patient also had transfusion of packed RBCs due to severe symptomatic anemia on her previous admission. The patient did well, and she was discharged home to continue current preadmission medications. FINAL DIAGNOSES: 1. Symptomatic anemia. 2. [id number] kidney disease. 3. Metabolic acidosis. The patient will be followed up as an outpatient with primary care physician and will be continued on fluid therapy twice a week. [facility] MD Sunny
== END 2018-01-07 18:05 | disposition home or self-care (01) | DRG 812 ==
LOC: H.TCU 16:29
PROVIDERS: ADMIT Internal Medicine; ATTEND Internal Medicine
PROC: F07Z9FZ Gait Training/Functional Ambulation Treatment using Assistive, Adaptive, Supportive or Protective Equipment (ICD-10-PCS; principal; 2017-12-31)
PROC: F08Z4FZ Home Management Treatment using Assistive, Adaptive, Supportive or Protective Equipment (ICD-10-PCS; 2017-12-31)
PROC: F07M6FZ Therapeutic Exercise Treatment of Musculoskeletal System - Whole Body using Assistive, Adaptive, Supportive or Protective Equipment (ICD-10-PCS; 2018-01-01)
DX: D64.89 Other specified anemias (principal); N18.4 Chronic kidney disease, stage 4 (severe); N17.9 Acute kidney failure, unspecified; E87.1 Hypo-osmolality and hyponatremia; E87.2 Acidosis; E87.6 Hypokalemia; I12.9 Hypertensive chronic kidney disease with stage 1 through stage 4 chronic kidney disease, or unspecified chronic kidney disease; E78.00 Pure hypercholesterolemia, unspecified; Z93.2 Ileostomy status; Z93.6 Other artificial openings of urinary tract status; Z93.3 Colostomy status; Z85.41 Personal history of malignant neoplasm of cervix uteri; Z90.710 Acquired absence of both cervix and uterus; Z92.3 Personal history of irradiation; Z87.891 Personal history of nicotine dependence

== ENCOUNTER 2018-03-12 15:08 | Inpatient (IN) | payer MEDICARE, OTHER ==
[2018-03-12 15:08] VITALS: BMI 16.8
--- NOTE | 2018-03-12 16:25 | ED PDOC ---
HPI: General Adult Time Seen by Provider: 03/12/18 15:52 Chief Complaint (Nursing): Weakness/Neurological Deficit Chief Complaint (Provider): Weakness and Dehydration History Per: Patient History/Exam Limitations: no limitations Onset/Duration Of Symptoms: Days Current Symptoms Are (Timing): Still Present Additional Complaint(s): 72 year old female presents to the ED for an evaluation of dehydration and weakness. Patient states she follows up weekly for lab test and has blood transfusion and IV fluids. She had blood drawn on Saturday showing hemoglobin 8 and hematocrit 12. Since then, patient feels dehydrated and weak thinking she is going to need transfusion. Denies abdominal pain, nausea, vomiting or nausea. PMD: Greg Correa S Health Care Proxy is pt's daughter, Elizabet [phone] Past Medical History Reviewed: Historical Data, Nursing Documentation, Vital Signs Vital Signs: Last Vital Signs Temp 98.3 F 03/12/18 15:17 Pulse 86 03/12/18 15:17 Resp 18 03/12/18 15:17 BP 90/56 L 03/12/18 15:17 Pulse Ox 99 03/12/18 17:38 - Medical History PMH: Anemia, Depression, Deep Vein Thrombosis, HTN, Hypercholesterolemia, Chronic Kidney Disease Denies: HIV, Sickle Cell Disease Other PMH: renal failure - Surgical History Other surgeries: colostomy, ileostomy following radial cancer, hip replacement - Family History Family History: States: Unknown Family Hx - Social History Current smoker - smoking cessation education provided: No Alcohol: None Drugs: Denies - Home Medications Home Medications: Ambulatory Orders Medication Instructions Recorded Potassium Chloride [K-Dur 20 mEq 20 meq PO Q12 07/23/16 ER Tab] Sodium Bicarbonate Tab 1,300 mg PO Q12 08/27/16 Folic Acid 1 mg PO DAILY #7 tab 10/04/16 Escitalopram [Lexapro] 10 mg PO DAILY 03/28/17 Calcitriol [Rocaltrol] 0.25 mcg PO Q12 12/27/17 Magnesium Oxide [Magox 400] 400 mg PO Q12 12/27/17 Sevelamer [Renagel] 800 mg PO TID 03/12/18 - Allergies Allergies/Adverse Reactions: Allergies Allergy/AdvReac Type Severity Reaction Status Date / Time ciprofloxacin [From Cipro] Allergy RASH Verified 03/12/18 15:19 ciprofloxacin HCl Allergy RASH Verified 03/12/18 15:19 [From Cipro] vancomycin Allergy RASH Verified 03/12/18 15:19 Review of Systems ROS Statement: Except As Marked, All Systems Reviewed And Found Negative Constitutional: Positive for: Weakness, Other (dehydration ) Gastrointestinal: Negative for: Nausea, Vomiting, Abdominal Pain, Diarrhea Psych: Negative for: Suicidal ideation (homicidal ideation) Physical Exam - Reviewed Nursing Documentation Reviewed: Yes Vital Signs Reviewed: Yes - Physical Exam Appears: Positive for: Well (happy), Non-toxic, No Acute Distress Head Exam: Positive for: ATRAUMATIC, NORMAL INSPECTION, NORMOCEPHALIC Skin: Positive for: Normal Color, Warm, Dry. Negative for: Cyanosis Eye Exam: Positive for: Other (conjunctival pallor ) Neck: Positive for: Normal, Painless ROM, Supple. Negative for: Decreased ROM Cardiovascular/Chest: Positive for: Regular Rate, Rhythm. Negative for: Murmur Respiratory: Positive for: Normal Breath Sounds. Negative for: Decreased Breath Sounds, Wheezing, Respiratory Distress Gastrointestinal/Abdominal: Positive for: Normal Exam, Bowel Sounds, Soft, Other (ileostomy of colostomy bag in place with no drainage. Ostomy sites well appearing.). Negative for: Tenderness, Guarding, Rebound Extremity: Positive for: Normal ROM, Other (port site inferior to right clavical covered with gauze no surrounding erythema ). Negative for: Tenderness , Pedal Edema, Deformity Neurologic/Psych: Positive for: Alert, Oriented (x3). Negative for: Motor/ Sensory Deficits - ECG O2 Sat by Pulse Oximetry: 99 (RA) Pulse Ox Interpretation: Normal Nebulizer Treatments/Peak Flow - Duonebs Number of Bronchodilator Doses given?: 0 Medical Decision Making Medical Decision Making: Time: 161 Impression: dehydration, weakness, anemia --EKG --CMP --Magnesium --Phosphorous --CBC w/ Differential --PTT --Prothrombin Time Time: [address] Correa regarding patient and patient will be admitted. Time: 162 --BBK --Calcium --Calcium, Ionized Pt and family informed of admission status. Pt stable and comfortable. Pt to receive transfusion on the floor with further treatment per Dr. Correa. Scribe Attestation: Documented by Nevaeh Parrish, acting as a scribe for Tasha Carrizales MD Provider Scribe Attestation: All medical record entries made by the Scribe were at my direction and personally dictated by me. I have reviewed the chart and agree that the record accurately reflects my personal performance of the history, physical exam, medical decision making, and the department course for this patient. I have also personally directed, reviewed, and agree with the discharge instructions and disposition. Procedures - Time-Out Type of Procedure: none Disposition - Clinical Impression Clinical Impression: Renal insufficiency, Dehydration, Anemia, Acute weakness - Patient ED Disposition Is Patient to be Admitted: Yes Discussed With DrXochitl: Greg Correa Doctor Will See Patient In The: Hospital - Disposition Disposition Time: 16:24 Condition: FAIR
[2018-03-12 17:44] LABS: BASO % 0.5 % (0.0-2.0); EOS # 0.1 K/uL (0.0-0.7); EOS % 1.4 % (0.0-4.0); HEMOGLOBIN 7.1 g/dL (12.0-16.0); LYMPH # 0.6 K/uL (1.0-4.3); LYMPH % 9.2 % (20.0-40.0); MEAN CELL VOLUME 91.1 fl (81.0-99.0); MEAN CORPUSCULAR HEMOGLOBIN 28.1 pg (27.0-31.0); MEAN CORPUSCULAR HGB CONC 30.8 g/dL (33.0-37.0); MEAN PLATELET VOLUME 7.7 fl (7.2-11.7); MONO # 0.6 K/uL (0.0-0.8); MONO % 8.4 % (0.0-10.0); NEUT # 5.5 K/uL (1.8-7.0); NEUT % 80.5 % (50.0-75.0); RBC 2.52 Mil/uL (3.80-5.20); RED CELL DISTRIBUTION WIDTH 17.1 % (11.5-14.5); WHITE BLOOD COUNT 6.9 K/uL (4.8-10.8)
[2018-03-12 17:59] LABS: INR 1.1; PROTHROMBIN TIME 11.8 Seconds (9.8-13.1)
[2018-03-12 18:02] LABS: PARTIAL THROMBOPLASTIN TIME 24.4 Seconds (25.6-37.1)
[2018-03-12 18:05] LABS: ALB/GLOB RATIO 0.8 (1.0-2.1); ALBUMIN 2.8 g/dL (3.5-5.0); CALCIUM 8.6 mg/dL (8.4-10.2)
[2018-03-12] MEDS ORDERED: Sod Polystyrene Sulf 15 gm/60 ml Susp PO ONE (22:30)
[2018-03-12] MEDS: SODIUM CHLORIDE 0.9% IV SCH (23:21)
[2018-03-12] MEDS: SODIUM BICARBONATE IV SCH (23:21)
[2018-03-13 02:30] VITALS: RESP 20
--- NOTE | 2018-03-13 07:43 | CARD ---
APPROVED REPORT Date of service: 03/12/2018 <Conclusion> Sinus rhythm with short MA Low voltage QRS Borderline ECG
[2018-03-13 08:11] VITALS: O2SAT 98
[2018-03-13] MEDS ORDERED: Epoetin Alfa 4000 UNIT/ML Inj SC ONE (12:26)
[2018-03-13] MEDS ORDERED: Epoetin Alfa 20000 UNIT/ML (RENAL DOSE) SC ONE (12:45)
[2018-03-13] MEDS ORDERED: EPOETIN ALFA 10,000 UNIT/ML ML SC ONE (12:45)
[2018-03-13] MEDS: SODIUM BICARBONATE IV SCH (14:51)
[2018-03-13] MEDS: SODIUM CHLORIDE 0.9% IV SCH (14:51)
[2018-03-13 16:11] VITALS: BP 98/63; PULSE 68; TEMP 98.6
[2018-03-13 19:26] LABS: HEMOGLOBIN 11.4 g/dL (12.0-16.0); MEAN CELL VOLUME 88.3 fl (81.0-99.0); MEAN CORPUSCULAR HEMOGLOBIN 29.2 pg (27.0-31.0); RBC 3.91 Mil/uL (3.80-5.20); RED CELL DISTRIBUTION WIDTH 16.5 % (11.5-14.5); WHITE BLOOD COUNT 5.3 K/uL (4.8-10.8)
[2018-03-13 19:31] LABS: CALCIUM 7.8 mg/dL (8.4-10.2)
--- NOTE | 2018-03-13 23:54 | HP ---
Copied To: Greg Correa MD Attending MD: Greg Correa MD HISTORY OF PRESENT ILLNESS: This is a 72-year-old female with history of multiple medical problems, was presented to emergency room with symptoms of generalized weakness, exertional shortness of breath, and easy fatigability. The patient's symptoms have been progressive over the last few days. The patient presented to emergency room for evaluation and she was found to have anemia with hemoglobin of 7.1, and also she was found to be hyperkalemic and in metabolic acidosis. The patient was admitted for further management. The patient had previous admissions to the hospital, as she has chronic kidney disease with anemia, which is multifactorial. The patient has both colostomy and urine diversion ileostomy secondary to cancer of the cervix with post radiation complications. REVIEW OF SYSTEMS: Other review of systems negative. ALLERGIES: POSITIVE FOR CIPROFLOXACIN AND VANCOMYCIN. PAST MEDICAL HISTORY: As above. SOCIAL HISTORY: No history of smoking, ETOH, or substance abuse. FAMILY HISTORY: Noncontributory. MEDICATIONS: Were reviewed as per MAR. PHYSICAL EXAMINATION: VITAL SIGNS: Blood pressure 115/71, temperature 98.5, respiratory rate 20, and pulse 67. HEENT: Pupils equal and reactive to light. Normal-appearing mucosa of the conjunctivae, oropharynx, and nasal membrane mucosa. NECK: Supple. No JVD. No carotid bruit. No lymph node. No thyromegaly. CHEST AND LUNGS: Bilateral symmetrical expansion. Good air exchange. No rales, no rhonchi. CARDIOVASCULAR SYSTEM: PMI not localized. S1 and S2. No additional sounds. ABDOMEN: Colostomy and ileostomy bag are in place. No tenderness. No organomegaly. No masses. EXTREMITIES: No cyanosis, no clubbing, no edema. CENTRAL NERVOUS SYSTEM: Alert, awake, and oriented x3. No neurological deficits could be appreciated. LABORATORY DATA: Blood work done in the emergency room showed hemoglobin 7.1, hematocrit 22.9, potassium 5.5, BUN 81, and creatinine 3.7. Anion gap of 17, and carbon dioxide 16. ASSESSMENT: 1. Anemia of chronic disease. 2. Chronic kidney disease, stage 4. 3. Hyperkalemia. 4. Metabolic acidosis. PLAN: IV fluid with sodium bicarb, transfused 2 units of packed RBCs, follow up with computer animator. We will also give Procrit 10,000 units 2 times a week and continue sodium bicarb as well as Renagel as phosphate binding agent. Suellen MD Sunny
== END 2018-03-13 22:25 | disposition home or self-care (01) | DRG 812 ==
LOC: H.ER 15:08 → H.ERHOLD 16:24 → H.MEDSURG1 21:15
PROVIDERS: ADMIT Internal Medicine; ATTEND Internal Medicine
PROC: 30233N1 Transfusion of Nonautologous Red Blood Cells into Peripheral Vein, Percutaneous Approach (ICD-10-PCS; principal; 2018-03-13)
DX: D64.89 Other specified anemias (principal); N18.4 Chronic kidney disease, stage 4 (severe); E87.2 Acidosis; E87.5 Hyperkalemia; E86.0 Dehydration; I12.9 Hypertensive chronic kidney disease with stage 1 through stage 4 chronic kidney disease, or unspecified chronic kidney disease; D63.1 Anemia in chronic kidney disease; E78.00 Pure hypercholesterolemia, unspecified; Z85.41 Personal history of malignant neoplasm of cervix uteri; Z93.3 Colostomy status; Z93.2 Ileostomy status; Z92.3 Personal history of irradiation; Z86.718 Personal history of other venous thrombosis and embolism; Z88.1 Allergy status to other antibiotic agents

== ENCOUNTER 2018-04-28 14:16 | Inpatient (IN) | payer MEDICARE, OTHER ==
[2018-04-28 14:16] VITALS: BMI 16.8
--- NOTE | 2018-04-28 14:54 | ED PDOC ---
Lower Extremity Pain/Injury Time Seen by Provider: 04/28/18 14:28 Chief Complaint (Nursing): Lower Extremity Problem/Injury History Per: Patient Onset/Duration Of Symptoms: Days (2) Current Symptoms Are (Timing): Still Present Severity: Mild Additional Complaint(s): Swelling lower ext bilat x 2-3 days. Denies pain or fever. Denies chest pain or SOB. Past Medical History Vital Signs: Last Vital Signs Temp 98.2 F 04/28/18 14:24 Pulse 65 04/28/18 14:24 Resp 18 04/28/18 14:24 BP 110/66 04/28/18 14:24 Pulse Ox 98 04/28/18 14:24 - Medical History PMH: Anemia, Depression, Deep Vein Thrombosis, HTN, Hypercholesterolemia, Chronic Kidney Disease Denies: HIV, Sickle Cell Disease - Family History Family History: States: Unknown Family Hx - Home Medications Home Medications: Ambulatory Orders Medication Instructions Recorded Folic Acid 1 mg PO DAILY #7 tab 10/04/16 Escitalopram [Lexapro] 10 mg PO DAILY 03/28/17 Calcitriol [Rocaltrol] 0.25 mcg PO BID 12/27/17 Magnesium Oxide [Magox 400] 400 mg PO BID 12/27/17 Sevelamer [Renagel] 800 mg PO TID 03/12/18 Ergocalciferol [Drisdol 50,000 1 cap PO Q7D cap 04/08/18 Intl Units Cap] Ferrous Gluconate [Fergon] 324 mg PO TID tab 04/08/18 Sodium Bicarbonate Tab 650 mg PO BID tab 04/08/18 Vitamin B Complex/Vit C/Folic 1 tab PO DAILY tab 04/08/18 [Nephro-Gavi] Cholestyramine [Questran] 4 gm PO BID 04/21/18 Famotidine [Pepcid] 20 mg PO DAILY 04/21/18 Thiamine [Vitamin B1] 100 mg PO DAILY 04/21/18 - Allergies Allergies/Adverse Reactions: Allergies Allergy/AdvReac Type Severity Reaction Status Date / Time ciprofloxacin [From Cipro] Allergy RASH Verified 04/08/18 18:37 ciprofloxacin HCl Allergy RASH Verified 04/08/18 18:37 [From Cipro] vancomycin Allergy RASH Verified 04/08/18 18:37 Review of Systems ROS Statement: Except As Marked, All Systems Reviewed And Found Negative Musculoskeletal: Positive for: Other (Leg/foot swelling) Skin: Positive for: Bruising Physical Exam - Reviewed Nursing Documentation Reviewed: Yes Vital Signs Reviewed: Yes - Physical Exam Appears: Positive for: Non-toxic, No Acute Distress Head Exam: Positive for: ATRAUMATIC, NORMAL INSPECTION, NORMOCEPHALIC Skin: Positive for: Normal Color, Warm, DRY Eye Exam: Positive for: EOMI, Normal appearance, PERRL ENT: Positive for: Normal ENT Inspection Neck: Positive for: Normal, Painless ROM Cardiovascular/Chest: Positive for: Regular Rate, Rhythm Respiratory: Positive for: CNT, Normal Breath Sounds Gastrointestinal/Abdominal: Positive for: Normal Exam, Soft Back: Positive for: Normal Inspection Extremity: Positive for: Pedal Edema, Other (Petechiae lower ext bilat). Negative for: Tenderness, Calf Tenderness Neurologic/Psych: Positive for: Alert, Oriented - Laboratory Results Result Diagrams: 04/28/18 17:39 04/28/18 17:39 - ECG O2 Sat by Pulse Oximetry: 98 Medical Decision Making Medical Decision Making: Discussed with Dr. Correa. US does not appear to indicate acute DVT. Will obtain abd xray to determine if IVC filter present. Will not tx with anticoagulation as clot on US does not appear to represent DVT as weell as presence of anemia. Disposition - Clinical Impression Clinical Impression: CKD (chronic kidney disease), stage III, Anemia - Patient ED Disposition Is Patient to be Admitted: Yes - Disposition Disposition Time: 19:00 Condition: FAIR Forms: [employer] (Chinese) - Pt Status Changed To: Hospital Disposition Of: Inpatient - Admit Certification Admit to Inpatient:: After my assessment, the patient will require hospital ization for at least two midnights. This is because of the severity of symptoms shown, intensity of services needed, and/or the medical risk in this patient being treated as an outpatient. - POA Present On Arrival: None
--- NOTE | 2018-04-28 17:29 | RAD ---
Date of service: 04/28/2018 HISTORY: DVT COMPARISON: 04/03/2018 TECHNIQUE: Chest PA and lateral FINDINGS: LUNGS: Hyperinflation, manifestations of COPD. No active pulmonary disease. PLEURA: No significant pleural effusion identified. No pneumothorax apparent. CARDIOVASCULAR: No radiographic findings to suggest acute or significant cardiovascular disease. Venous access catheter in stable, satisfactory position. OSSEOUS STRUCTURES: No significant abnormalities. VISUALIZED UPPER ABDOMEN: Normal. OTHER FINDINGS: None. IMPRESSION: No active disease. No significant interval change compared to the prior examination(s).
--- NOTE | 2018-04-28 17:34 | CARD ---
APPROVED REPORT Date of service: 04/28/2018 EKG Measurement Heart [id number] <Conclusion> Normal sinus rhythm Normal Electrocardiogram
[2018-04-28 17:51] LABS: BASO % 0.4 % (0.0-2.0); EOS # 0.1 K/uL (0.0-0.7); EOS % 1.9 % (0.0-4.0); HEMOGLOBIN 7.8 g/dL (12.0-16.0); LYMPH # 0.6 K/uL (1.0-4.3); LYMPH % 11.3 % (20.0-40.0); MEAN CELL VOLUME 89.8 fl (81.0-99.0); MEAN CORPUSCULAR HEMOGLOBIN 30.2 pg (27.0-31.0); MEAN CORPUSCULAR HGB CONC 33.6 g/dL (33.0-37.0); MEAN PLATELET VOLUME 7.1 fl (7.2-11.7); MONO # 0.5 K/uL (0.0-0.8); MONO % 8.6 % (0.0-10.0); NEUT # 4.2 K/uL (1.8-7.0); NEUT % 77.8 % (50.0-75.0); RBC 2.6 Mil/uL (3.80-5.20); RED CELL DISTRIBUTION WIDTH 19.8 % (11.5-14.5); WHITE BLOOD COUNT 5.4 K/uL (4.8-10.8)
--- NOTE | 2018-04-28 17:55 | US ---
Date of service: 04/28/2018 PROCEDURE: Bilateral lower extremity venous duplex Doppler. HISTORY: Swelling bilat COMPARISON: None available. TECHNIQUE: Bilateral common femoral, superficial femoral, popliteal and posterior tibial veins were evaluated. Flow was assessed with color Doppler, compressibility, assessment of phasic flow and augmentation response. FINDINGS: COMMON FEMORAL VEIN: Right CFV: Unremarkable. Left CFV: None compressibility identified distal common femoral vein extending to the superficial femoral vein. Flow identified at and below this nonocclusive thrombus. SUPERFICIAL FEMORAL VEIN: Right SFV: Unremarkable. Left SFV: Proximal left superficial femoral vein thrombus nonocclusive. Diminished compressibility identified. POPLITEAL VEIN: Right Popliteal: Unremarkable. Left Popliteal: Unremarkable. POSTERIOR TIBIAL VEIN: Right PTV: Unremarkable. Left PTV: Unremarkable. OTHER FINDINGS: None. IMPRESSION: Focal nonocclusive thrombus at the junction of the left common femoral vein and superficial femoral vein. No evidence of proximal or distal thrombus is Unremarkable right lower extremity. No evidence of deep vein thrombosis.
[2018-04-28 18:06] LABS: INR 1.1; PROTHROMBIN TIME 11.9 Seconds (9.8-13.1)
[2018-04-28 18:21] LABS: ALB/GLOB RATIO 0.7 (1.0-2.1); ALBUMIN 2.2 g/dL (3.5-5.0); CALCIUM 8.1 mg/dL (8.4-10.2)
--- NOTE | 2018-04-29 08:35 | CP.PCM.CON ---
History of Present Illness - History of Present Illness History of Present Illness: 72 years old female with hx of Cervical Ca w/ colostomy and diveriting urinary iliostomy, ckd that presented to the emergency room with bilateral leg swollen as reported and Doppler of the extremities showed left femoral vein at the j unction of the superficial vein thrombosis. Patient has been come in twice a week for intravenous infusion of fluid and also sodium bicarbonate. Patient has multiple admission in the past she presented with anemia as well. Patient was given EPO last admission. PMH: Anemia, CKD IV, cerical ca, depression, hypertension, chronic hypovolemia PSH: Colostomy; Ileostomy; Urostomy; IVC Filter; Hysterectomy with bilateral Oophorectomy 2006 SH: former Smoker Quit 31 years ago; Occasional Alcohol; No illegal drug use; live with daughter Review of Systems - Constitutional Constitutional: Anorexia. absent: Chills - EENT Nose/Mouth/Throat: absent: Epistaxis - Cardiovascular Cardiovascular: absent: Acrocyanosis, Chest Pain, Dyspnea, Edema - Respiratory Respiratory: absent: Cough, Hemoptysis - Gastrointestinal Gastrointestinal: Bloating - Genitourinary Genitourinary: Nocturia - Musculoskeletal Musculoskeletal: Muscle Weakness, Neck Pain. absent: Numbness - Neurological Neurological: absent: Confusion, Focal Weakness, Restless Legs - Hematologic/Lymphatic Hematologic: absent: Easy Bleeding Past Patient History - Infectious Disease Hx of Infectious Diseases: None - Past Medical History & Family History Past Medical History?: Yes - Past Social History Smoking Status: Former Smoker - CARDIAC Hx Cardiac Disorders: Yes Hx Hypercholesterolemia: Yes Hx Hypertension: Yes - PULMONARY Hx Respiratory Disorders: No - NEUROLOGICAL Hx Neurological Disorder: No - HEENT Hx HEENT Problems: Yes - RENAL Hx Chronic Kidney Disease: Yes Other/Comment: left ileostomy - ENDOCRINE/METABOLIC Hx Endocrine Disorders: No - HEMATOLOGICAL/ONCOLOGICAL Hx Blood Disorders: Yes Hx AIDS: No Hx Anemia: Yes Hx Blood Transfusions: Yes Hx Human Immunodeficiency Virus (HIV): No Hx Sickle Cell Disease: No - INTEGUMENTARY Hx Dermatological Problems: No - MUSCULOSKELETAL/RHEUMATOLOGICAL Hx Musculoskeletal Disorders: No Hx Falls: No - GASTROINTESTINAL Hx Gastrointestinal Disorders: Yes Hx Colostomy: Yes Other/Comment: Ileostomy - GENITOURINARY/GYNECOLOGICAL Hx Genitourinary Disorders: Yes - PSYCHIATRIC Hx Psychophysiologic Disorder: Yes Hx Depression: Yes Hx Substance Use: No - SURGICAL HISTORY Hx Surgeries: Yes Other/Comment: Left Urostomy; earline cath. lifeport insertion - ANESTHESIA Hx Anesthesia: Yes Hx Anesthesia Reactions: No Hx Malignant Hyperthermia: No Meds Allergies/Adverse Reactions: Allergies Allergy/AdvReac Type Severity Reaction Status Date / Time ciprofloxacin [From Cipro] Allergy RASH Verified 04/08/18 18:37 ciprofloxacin HCl Allergy RASH Verified 04/08/18 18:37 [From Cipro] vancomycin Allergy RASH Verified 04/08/18 18:37 - Medications Medications: Current Medications Heparin Sodium (Porcine) (Heparin) 5,000 units SC Q12 AASHISH; Protocol Physical Exam - Constitutional Appears: No Acute Distress - Eye Exam Eye Exam: Conjunctival injection - ENT Exam ENT Exam: Mucous Membranes Dry - Neck Exam Neck exam: Negative for: Lymphadenopathy - Respiratory Exam Respiratory Exam: NORMAL BREATHING PATTERN. absent: Chest Wall Tenderness - Cardiovascular Exam Cardiovascular Exam: REGULAR RHYTHM, RRR. absent: Gallop, JVD - GI/Abdominal Exam GI & Abdominal Exam: Normal Bowel Sounds. absent: Guarding - Extremities Exam Extremities exam: Negative for: calf tenderness - Back Exam Back exam: absent: CVA tenderness (L), CVA tenderness (R) - Neurological Exam Neurological exam: Alert - Psychiatric Exam Psychiatric exam: Normal Affect Results - Vital Signs Recent Vital Signs: Last Vital Signs Temp 98 F 04/29/18 08:06 Pulse 58 L 04/29/18 08:06 Resp 20 04/29/18 08:06 BP 100/67 04/29/18 08:06 Pulse Ox 96 04/29/18 08:06 - Labs Result Diagrams: 04/28/18 17:39 04/28/18 17:39 Labs: Laboratory Results - last 24 hr 04/28/18 04/28/18 04/28/18 17:39 17:39 17:39 WBC 5.4 RBC 2.60 L Hgb 7.8 L D Hct 23.4 L MCV 89.8 MCH 30.2 MCHC 33.6 RDW 19.8 H Plt Count 192 MPV 7.1 L Neut % (Auto) 77.8 H Lymph % (Auto) 11.3 L Young % (Auto) 8.6 Eos % (Auto) 1.9 Baso % (Auto) 0.4 Neut # (Auto) 4.2 Lymph # (Auto) 0.6 L Young # (Auto) 0.5 Eos # (Auto) 0.1 Baso # (Auto) 0.0 PT 11.9 INR 1.1 Sodium 133 Potassium 4.1 Chloride 105 Carbon Dioxide 22 Anion Gap 10 BUN 63 H Creatinine 3.1 H Est GFR ( Amer) 18 Est GFR (Non-Af Amer) 15 Random Glucose 94 Calcium 8.1 L Total Bilirubin 0.1 L AST 17 ALT 22 Alkaline Phosphatase 74 Total Protein 5.5 L Albumin 2.2 L Globulin 3.3 Albumin/Globulin Ratio 0.7 L Assessment & Plan (1) Chronic kidney disease, stage V Assessment and Plan: patient with estimated GFR at this time around 15 consistent with CK D stage 5 and has been ranging between stage IV to stage V. Patient admitted what reported bilateral leg swollen however there was no swollen at the present Thrombosis at the left femoral vein at the junction of the left superficial as reported. Severe anemia Patient has history of metabolic acidosis which appeared to be acceptable at this point Anemia / Cervical Ca/ Past medical and surgical CKD IV, cerical ca, depression, hypertension, chronic hypovolemia Colostomy; Ileostomy; Urostomy; IVC Filter; Hysterectomy with bilateral Oophorectomy 2006 the plan Patient started on heparin Start EPO subcutaneous 3000 unit now and 3 times a week Saturday IV fluid was gentle hydration Serum phosphorus and PTH serum iron and ferritin level Status: Acute (2) Anemia Status: Chronic (3) DVT (deep venous thrombosis) Status: Acute
[2018-04-29] MEDS ORDERED: Dextrose 5%/0.9% NS 1,000 ML IV SCH (09:00)
[2018-04-29] MEDS ORDERED: Epoetin Alfa 20000 UNIT/ML Inj SC SCH (09:00)
--- NOTE | 2018-04-29 11:51 | CP.PCM.PCO ---
Assessment/Plan - Assessment and Plan (Free Text) Assessment: Patient seen and examined vital signs stable Denies chest pain shortness of breath nausea or vomiting No leg edema noted, no calf pain. Nonocclussive thrombus Left common femoral vein. CT scan of 04/03/18 shows IVC filter in place. Will follow up transfusion and continue to monitor hemoglobin. IVF ordered with Sodium bicarbonate Discussed with Dr Correa who agrees with plan
--- NOTE | 2018-04-29 11:53 | RAD ---
Date of service: 04/28/2018 HISTORY: r/o ivc COMPARISON: No prior. FINDINGS: BOWEL: Normal. No obstruction. No free air. BONES: Normal. OTHER FINDINGS: IVC filter identified the tip is at the level of the L1 vertebral body unchanged compared to the prior CT scan 04/18/2018. IMPRESSION: No significant or acute findings to account for/ related to the clinical presentation.
[2018-04-29 13:04] LABS: IRON 38 ug/dL (37-170)
[2018-04-29 13:15] LABS: % IRON SATURATION 18 % (20-55); TOTAL IRON BINDING CAPACITY 215 ug/dL (250-450)
--- NOTE | 2018-04-30 02:13 | HP ---
HISTORY OF PRESENT ILLNESS: Ms. Enciso is a female with history of multiple medical problems including cancer of cervix, status post surgery with radiation complication that led to colostomy and urine diversion into ileostomy. The patient lately has been having chronic kidney disease with worsening of kidney function and anemia. The patient was admitted for transfusion few times before. The patient was evaluated in the emergency room and she was found to have hemoglobin of 7 and she did not have any apparent history or symptom of . The patient was admitted to telemetry floor and started also on IV fluid. PAST MEDICAL HISTORY: As above. FAMILY HISTORY: Noncontributory. SOCIAL HISTORY: No history of smoking, EtOH or substance abuse. REVIEW OF SYSTEMS: Other review of system is negative. ALLERGIES: NO KNOWN ALLERGIES. MEDICATIONS: As per MAR, were reviewed and ordered. PHYSICAL EXAMINATION: GENERAL: The patient is not in any cardiopulmonary distress. VITAL SIGNS: Blood pressure 120/70, temperature 98.2, respiratory rate 18, and pulse of 74. HEENT: Pupils equal and reactive to light. Normal-appearing mucosa of the conjunctivae, oropharynx and nasal membrane mucosa. NECK: Supple. No JVD. No carotid bruit. No lymph nodes. No thyromegaly. CARDIOPULMONARY: PMI not localized. S1, S2. No additional sounds. CHEST AND LUNGS: Bilateral symmetrical expansion. Good air exchange. No rales, no rhonchi. ABDOMEN: Normoactive bowel sounds. Colostomy and ileostomy bags are in place. EXTREMITIES: No cyanosis, no clubbing, no edema. WAITSTAFF: Alert, awake, oriented x2. No neurological deficits could be appreciated. ASSESSMENT: 1. Anemia of chronic disease. 2. [id number] renal failure. 3. History of cancer of cervix, status post surgery and radiation with complication that led to colostomy and urine diversion to an ileostomy. 4. Vitamin D deficiency. PLAN: Transfuse two units of packed RBCs. We will give fluid as needed: Physical therapy, occupational therapy, and deconditioning also will start. Resume the patient's home medications. [facility] MD Sunny
[2018-04-30 05:59] LABS: HEMOGLOBIN 13.1 g/dL (12.0-16.0); MEAN CORPUSCULAR HEMOGLOBIN 30.9 pg (27.0-31.0); MEAN CORPUSCULAR HGB CONC 34.8 g/dL (33.0-37.0); RBC 4.23 Mil/uL (3.80-5.20); WHITE BLOOD COUNT 6.4 K/uL (4.8-10.8)
[2018-04-30] MEDS ORDERED: Iodixanol 320 MG/ML 100 ML BOTTLE IV ONE (12:43)
--- NOTE | 2018-04-30 12:46 | RAD ---
Date of service: 04/30/2018 PROCEDURE: Radiographs of the Lumbar Spine. HISTORY: pain sp fall COMPARISON: Abdomen pelvis CT 04/18/2018. FINDINGS: BONES: Normal curvature reiterated. Moderate anterior wedge compression fracture again identified at L1 indicating chronic nature. Limited grade 1 spondylolisthesis also stable at L3-4 which appears stable. Minimal multilevel spondylosis. Multilevel degenerative arthropathy appreciated once again. No spondylolysis identified bilaterally. No destructive bony lesion identified. Diffuse osteopenia suggests osteoporosis. DISC SPACES: Unremarkable. OTHER FINDINGS: Incidental note is made of inferior vena cava filter at the right upper quadrant abdomen and numerous postoperative changes in the pelvis as well as right hip arthroplasty. IMPRESSION: Chronic L1 compression fracture moderate in severity. This fracture appears stable as well as grade 1 spondylolisthesis L3-4 which is felt to be degenerative. No spondylolysis identified bilaterally.
[2018-04-30] MEDS: Lidocaine 5% Patch TD SCH (12:55)
--- NOTE | 2018-04-30 13:34 | PCM.SURG1 ---
Surgeon's Initial Post Op Note - Surgeon's Notes Surgeon: Carlos Myers MD Oyster Culler: NONE Type of Anesthesia: None Pre-Operative Diagnosis: Poor venous access, non functional port Operative Findings: SVC gram showed no stenosis. There is however significant fibrin sheeth around the port catheter. Post-Operative Diagnosis: Poor venous access, non functional port Operation Performed: Port study, Superiovenacavagram. Specimen/Specimens Removed: NONE Estimated Blood Loss: EBL {In ML}: 0 Blood Products Given: N/A Drains Used: No Drains Post-Op Condition: Good Date of Surgery/Procedure: 04/30/18 Time of Surgery/Procedure: 13:30
--- NOTE | 2018-04-30 14:07 | CP.PCM.PN ---
Subjective - Date & Time of Evaluation Date of Evaluation: 04/30/18 Time of Evaluation: 14:06 - Subjective Subjective: Patient feeling much better no nausea no vomiting she is eating a little bit better Objective - Vital Signs/Intake and Output Vital Signs (last 24 hours): Temp Pulse Resp BP Pulse Ox 97.8 F 68 18 118/72 97 04/30/18 13:51 04/30/18 13:51 04/30/18 13:51 04/30/18 13:51 04/30/18 13:51 Intake and Output: 04/30/18 04/30/18 06:59 18:59 Intake Total 355 Balance 355 - Medications Medications: Current Medications Acetaminophen (Tylenol 325mg Tab) 650 mg PO Q6 PRN PRN Reason: Pain, Mild (1-3) Last Admin: 04/30/18 04:39 Dose: 650 mg Epoetin Audi (Procrit) 3,000 unit SC TTS [facility] Last Admin: 04/29/18 12:48 Dose: 3,000 unit Heparin Sodium (Porcine) (Heparin) 5,000 units SC Q12 [facility]; Protocol Last Admin: 04/30/18 10:27 Dose: 5,000 units Lidocaine (Lidoderm) 1 ea TD DAILY [facility] Last Admin: 04/30/18 12:55 Dose: 1 ea Nystatin (Nystop Topical Powder) 1 applic TOP TID [facility] Sodium Bicarbonate (Sodium Bicarbonate Tab) 650 mg PO Q6 [facility] Last Admin: 04/30/18 10:28 Dose: 650 mg - Labs Labs: 04/30/18 05:00 04/28/18 17:39 PT 11.9 Seconds (9.8-13.1) 04/28/18 17:39 INR 1.1 04/28/18 17:39 - Constitutional Appears: No Acute Distress - Eye Exam Eye Exam: Conjunctival injection - ENT Exam ENT Exam: Mucous Membranes Moist - Neck Exam Neck Exam: absent: Lymphadenopathy - Respiratory Exam Respiratory Exam: NORMAL BREATHING PATTERN. absent: Chest Wall Tenderness - GI/Abdominal Exam GI & Abdominal Exam: Soft. absent: Guarding - Extremities Exam Extremities Exam: absent: Calf Tenderness, Pedal Edema - Back Exam Back Exam: absent: CVA tenderness (L), CVA tenderness (R) - Neurological Exam Neurological Exam: Alert - Psychiatric Exam Psychiatric exam: Normal Affect - Skin Skin Exam: absent: Cyanosis Assessment and Plan (1) Chronic kidney disease, stage V Assessment & Plan: patient with estimated GFR at this time around 15 consistent with CK D stage 5 and has been ranging between stage IV to stage V. Patient admitted what reported bilateral leg swollen however there was no swollen at the present Thrombosis at the left femoral vein at the junction of the left superficial as reported. Severe anemia Patient has history of metabolic acidosis which appeared to be acceptable at this point Anemia / debility Cervical Ca/ Past medical and surgical CKD IV, cerical ca, depression, hypertension, chronic hypovolemia Colostomy; Ileostomy; Urostomy; IVC Filter; Hysterectomy with bilateral Oophorectomy 2006 the plan Patient started on heparin Start EPO subcutaneous 3000 unit now and 3 times a week Saturday IV fluid was gentle hydration Serum phosphorus and PTH serum iron and ferritin level Status: Acute (2) Anemia Status: Chronic (3) DVT (deep venous thrombosis) Status: Acute
[2018-04-30] MEDS ORDERED: Bacitracin OINT 15GM TOP SCH (17:00)
--- NOTE | 2018-05-01 04:53 | HP ---
HISTORY OF PRESENT ILLNESS: This is a 72-year-old female with history of multiple medical problems including cancer of cervix, status post surgery, radiation and complication of radiation that led to colostomy and urine diversion to ileostomy. The patient presented to the emergency room with symptoms of bilateral lower extremity swelling as well as generalized weakness. The patient was evaluated and found to have hemoglobin of 7.8, BUN of 63 and creatinine 3.1. The patient was admitted to telemetry floor and she had typed and crossed for two units of packed RBCs and transfusion of packed RBCs was ordered. PAST MEDICAL HISTORY: As above. FAMILY HISTORY: Noncontributory. SOCIAL HISTORY: No history of smoking, EtOH or substance abuse. REVIEW OF SYSTEMS: Other review of systems is generalized weakness. ALLERGIES POSITIVE FOR CIPROFLOXACIN AND VANCOMYCIN. MEDICATIONS: Were reviewed and ordered. PHYSICAL EXAMINATION: GENERAL: The patient is in bed, not in any cardiopulmonary distress at the time of this examination. VITAL SIGNS: Blood pressure 130/80, temperature 99.3, respiratory rate 18 and pulse 86. HEENT: Pupils equal, reactive to light. Normal appearing mucosa of the conjunctivae, oropharynx and nasal membrane mucosa. NECK: Supple. No JVD. No carotid bruit. No lymph node. No thyromegaly. CARDIOPULMONARY: PMI not localized. S1, S2. No additional sounds. CHEST: Lungs, bilateral symmetrical expansion. Good air exchange. No rales, no rhonchi. ABDOMEN: No tenderness. No organomegaly. No masses. The patient has diffuse erythema around the colostomy bag secondary to leaking. EXTREMITIES: No cyanosis, no clubbing, no edema. RECORDS CLERK: Alert, awake, oriented x2. No neurological deficit could be appreciated. ASSESSMENT: 1. Anemia of chronic disease, multifactorial. 2. Erythematous skin irritation around the colostomy bag likely due to leak. 3. History of cancer of cervix, status post surgery and radiation. 4. Chronic kidney disease, stage IV. PLAN: We will continue IV fluid with sodium bicarbonate, will give Bactroban cream for the irritated skin and change the colostomy bag. Resume the patient's home medications. Greg Correa MD [facility] # [id number]
--- NOTE | 2018-05-01 10:20 | CP.PCM.PN ---
Subjective - Date & Time of Evaluation Date of Evaluation: 05/01/18 Time of Evaluation: 10:20 - Subjective Subjective: patient is doing much better no vomiting Appetite improving Objective - Vital Signs/Intake and Output Vital Signs (last 24 hours): Temp Pulse Resp BP Pulse Ox 98.3 F 78 20 114/70 99 05/01/18 08:37 05/01/18 08:37 05/01/18 08:37 05/01/18 08:37 05/01/18 08:37 - Medications Medications: Current Medications Acetaminophen (Tylenol 325mg Tab) 650 mg PO Q6 PRN PRN Reason: Pain, Mild (1-3) Last Admin: 04/30/18 04:39 Dose: 650 mg Heparin Sodium (Porcine) (Heparin) 5,000 units SC Q12 [facility]; Protocol Last Admin: 04/30/18 22:00 Dose: 5,000 units Sodium Bicarbonate 44.6 meq/ (Sodium Chloride) 1,044.6 mls @ 100 mls/hr IV .[id number] [facility] Stop: 05/02/18 10:08 Lidocaine (Lidoderm) 1 ea TD DAILY [facility] Last Admin: 04/30/18 12:55 Dose: 1 ea Loperamide HCl (Imodium) 8 mg PO ONCE ONE Stop: 05/01/18 10:15 Nystatin (Nystop Topical Powder) 1 applic TOP TID [facility] Last Admin: 04/30/18 17:57 Dose: 1 applic Sodium Bicarbonate (Sodium Bicarbonate Tab) 650 mg PO Q6 [facility] Last Admin: 04/30/18 21:57 Dose: 650 mg - Labs Labs: 04/30/18 05:00 04/28/18 17:39 PT 11.9 Seconds (9.8-13.1) 04/28/18 17:39 INR 1.1 04/28/18 17:39 - Constitutional Appears: No Acute Distress - Eye Exam Eye Exam: Conjunctival injection - ENT Exam ENT Exam: Mucous Membranes Moist - Neck Exam Neck Exam: absent: Lymphadenopathy - Respiratory Exam Respiratory Exam: NORMAL BREATHING PATTERN. absent: Chest Wall Tenderness, Rhonchi - Cardiovascular Exam Cardiovascular Exam: REGULAR RHYTHM. absent: Gallop, JVD, Rubs - GI/Abdominal Exam GI & Abdominal Exam: Soft, Normal Bowel Sounds - Extremities Exam Extremities Exam: absent: Calf Tenderness, Pedal Edema - Back Exam Back Exam: absent: CVA tenderness (L), CVA tenderness (R) - Neurological Exam Neurological Exam: Alert - Psychiatric Exam Psychiatric exam: Flat Affect - Skin Skin Exam: absent: Cyanosis Assessment and Plan (1) Chronic kidney disease, stage V Assessment & Plan: Assessment & Plan: patient with estimated GFR at this time around 15 consistent with CK D stage 5 and has been ranging between stage IV to stage V. Patient admitted what reported bilateral leg swollen however there was no swollen at the present Thrombosis at the left femoral vein at the junction of the left superficial as reported. Severe anemia Patient has history of metabolic acidosis which appeared to be acceptable at this point Anemia / debility Cervical Ca/ Past medical and surgical CKD IV, cerical ca, depression, hypertension, chronic hypovolemia Colostomy; Ileostomy; Urostomy; IVC Filter; Hysterectomy with bilateral Oophorectomy 2006 the plan receiving intravenous IV was sodium bicarbonate. Patient is doing better clinically Hold EPO temporarily because hemoglobin 13 until hemoglobin come down at around 11 serum PTH 17 it is hard to believe most likely an error? Status: Acute (2) Anemia Status: Chronic (3) DVT (deep venous thrombosis) Status: Acute
[2018-05-01] MEDS: Bacitracin 500 Units/gm Oint Foilpak UD TOP SCH ×2 (10:43→16:58)
[2018-05-01] MEDS: Lidocaine 5% Patch TD SCH (10:59)
[2018-05-01] MEDS: SODIUM CHLORIDE 0.9% IV SCH ×3 (11:05→22:20)
[2018-05-01] MEDS: SODIUM BICARBONATE IV SCH ×3 (11:05→22:20)
--- NOTE | 2018-05-01 15:15 | VASCULAR ---
Date of service: 04/30/2018 PROCEDURE: Fluoroscopy up to 1 hr. HISTORY: life port with no blood return COMPARISON: None TECHNIQUE: Standard protocol for this study/examination. FINDINGS: Total fluoroscopic time (continuous mode) utilized during the procedure 27.8 (seconds). Total exam DLP: 1.78 (mGy). IMPRESSION: Less than 1 hr fluoroscopic assistance provided during performance of the procedure.
[2018-05-01 16:11] VITALS: RESP 18
--- NOTE | 2018-05-01 22:19 | PQF ---
PROVIDER RESPONSE TEXT: It is due to chronic kidney disease REVIEWER QUERY TEXT: Anemia Type Please clarify the chronic underlying disease causing the Anemia if known: Such as: -- Due to CKD -- Other, please specify --Unable to determine H and P: ASSESSMENT: 1. Anemia of chronic disease. 2. Ewnes-om-oyyzsum renal failure. 3. History of cancer of cervix, status post surgery and radiation with complication that led to colostomy and urine diversion to an ileostomy. 4. Vitamin D deficiency. PLAN: Transfuse two units of packed RBCs. We will give fluid as needed: Physical therapy, occupatio nal therapy, and deconditioning also will start. Resume the patient's home medications The patient's Clinical Indicators include: XX Query created by: Lakia Gomez on 04/30/2018 2:38 PM Electronically signed by: Greg Correa MD 05/01/2018 10:17 PM
--- NOTE | 2018-05-02 00:40 | PN ---
DATE: 05/01/2018 SUBJECTIVE: The patient was seen today 05/01/2018. She was not in any cardiopulmonary distress. The patient was on IV fluid status post packed RBCs transfusion. PHYSICAL EXAMINATION: VITAL SIGNS: Blood pressure 114/70, temperature 98.3, respiratory rate 20 and pulse 78. HEENT: Pupils equal, reactive to light. Normal appearing mucosa of the conjunctivae, oropharynx and nasal membrane mucosa. NECK: Supple. No JVD. No carotid bruit. No lymph node. No thyromegaly. CHEST AND LUNGS: Bilateral symmetrical expansion. Good air exchange. No rales, no rhonchi. CARDIOVASCULAR SYSTEM: PMI not localized. S1, S2. No additional sounds. ABDOMEN: Normoactive bowel sounds. No tenderness. No organomegaly. Colostomy bag and urine diversion bag were in place. There is erythematous skin around the colostomy bag seen. EXTREMITIES: No cyanosis, no clubbing, no edema. TEACHER BALLET: Alert, awake, oriented x2. No neurological deficit could be appreciated. ASSESSMENT: Anemia of chronic kidney disease stage 3, metabolic acidosis, history of cancer cervix, status post surgery radiation and complication. PLAN: Continue current IV fluid and we will do Lotrisone cream and Bactroban for the skin changes around the colostomy bag. Physical therapy. Subacute rehabilitation discharge planned. Greg Correa MD
[2018-05-02 06:16] LABS: HEMOGLOBIN 10.6 g/dL (12.0-16.0); MEAN CELL VOLUME 88.9 fl (81.0-99.0); MEAN CORPUSCULAR HEMOGLOBIN 30.5 pg (27.0-31.0); MEAN CORPUSCULAR HGB CONC 34.3 g/dL (33.0-37.0); RBC 3.48 Mil/uL (3.80-5.20); RED CELL DISTRIBUTION WIDTH 19.5 % (11.5-14.5); WHITE BLOOD COUNT 4.9 K/uL (4.8-10.8)
[2018-05-02 07:17] LABS: CALCIUM 7.3 mg/dL (8.4-10.2)
[2018-05-02] MEDS: Lidocaine 5% Patch TD SCH (09:26)
[2018-05-02] MEDS: Bacitracin 500 Units/gm Oint Foilpak UD TOP SCH ×2 (09:26→17:06)
[2018-05-02] MEDS ORDERED: Potassium Chloride 20 mEq ER Tab PO ONE (10:45)
--- NOTE | 2018-05-02 11:48 | CP.PCM.PN ---
Subjective - Date & Time of Evaluation Date of Evaluation: 05/02/18 Time of Evaluation: 11:47 - Subjective Subjective: patient awake and conscious feeling much better appetite is okay Objective - Vital Signs/Intake and Output Vital Signs (last 24 hours): Temp Pulse Resp BP Pulse Ox 97.8 F 70 18 93/60 L 97 05/02/18 08:10 05/02/18 08:10 05/02/18 08:10 05/02/18 08:10 05/02/18 08:10 - Medications Medications: Current Medications Acetaminophen (Tylenol 325mg Tab) 650 mg PO Q6 PRN PRN Reason: Pain, Mild (1-3) Last Admin: 05/01/18 16:56 Dose: 650 mg Bacitracin (Bacitracin) 1 ea TOP BID [facility] Last Admin: 05/02/18 09:26 Dose: 1 ea Clotrimazole (Lotrimin Af 1%) 1 applic TOP BID [facility] Last Admin: 05/02/18 09:25 Dose: 1 applic Heparin Sodium (Porcine) (Heparin) 5,000 units SC Q12 [facility]; Protocol Last Admin: 05/02/18 09:25 Dose: 5,000 units Lidocaine (Lidoderm) 1 ea TD DAILY [facility] Last Admin: 05/02/18 09:26 Dose: 1 ea Sodium Bicarbonate (Sodium Bicarbonate Tab) 650 mg PO Q6 [facility] Last Admin: 05/02/18 09:23 Dose: 650 mg Tobramycin Sulfate (Tobrex 0.3% Ophth Soln) 1 drop OD QID [facility] - Labs Labs: 05/02/18 05:35 05/02/18 05:35 PT 11.9 Seconds (9.8-13.1) 04/28/18 17:39 INR 1.1 04/28/18 17:39 - Constitutional Appears: No Acute Distress - Eye Exam Eye Exam: Conjunctival injection - ENT Exam ENT Exam: Mucous Membranes Moist - Neck Exam Neck Exam: absent: Lymphadenopathy - Respiratory Exam Respiratory Exam: NORMAL BREATHING PATTERN. absent: Chest Wall Tenderness - Cardiovascular Exam Cardiovascular Exam: absent: Gallop, JVD, Rubs - GI/Abdominal Exam GI & Abdominal Exam: Soft, Normal Bowel Sounds - Extremities Exam Extremities Exam: absent: Calf Tenderness - Back Exam Back Exam: absent: CVA tenderness (L), CVA tenderness (R) - Neurological Exam Neurological Exam: Alert - Psychiatric Exam Psychiatric exam: Normal Affect - Skin Skin Exam: absent: Cyanosis Assessment and Plan (1) Chronic kidney disease, stage V Assessment & Plan: Assessment & Plan: patient with estimated GFR at this time around 23 consistent with CK D stage 4 and has been ranging between stage IV to stage V. Patient admitted what reported bilateral leg swollen however there was no swollen at the present Thrombosis at the left femoral vein at the junction of the left superficial as reported. Severe anemia Patient has history of metabolic acidosis which appeared to be acceptable at this point Anemia / debility Cervical Ca/ Past medical and surgical CKD IV, cerical ca, depression, hypertension, chronic hypovolemia Colostomy; Ileostomy; Urostomy; IVC Filter; Hysterectomy with bilateral Oophorectomy 2006 the plan receiving intravenous IV fluid intermittently Patient is doing better clinically Hold EPO temporarily because hemoglobin 13 until hemoglobin come down at around 11 serum PTH 17 it is hard to believe most likely an error? Status: Acute (2) Anemia Status: Chronic (3) DVT (deep venous thrombosis) Status: Acute
[2018-05-02] MEDS: Tobramycin 0.3% OPHT SOLN OD SCH ×2 (13:53→17:07)
[2018-05-02] MEDS: SODIUM CHLORIDE 0.9% IV SCH (13:54)
[2018-05-02] MEDS: SODIUM BICARBONATE IV SCH (13:54)
--- NOTE | 2018-05-02 14:40 | PN ---
DATE: 05/02/2018 SUBJECTIVE: The patient is seen today, 05/02/2018. PHYSICAL EXAMINATION: GENERAL: She is not in any cardiopulmonary distress. Redness and irritation of the skin is improving. VITAL SIGNS: Blood pressure 102/67, temperature 98.1, respiratory rate 18, and pulse 67. HEENT: Pupils equal, reactive to light. Normal appearing mucosa of the conjunctivae, oropharynx, and nasal membrane mucosa. NECK: Supple. No JVD. No carotid bruit. No lymph node. No thyromegaly. CHEST AND LUNGS: Bilateral symmetrical expansion. Good air exchange. No rales, no rhonchi. CARDIOVASCULAR SYSTEM: PMI not localized. S1, S2. No additional sounds. ABDOMEN: Normoactive bowel sounds. No tenderness. No organomegaly. No masses. Colostomy bag and urine diversion bag are in place. Decrease of erythematous changes and irritation of the skin around the colostomy bag. SHANK PINNER: Alert, awake, oriented x2. Moves all extremities equally. ASSESSMENT: 1. Anemia of chronic kidney disease. 2. Acute on chronic kidney disease. 3. Skin irritation and possibly fungal/bacterial infection secondary to leaking of the stool from the colostomy bag. 4. Metabolic acidosis. PLAN: Continue IV fluid, physical therapy, and the patient is for discharge to subacute rehab. [facility] MD Sunny
[2018-05-02 15:55] VITALS: BP 92/54; PULSE 72; TEMP 97.9; O2SAT 96
== END 2018-05-02 18:00 | DRG 683 ==
LOC: H.ER 14:16 → H.ERHOLD 18:59 → H.TEL 22:50 → H.MEDSURG1 04-30 22:45
PROVIDERS: ADMIT Internal Medicine; ATTEND Internal Medicine
PROC: B518YZZ Fluoroscopy of Superior Vena Cava using Other Contrast (ICD-10-PCS; principal; 2018-04-30)
DX: I12.0 Hypertensive chronic kidney disease with stage 5 chronic kidney disease or end stage renal disease (principal); N17.9 Acute kidney failure, unspecified; I82.412 Acute embolism and thrombosis of left femoral vein; N18.5 Chronic kidney disease, stage 5; E87.2 Acidosis; Z87.891 Personal history of nicotine dependence; D63.8 Anemia in other chronic diseases classified elsewhere; D63.1 Anemia in chronic kidney disease; Z85.41 Personal history of malignant neoplasm of cervix uteri; Z90.710 Acquired absence of both cervix and uterus; Z92.3 Personal history of irradiation; Z93.3 Colostomy status; Z79.899 Other long term (current) drug therapy; E55.9 Vitamin D deficiency, unspecified; E78.00 Pure hypercholesterolemia, unspecified; E86.1 Hypovolemia; F32.9 Major depressive disorder, single episode, unspecified

== ENCOUNTER 2018-05-19 10:54 | Inpatient (IN) | payer MEDICARE, OTHER ==
[2018-05-19 10:56] VITALS: BMI 16.8
--- NOTE | 2018-05-19 13:10 | RAD ---
Date of service: 05/19/2018 HISTORY: possible admission COMPARISON: 04/28/2018 FINDINGS: LUNGS: No active pulmonary disease. PLEURA: No significant pleural effusion identified, no pneumothorax apparent. CARDIOVASCULAR: Normal heart size. Right central venous infusion port unchanged. OSSEOUS STRUCTURES: No significant abnormalities. VISUALIZED UPPER ABDOMEN: Normal. OTHER FINDINGS: None. IMPRESSION: No active disease.
[2018-05-19 13:15] LABS: BASO % 0.3 % (0.0-2.0); EOS # 0.1 K/uL (0.0-0.7); EOS % 0.5 % (0.0-4.0); HEMOGLOBIN 11.7 g/dL (12.0-16.0); LYMPH # 0.7 K/uL (1.0-4.3); LYMPH % 6.3 % (20.0-40.0); MEAN CELL VOLUME 90.8 fl (81.0-99.0); MEAN CORPUSCULAR HEMOGLOBIN 31.5 pg (27.0-31.0); MEAN CORPUSCULAR HGB CONC 34.7 g/dL (33.0-37.0); MEAN PLATELET VOLUME 7.2 fl (7.2-11.7); MONO # 0.6 K/uL (0.0-0.8); MONO % 4.9 % (0.0-10.0); NEUT # 10.4 K/uL (1.8-7.0); NRBC % 0.1 % (0.0-0.0); PLATELET COUNT 319 K/uL (130-400); RED CELL DISTRIBUTION WIDTH 19.7 % (11.5-14.5); WHITE BLOOD COUNT 11.8 K/uL (4.8-10.8)
[2018-05-19 13:31] LABS: VENOUS BLOOD GAS BASE EXCESS -8.7 mmol/L (0.0-2.0); VENOUS BLOOD GAS PCO2 48 mmHg (40-60); VENOUS BLOOD GAS PO2 12 mm/Hg (30-55); VENOUS BLOOD PH 7.21 (7.32-7.43)
[2018-05-19 13:37] LABS: ALB/GLOB RATIO 0.8 (1.0-2.1); ALBUMIN 3.3 g/dL (3.5-5.0); ALT/SGPT 12 U/L (9-52); AST/SGOT 36 U/L (14-36); BLOOD UREA NITROGEN 82 mg/dl (7-17); CALCIUM 9.7 mg/dL (8.4-10.2); GFR NON-AFRICAN AMERICAN 14; LIPASE 557 U/L (23-300)
--- NOTE | 2018-05-19 13:39 | CT ---
Date of service: 05/19/2018 PROCEDURE: CT HEAD WITHOUT CONTRAST. HISTORY: dizziness and head trauma COMPARISON: 12/25/2016 TECHNIQUE: Axial computed tomography images were obtained through the head/brain without intravenous contrast. Radiation dose: Total exam DLP = 649.78 mGy-cm. This CT exam was performed using one or more of the following dose reduction techniques: Automated exposure control, adjustment of the mA and/or kV according to patient size, and/or use of iterative reconstruction technique. FINDINGS: HEMORRHAGE: No intracranial hemorrhage. BRAIN: No mass effect or edema. Moderate atrophy. Moderate to severe patchy and confluent periventricular/deep/subcortical white matter lucency consistent with chronic microvascular ischemic change. VENTRICLES: Ventricular dilatation proportionate to the degree of parenchymal atrophy. CALVARIUM: Unremarkable. PARANASAL SINUSES: Unremarkable as visualized. No significant inflammatory changes. MASTOID AIR CELLS: Unremarkable as visualized. No inflammatory changes. OTHER FINDINGS: None. IMPRESSION: No intracranial hemorrhage. Age related atrophy and moderate to severe chronic white matter ischemic change. No change from 12/25/2016.
--- NOTE | 2018-05-19 13:48 | ED PDOC ---
Syncope/Near Syncope/Dizziness Time Seen by Provider: 05/19/18 11:59 Chief Complaint (Nursing): Weakness/Neurological Deficit Chief Complaint (Provider): Weakness/Neurological Deficit History/Exam Limitations: no limitations Possible Causative Factor(s): Decreased PO Intake Additional Complaint(s): Rosaline Enciso is a 72 year old female with a past medical history of cancer with radiation and dementia, who presents to the emergency department accompanied by her daughter for injury sustained after fall. Patient typically comes her ever x2 weeks complaining of dehydration, lethargy and weakness and receives IV hydr ation. As per daughter, for the past x2 weeks multiple falls have been witnessed by the maid and on camera. One such episode resulted with her hitting the right side of her head. She is noted to have decrease in PO intake but no fever, nausea, vomiting, or loss of consciousness. Patient has palpitations when attempting to ambulate. PMD: Greg Correa Past Medical History Reviewed: Historical Data, Nursing Documentation, Vital Signs Vital Signs: Last Vital Signs Temp 97.9 F 05/19/18 11:36 Pulse 94 H 05/19/18 11:36 Resp 15 05/19/18 11:36 BP 99/73 L 05/19/18 11:36 Pulse Ox 99 05/19/18 11:36 - Medical History PMH: Anemia, Depression, Deep Vein Thrombosis, HTN (Pt denies), Hypercholesterolemia (Pt denies), Chronic Kidney Disease Denies: HIV, Sickle Cell Disease - Surgical History Other surgeries: Colonstomy, ileostomy, and right port catheter - Family History Family History: States: Unknown Family Hx - Home Medications Home Medications: Ambulatory Orders Medication Instructions Recorded RX: Folic Acid 1 mg PO DAILY #7 tab 10/04/16 RX: Escitalopram [Lexapro] 10 mg PO DAILY 03/28/17 RX: Calcitriol [Rocaltrol] 0.25 mcg PO Q12 12/27/17 RX: Magnesium Oxide [Magox 400] 400 mg PO Q12 12/27/17 RX: Ferrous Gluconate [Fergon] 324 mg PO TID tab 04/08/18 RX: Cholestyramine [Questran] 4 gm PO BID 04/21/18 RX: Famotidine [Pepcid] 20 mg PO DAILY 04/21/18 RX: Ergocalciferol [Drisdol 50,000 50,000 unit PO WE 05/19/18 Intl Units Cap] RX: Ibuprofen [Motrin Tab] 400 mg PO Q8 05/19/18 RX: Ondansetron [Zofran Odt] 4 mg PO Q8 PRN 05/19/18 RX: Potassium Chloride [K-Dur 20 20 meq PO Q12 05/19/18 mEq ER Tab] RX: Sodium Bicarbonate Tab 1,300 mg PO Q12 05/19/18 RX: Midodrine [Proamatine] 5 mg PO TID #60 tab 05/23/18 - Allergies Allergies/Adverse Reactions: Allergies Allergy/AdvReac Type Severity Reaction Status Date / Time ciprofloxacin [From Cipro] Allergy RASH Verified 04/08/18 18:37 ciprofloxacin HCl Allergy RASH Verified 04/08/18 18:37 [From Cipro] vancomycin Allergy RASH Verified 04/08/18 18:37 Review of Systems ROS Statement: Except As Marked, All Systems Reviewed And Found Negative Constitutional: Positive for: Weakness, Other (dehydration). Negative for: Fever Gastrointestinal: Negative for: Nausea, Vomiting Musculoskeletal: Positive for: Other (head pain) Physical Exam - Reviewed Nursing Documentation Reviewed: Yes Vital Signs Reviewed: Yes - Physical Exam Appears: Positive for: Non-toxic, No Acute Distress Head Exam: Positive for: ATRAUMATIC (small abrasion to right forehead ), NORMOCEPHALIC Skin: Positive for: Normal Color, Warm, Dry Eye Exam: Positive for: Normal appearance, EOMI, PERRL ENT: Positive for: Normal ENT Inspection. Negative for: Pharyngeal Erythema, Other (hemotympanum) Neck: Positive for: Normal, Painless ROM, Supple Cardiovascular/Chest: Positive for: Regular Rate, Rhythm, Other (port is placed on right chest with no redness ). Negative for: Murmur Respiratory: Positive for: Normal Breath Sounds. Negative for: Respiratory Distress Gastrointestinal/Abdominal: Positive for: Normal Exam, Soft, Other (Ostomy bag is in place with stool in side; no blood in stool). Negative for: Tenderness Back: Positive for: Normal Inspection. Negative for: L CVA Tenderness, R CVA Tenderness, Vertebral Tenderness, Other (TTP to spine) Extremity: Positive for: Normal ROM. Negative for: Pedal Edema, Deformity Neurologic/Psych: Positive for: Alert, Oriented (x3). Negative for: Motor/Sensory Deficits - Laboratory Results Result Diagrams: 05/29/18 07:15 05/28/18 05:50 - ECG O2 Sat by Pulse Oximetry: 99 (RA) Pulse Ox Interpretation: Normal Medical Decision Making Medical Decision Making: Initial Time: 12:30 A/P: Work up for dizziness and weakness. Labs were sent with troponin, basic labs, EKG, CXR, and Brain CT due to head trauma. Discussed with Dr. Correa the need for admission. Plan: --EKG --CBC with differential --Urinalysis --Head CT without contrast --Chest X-ray --VBG --CMP --Lipase --Troponin Time: 13:06 Chest X-ray FINDINGS: LUNGS: No active pulmonary disease. PLEURA: No significant pleural effusion identified, no pneumothorax apparent. CARDIOVASCULAR: Normal heart size. Right central venous infusion port unchanged. OSSEOUS STRUCTURES: No significant abnormalities. VISUALIZED UPPER ABDOMEN: Normal. OTHER FINDINGS: None. IMPRESSION: No active disease. Time: 13:[address] FINDINGS: HEMORRHAGE: No intracranial hemorrhage. BRAIN: No mass effect or edema. Moderate atrophy. Moderate to severe patchy and confluent periventricular/deep/subcortical white matter lucency consistent with chronic microvascular ischemic change. VENTRICLES: Ventricular dilatation proportionate to the degree of parenchymal atrophy. CALVARIUM: Unremarkable. PARANASAL SINUSES: Unremarkable as visualized. No significant inflammatory changes. MASTOID AIR CELLS: Unremarkable as visualized. No inflammatory changes. OTHER FINDINGS: None. IMPRESSION: No intracranial hemorrhage. Age related atrophy and moderate to severe chronic white matter ischemic change. No change from 12/25/2016. Scribe Attestation: Documented by Jabari Trevino, acting as a scribe for Tasha Carrizales MD. Provider Scribe Attestation: All medical record entries made by the Scribe were at my direction and personally dictated by me. I have reviewed the chart and agree that the record accurately reflects my personal performance of the history, physical exam, medical decision making, and the department course for this patient. I have also personally directed, reviewed, and agree with the discharge instructions and disposition. Disposition - Clinical Impression Clinical Impression: Weakness due to cerebrovascular accident - Disposition Disposition Time: 13:35 Condition: STABLE
[2018-05-19] MEDS ORDERED: Sodium Chloride 0.9% 1,000 ML IV STA (14:03)
[2018-05-19 14:24] LABS: BANDS 2 % (0-2); LYMPHOCYTE 10 % (20-50); METAMYELOCYTE 2 % (0-0); MONOCYTE 5 % (0-10); MYELOCYTE 2 % (0-0); NEUTROPHIL 79 % (42-75); TOTAL CELLS COUNTED 100
[2018-05-19 14:26] LABS: ANISOCYTOSIS SLIGHT; HYPOCHROMIC SLIGHT; PLATELET CLUMPS PRESENT
[2018-05-19 14:27] LABS: PLATELET ESTIMATE NORMAL (NORMAL)
--- NOTE | 2018-05-19 15:58 | CARD ---
APPROVED REPORT Date of service: 05/19/2018 EKG Measurement Heart [id number] 124P [id number] <Conclusion> Normal sinus rhythm Inferior infarct, age undetermined Abnormal ECG
[2018-05-19 21:59] LABS: URINE BACTERIA FEW (<OCC); URINE BILIRUBIN NEGATIVE (NEGATIVE); URINE BLOOD SMALL (NEGATIVE); URINE CLARITY TURBID (Clear); URINE COLOR YELLOW (YELLOW); URINE GLUCOSE (UA) NEG (Normal); URINE LEUKOCYTE ESTERASE LARGE Leu/uL (Negative); URINE PROTEIN 100 mg/dL (NEGATIVE); URINE UROBILINOGEN 0.2-1.0 mg/dL (0.2-1.0); WBC CLUMPS MANY /hpf
[2018-05-20] MEDS ORDERED: IBUPROFEN 400 MG PO SCH ×2 (01:00)
--- NOTE | 2018-05-20 02:29 | HP ---
HISTORY OF PRESENT ILLNESS: This is a 72-year-old female with a history of multiple medical problems, was brought to the emergency room for generalized weakness. The patient was evaluated and found to have cczkv-dq-vriwios kidney failure and dehydration. The patient also was found to be with acidosis with a pH of 7.2. The patient was started on IV fluid and admitted to [facility] floor for further treatment. The patient has a history of cancer of cervix, status post surgery, radiation and postradiation complication that led to both colostomy and urine diversion and two ileostomy. REVIEW OF SYSTEMS: Other review of systems is negative. ALLERGIES: POSITIVE FOR CIPROFLOXACIN AND VANCOMYCIN. MEDICATIONS: Reviewed as per MAR and ordered. SOCIAL HISTORY: No history of smoking, EtOH or substance abuse. FAMILY HISTORY: Noncontributory. PHYSICAL EXAMINATION: GENERAL: The patient is in bed, not in any cardiopulmonary distress. VITAL SIGNS: Blood pressure 111/67, temperature 97.9, respiratory rate 17 and pulse 70. HEENT: Pupils equal and reactive to light. Normal-appearing mucosa of the conjunctivae, oropharynx and nasal membrane mucosa. NECK: Supple. No JVD. No carotid bruit. No lymph node. No thyromegaly. CHEST AND LUNGS: Bilateral symmetrical expansion. Good air exchange. No rales, no rhonchi. CARDIOVASCULAR SYSTEM: PMI not localized. S1, S2. No additional sounds. ABDOMEN: Colostomy and ileostomy bags are in place. EXTREMITIES: No cyanosis, no clubbing, no edema. CENTRAL NERVOUS SYSTEM: Alert, awake, oriented x1. No neurological deficit could be appreciated. ASSESSMENT: Tsmyt-rd-ngdskbi kidney disease, severe dehydration, metabolic acidosis. PLAN: Continue IV fluid with sodium bicarbonate. Monitor CBC and chemistry. Physical therapy. [facility] MD Sunny
[2018-05-20] MEDS: Potassium Chloride 20 mEq ER Tab PO SCH ×2 (09:12→20:29)
[2018-05-20] MEDS: Magnesium Oxide 400 mg Tab UD PO SCH ×2 (09:13→20:29)
[2018-05-20] MEDS: Cholestyramine 4 gm/Pkt UD PO SCH ×2 (09:13→16:23)
[2018-05-20] MEDS: Bacitracin OINT 15GM TOP SCH (16:22)
--- NOTE | 2018-05-21 03:41 | PN ---
DATE: 05/20/2018 SUBJECTIVE: She is more alert, awake, and less lethargic. She is still on IV fluid. PHYSICAL EXAMINATION: VITAL SIGNS: Blood pressure is 90/60, temperature 97.6, respiratory rate 18, and pulse 64. HEENT: Pupils equal and reactive to light. Normal-appearing mucosa of the conjunctivae, oropharynx, and nasal membrane mucosa. NECK: Supple. No JVD. No carotid bruit. No lymph node. No thyromegaly. CHEST AND LUNGS: Bilateral symmetrical expansion. Good air exchange. No rales. No rhonchi. CARDIOVASCULAR SYSTEM: PMI not localized. S1, S2. No additional sounds. ABDOMEN: Colostomy, urostomy, and ileostomy bags are in place with urine diversion. EXTREMITIES: No cyanosis. No clubbing. No edema. CENTRAL NERVOUS SYSTEM: Alert, awake, oriented x2. No neurological deficit could be appreciated. ASSESSMENT: 1. Dehydration. 2. Acute on chronic renal failure. 3. History of cancer of cervix. PLAN: Continue IV fluid, and monitor electrolytes, and hemoglobin and hematocrit. Resume the patient's home medications. Greg Correa MD
[2018-05-21 06:41] LABS: HEMOGLOBIN 10.2 g/dL (12.0-16.0); MEAN CELL VOLUME 92.4 fl (81.0-99.0); MEAN CORPUSCULAR HEMOGLOBIN 31.7 pg (27.0-31.0); MEAN CORPUSCULAR HGB CONC 34.3 g/dL (33.0-37.0); RBC 3.2 Mil/uL (3.80-5.20); RED CELL DISTRIBUTION WIDTH 20.2 % (11.5-14.5); WHITE BLOOD COUNT 9.2 K/uL (4.8-10.8)
[2018-05-21 06:48] LABS: ALB/GLOB RATIO 0.7 (1.0-2.1); ALBUMIN 2.6 g/dL (3.5-5.0); CALCIUM 8.6 mg/dL (8.4-10.2)
[2018-05-21] MEDS: Cholestyramine 4 gm/Pkt UD PO SCH ×2 (08:22→17:02)
[2018-05-21] MEDS: Potassium Chloride 20 mEq ER Tab PO SCH (08:23)
[2018-05-21] MEDS: Magnesium Oxide 400 mg Tab UD PO SCH ×2 (08:23→20:41)
[2018-05-21] MEDS: Bacitracin OINT 15GM TOP SCH ×2 (08:32→17:04)
[2018-05-21] MEDS ORDERED: Sodium Bicarbonate 7.5% (0.9 MEQ/ML) 50ML INJ IV ONE (09:37)
[2018-05-21] MEDS ORDERED: Sodium Chloride 0.9% 500 ML IV ONE ×2 (10:04→11:36)
[2018-05-21] MEDS ORDERED: Magnesium Sulfate 1 gm in D5W 1 GM/100 ML BAG IVPB ONE (11:45)
[2018-05-21] MEDS: SODIUM CHLORIDE 0.9% IV SCH (12:38)
[2018-05-21] MEDS: SODIUM BICARBONATE IV SCH (12:38)
[2018-05-21] MEDS: Ergocalciferol 50,000 Intl Units Cap PO SCH (22:17)
--- NOTE | 2018-05-21 23:13 | PN ---
DATE: 05/21/2018 SUBJECTIVE: The patient is seen today, 05/21/2018. PHYSICAL EXAMINATION: GENERAL: She is feeling dizzy. VITAL SIGNS: Her blood pressure is down to systolic 88, diastolic 49. Temperature 97.6, respiratory rate 20, and pulse 64. HEENT: Pupils equal and reactive to light. Normal appearing mucosa of the conjunctivae, oropharynx, and nasal membrane mucosa. NECK: Supple. No JVD. No carotid bruits. No lymph node. No thyromegaly. CHEST AND LUNGS: Bilateral symmetrical expansion. Good air exchange. No rales. No rhonchi. CARDIOVASCULAR SYSTEM: PMI not localized. S1 and S2. No additional sounds. ABDOMEN: Colostomy and urostomy bag in place. EXTREMITIES: No cyanosis. No clubbing. No edema. CENTRAL NERVOUS SYSTEM: Alert, awake, oriented x2. No neurological deficits could be appreciated. ASSESSMENT: Acute on chronic kidney disease, dehydration, metabolic acidosis, anemia of chronic disease. PLAN: Continue IV fluids with sodium bicarb and also start midodrine 5 mg three times a day. Greg Correa MD
[2018-05-22] MEDS: SODIUM CHLORIDE 0.9% IV SCH ×2 (03:08→20:54)
[2018-05-22] MEDS: SODIUM BICARBONATE IV SCH ×2 (03:08→20:54)
[2018-05-22 06:24] LABS: CALCIUM 7.7 mg/dL (8.4-10.2)
--- NOTE | 2018-05-22 07:13 | CARD ---
APPROVED REPORT Date of service: 05/21/2018 EKG Measurement Heart [id number] <Conclusion> Normal sinus rhythm Low voltage QRS Inferior infarct, age undetermined Abnormal ECG
[2018-05-22] MEDS: Cholestyramine 4 gm/Pkt UD PO SCH ×2 (09:24→16:53)
[2018-05-22] MEDS: Bacitracin OINT 15GM TOP SCH ×2 (09:24→16:52)
[2018-05-22] MEDS: Magnesium Oxide 400 mg Tab UD PO SCH ×2 (09:25→20:53)
[2018-05-22 12:30] LABS: B-TYPE NATRIURETIC PEPTIDE 827 pg/ml (0-900)
--- NOTE | 2018-05-22 14:07 | CARD ---
APPROVED REPORT Date of service: 05/22/2018 EXAM: Two-dimensional and M-mode echocardiogram with Doppler and color Doppler. Other Information Quality : FairRhythm : NSR Technically limited study due to Limited Study due to patient unable to be positioned. INDICATION Abnormal EKG/Arrhythmia 2D DIMENSIONS IVSd0.92 (0.7-1.1cm)LVDd3.34 (3.9-5.9cm) LVOT Diameter1.78 (1.8-2.4cm)PWd0.85 (0.7-1.1cm) IVSs0.88 (0.8-1.2cm)LVDs3.33 (2.5-4.0cm) FS (%) 0.0 %PWs0.85 (0.8-1.2cm) Aortic Valve AoV Peak Lmksaqoj763.4cm/sAoV VTI29.0cmAO Peak GR.10mmHg LVOT Peak [place]708.0cm/sLVOT VTI27.60cmAO Mean GR.5mmHg TIM (VMAX)1.83le2ECL (VTI)1.76cm2 Mitral Valve MV E Dbcexswp76.5cm/sMV DECEL [id number] A Kjkiwgrk97.4cm/s MV ICV81fiK/A ratio1.1MVA (PHT)3.21cm2 TDI Lateral E' Peak V9.13cm/sMedial E' Peak V7.50cm/sE/Lateral E'9.8 E/Medial E'11.9 LEFT VENTRICLE The left ventricle is normal size. There is normal left ventricular wall thickness. The left ventricular systolic function is normal. The estimated ejection fraction is 55-60% No regional wall motion abnormalities noted.. Transmitral Doppler flow pattern is Grade I-abnormal relaxation pattern. No left ventricle thrombus noted on this study. There is no ventricular septal defect visualized. There is no left ventricular aneurysm. There is no mass noted in the left ventricle. RIGHT VENTRICLE The right ventricle is normal size. There is normal right ventricular wall thickness. The right ventricular systolic function is normal. ATRIA The left atrium size is normal. The right atrium size is normal. The interatrial septum is intact with no evidence for an atrial septal defect. AORTIC VALVE The aortic valve is normal in structure. No aortic regurgitation is present. There is no aortic valvular stenosis. There is no aortic valvular vegetation. MITRAL VALVE The mitral valve is normal in structure. There is no evidence of mitral valve prolapse. There is no mitral valve stenosis. There is no mitral valve regurgitation noted. TRICUSPID VALVE The tricuspid valve is normal in structure. There is trace tricuspid valve regurgitation noted. There is no tricuspid valve prolapse or vegetation. There is no tricuspid valve stenosis. PULMONIC VALVE The pulmonary valve is normal in structure. There is no pulmonic valvular regurgitation. There is no pulmonic valvular stenosis. GREAT VESSELS The aortic root is normal in size. The ascending aorta is normal in size. The pulmonary artery is normal. The IVC is normal in size and collapses >50% with inspiration. PERICARDIAL EFFUSION There is no pericardial effusion. There is no pleural effusion. <Conclusion> The estimated ejection fraction is 55-60% Transmitral Doppler flow pattern is Grade I-abnormal relaxation pattern. The left atrium size is normal. There is trace tricuspid valve regurgitation noted.
--- NOTE | 2018-05-23 01:33 | PN ---
DATE: 05/22/2018 SUBJECTIVE: The patient is seen today, 05/22/2018. She is not in any cardiopulmonary distress. The patient is less dizzy. OBJECTIVE: VITAL SIGNS: Blood pressure is 104/68, temperature 97.5, respiratory rate 20, and pulse 62. HEENT: Pupils equal and reactive to light. Normal-appearing mucosa of the conjunctivae, oropharynx, and nasal membrane mucosa. NECK: Supple. No JVD. No carotid bruit. No lymph node. No thyromegaly. CHEST AND LUNGS: Bilateral symmetrical expansion. Good air exchange. No rales, no rhonchi. CARDIOVASCULAR SYSTEM: PMI not localized. S1, S2. No additional sounds. ABDOMEN: Colostomy and urostomy bags are in place. EXTREMITIES: No cyanosis, no clubbing, no edema. 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 No neurological deficit could be appreciated. ASSESSMENT: Acute on chronic renal failure, dehydration, metabolic acidosis, anemia of chronic disease, history of cancer cervix, status post radiation with complication that led to colostomy and urostomy. PLAN: Continue IV fluids and physical therapy, and plan to discharge the patient to subacute rehab versus home with visiting nurse care and physical therapy as an outpatient. We will discuss with the family. Greg Correa MD
[2018-05-23 02:21] LABS: ALB/GLOB RATIO 0.6 (1.0-2.1); ALBUMIN 1.9 g/dL (3.5-5.0); ALT/SGPT 16 U/L (9-52); AST/SGOT 12 U/L (14-36); BLOOD UREA NITROGEN 43 mg/dl (7-17); CALCIUM 7.9 mg/dL (8.4-10.2); GFR NON-AFRICAN AMERICAN 24
[2018-05-23] MEDS: Bacitracin OINT 15GM TOP SCH ×2 (08:34→16:08)
[2018-05-23] MEDS: Magnesium Oxide 400 mg Tab UD PO SCH ×2 (08:35→21:52)
[2018-05-23] MEDS: Cholestyramine 4 gm/Pkt UD PO SCH ×2 (08:36→16:09)
[2018-05-23 12:50] LABS: MEAN CELL VOLUME 93.3 fl (81.0-99.0); MEAN CORPUSCULAR HEMOGLOBIN 31.4 pg (27.0-31.0); MEAN CORPUSCULAR HGB CONC 33.6 g/dL (33.0-37.0); RBC 2.87 Mil/uL (3.80-5.20); RED CELL DISTRIBUTION WIDTH 20.2 % (11.5-14.5); WHITE BLOOD COUNT 6.7 K/uL (4.8-10.8)
[2018-05-23] MEDS: SODIUM BICARBONATE IV SCH (16:07)
[2018-05-23] MEDS: SODIUM CHLORIDE 0.9% IV SCH (16:07)
[2018-05-24] MEDS: Bacitracin OINT 15GM TOP SCH ×2 (09:43→16:45)
[2018-05-24] MEDS: Cholestyramine 4 gm/Pkt UD PO SCH ×2 (09:44→16:49)
[2018-05-24] MEDS: Magnesium Oxide 400 mg Tab UD PO SCH ×2 (09:44→21:17)
[2018-05-24] MEDS ORDERED: Magnesium Sulfate 1 gm in D5W 1 GM/100 ML BAG IVPB ONE (15:02)
--- NOTE | 2018-05-24 20:46 | PN ---
DATE: 05/23/2018 SUBJECTIVE: The patient was seen on 05/23/2018. She was not in any cardiopulmonary distress. Dizziness was improving. PHYSICAL EXAMINATION: VITAL SIGNS: Blood pressure was 111/67, temperature 97.5, respiratory rate 18, and pulse 55. HEENT: Pupils equal, reactive to light. Normal appearing mucosa of the conjunctivae, oropharynx and nasal membrane mucosa. NECK: Supple. No JVD. No carotid bruit. No lymph node. No thyromegaly. CHEST AND LUNGS: Bilateral symmetrical expansion. Good air exchange. No rales, no rhonchi. CARDIOVASCULAR SYSTEM: PMI not localized. S1, S2. No additional sounds. ABDOMEN: Normoactive bowel sounds. Colostomy and urostomy tube are in place. EXTREMITIES: No cyanosis or clubbing, no edema. 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 Moves all extremities equally. ASSESSMENT: Acute on chronic kidney disease, dehydration, metabolic acidosis, and anemia of chronic disease. PLAN: Continue IV fluids, physical therapy. Discharge planning to subacute rehab or home with visiting nurse. Greg Correa MD
--- NOTE | 2018-05-24 20:49 | PN ---
DATE: 05/24/2018 SUBJECTIVE: The patient is seen today, 05/24/2018. She is not in any cardiopulmonary distress, currently on IV fluids. PHYSICAL EXAMINATION: VITAL SIGNS: Blood pressure 97/58, temperature 97.8, respiratory rate 18, and pulse 62. HEENT: Pupils equal and reactive to light, normal-appearing mucosa of the conjunctivae, oropharynx, and nasal membrane mucosa. NECK: Supple, no JVD, no carotid bruits, no lymph node, and no thyromegaly. CHEST AND LUNGS: Bilateral symmetrical expansion, good air exchange, no rales and no rhonchi. CARDIOVASCULAR SYSTEM: PMI not localized, S1 and S2. No additional sounds. ABDOMEN: Colostomy and urostomy bag in place. EXTREMITIES: No cyanosis, no clubbing, and no edema. CENTRAL NERVOUS SYSTEM: Alert, awake, and oriented x2. No neurological deficits could be appreciated. ASSESSMENT: 1. Dvbbw-ru-nvhjmjy kidney disease. 2. Metabolic acidosis. 3. Anemia of chronic disease. 4. History of cancer of cervix, status post radiation therapy with complication. PLAN: Continue IV slow-dose sodium bicarbonate and follow with social service and case management regarding discharge planning. Greg Correa MD
[2018-05-24] MEDS: SODIUM BICARBONATE IV SCH (21:17)
[2018-05-24] MEDS: SODIUM CHLORIDE 0.9% IV SCH (21:17)
--- NOTE | 2018-05-24 23:43 | PQF ---
PROVIDER RESPONSE TEXT: Unable to further specify REVIEWER QUERY TEXT: Clarification of Clinical Diagnostic Findings Please clarify documentation or clinical relevance for the clinical / diagnostic findings or whether those are insignificant or unable to be further specified. Please clarify if there is an associated diagnosis or not to go along with the following Na level Na level 130 The patient's Clinical Indicators include: Admitted with weakness. Diagnoses include: Dehydration, acute on chronic renal failure. Na 130->139 Rx: IVF Query created by: Theodora Ly on 05/21/2018 1:16 PM Electronically signed by: Greg Correa MD 05/24/2018 11:40 PM
--- NOTE | 2018-05-24 23:43 | PQF ---
PROVIDER RESPONSE TEXT: Stage 3 REVIEWER QUERY TEXT: Kidney Disease, Chronic CKD Stage Chronic Kidney Disease (CKD) is documented in the Medical Record. Please specify the disease stage ( includes probable or suspected) after acute kidney failure is resolved. Such as: -- Chronic kidney disease Stage 1 -- Chronic kidney disease Stage 2 -- Chronic kidney disease Stage 3 -- Chronic kidney disease Stage 4 -- Chronic kidney disease Stage 5 -- Chronic kidney disease Stage 5, requiring dialysis -- End Stage Renal Disease -- Other, please specify Stages are defined by the [employer] as follows: CKD Stage I GFR >= 90 ml / min per 1.73 m2 and persistent albuminuria CKD Stage 2 GFR between 60 and 89 with persistent albuminuria CKD Stage 3 GFR between 30 and 59 CKD Stage 4 GFR between 15 and 29 CKD Stage 5 GFR between <15 or End Stage Renal Disease The patient's Clinical Indicators include: Admitted with weakness. Documentation of acute on chronic renal failure, dehydration. BUN 82-> 59 Creatinine 3.2-> 2.7 Query created by: Theodora Ly on 05/21/2018 1:13 PM Electronically signed by: Greg Correa MD 05/24/2018 11:40 PM
--- NOTE | 2018-05-24 23:43 | PQF ---
PROVIDER RESPONSE TEXT: BMI is 14.2 . Dietary consult is pending REVIEWER QUERY TEXT: Documentation Clarification Your help is requested in clarifying the following clinical documentation, if you can please further specify in the medical record and discharge summary. The EMR has the patient listed as being 5' 4", weight of 83 pounds with a BMI of 14.2. Please clarify if there is an associated diagnosis or not to go along with the BMI and please documen t the BMI results as well. The patient's Clinical Indicators include: The EMR has the patient listed as being 5' 4", weight of 83 pounds with a BMI of 14.2. Please clarify if there is an associated diagnosis or not to go along with the BMI and please documen t the BMI results as well. Dietary consult pending Query created by: Theodora Ly on 05/21/2018 1:32 PM Electronically signed by: Greg Correa MD 05/24/2018 11:40 PM
[2018-05-25 01:58] LABS: BASO % 0.5 % (0.0-2.0); EOS % 0.1 % (0.0-4.0); HEMOGLOBIN 8.1 g/dL (12.0-16.0); LYMPH # 0.2 K/uL (1.0-4.3); LYMPH % 2.5 % (20.0-40.0); MEAN CELL VOLUME 93.5 fl (81.0-99.0); MEAN CORPUSCULAR HEMOGLOBIN 31.1 pg (27.0-31.0); MEAN CORPUSCULAR HGB CONC 33.3 g/dL (33.0-37.0); MONO # 0.1 K/uL (0.0-0.8); MONO % 0.6 % (0.0-10.0); NEUT # 9.6 K/uL (1.8-7.0); NEUT % 96.3 % (50.0-75.0); PLATELET COUNT 130 K/uL (130-400); RED CELL DISTRIBUTION WIDTH 20.2 % (11.5-14.5)
[2018-05-25 04:03] LABS: ANISOCYTOSIS SLIGHT; BANDS 7 % (0-2); HYPOCHROMIC SLIGHT; LYMPHOCYTE 3 % (20-50); MONOCYTE 1 % (0-10); NEUTROPHIL 89 % (42-75); PLATELET ESTIMATE NORMAL (NORMAL); TEARDROP CELLS SLIGHT; TOTAL CELLS COUNTED 100
[2018-05-25 07:26] LABS: HEMOGLOBIN 8.4 g/dL (12.0-16.0); MEAN CELL VOLUME 93.2 fl (81.0-99.0); MEAN CORPUSCULAR HEMOGLOBIN 31.2 pg (27.0-31.0); MEAN CORPUSCULAR HGB CONC 33.5 g/dL (33.0-37.0); RBC 2.71 Mil/uL (3.80-5.20); RED CELL DISTRIBUTION WIDTH 20.4 % (11.5-14.5); WHITE BLOOD COUNT 23.3 K/uL (4.8-10.8)
[2018-05-25 07:45] LABS: ALB/GLOB RATIO 0.6 (1.0-2.1); CALCIUM 7.6 mg/dL (8.4-10.2)
[2018-05-25] MEDS: Bacitracin OINT 15GM TOP SCH ×2 (10:27→17:36)
[2018-05-25] MEDS: Magnesium Oxide 400 mg Tab UD PO SCH ×2 (10:30→20:53)
[2018-05-25] MEDS: SODIUM CHLORIDE 0.9% IV SCH (10:32)
[2018-05-25] MEDS: SODIUM BICARBONATE IV SCH (10:32)
[2018-05-25] MEDS: Cholestyramine 4 gm/Pkt UD PO SCH ×2 (10:33→17:39)
[2018-05-25] MEDS ORDERED: SODIUM CHLORIDE 0.9% IV SCH (16:45)
[2018-05-25] MEDS ORDERED: SODIUM BICARBONATE IV SCH (16:45)
[2018-05-26] MEDS ORDERED: Sodium Chloride 0.9% 500 ML IV ONE (00:20)
--- NOTE | 2018-05-26 02:24 | PN ---
DATE: 05/25/2018 DAILY PROGRESS NOTE SUBJECTIVE: The patient is seen today, 05/25/2018. She is not in any cardiopulmonary distress. 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 The patient denied to have any abdominal pain and no diarrhea. PHYSICAL EXAMINATION: VITAL SIGNS: Blood pressure is 90/58, temperature 97.5, respiratory rate 18 and pulse 64. HEENT: Slightly pale mucosa of the conjunctivae. NECK: Supple. No JVD. No carotid bruit. No lymph node. No thyromegaly. CHEST AND LUNGS: Bilateral symmetrical expansion. Good air exchange. No rales. No rhonchi. CARDIOVASCULAR SYSTEM: PMI not localized. S1 and S2. No additional sounds. ABDOMEN: Normoactive bowel sounds. No tenderness. No organomegaly. No masses. EXTREMITIES: No cyanosis, no clubbing, and no edema. CENTRAL NERVOUS SYSTEM: Alert, awake, oriented x2. No neurological deficit could be appreciated. ASSESSMENT: Gram-negative karl bacteremia, status post acute renal failure, chronic kidney disease stage III, metabolic acidosis. PLAN: We will start the patient on Zosyn 2.25 g IV every 8 hours. Continue current medications and antibiotics. ID consult. Greg Correa MD
--- NOTE | 2018-05-26 06:49 | CP.PCM.PCO ---
Assessment/Plan - Assessment and Plan (Free Text) Assessment: 05/25/18-05/26/18 MD was called overnight for patient with fever, English ordered given that patient was given PO Tylenol <1.5hrs prior to fever for abd pain. Chart was reviewed, high fever 102.9, of unknown origin. CXR on admission was negative. CBC, BMP, UA, Ucx, UA ordered. -CBC was sig for Neutrophilia with bandemia -Patient given 1x dose of Rocephin empirically. -cultures pending
[2018-05-26] MEDS: Cholestyramine 4 gm/Pkt UD PO SCH ×2 (09:18→16:16)
[2018-05-26] MEDS: Magnesium Oxide 400 mg Tab UD PO SCH ×2 (09:18→22:46)
[2018-05-26] MEDS: Bacitracin OINT 15GM TOP SCH ×2 (09:24→16:15)
--- NOTE | 2018-05-26 11:39 | CP.PCM.CON ---
History of Present Illness - History of Present Illness History of Present Illness: Infectious Disease Consultation Note- asked to see this patietn at the request of for bacteremia and fever. 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 pt. typically gets IV hydration every 2 weeks for weakness and dehydration . Pt. apparently was betetr and was planned on being d/c by her PMD but she spiked temp yesterday and blood cx reported as GNR prelim. I know the patient from her admission in 2017 during which time she had klebsileea UTI and VRe bacteremia for which she was treated with appropriate antibiotics and all repeat cx were negative. This is the first time in 2018 that i'm being called to evaluate her . as per med records she had klebsiella oxytoca in urine cx from last month ( not sure if she was treated for this ) Pt. currently sitting in bed and in NAD. she denies any chills but states has felt mild abdominal pain today. denies any cough or sob, denies any MO. Review of Systems - Review of Systems Review of Systems: ROS- + fever, denies any chills, denies any MO, denies any cough or sob, denies any chest pain, mild abdominal discomfort starting today, no pain around her port site. Past Patient History - Infectious Disease Hx of Infectious Diseases: None - Past Medical History & Family History Past Medical History?: Yes - Past Social History Smoking Status: Former Smoker Alcohol: None Home Situation {Lives}: With Family - CARDIAC Hx Cardiac Disorders: Yes Hx Hypercholesterolemia: Yes Hx Hypertension: Yes (pt denies hx) - PULMONARY Hx Respiratory Disorders: No - NEUROLOGICAL Hx Neurological Disorder: Yes Hx Dementia: Yes - HEENT Hx HEENT Problems: No - RENAL Hx Chronic Kidney Disease: Yes Hx Dialysis: No - ENDOCRINE/METABOLIC Hx Endocrine Disorders: No - HEMATOLOGICAL/ONCOLOGICAL Hx Blood Disorders: No - INTEGUMENTARY Hx Dermatological Problems: No - MUSCULOSKELETAL/RHEUMATOLOGICAL Hx Musculoskeletal Disorders: Yes Hx Falls: Yes - GASTROINTESTINAL Hx Gastrointestinal Disorders: Yes Hx Colostomy: Yes Hx Ileostomy: Yes Other/Comment: Ileostomy - GENITOURINARY/GYNECOLOGICAL Hx Genitourinary Disorders: Yes Hx Cervical Cancer: Yes - PSYCHIATRIC Hx Psychophysiologic Disorder: Yes Hx Depression: Yes Hx Substance Use: No - SURGICAL HISTORY Hx Surgeries: Yes Hx Joint Replacement: Yes (R hip replacement) Other/Comment: Left Urostomy;R earline cath, R colostomy - ANESTHESIA Hx Anesthesia: Yes Hx Anesthesia Reactions: No Hx Malignant Hyperthermia: No Meds Home Medications: Home Medication List Medication Instructions Recorded Confirmed Type Midodrine [Proamatine] 5 mg PO TID #60 tab 05/23/18 Rx Allergies/Adverse Reactions: Allergies Allergy/AdvReac Type Severity Reaction Status Date / Time ciprofloxacin [From Cipro] Allergy RASH Verified 04/08/18 18:37 ciprofloxacin HCl Allergy RASH Verified 04/08/18 18:37 [From Cipro] vancomycin Allergy RASH Verified 04/08/18 18:37 - Medications Medications: Current Medications Acetaminophen (Tylenol 325mg Tab) 650 mg PO Q6 PRN PRN Reason: Pain, moderate (4-7) Last Admin: 05/26/18 01:35 Dose: 650 mg Acetaminophen (Tylenol 325mg Tab) 650 mg PO Q6 PRN PRN Reason: Fever >100.4 F Bacitracin (Bacitracin Oint) 1 applic TOP BID [facility] Last Admin: 05/26/18 09:24 Dose: 1 applic Calcitriol (Rocaltrol) 0.25 mcg PO Q12 [facility] Last Admin: 05/26/18 09:17 Dose: 0.25 mcg Cholestyramine Resin (Questran) 4 gm PO BID [facility] Last Admin: 05/26/18 09:18 Dose: 4 gm Ergocalciferol (Drisdol 50,000 Intl Units Cap) 1 cap PO WE [facility] Last Admin: 05/21/18 22:17 Dose: 1 cap Escitalopram Oxalate (Lexapro) 10 mg PO DAILY [facility] Last Admin: 05/26/18 09:19 Dose: 10 mg Famotidine (Pepcid) 20 mg PO DAILY [facility] Last Admin: 05/26/18 09:18 Dose: 20 mg Ferrous Gluconate (Fergon) 324 mg PO TID [facility] Last Admin: 05/26/18 09:19 Dose: 324 mg Folic Acid (Folic Acid) 1 mg PO DAILY [facility] Last Admin: 05/26/18 09:19 Dose: 1 mg Heparin Sodium (Porcine) (Heparin) 5,000 units SC Q12 [facility]; Protocol Last Admin: 05/26/18 09:19 Dose: 5,000 units Sodium Bicarbonate 44 meq/ (Sodium Chloride) 1,044 mls @ 80 mls/hr IV .Q13H3M [facility] Stop: 05/28/18 21:00 Last Admin: 05/25/18 17:47 Dose: 80 mls/hr Piperacillin Sod/Tazobactam (Sod 2.25 gm/ Sodium Chloride) 100 mls @ 100 mls/hr IVPB Q8H [facility]; Protocol Last Admin: 05/26/18 05:07 Dose: 100 mls/hr Magnesium Oxide (Mag-Ox) 400 mg PO Q12 [facility] Last Admin: 05/26/18 09:18 Dose: 400 mg Midodrine (Proamatine) 5 mg PO TID [facility] Last Admin: 05/26/18 09:18 Dose: 5 mg Ondansetron HCl (Zofran Odt) 4 mg PO Q8 PRN PRN Reason: Nausea/Vomiting Saccharomyces Boulardii (Florastor) 250 mg PO BID [facility] Sodium Bicarbonate (Sodium Bicarbonate Tab) 1,300 mg PO Q12 [facility] Last Admin: 05/26/18 09:17 Dose: 1,300 mg Physical Exam - Constitutional Appears: No Acute Distress - Head Exam Head Exam: ATRAUMATIC - Eye Exam Eye Exam: EOMI, PERRL - ENT Exam ENT Exam: Normal Oropharynx - Neck Exam Neck exam: Positive for: Full Rom - Respiratory Exam Respiratory Exam: Clear to Auscultation Bilateral, NORMAL BREATHING PATTERN - Cardiovascular Exam Cardiovascular Exam: RRR, +S1, +S2 - GI/Abdominal Exam GI & Abdominal Exam: Soft Additional comments: colostomy bag full of brown liquid ilesotomy bag full of urine no tenderness to palpation of the abdomen no guarding, no rebound - Extremities Exam Additional comments: no edema b/l LE Right elbow region superficial area of skin escoriation Results - Vital Signs Recent Vital Signs: Last Vital Signs Temp 97.9 F 05/26/18 08:07 Pulse 58 L 05/26/18 08:07 Resp 18 05/26/18 08:07 BP 90/52 L 05/26/18 02:00 Pulse Ox 98 05/26/18 08:07 - Labs Result Diagrams: 05/25/18 05:30 05/25/18 05:30 Labs: Microbiology 05/25/18 01:30 Blood Blood Culture - Preliminary Gram Negative Rey 05/25/18 01:30 Blood Gram Stain - Final 05/25/18 01:45 Blood Blood Culture - Preliminary Gram Negative Rey 05/25/18 01:45 Blood Gram Stain - Final Microbiology 06/27/17 11:59 Urine Urine Culture - Final Klebsiella Oxytoca 04/03/18 05:09 Urine Urine Culture - Final Klebsiella Oxytoca 04/03/18 01:30 Blood Blood Culture - Final 04/03/18 01:30 Blood Gram Stain - Final NO GROWTH AFTER 5 DAYS TEST NOT PERFORMED 04/03/18 01:00 Blood Blood Culture - Final 04/03/18 01:00 Blood Gram Stain - Final NO GROWTH AFTER 5 DAYS TEST NOT PERFORMED 01/17/17 14:55 Blood-Venous Blood Culture - Final 01/17/17 14:55 Blood-Venous Gram Stain - Final NO GROWTH AFTER 5 DAYS TEST NOT PERFORMED 01/17/17 14:40 Blood-Venous Blood Culture - Final 01/17/17 14:40 Blood-Venous Gram Stain - Final NO GROWTH AFTER 5 DAYS TEST NOT PERFORMED 01/17/17 14:30 Blood-Thru Central Line Blood Culture - Final 01/17/17 14:30 Blood-Thru Central Line Gram Stain - Final NO GROWTH AFTER 5 DAYS TEST NOT PERFORMED 01/13/17 16:05 Blood-Thru Central Line Blood Culture - Final 01/13/17 16:05 Blood-Thru Central Line Gram Stain - Final NO GROWTH AFTER 5 DAYS TEST NOT PERFORMED 01/13/17 15:30 Blood-Venous S.aureus & Coag-Neg Staph PNA FISH - Final 01/13/17 15:30 Blood-Venous Gram Stain - Final Coagulase Neg Staphylococcus 01/11/17 23:23 Urine Urine Culture - Final Klebsiella Pneumoniae Ssp Pneu 01/11/17 18:40 Blood-Venous S.aureus & Coag-Neg Staph PNA FISH - Final 01/11/17 18:40 Blood-Venous Gram Stain - Final Vancomycin Resistant E.faecium Assessment & Plan (1) Bacteremia Status: Acute (2) Leukocytosis Status: Acute (3) Fever in adult Status: Acute (4) History of UTI Status: Acute (5) S/P colostomy Status: Chronic (6) S/P ileostomy Status: Chronic - Assessment and Plan (Free Text) Assessment: A/P- 72 year old female with multiple medical conditions including cervical ca s/p radiation and ctx s/p colostomy and ileostomy with h/o UTis and 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 the source of the GNR bacteremia most likely as pt. ari harperve h/o GN UTi's . also would need to make sure her port is not infected as it has been in place for a long time. plan- check 2 blood cx stat one from her port and one peripheral. check Ua nd urine cx stat. in the interim will start her on IV meropnem as her klebsilee oxytoca from 2017 is sens to this. check TTE r/o any vegetations. check stool d.diff as well. all labs and medical chart notes reviewed. all above also d/w patient and with CONCRETE [employer] SUPERINTENDENT Meghan on the floor. Thank you for allowing me to take part in the care of this patient.
[2018-05-26] MEDS: SODIUM CHLORIDE 0.9% IV SCH (16:15)
[2018-05-26] MEDS: SODIUM BICARBONATE IV SCH (16:15)
[2018-05-26] MEDS ORDERED: oxyCODONE 5 mg Immediate Release Tab PO ONE (22:59)
[2018-05-26] MEDS: Meropenem 1 GM in Sodium Chloride 0.9% 100 ML IVPB SCH (23:09)
--- NOTE | 2018-05-27 01:13 | PN ---
DATE: 05/26/2018 SUBJECTIVE: The patient is seen today, 05/26/2018. She is not in any cardiopulmonary distress. PHYSICAL EXAMINATION: VITAL SIGNS: The patient is afebrile with temperature 98, blood pressure 98/60, respiratory rate 18, pulse 61. HEENT: Pupils equal and reactive to light. Normal-appearing mucosa of the conjunctivae, oropharynx, and nasal membrane mucosa. NECK: Supple No JVD. No carotid bruit. No lymph node. No thyromegaly. CHEST AND LUNGS: Bilateral symmetrical expansion. Good air exchange. No rales, no rhonchi. CARDIOVASCULAR SYSTEM: PMI not localized. S1, S2. No additional sounds. ABDOMEN: Colostomy and urostomy bag and tube. EXTREMITIES: No cyanosis, no clubbing, no edema. 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 No neurological deficit could be appreciated. Again blood culture grew gram-negative rods that was found to the ID and sensitivity are still pending. ASSESSMENT AND PLAN: The patient was started empirically on Zosyn and has been afebrile for the last 24 hours. Infectious disease consult was called and Zosyn was switched to meropenem. We will follow Infectious Disease recommendations. Greg Correa MD
[2018-05-27] MEDS: SODIUM CHLORIDE 0.9% IV SCH ×2 (02:27→15:35)
[2018-05-27] MEDS: SODIUM BICARBONATE IV SCH ×2 (02:27→15:35)
[2018-05-27 06:45] LABS: BASO % 0.5 % (0.0-2.0); EOS # 0.2 K/uL (0.0-0.7); EOS % 2.6 % (0.0-4.0); HEMOGLOBIN 7.9 g/dL (12.0-16.0); LYMPH # 0.6 K/uL (1.0-4.3); LYMPH % 9.3 % (20.0-40.0); MEAN CELL VOLUME 95.4 fl (81.0-99.0); MEAN CORPUSCULAR HEMOGLOBIN 31.6 pg (27.0-31.0); MEAN CORPUSCULAR HGB CONC 33.1 g/dL (33.0-37.0); MEAN PLATELET VOLUME 8.3 fl (7.2-11.7); MONO # 0.4 K/uL (0.0-0.8); MONO % 6.3 % (0.0-10.0); NEUT # 5.6 K/uL (1.8-7.0); NEUT % 81.3 % (50.0-75.0); RBC 2.49 Mil/uL (3.80-5.20); RED CELL DISTRIBUTION WIDTH 21.6 % (11.5-14.5); WHITE BLOOD COUNT 6.9 K/uL (4.8-10.8)
[2018-05-27 06:54] LABS: ALB/GLOB RATIO 0.6 (1.0-2.1); ALBUMIN 1.9 g/dL (3.5-5.0); ALT/SGPT 19 U/L (9-52); AST/SGOT 16 U/L (14-36); BLOOD UREA NITROGEN 33 mg/dl (7-17); CALCIUM 7.6 mg/dL (8.4-10.2); GFR NON-AFRICAN AMERICAN 18
[2018-05-27] MEDS: Bacitracin OINT 15GM TOP SCH ×2 (09:56→17:01)
[2018-05-27] MEDS: Saccharomyces Boulardi 250 mg Cap PO SCH ×2 (09:57→17:01)
[2018-05-27] MEDS: Magnesium Oxide 400 mg Tab UD PO SCH ×2 (09:57→23:38)
[2018-05-27] MEDS: Cholestyramine 4 gm/Pkt UD PO SCH ×2 (09:57→17:00)
[2018-05-27] MEDS: Meropenem 1 GM in Sodium Chloride 0.9% 100 ML IVPB SCH ×2 (09:58→23:39)
--- NOTE | 2018-05-27 14:45 | CP.PCM.PN ---
Subjective - Date & Time of Evaluation Date of Evaluation: 05/27/18 Time of Evaluation: 14:45 Objective - Vital Signs/Intake and Output Vital Signs (last 24 hours): Temp Pulse Resp BP Pulse Ox 97.8 F 76 20 105/64 96 05/27/18 08:54 05/27/18 08:54 05/27/18 08:54 05/27/18 08:54 05/27/18 08:54 - Medications Medications: Current Medications Acetaminophen (Tylenol 325mg Tab) 650 mg PO Q6 PRN PRN Reason: Pain, moderate (4-7) Last Admin: 05/26/18 23:47 Dose: 650 mg Acetaminophen (Tylenol 325mg Tab) 650 mg PO Q6 PRN PRN Reason: Fever >100.4 F Bacitracin (Bacitracin Oint) 1 applic TOP BID [facility] Last Admin: 05/27/18 09:56 Dose: 1 applic Calcitriol (Rocaltrol) 0.25 mcg PO Q12 [facility] Last Admin: 05/27/18 12:55 Dose: 0.25 mcg Cholestyramine Resin (Questran) 4 gm PO BID [facility] Last Admin: 05/27/18 09:57 Dose: 4 gm Ergocalciferol (Drisdol 50,000 Intl Units Cap) 1 cap PO WE [facility] Last Admin: 05/21/18 22:17 Dose: 1 cap Escitalopram Oxalate (Lexapro) 10 mg PO DAILY [facility] Last Admin: 05/27/18 09:57 Dose: 10 mg Famotidine (Pepcid) 20 mg PO DAILY [facility] Last Admin: 05/27/18 09:58 Dose: 20 mg Ferrous Gluconate (Fergon) 324 mg PO TID [facility] Last Admin: 05/27/18 12:57 Dose: 324 mg Folic Acid (Folic Acid) 1 mg PO DAILY [facility] Last Admin: 05/27/18 09:57 Dose: 1 mg Heparin Sodium (Porcine) (Heparin) 5,000 units SC Q12 [facility]; Protocol Last Admin: 05/27/18 09:58 Dose: 5,000 units Meropenem 1 gm/ Sodium (Chloride) 100 mls @ 100 mls/hr IVPB Q12 [facility]; Protocol Last Admin: 05/27/18 09:58 Dose: 100 mls/hr Sodium Bicarbonate 44 meq/ (Sodium Chloride) 1,044 mls @ 80 mls/hr IV .Q13H3M [facility] Stop: 05/28/18 12:48 Magnesium Oxide (Mag-Ox) 400 mg PO Q12 [facility] Last Admin: 05/27/18 09:57 Dose: 400 mg Midodrine (Proamatine) 5 mg PO TID [facility] Last Admin: 05/27/18 12:57 Dose: 5 mg Ondansetron HCl (Zofran Odt) 4 mg PO Q8 PRN PRN Reason: Nausea/Vomiting Saccharomyces Boulardii (Florastor) 250 mg PO BID [facility] Last Admin: 05/27/18 09:57 Dose: 250 mg Sodium Bicarbonate (Sodium Bicarbonate Tab) 1,300 mg PO Q12 [facility] Last Admin: 05/27/18 09:57 Dose: 1,300 mg - Labs Labs: 05/27/18 06:00 05/27/18 06:00 Assessment and Plan (1) Bacteremia Status: Acute (2) Leukocytosis Status: Acute (3) Fever in adult Status: Acute (4) History of UTI Status: Acute (5) S/P colostomy Status: Chronic (6) S/P ileostomy Status: Chronic
[2018-05-27 21:33] LABS: URINE BACTERIA RARE (<OCC); URINE BILIRUBIN NEGATIVE (NEGATIVE); URINE BLOOD SMALL (NEGATIVE); URINE CLARITY CLOUDY (Clear); URINE COLOR YELLOW (YELLOW); URINE GLUCOSE (UA) NEG (Normal); URINE LEUKOCYTE ESTERASE LARGE Leu/uL (Negative); URINE PROTEIN 30 mg/dL (NEGATIVE); URINE UROBILINOGEN 0.2-1.0 mg/dL (0.2-1.0); WBC CLUMPS OCC /hpf
--- NOTE | 2018-05-27 23:48 | PN ---
DATE: 05/27/2018 SUBJECTIVE: The patient is seen today, 05/27/2018. She is not in any cardiopulmonary distress. OBJECTIVE: VITAL SIGNS: Blood pressure 131/73, temperature 97.2, respiratory rate 20, and pulse 61. HEENT: Pupils equal and reactive to light. Normal-appearing mucosa of the conjunctivae, oropharynx, and nasal membrane mucosa. NECK: Supple. No JVD. No carotid bruit. No lymph node. No thyromegaly. CHEST AND LUNGS: Bilateral symmetrical expansion. Good air exchange. No rales, no rhonchi. CARDIOVASCULAR SYSTEM: PMI not localized. S1, S2. No additional sounds. ABDOMEN: Normoactive bowel sounds. Colostomy and urostomy bag in place. EXTREMITIES: No cyanosis, no clubbing, no edema. CENTRAL NERVOUS SYSTEM: Alert, awake, oriented x2. No neurological deficit could be appreciated. ASSESSMENT: Bacteremia, acute on chronic kidney disease, metabolic acidosis. PLAN: Continue current IV antibiotics. Follow ID recommendations, and we will check blood culture from the Port-A-Cath as well as peripheral. We will give Epogen due to the drop of hemoglobin. Greg Correa MD
[2018-05-28] MEDS: SODIUM CHLORIDE 0.9% IV SCH (05:52)
[2018-05-28] MEDS: SODIUM BICARBONATE IV SCH (05:52)
[2018-05-28 07:08] LABS: HEMOGLOBIN 7.7 g/dL (12.0-16.0); MEAN CORPUSCULAR HEMOGLOBIN 31.2 pg (27.0-31.0); MEAN CORPUSCULAR HGB CONC 33.6 g/dL (33.0-37.0); RBC 2.48 Mil/uL (3.80-5.20); RED CELL DISTRIBUTION WIDTH 20.7 % (11.5-14.5); WHITE BLOOD COUNT 4.3 K/uL (4.8-10.8)
[2018-05-28 07:36] LABS: ALB/GLOB RATIO 0.6 (1.0-2.1); ALBUMIN 1.8 g/dL (3.5-5.0); ALT/SGPT 21 U/L (9-52); AST/SGOT 20 U/L (14-36); BLOOD UREA NITROGEN 29 mg/dl (7-17); CALCIUM 7.4 mg/dL (8.4-10.2); GFR NON-AFRICAN AMERICAN 20
--- NOTE | 2018-05-28 09:34 | CP.PCM.PN ---
Subjective - Date & Time of Evaluation Date of Evaluation: 05/28/18 Time of Evaluation: 09:33 - Subjective Subjective: ID Note- Pt. seen and examined today. no new events overnight. has some chills but denies any other complaints. Objective - Vital Signs/Intake and Output Vital Signs (last 24 hours): Temp Pulse Resp BP Pulse Ox 97.8 F 64 19 109/68 97 05/28/18 07:53 05/28/18 07:53 05/28/18 07:53 05/28/18 07:53 05/28/18 07:53 - Medications Medications: Current Medications Acetaminophen (Tylenol 325mg Tab) 650 mg PO Q6 PRN PRN Reason: Pain, moderate (4-7) Last Admin: 05/27/18 18:08 Dose: 650 mg Acetaminophen (Tylenol 325mg Tab) 650 mg PO Q6 PRN PRN Reason: Fever >100.4 F Bacitracin (Bacitracin Oint) 1 applic TOP BID [facility] Last Admin: 05/27/18 17:01 Dose: 1 applic Calcitriol (Rocaltrol) 0.25 mcg PO Q12 [facility] Last Admin: 05/27/18 23:40 Dose: 0.25 mcg Cholestyramine Resin (Questran) 4 gm PO BID [facility] Last Admin: 05/27/18 17:00 Dose: 4 gm Epoetin Audi (Procrit) 10,000 unit SC TTS [facility] Ergocalciferol (Drisdol 50,000 Intl Units Cap) 1 cap PO WE [facility] Last Admin: 05/21/18 22:17 Dose: 1 cap Escitalopram Oxalate (Lexapro) 10 mg PO DAILY [facility] Last Admin: 05/27/18 09:57 Dose: 10 mg Famotidine (Pepcid) 20 mg PO DAILY [facility] Last Admin: 05/27/18 09:58 Dose: 20 mg Ferrous Gluconate (Fergon) 324 mg PO TID [facility] Last Admin: 05/27/18 17:01 Dose: 324 mg Folic Acid (Folic Acid) 1 mg PO DAILY [facility] Last Admin: 05/27/18 09:57 Dose: 1 mg Heparin Sodium (Porcine) (Heparin) 5,000 units SC Q12 [facility]; Protocol Last Admin: 05/27/18 23:37 Dose: 5,000 units Meropenem 1 gm/ Sodium (Chloride) 100 mls @ 100 mls/hr IVPB Q12 [facility]; Protocol Last Admin: 05/27/18 23:39 Dose: 100 mls/hr Sodium Bicarbonate 44 meq/ (Sodium Chloride) 1,044 mls @ 80 mls/hr IV .Q13H3M [facility] Stop: 05/28/18 12:48 Last Admin: 05/28/18 05:52 Dose: 80 mls/hr Magnesium Oxide (Mag-Ox) 400 mg PO Q12 [facility] Last Admin: 05/27/18 23:38 Dose: 400 mg Midodrine (Proamatine) 5 mg PO TID [facility] Last Admin: 05/27/18 17:00 Dose: 5 mg Ondansetron HCl (Zofran Odt) 4 mg PO Q8 PRN PRN Reason: Nausea/Vomiting Saccharomyces Boulardii (Florastor) 250 mg PO BID [facility] Last Admin: 05/27/18 17:01 Dose: 250 mg Sodium Bicarbonate (Sodium Bicarbonate Tab) 1,300 mg PO Q12 [facility] Last Admin: 05/27/18 23:51 Dose: 1,300 mg - Labs Labs: - Additional Findings Additional findings: - Constitutional Appears: No Acute Distress - Head Exam Head Exam: ATRAUMATIC - Eye Exam Eye Exam: EOMI, PERRL - ENT Exam ENT Exam: Normal Oropharynx - Neck Exam Neck exam: Positive for: Full Rom - Respiratory Exam Respiratory Exam: Clear to Auscultation Bilateral, NORMAL BREATHING PATTERN - Cardiovascular Exam Cardiovascular Exam: RRR, +S1, +S2 - GI/Abdominal Exam GI & Abdominal Exam: Soft Additional comments: colostomy bag full of brown liquid ilesotomy bag full of urine no tenderness to palpation of the abdomen no guarding, no rebound - Extremities Exam Additional comments: no edema b/l LE Neuro- AAO x 3 Laboratory Results - last 72 hr 05/27/18 05/27/18 05/27/18 06:00 06:00 21:04 WBC 6.9 D RBC 2.49 L Hgb 7.9 L Hct 23.8 L MCV 95.4 D MCH 31.6 H MCHC 33.1 RDW 21.6 H Plt Count 94 L D MPV 8.3 Neut % (Auto) 81.3 H Lymph % (Auto) 9.3 L [place] % (Auto) 6.3 Eos % (Auto) 2.6 Baso % (Auto) 0.5 Neut # (Auto) 5.6 Lymph # (Auto) 0.6 L [place] # (Auto) 0.4 Eos # (Auto) 0.2 Baso # (Auto) 0.0 Sodium 141 Potassium 4.0 Chloride 117 H Carbon Dioxide 19 L Anion Gap 9 L BUN 33 H Creatinine 2.6 H Est GFR ( Amer) 22 Est GFR (Non-Af Amer) 18 Random Glucose 70 Calcium 7.6 L Total Bilirubin < 0.1 L AST 16 ALT 19 Alkaline Phosphatase 61 Total Protein 4.9 L Albumin 1.9 L Globulin 3.0 Albumin/Globulin Ratio 0.6 L Urine Color Yellow Urine Clarity Cloudy Urine pH 7.0 Ur Specific [place] 1.010 Urine Protein 30 Urine Glucose (UA) Neg Urine Ketones Negative Urine Blood Small Urine Nitrate Negative Urine Bilirubin Negative Urine Urobilinogen 0.2-1.0 Ur Leukocyte Esterase Large Urine RBC (Auto) 10 H Urine WBC Clumps (Auto) Occ H Urine Microscopic WBC 127 H Urine Bacteria Rare 05/28/18 05/28/18 05:50 05:50 WBC 4.3 L RBC 2.48 L Hgb 7.7 L Hct 23.0 L MCV 93.0 D MCH 31.2 H MCHC 33.6 RDW 20.7 H Plt Count 93 L MPV Neut % (Auto) Lymph % (Auto) [place] % (Auto) Eos % (Auto) Baso % (Auto) Neut # (Auto) Lymph # (Auto) [place] # (Auto) Eos # (Auto) Baso # (Auto) Sodium 139 Potassium 3.6 Chloride 113 H Carbon Dioxide 22 Anion Gap 8 L BUN 29 H Creatinine 2.4 H Est GFR ( Amer) 24 Est GFR (Non-Af Amer) 20 Random Glucose 68 Calcium 7.4 L Total Bilirubin < 0.1 L AST 20 ALT 21 Alkaline Phosphatase 72 Total Protein 4.8 L Albumin 1.8 L Globulin 2.9 Albumin/Globulin Ratio 0.6 L Urine Color Urine Clarity Urine pH Ur Specific [place] Urine Protein Urine Glucose (UA) Urine Ketones Urine Blood Urine Nitrate Urine Bilirubin Urine Urobilinogen Ur Leukocyte Esterase Urine RBC (Auto) Urine WBC Clumps (Auto) Urine Microscopic WBC Urine Bacteria Microbiology 05/26/18 16:00 Blood-Thru Central Line Blood Culture - Preliminary NO GROWTH AFTER 24 HOURS 05/26/18 15:45 Blood-Venous Blood Culture - Preliminary NO GROWTH AFTER 24 HOURS 05/25/18 01:30 Blood Blood Culture - Final Escherichia Coli 05/25/18 01:30 Blood Gram Stain - Final 05/25/18 01:45 Blood Blood Culture - Final Escherichia Coli 05/25/18 01:45 Blood Gram Stain - Final Assessment and Plan (1) Bacteremia Status: Acute (2) Leukocytosis Status: Acute (3) Fever in adult Status: Acute (4) History of UTI Status: Acute (5) S/P colostomy Status: Chronic (6) S/P ileostomy Status: Chronic - Assessment and Plan (Free Text) Assessment: A/P- 72 year old female with multiple medical conditions including cervical ca s/p radiation and ctx s/p colostomy and ileostomy with h/o UTis and 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 afebrile leukocytosis has resolved. initial blood cx- e.coli pansensitive x 2 repeat blood cx one from port and other peripheral are both neg so far TTE- no mention of any vegetation as per report. plan- day #3 of meropnem can de-escalate to ceftriaxone since the e.coli is sens to this. advise total of 14-21 days of IV abx for the e.coli bacteremia. all labs and medical chart notes reviewed. all above d/w patient and she verbalizes full understanding of all above and agrees with above plan of care.
[2018-05-28] MEDS: Bacitracin OINT 15GM TOP SCH ×2 (09:36→16:34)
[2018-05-28] MEDS: Saccharomyces Boulardi 250 mg Cap PO SCH ×2 (09:37→16:34)
[2018-05-28] MEDS: Magnesium Oxide 400 mg Tab UD PO SCH ×2 (09:39→22:00)
[2018-05-28] MEDS: Cholestyramine 4 gm/Pkt UD PO SCH ×2 (09:40→16:34)
[2018-05-28] MEDS: Meropenem 1 GM in Sodium Chloride 0.9% 100 ML IVPB SCH ×2 (09:40→10:23)
[2018-05-28] MEDS: cefTRIAXone 2 GM in Sodium Chloride 0.9% 100 ML IVPB SCH (12:52)
[2018-05-28] MEDS: Ergocalciferol 50,000 Intl Units Cap PO SCH (22:04)
[2018-05-29 07:32] LABS: HEMOGLOBIN 9.8 g/dL (12.0-16.0); MEAN CELL VOLUME 93.8 fl (81.0-99.0); MEAN CORPUSCULAR HEMOGLOBIN 31.7 pg (27.0-31.0); MEAN CORPUSCULAR HGB CONC 33.8 g/dL (33.0-37.0); RBC 3.1 Mil/uL (3.80-5.20); RED CELL DISTRIBUTION WIDTH 18.5 % (11.5-14.5); WHITE BLOOD COUNT 4.8 K/uL (4.8-10.8)
--- NOTE | 2018-05-29 08:05 | PQF ---
PROVIDER RESPONSE TEXT: It is sepsis with bactremia REVIEWER QUERY TEXT: Bacteremia Underlying Cause Bacteremia is documented in the Medical Record. Please clarify if this is Bacteremia with or without Sepsis and please specify the associated organism causing bacteremia and the present on admission status as yes or no Workup is in progress for the underlying cause of bacteremia. The patient's Clinical Indicators include: Admitted on 05/19/18 for general weakness . Found to have acute on chronic kidney failure and dehydra tion with acidosis. On 05/25 : TEMP 102.9, 102.9, 98.2, 97.8, 97.5 HR 96, 71, 64, BP 92/56, 91/54, 90/58, intermittent hypotension prior to this day as well WBC on admission 11.8 ->9.2, 6.7-> 10-> on 05/25 WBC up to 23.3. Lactate on admission 2.2 BLOOD CS on 05/25/18: E Coli Rx: IVAB Query created by: Theodora Ly on 05/28/2018 10:37 AM Electronically signed by: Greg Correa MD 05/29/2018 8:02 AM
[2018-05-29] MEDS ORDERED: EPOETIN ALFA 10,000 UNIT/ML ML SC SCH (09:00)
[2018-05-29] MEDS: cefTRIAXone 2 GM in Sodium Chloride 0.9% 100 ML IVPB SCH (10:26)
[2018-05-29] MEDS: Saccharomyces Boulardi 250 mg Cap PO SCH ×2 (10:26→17:25)
[2018-05-29] MEDS: Bacitracin OINT 15GM TOP SCH ×2 (10:27→17:24)
[2018-05-29] MEDS: Magnesium Oxide 400 mg Tab UD PO SCH ×2 (10:27→22:00)
[2018-05-29] MEDS: Cholestyramine 4 gm/Pkt UD PO SCH ×2 (10:28→17:25)
--- NOTE | 2018-05-30 01:13 | PN ---
DATE: 05/29/2018 SUBJECTIVE: The patient is seen today, 05/29/2018. She is not in any cardiopulmonary distress. The patient is afebrile, on IV antibiotics. PHYSICAL EXAMINATION: VITAL SIGNS: Blood pressure 121/69, temperature 98.9, respiratory rate 20, and pulse 73. HEENT: Pupils equal and reactive to light. Normal-appearing mucosa of the conjunctivae, oropharynx, and nasal membrane mucosa. NECK: Supple. No JVD. No carotid bruit. No lymph node. No thyromegaly. CHEST AND LUNGS: Bilateral symmetrical expansion. Good air exchange. No rales. No rhonchi. CARDIOVASCULAR SYSTEM: PMI not localized. S1 and S2. No additional sounds. ABDOMEN: Colostomy and urostomy bag in place. EXTREMITIES: No cyanosis, no clubbing, no edema. METAL NUMERICAL CONTROL PROGRAMMER: Alert, awake, and oriented x2. No neurological deficit could be appreciated. ASSESSMENT: Sepsis, bacteremia. The source is likely urinary tract infection, acute on chronic kidney disease, anemia of chronic disease. PLAN: The patient was infused already one unit of packed RBCs and hemoglobin came up from 7.7 to 9.8. We will continue sodium bicarbonate as well as IV fluids as needed. Plan to discharge the patient to transitional care unit. Greg Correa MD
--- NOTE | 2018-05-30 08:41 | PN ---
DATE: 05/28/2018 SUBJECTIVE: The patient was seen on 05/28/2018. She is on IV antibiotics treating sepsis and bacteremia. OBJECTIVE: VITAL SIGNS: Blood pressure was 133/74, temperature 98.1, respiratory rate 20, and pulse 72. HEENT: Pale mucosa of the conjunctivae. NECK: Supple. No JVD. No carotid bruit. No lymph node. No thyromegaly. CHEST AND LUNGS: Bilateral symmetrical expansion. Good air exchange. No rales . No rhonchi. CARDIOVASCULAR SYSTEM: PMI not localized. S1 and S2. No additional sounds. ABDOMEN: Colostomy and urostomy bags are in place. EXTREMITIES: No cyanosis. No clubbing. No edema. CENTRAL NERVOUS SYSTEM: Alert, awake, and oriented x2 and moves all extremities equally. ASSESSMENT: Sepsis, Escherichia coli bacteremia, source most probably is urinary tract infection. PLAN: Continue current IV antibiotics and follow ID recommendations and we will transfuse the patient one unit of packed RBCs as hemoglobin dropped today, on 05/28/2018. Greg Correa MD
[2018-05-30 08:42] VITALS: BP 106/69; PULSE 68; RESP 20; TEMP 98; O2SAT 98
[2018-05-30] MEDS: Bacitracin OINT 15GM TOP SCH (09:53)
[2018-05-30] MEDS: Saccharomyces Boulardi 250 mg Cap PO SCH (09:54)
[2018-05-30] MEDS: Magnesium Oxide 400 mg Tab UD PO SCH (09:54)
[2018-05-30] MEDS: Cholestyramine 4 gm/Pkt UD PO SCH (09:54)
[2018-05-30] MEDS: cefTRIAXone 2 GM in Sodium Chloride 0.9% 100 ML IVPB SCH (09:55)
--- NOTE | 2018-05-30 11:00 | CP.PCM.PN ---
Subjective - Date & Time of Evaluation Date of Evaluation: 05/30/18 Time of Evaluation: 11:00 - Subjective Subjective: ID Note- Pt. seen and examined today with . Pt. denies any fever or chills. Objective - Vital Signs/Intake and Output Vital Signs (last 24 hours): Temp Pulse Resp BP Pulse Ox 98.0 F 68 20 106/69 98 05/30/18 08:41 05/30/18 08:41 05/30/18 08:41 05/30/18 08:41 05/30/18 08:41 Intake and Output: 05/30/18 05/30/18 06:59 18:59 Output Total 1100 Balance -1100 - Medications Medications: Current Medications Acetaminophen (Tylenol 325mg Tab) 650 mg PO Q6 PRN PRN Reason: Pain, moderate (4-7) Last Admin: 05/28/18 18:59 Dose: 650 mg Acetaminophen (Tylenol 325mg Tab) 650 mg PO Q6 PRN PRN Reason: Fever >100.4 F Bacitracin (Bacitracin Oint) 1 applic TOP BID [facility] Last Admin: 05/30/18 09:53 Dose: 1 applic Calcitriol (Rocaltrol) 0.25 mcg PO Q12 [facility] Last Admin: 05/30/18 09:54 Dose: 0.25 mcg Cholestyramine Resin (Questran) 4 gm PO BID [facility] Last Admin: 05/30/18 09:54 Dose: 4 gm Epoetin Audi (Procrit) 10,000 unit SC TTS [facility] Last Admin: 05/29/18 10:38 Dose: 10,000 unit Ergocalciferol (Drisdol 50,000 Intl Units Cap) 1 cap PO WE [facility] Last Admin: 05/28/18 22:04 Dose: 1 cap Escitalopram Oxalate (Lexapro) 10 mg PO DAILY [facility] Last Admin: 05/30/18 09:54 Dose: 10 mg Famotidine (Pepcid) 20 mg PO DAILY [facility] Last Admin: 05/30/18 09:54 Dose: 20 mg Ferrous Gluconate (Fergon) 324 mg PO TID [facility] Last Admin: 05/30/18 09:54 Dose: 324 mg Folic Acid (Folic Acid) 1 mg PO DAILY [facility] Last Admin: 05/30/18 09:54 Dose: 1 mg Heparin Sodium (Porcine) (Heparin) 5,000 units SC Q12 [facility]; Protocol Last Admin: 05/30/18 09:54 Dose: 5,000 units Ceftriaxone Sodium 2 gm/ (Sodium Chloride) 100 mls @ 100 mls/hr IVPB DAILY [facility]; Protocol Last Admin: 05/30/18 09:55 Dose: 100 mls/hr Magnesium Oxide (Mag-Ox) 400 mg PO Q12 [facility] Last Admin: 05/30/18 09:54 Dose: 400 mg Midodrine (Proamatine) 5 mg PO TID [facility] Last Admin: 05/30/18 09:54 Dose: 5 mg Ondansetron HCl (Zofran Odt) 4 mg PO Q8 PRN PRN Reason: Nausea/Vomiting Saccharomyces Boulardii (Florastor) 250 mg PO BID [facility] Last Admin: 05/30/18 09:54 Dose: 250 mg Sodium Bicarbonate (Sodium Bicarbonate Tab) 1,300 mg PO Q12 [facility] Last Admin: 05/30/18 09:54 Dose: 1,300 mg - Labs Labs: - Additional Findings Additional findings: - Constitutional Appears: No Acute Distress - Head Exam Head Exam: ATRAUMATIC - Eye Exam Eye Exam: EOMI, PERRL - ENT Exam ENT Exam: Normal Oropharynx - Neck Exam Neck exam: Positive for: Full Rom - Respiratory Exam Respiratory Exam: Clear to Auscultation Bilateral, NORMAL BREATHING PATTERN - Cardiovascular Exam Cardiovascular Exam: RRR, +S1, +S2 - GI/Abdominal Exam GI & Abdominal Exam: Soft Additional comments: colostomy bag full of brown liquid ilesotomy bag full of urine no tenderness to palpation of the abdomen no guarding, no rebound - Extremities Exam Additional comments: right antecubital area with area of echymosis ? hematoma with fluctuation but not warm and not tender Neuro- AAO x 3 Laboratory Results - last 72 hr 05/27/18 05/28/18 05/28/18 21:04 05:50 05:50 WBC 4.3 L RBC 2.48 L Hgb 7.7 L Hct 23.0 L MCV 93.0 D MCH 31.2 H MCHC 33.6 RDW 20.7 H Plt Count 93 L Sodium 139 Potassium 3.6 Chloride 113 H Carbon Dioxide 22 Anion Gap 8 L BUN 29 H Creatinine 2.4 H Est GFR ( Amer) 24 Est GFR (Non-Af Amer) 20 Random Glucose 68 Calcium 7.4 L Total Bilirubin < 0.1 L AST 20 ALT 21 Alkaline Phosphatase 72 Total Protein 4.8 L Albumin 1.8 L Globulin 2.9 Albumin/Globulin Ratio 0.6 L Urine Color Yellow Urine Clarity Cloudy Urine pH 7.0 Ur Specific [place] 1.010 Urine Protein 30 Urine Glucose (UA) Neg Urine Ketones Negative Urine Blood Small Urine Nitrate Negative Urine Bilirubin Negative Urine Urobilinogen 0.2-1.0 Ur Leukocyte Esterase Large Urine RBC (Auto) 10 H Urine WBC Clumps (Auto) Occ H Urine Microscopic WBC 127 H Urine Bacteria Rare Blood Type Antibody Screen Antibody Identification Crossmatch BBK History Checked 05/28/18 05/29/18 11:51 07:15 WBC 4.8 RBC 3.10 L Hgb 9.8 L D Hct 29.1 L MCV 93.8 MCH 31.7 H MCHC 33.8 RDW 18.5 H Plt Count 90 L Sodium Potassium Chloride Carbon Dioxide Anion Gap BUN Creatinine Est GFR ( Amer) Est GFR (Non-Af Amer) Random Glucose Calcium Total Bilirubin AST ALT Alkaline Phosphatase Total Protein Albumin Globulin Albumin/Globulin Ratio Urine Color Urine Clarity Urine pH Ur Specific [place] Urine Protein Urine Glucose (UA) Urine Ketones Urine Blood Urine Nitrate Urine Bilirubin Urine Urobilinogen Ur Leukocyte Esterase Urine RBC (Auto) Urine WBC Clumps (Auto) Urine Microscopic WBC Urine Bacteria Blood Type O NEGATIVE Antibody Screen Positive Antibody Identification Anti K Crossmatch See Detail BBK History Checked Patient has bt Microbiology 05/26/18 16:00 Blood-Thru Central Line Blood Culture - Preliminary NO GROWTH AFTER 3 DAYS 05/26/18 15:45 Blood-Venous Blood Culture - Preliminary NO GROWTH AFTER 3 DAYS 05/27/18 21:04 Urine,Brooks Urine Culture - Final No Growth (<1,000 CFU/ML) 05/25/18 01:30 Blood Blood Culture - Final Escherichia Coli 05/25/18 01:30 Blood Gram Stain - Final 05/25/18 01:45 Blood Blood Culture - Final Escherichia Coli 05/25/18 01:45 Blood Gram Stain - Final Assessment and Plan (1) Bacteremia Status: Acute (2) Leukocytosis Status: Acute (3) Fever in adult Status: Acute (4) History of UTI Status: Acute (5) S/P colostomy Status: Chronic (6) S/P ileostomy Status: Chronic - Assessment and Plan (Free Text) Assessment: A/P- 72 year old female with multiple medical conditions including cervical ca s/p radiation and ctx s/p colostomy and ileostomy with h/o UTis and 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 afebrile leukocytosis has resolved. initial blood cx- e.coli pansensitive x 2 repeat blood cx one from port and other peripheral are both neg so far TTE- no mention of any vegetation as per report. urine cx- neg plan- day #2 od Iv ceftriaoxne for e.coli bacteremia was on 3 days of Iv meropnem prior to that hence total day 5 of 14 for GNR bacteremia treatment. needs 9 more days of abx theapy. d/w as well. all labs and medical chart notes reviewed. all above d/w patient and she verbalizes full understanding of all above and agrees with above plan of care.
--- NOTE | 2018-06-01 16:00 | DS ---
REASON FOR ADMISSION: This is a 72-year-old female with history of multiple medical problems who was admitted for acute on chronic kidney with dehydration and acidosis. COURSE OF HOSPITALIZATION: The patient was admitted to medical floor and she was started on IV fluid. While the patient was in the floor, she developed fever and found to have E. coli bacteremia. The patient was started on IV antibiotics and she had an ID consult done by Dr. Torres. The patient responded well and she remained afebrile. The patient also started physical therapy and was discharged to transitional care unit where she to continue IV antibiotics as well as physical therapy. FINAL DIAGNOSES: Dehydration, acute on chronic kidney, Escherichia coli bacteremia, urinary tract infection. [facility] MD Sunny
== END 2018-05-30 14:26 | DRG 682 ==
LOC: H.ER 10:54 → H.ERHOLD 14:10 → H.MEDSURG1 21:35
PROVIDERS: ADMIT Internal Medicine; ATTEND Internal Medicine
PROC: 30233N1 Transfusion of Nonautologous Red Blood Cells into Peripheral Vein, Percutaneous Approach (ICD-10-PCS; principal; 2018-05-28)
DX: N17.9 Acute kidney failure, unspecified (principal); A41.51 Sepsis due to Escherichia coli [E. coli]; E87.2 Acidosis; N39.0 Urinary tract infection, site not specified; Z68.1 Body mass index [BMI] 19.9 or less, adult; E86.0 Dehydration; Z93.3 Colostomy status; N18.3 Chronic kidney disease, stage 3 (moderate); D63.8 Anemia in other chronic diseases classified elsewhere; Z93.2 Ileostomy status; F03.90 Unspecified dementia, unspecified severity, without behavioral disturbance, psychotic disturbance, mood disturbance, and anxiety; I12.9 Hypertensive chronic kidney disease with stage 1 through stage 4 chronic kidney disease, or unspecified chronic kidney disease; S09.90XA Unspecified injury of head, initial encounter; Z85.41 Personal history of malignant neoplasm of cervix uteri; Z87.440 Personal history of urinary (tract) infections; Z87.891 Personal history of nicotine dependence; Z92.3 Personal history of irradiation; Z96.641 Presence of right artificial hip joint; F32.9 Major depressive disorder, single episode, unspecified; F45.9 Somatoform disorder, unspecified; R00.2 Palpitations; B96.89 Other specified bacterial agents as the cause of diseases classified elsewhere; E78.00 Pure hypercholesterolemia, unspecified; W19.XXXA Unspecified fall, initial encounter; Y93.9 Activity, unspecified; Y92.9 Unspecified place or not applicable

== ENCOUNTER 2018-05-29 13:49 | Inpatient (IN) | payer OTHER ==
[2018-05-30] MEDS: Cholestyramine 4 gm/Pkt UD PO SCH (16:41)
[2018-05-30] MEDS: Saccharomyces Boulardi 250 mg Cap PO SCH (16:41)
[2018-05-30] MEDS ORDERED: Potassium Chloride 20 mEq ER Tab PO SCH (21:00)
[2018-05-30] MEDS: Magnesium Oxide 400 mg Tab UD PO SCH (21:39)
[2018-05-31] MEDS: EPOETIN ALFA 10,000 UNIT/ML ML SC SCH (08:43)
[2018-05-31] MEDS: Cholestyramine 4 gm/Pkt UD PO SCH ×2 (08:43→16:48)
[2018-05-31] MEDS: Magnesium Oxide 400 mg Tab UD PO SCH ×2 (08:44→20:22)
[2018-05-31] MEDS: Saccharomyces Boulardi 250 mg Cap PO SCH ×2 (08:44→16:47)
[2018-05-31] MEDS ORDERED: cefTRIAXone 2 GM in Sodium Chloride 0.9% 100 ML IVPB SCH (09:00)
[2018-05-31] MEDS ORDERED: cefTRIAXone IV 1 gm in Dextros 50 ML BAG IVPB SCH (09:00)
[2018-05-31] MEDS: cefTRIAXone 2 GM in Sodium Chloride 0.9% 100 ML IVPB SCH (16:50)
[2018-06-01 08:23] LABS: MEAN CORPUSCULAR HEMOGLOBIN 31.7 pg (27.0-31.0); MEAN CORPUSCULAR HGB CONC 32.9 g/dL (33.0-37.0); RBC 3.15 Mil/uL (3.80-5.20); RED CELL DISTRIBUTION WIDTH 18.9 % (11.5-14.5)
[2018-06-01 08:30] LABS: MEAN CELL VOLUME 96.2 fl (81.0-99.0)
[2018-06-01] MEDS: Saccharomyces Boulardi 250 mg Cap PO SCH ×2 (08:57→16:40)
[2018-06-01] MEDS: Magnesium Oxide 400 mg Tab UD PO SCH ×2 (08:58→22:05)
[2018-06-01] MEDS: Cholestyramine 4 gm/Pkt UD PO SCH ×2 (08:59→16:40)
[2018-06-01] MEDS: cefTRIAXone 2 GM in Sodium Chloride 0.9% 100 ML IVPB SCH (16:39)
--- NOTE | 2018-06-01 18:51 | HP ---
HISTORY OF PRESENT ILLNESS: This is a 72-year-old female who is known to me with history of multiple medical problems who was admitted to transitional care unit at [facility] for deconditioning and physical therapy as well as completion of IV antibiotic therapy. The patient was recently diagnosed with E. coli bacteremia likely secondary to urinary tract infection. The patient was started on Rocephin that was needed to be continued for seven more days. REVIEW OF SYSTEMS: Positive for generalized weakness and dependent edema. Other review of systems is negative. ALLERGIES: POSITIVE FOR CIPROFLOXACIN AND VANCOMYCIN. MEDICATIONS: As per MAR and were ordered. SOCIAL HISTORY: No history of smoking, EtOH, or substance abuse. FAMILY HISTORY: Noncontributory. PAST MEDICAL HISTORY: Cancer uterine and cervix, status post surgery and radiation therapy with postradiation complications that led to the colostomy and urine diversion to a urostomy bag, chronic kidney disease, anemia of chronic disease, and metabolic acidosis. PHYSICAL EXAMINATION: GENERAL: The patient is in bed, not in any cardiopulmonary distress. VITAL SIGNS: Blood pressure 106/56, temperature 97.6, respiratory rate 20, and pulse 52. HEENT: Pupils equal, reactive to light. Normal-appearing mucosa of the conjunctivae, oropharyngeal and nasal membrane mucosa. NECK: Supple. No JVD. No carotid bruit. No lymph node. No thyromegaly. CHEST AND LUNGS: Bilateral symmetrical expansion. Good air exchange. No rales, no rhonchi. CARDIOVASCULAR: PMI not localized. S1, S2. No additional sounds. ABDOMEN: Normoactive bowel sounds. Colostomy bag and urostomy bags are in place. EXTREMITIES: Generalized dependent edema in both upper and lower extremities. TECHNICIAN HELPER INSTRUMENT: Alert, awake, oriented x2 and no neurological deficit could be appreciated. ASSESSMENT: Escherichia coli bacteremia, chronic kidney disease, metabolic acidosis, generalized debilitation and failure to thrive, and anemia of chronic disease. PLAN: Continue current antibiotics as ordered by infectious disease guidance consultant and Physical Therapy and Occupational Therapy and resume the patient's home medications. Greg Correa MD
[2018-06-02] MEDS: Magnesium Oxide 400 mg Tab UD PO SCH ×2 (10:00→22:36)
[2018-06-02] MEDS: Cholestyramine 4 gm/Pkt UD PO SCH ×2 (10:06→17:40)
[2018-06-02] MEDS: Saccharomyces Boulardi 250 mg Cap PO SCH ×2 (10:10→17:46)
[2018-06-02] MEDS: cefTRIAXone 2 GM in Sodium Chloride 0.9% 100 ML IVPB SCH (17:40)
[2018-06-03] MEDS: EPOETIN ALFA 10,000 UNIT/ML ML SC SCH (08:41)
[2018-06-03] MEDS: Saccharomyces Boulardi 250 mg Cap PO SCH ×2 (08:41→16:32)
[2018-06-03] MEDS: Cholestyramine 4 gm/Pkt UD PO SCH ×2 (08:42→16:32)
[2018-06-03] MEDS: Magnesium Oxide 400 mg Tab UD PO SCH ×2 (08:43→21:42)
--- NOTE | 2018-06-03 13:35 | PN ---
DATE: 06/02/2018 SUBJECTIVE: The patient was seen on 06/02/2018. She was not in any cardiopulmonary distress and decreasing edema. The patient is compliant with the physical therapy and occupational therapy. PHYSICAL EXAMINATION: VITAL SIGNS: Blood pressure 103/65, temperature 97.3, respiratory rate 20 and pulse 57. HEENT: Pupils equal, reactive to light. Normal-appearing mucosa of the conjunctivae, oropharynx and nasal membrane mucosa. NECK: Supple. No JVD. No carotid bruit. No lymph node. No thyromegaly. CHEST AND LUNGS: Bilateral symmetrical expansion. Good air exchange. No rales, no rhonchi. CARDIOVASCULAR SYSTEM: PMI not localized. S1, S2. No additional sounds. ABDOMEN: Normoactive bowel sounds. No tenderness. No organomegaly. No masses. EXTREMITIES: No cyanosis, no clubbing, no edema. CENTRAL NERVOUS SYSTEM: Alert, awake, oriented x2. No neurological deficit could be appreciated. ASSESSMENT: 1. Sepsis with bacteremia, which is controlled with current intravenous antibiotics. 2. Acute on chronic kidney disease. 3. History of cancer uterine cervix, status post surgery, radiation and colostomy and urine diversion into a urostomy bag. PLAN: Continue current medications and physical therapy, occupational therapy. Greg Correa MD
--- NOTE | 2018-06-03 18:55 | CP.PCM.CON ---
History of Present Illness - History of Present Illness History of Present Illness: Infectious Disease f/u consultation Note- HPI- 72 year old female with multiple medical conditions including cervical ca s/p radiation and ctx s/p colostomy and ileostomy with h/o UTis and VRE bacteremia in past ( treated), dehydration with IV hydration every 2 weeks through right chest port , who was found to be fewbrile with e.coli bactermia and has been on IV ceftriaxone for this and is doing much better and was transferred to TCU to complete her antibiotic regimen and to get Pt. pt. states she feels well and denies any fever or chill,s denies any abd. pain, denies any cough or sob, denies any chest pain. Review of Systems - Review of Systems Review of Systems: ROS- as stated in HPI Past Patient History - Infectious Disease Hx of Infectious Diseases: None - Past Medical History & Family History Past Medical History?: Yes - Past Social History Smoking Status: Former Smoker - CARDIAC Hx Hypercholesterolemia: Yes (Pt denies) Hx Hypertension: Yes (Pt denies) - PULMONARY Hx Respiratory Disorders: No - NEUROLOGICAL Hx Neurological Disorder: Yes Hx Dementia: Yes - HEENT Hx HEENT Problems: No - RENAL Hx Chronic Kidney Disease: Yes - ENDOCRINE/METABOLIC Hx Endocrine Disorders: No - HEMATOLOGICAL/ONCOLOGICAL Hx Anemia: Yes Hx Sickle Cell Disease: No - INTEGUMENTARY Hx Dermatological Problems: No - MUSCULOSKELETAL/RHEUMATOLOGICAL Hx Musculoskeletal Disorders: Yes Hx Falls: Yes - GASTROINTESTINAL Hx Gastrointestinal Disorders: Yes Hx Colostomy: Yes Hx Ileostomy: Yes Other/Comment: Ileostomy - GENITOURINARY/GYNECOLOGICAL Hx Genitourinary Disorders: Yes Hx Cervical Cancer: Yes Other/Comment: Chronic kidney disease - PSYCHIATRIC Hx Depression: Yes Hx Substance Use: No - SURGICAL HISTORY Hx Surgeries: Yes Hx Joint Replacement: Yes (R hip replacement) Other/Comment: Left Urostomy;R earline cath, R colostomy - ANESTHESIA Hx Anesthesia: Yes Hx Anesthesia Reactions: No Hx Malignant Hyperthermia: No Meds Allergies/Adverse Reactions: Allergies Allergy/AdvReac Type Severity Reaction Status Date / Time ciprofloxacin [From Cipro] Allergy RASH Verified 05/30/18 14:31 ciprofloxacin HCl Allergy RASH Verified 05/30/18 14:31 [From Cipro] vancomycin Allergy RASH Verified 05/30/18 14:31 - Medications Medications: Current Medications Acetaminophen (Tylenol 325mg Tab) 650 mg PO Q6 PRN PRN Reason: Headache Last Admin: 06/03/18 10:35 Dose: 650 mg Calcitriol (Rocaltrol) 0.25 mcg PO Q12 [facility] Last Admin: 06/03/18 08:42 Dose: 0.25 mcg Cholestyramine Resin (Questran) 4 gm PO BID [facility] Last Admin: 06/03/18 16:32 Dose: 4 gm Epoetin Audi (Procrit) 10,000 unit SC TTS [facility] Last Admin: 06/03/18 08:41 Dose: 10,000 unit Ergocalciferol (Drisdol 50,000 Intl Units Cap) 1 cap PO WE [facility] Escitalopram Oxalate (Lexapro) 10 mg PO DAILY [facility] Last Admin: 06/03/18 08:42 Dose: 10 mg Famotidine (Pepcid) 20 mg PO DAILY [facility] Last Admin: 06/03/18 08:43 Dose: 20 mg Ferrous Gluconate (Fergon) 324 mg PO TID [facility] Last Admin: 06/03/18 16:31 Dose: 324 mg Folic Acid (Folic Acid) 1 mg PO DAILY [facility] Last Admin: 06/03/18 08:43 Dose: 1 mg Heparin Sodium (Porcine) (Heparin) 5,000 units SC Q12 [facility]; Protocol Last Admin: 06/03/18 08:43 Dose: 5,000 units Ceftriaxone Sodium 1 gm/ (Sodium Chloride) 100 mls @ 100 mls/hr IVPB DAILY@1700 [facility]; Protocol Last Admin: 06/03/18 16:30 Dose: 100 mls/hr Magnesium Oxide (Mag-Ox) 400 mg PO Q12 [facility] Last Admin: 06/03/18 08:43 Dose: 400 mg Midodrine (Proamatine) 5 mg PO TID [facility] Last Admin: 06/03/18 16:31 Dose: 5 mg Nystatin (Nystop Topical Powder) 1 applic TOP TID [facility] Last Admin: 06/03/18 16:32 Dose: 1 applic Ondansetron HCl (Zofran Odt) 4 mg PO Q8 PRN PRN Reason: Nausea/Vomiting Saccharomyces Boulardii (Florastor) 250 mg PO BID [facility] Last Admin: 06/03/18 16:32 Dose: 250 mg Sodium Bicarbonate (Sodium Bicarbonate Tab) 1,300 mg PO Q12 [facility] Last Admin: 06/03/18 08:42 Dose: 1,300 mg Physical Exam - Constitutional Appears: Non-toxic - Head Exam Head Exam: ATRAUMATIC - Eye Exam Eye Exam: EOMI, PERRL - ENT Exam ENT Exam: Normal Oropharynx - Neck Exam Neck exam: Positive for: Full Rom - Respiratory Exam Respiratory Exam: Clear to Auscultation Bilateral, NORMAL BREATHING PATTERN - Cardiovascular Exam Cardiovascular Exam: RRR, +S1, +S2 - GI/Abdominal Exam GI & Abdominal Exam: Normal Bowel Sounds, Soft Additional comments: colostomy bag intact and has more formed stool ilesotomy bag was just changed and is clean no erythema in the surrounding region - Extremities Exam Extremities exam: Positive for: normal inspection - Neurological Exam Neurological exam: Alert, Oriented x3 Results - Vital Signs Recent Vital Signs: Last Vital Signs Temp 97.5 F L 06/03/18 16:54 Pulse 52 L 06/03/18 16:54 Resp 20 06/03/18 16:54 BP 132/69 06/03/18 16:54 Pulse Ox 98 06/03/18 16:54 - Labs Result Diagrams: 06/01/18 07:00 06/01/18 07:00 Labs: Microbiology 05/27/18 21:04 Urine,Brooks Urine Culture - Final No Growth (<1,000 CFU/ML) 05/26/18 16:00 Blood-Thru Central Line Blood Culture - Final 05/26/18 16:00 Blood-Thru Central Line Gram Stain - Final NO GROWTH AFTER 5 DAYS TEST NOT PERFORMED 05/26/18 15:45 Blood-Venous Blood Culture - Final 05/26/18 15:45 Blood-Venous Gram Stain - Final NO GROWTH AFTER 5 DAYS TEST NOT PERFORMED 05/25/18 01:45 Blood Blood Culture - Final 05/25/18 01:45 Blood Gram Stain - Final Escherichia Coli 05/25/18 01:30 Blood Blood Culture - Final 05/25/18 01:30 Blood Gram Stain - Final Escherichia Coli Assessment & Plan (1) Bacteremia Status: Acute - Assessment and Plan (Free Text) Assessment: A/P- 72 year old female with multiple medical conditions including cervical ca s/p radiation and ctx s/p colostomy and ileostomy with h/o UTis and 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 afebrile leukocytosis has resolved. initial blood cx- e.coli pansensitive x 2 repeat blood cx - neg x 4 TTE- no mention of any vegetation as per report. urine cx- neg plan- day #6 of Iv ceftriaoxne for e.coli bacteremia was on 3 days of Iv meropnem prior to that hence total day 9 of 14 for GNR bacteremia treatment. needs 5 more days of abx therapy. reduce ceftriaxone to 1 gram IV daily for 5 more days.
[2018-06-04] MEDS: Saccharomyces Boulardi 250 mg Cap PO SCH ×2 (08:40→16:49)
[2018-06-04] MEDS: Magnesium Oxide 400 mg Tab UD PO SCH ×2 (08:41→21:10)
[2018-06-04] MEDS: Cholestyramine 4 gm/Pkt UD PO SCH ×2 (08:42→17:38)
[2018-06-04] MEDS ORDERED: Ergocalciferol 50,000 Intl Units Cap PO SCH (14:43)
--- NOTE | 2018-06-04 15:12 | CP.PCM.PN ---
Subjective - Date & Time of Evaluation Date of Evaluation: 06/04/18 Time of Evaluation: 15:09 - Subjective Subjective: ID Note- Pt. seen and examined. no change since yesterday. pt's daughter called me earlier today stating that her mom is having halluc inations and she thinks it's from IV antibiotics. explaisn to the daughter that it's very unlikely as hallucinations are not known side effect of ceftriaxone and she is only on 1 gram daily now and that she only has 3 more days of the IV abx and that only oral option ic cipro to which pt. is allergic to . pt. is able to answer my questions and she might get confusion from sepsis itself and dehydration and etc. Objective - Vital Signs/Intake and Output Vital Signs (last 24 hours): Temp Pulse Resp BP Pulse Ox 97.7 F 74 20 85/46 L 97 06/04/18 07:52 06/04/18 07:52 06/04/18 07:52 06/04/18 07:52 06/04/18 07:52 - Medications Medications: Current Medications Acetaminophen (Tylenol 325mg Tab) 650 mg PO Q6 PRN PRN Reason: Headache Last Admin: 06/03/18 10:35 Dose: 650 mg Calcitriol (Rocaltrol) 0.25 mcg PO Q12 [facility] Last Admin: 06/04/18 08:42 Dose: 0.25 mcg Cholestyramine Resin (Questran) 4 gm PO BID [facility] Last Admin: 06/04/18 08:42 Dose: 4 gm Epoetin Audi (Procrit) 10,000 unit SC TTS [facility] Last Admin: 06/03/18 08:41 Dose: 10,000 unit Ergocalciferol (Drisdol 50,000 Intl Units Cap) 1 cap PO WE [facility] Last Admin: 06/04/18 14:59 Dose: 1 cap Escitalopram Oxalate (Lexapro) 10 mg PO DAILY [facility] Last Admin: 06/04/18 08:41 Dose: 10 mg Famotidine (Pepcid) 20 mg PO DAILY [facility] Last Admin: 06/04/18 08:42 Dose: 20 mg Ferrous Gluconate (Fergon) 324 mg PO TID [facility] Last Admin: 06/04/18 12:33 Dose: 324 mg Folic Acid (Folic Acid) 1 mg PO DAILY [facility] Last Admin: 06/04/18 08:41 Dose: 1 mg Heparin Sodium (Porcine) (Heparin) 5,000 units SC Q12 [facility]; Protocol Last Admin: 06/04/18 08:41 Dose: 5,000 units Ceftriaxone Sodium 1 gm/ (Sodium Chloride) 100 mls @ 100 mls/hr IVPB DAILY@1700 [facility]; Protocol Last Admin: 06/03/18 16:30 Dose: 100 mls/hr Magnesium Oxide (Mag-Ox) 400 mg PO Q12 [facility] Last Admin: 06/04/18 08:41 Dose: 400 mg Midodrine (Proamatine) 5 mg PO TID [facility] Last Admin: 06/04/18 12:32 Dose: 5 mg Nystatin (Nystop Topical Powder) 1 applic TOP TID [facility] Last Admin: 06/04/18 12:34 Dose: 1 applic Ondansetron HCl (Zofran Odt) 4 mg PO Q8 PRN PRN Reason: Nausea/Vomiting Saccharomyces Boulardii (Florastor) 250 mg PO BID [facility] Last Admin: 06/04/18 08:40 Dose: 250 mg Sodium Bicarbonate (Sodium Bicarbonate Tab) 1,300 mg PO Q12 [facility] Last Admin: 06/04/18 08:43 Dose: 1,300 mg - Labs Labs: - Additional Findings Additional findings: - Constitutional Appears: Non-toxic - Head Exam Head Exam: ATRAUMATIC - Eye Exam Eye Exam: EOMI, PERRL - ENT Exam ENT Exam: Normal Oropharynx - Neck Exam Neck exam: Positive for: Full Rom - Respiratory Exam Respiratory Exam: Clear to Auscultation Bilateral, NORMAL BREATHING PATTERN - Cardiovascular Exam Cardiovascular Exam: RRR, +S1, +S2 - GI/Abdominal Exam GI & Abdominal Exam: Normal Bowel Sounds, Soft Additional comments: colostomy bag intact and has more formed stool ilesotomy bag was just changed and is clean no erythema in the surrounding region - Extremities Exam Extremities exam: Positive for: normal inspection - Neurological Exam Neurological exam: Alert, awake and answers my questions Skin- no rash Microbiology 05/27/18 21:04 Urine,Brooks Urine Culture - Final No Growth (<1,000 CFU/ML) 05/26/18 16:00 Blood-Thru Central Line Blood Culture - Final 05/26/18 16:00 Blood-Thru Central Line Gram Stain - Final NO GROWTH AFTER 5 DAYS TEST NOT PERFORMED 05/26/18 15:45 Blood-Venous Blood Culture - Final 05/26/18 15:45 Blood-Venous Gram Stain - Final NO GROWTH AFTER 5 DAYS TEST NOT PERFORMED 05/25/18 01:45 Blood Blood Culture - Final 05/25/18 01:45 Blood Gram Stain - Final Escherichia Coli 05/25/18 01:30 Blood Blood Culture - Final 05/25/18 01:30 Blood Gram Stain - Final Escherichia Coli Assessment and Plan (1) Bacteremia Status: Acute - Assessment and Plan (Free Text) Assessment: A/P- 72 year old female with multiple medical conditions including cervical ca s/p radiation and ctx s/p colostomy and ileostomy with h/o UTis and 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 afebrile leukocytosis has resolved. initial blood cx- e.coli pansensitive x 2 repeat blood cx - neg x 2 TTE- no mention of any vegetation as per report. urine cx- neg plan- advise to continue with Iv ceftriaoxne day #7, for e.coli bacteremia was on 3 days of Iv meropenem prior to that hence total day 10 of 14 for GNR bacteremia t reatment. needs 4 more days of abx therapy. case d/w pt's daughter at length and advise no good oral options , however advised if she is adamant about d/c IV antibiotics then to speak with . daughter agrees to continuing with IV ceftriaxone for another few days. advised pt's daughter that GNR bacteremia is serious infection and requires IV abx specailly since pt. has both colostomy abdn Ileostomy and would not absorb oral antibiotics well. pt's daughter verbalizes full understanding of this. All above also d/w who agrees with above.
[2018-06-05 06:53] LABS: HEMOGLOBIN 9.9 g/dL (12.0-16.0); MEAN CELL VOLUME 97.1 fl (81.0-99.0); RED CELL DISTRIBUTION WIDTH 18.9 % (11.5-14.5); WHITE BLOOD COUNT 5.6 K/uL (4.8-10.8)
[2018-06-05 07:35] LABS: ALB/GLOB RATIO 0.7 (1.0-2.1); ALBUMIN 2.5 g/dL (3.5-5.0); CALCIUM 9.3 mg/dL (8.4-10.2)
[2018-06-05] MEDS: Cholestyramine 4 gm/Pkt UD PO SCH ×2 (09:01→17:33)
[2018-06-05] MEDS: EPOETIN ALFA 10,000 UNIT/ML ML SC SCH (09:02)
[2018-06-05] MEDS: Magnesium Oxide 400 mg Tab UD PO SCH ×2 (09:03→21:44)
[2018-06-05] MEDS: Saccharomyces Boulardi 250 mg Cap PO SCH ×2 (09:03→17:33)
[2018-06-06] MEDS: Saccharomyces Boulardi 250 mg Cap PO SCH ×2 (08:59→17:03)
[2018-06-06] MEDS: Magnesium Oxide 400 mg Tab UD PO SCH ×2 (09:00→20:26)
[2018-06-06] MEDS: Cholestyramine 4 gm/Pkt UD PO SCH ×2 (09:01→17:03)
[2018-06-07] MEDS: Saccharomyces Boulardi 250 mg Cap PO SCH ×2 (08:50→16:55)
[2018-06-07] MEDS: Magnesium Oxide 400 mg Tab UD PO SCH ×2 (08:51→21:56)
[2018-06-07] MEDS: EPOETIN ALFA 10,000 UNIT/ML ML SC SCH (08:51)
[2018-06-07] MEDS: Cholestyramine 4 gm/Pkt UD PO SCH ×2 (08:52→16:55)
[2018-06-07 15:47] VITALS: RESP 20
--- NOTE | 2018-06-07 17:19 | PN ---
DATE: 06/04/2018 SUBJECTIVE: The patient was seen on 06/04/2018 and she had mild confusion. PHYSICAL EXAMINATION: VITAL SIGNS: Blood pressure 85/46, temperature 97.7, respiratory rate 20, and pulse 74. HEENT: Pupils equal, reactive to light. Normal appearing mucosa of the conjunctivae, no abnormality in the nasal mucosa or the oropharynx. NECK: Supple. No JVD. No carotid bruit. No lymph node. No thyromegaly. CHEST AND LUNGS: Bilateral symmetrical expansion. Good air exchange. No rales, no rhonchi. CARDIOVASCULAR: PMI not localized. S1, S2. No additional sounds. ABDOMEN: Colostomy and urostomy bags in place. EXTREMITIES: No cyanosis, no clubbing, no edema. CENTRAL NERVOUS SYSTEM: Disoriented to person and time, but oriented to place and no neurological deficits could be appreciated. ASSESSMENT AND PLAN: 1. Acute on chronic renal failure. 2. Anemia of chronic disease. 3. Metabolic acidosis. PLAN: We will order a CAT scan of the head and order blood work and monitor patient closely. Greg Correa MD
[2018-06-08 07:22] LABS: HEMOGLOBIN 10.3 g/dL (12.0-16.0); MEAN CORPUSCULAR HEMOGLOBIN 32.9 pg (27.0-31.0); MEAN CORPUSCULAR HGB CONC 32.6 g/dL (33.0-37.0); RBC 3.14 Mil/uL (3.80-5.20); RED CELL DISTRIBUTION WIDTH 22.6 % (11.5-14.5); WHITE BLOOD COUNT 4.6 K/uL (4.8-10.8)
[2018-06-08 08:04] LABS: CALCIUM 8.8 mg/dL (8.4-10.2)
[2018-06-08] MEDS: Saccharomyces Boulardi 250 mg Cap PO SCH ×2 (08:50→16:55)
[2018-06-08] MEDS: Magnesium Oxide 400 mg Tab UD PO SCH ×2 (08:52→23:35)
[2018-06-08] MEDS: Cholestyramine 4 gm/Pkt UD PO SCH ×2 (08:52→16:55)
[2018-06-08] MEDS ORDERED: Sod Polystyrene Sulf 15 gm/60 ml Susp PO ONE (09:45)
[2018-06-09 06:58] LABS: CALCIUM 8.8 mg/dL (8.4-10.2)
--- NOTE | 2018-06-09 08:20 | PN ---
DATE: 06/07/2018 SUBJECTIVE: The patient was seen today on 06/07/2018. She is more awake and alert. PHYSICAL EXAMINATION: VITAL SIGNS: Blood pressure 95/56, temperature 97.9, respiratory rate 18, and pulse 51. HEENT: Pupils equal, reactive to light. Normal-appearing mucosa of the conjunctivae, oropharynx and nasal membrane mucosa. NECK: Supple. No JVD. No carotid bruit. No lymph node. No thyromegaly. CHEST AND LUNGS: Bilateral symmetrical expansion. Good air exchange. No rales, no rhonchi. CARDIOVASCULAR: PMI not localized. S1, S2. No additional sounds. ABDOMEN: Colostomy bag and urostomy bag in place. EXTREMITIES: No cyanosis, no clubbing, no edema. SHOP ASSISTANT: Alert, awake, oriented x2 and moves all extremities equally. IMAGING STUDIES: CAT scan of the head done showed small cerebrovascular disease as well as moderate atrophy of the brain. ASSESSMENT: 1. Vascular dementia. 2. Metabolic acidosis. 3. Acute on chronic kidney disease. 4. Status post uterine cancer, cervix surgery, and radiation therapy with colostomy and urostomy bag. PLAN: Continue current medications and IV fluid therapy. Continue physical therapy. Greg Correa MD
[2018-06-09] MEDS: Saccharomyces Boulardi 250 mg Cap PO SCH ×2 (08:56→16:34)
[2018-06-09] MEDS: Cholestyramine 4 gm/Pkt UD PO SCH ×2 (08:56→16:34)
[2018-06-09] MEDS: Magnesium Oxide 400 mg Tab UD PO SCH ×2 (09:00→20:28)
--- NOTE | 2018-06-09 12:28 | CP.PCM.PN ---
Subjective - Date & Time of Evaluation Date of Evaluation: 06/09/18 Time of Evaluation: 12:28 - Subjective Subjective: ID note- Pt. seen and examined today in TCU. pt. awake and answers my questions and she denies any fever or chills. Objective - Vital Signs/Intake and Output Vital Signs (last 24 hours): Temp Pulse Resp BP Pulse Ox 97.6 F 63 20 110/62 98 06/09/18 07:47 06/09/18 07:47 06/09/18 07:47 06/09/18 07:47 06/09/18 07:47 - Medications Medications: Current Medications Acetaminophen (Tylenol 325mg Tab) 650 mg PO Q6 PRN PRN Reason: Headache Last Admin: 06/03/18 10:35 Dose: 650 mg Calcitriol (Rocaltrol) 0.25 mcg PO Q12 [facility] Last Admin: 06/09/18 08:58 Dose: 0.25 mcg Cholestyramine Resin (Questran) 4 gm PO BID [facility] Last Admin: 06/09/18 08:56 Dose: 4 gm Epoetin Audi (Procrit) 10,000 unit SC TTS [facility] Last Admin: 06/07/18 08:51 Dose: 10,000 unit Ergocalciferol (Drisdol 50,000 Intl Units Cap) 1 cap PO WE [facility] Last Admin: 06/04/18 14:59 Dose: 1 cap Escitalopram Oxalate (Lexapro) 10 mg PO DAILY [facility] Last Admin: 06/09/18 08:59 Dose: 10 mg Famotidine (Pepcid) 20 mg PO DAILY [facility] Last Admin: 06/09/18 09:01 Dose: 20 mg Ferrous Gluconate (Fergon) 324 mg PO TID [facility] Last Admin: 06/09/18 12:06 Dose: 324 mg Folic Acid (Folic Acid) 1 mg PO DAILY [facility] Last Admin: 06/09/18 08:56 Dose: 1 mg Heparin Sodium (Porcine) (Heparin) 5,000 units SC Q12 [facility]; Protocol Last Admin: 06/09/18 08:54 Dose: 5,000 units Magnesium Oxide (Mag-Ox) 400 mg PO Q12 [facility] Last Admin: 06/09/18 09:00 Dose: 400 mg Midodrine (Proamatine) 5 mg PO TID [facility] Last Admin: 06/09/18 12:06 Dose: 5 mg Nystatin (Nystop Topical Powder) 1 applic TOP TID [facility] Last Admin: 06/09/18 12:06 Dose: 1 applic Ondansetron HCl (Zofran Odt) 4 mg PO Q8 PRN PRN Reason: Nausea/Vomiting Saccharomyces Boulardii (Florastor) 250 mg PO BID [facility] Last Admin: 06/09/18 08:56 Dose: 250 mg Sodium Bicarbonate (Sodium Bicarbonate Tab) 1,300 mg PO Q12 [facility] Last Admin: 06/09/18 08:56 Dose: 1,300 mg - Labs Labs: - Additional Findings Additional findings: - Constitutional Appears: Non-toxic - Head Exam Head Exam: ATRAUMATIC - Eye Exam Eye Exam: EOMI, PERRL - ENT Exam ENT Exam: Normal Oropharynx - Neck Exam Neck exam: Positive for: Full Rom - Respiratory Exam Respiratory Exam: Clear to Auscultation Bilateral, NORMAL BREATHING PATTERN - Cardiovascular Exam Cardiovascular Exam: RRR, +S1, +S2 - GI/Abdominal Exam GI & Abdominal Exam: Normal Bowel Sounds, Soft Additional comments: colostomy bag intact and has more formed stool ilesotomy bag intact and has yellow fluid no erythema in the surrounding region - Extremities Exam Extremities exam: Positive for: normal inspection - Neurological Exam Neurological exam: Alert, awake and answers my questions Laboratory Results - last 72 hr 06/08/18 06/08/18 06/09/18 05:30 05:30 05:45 WBC 4.6 L RBC 3.14 L Hgb 10.3 L Hct 31.7 L MCV 101.0 H D MCH 32.9 H MCHC 32.6 L RDW 22.6 H Plt Count 184 Sodium 136 139 Potassium 5.9 H 4.8 Chloride 105 106 Carbon Dioxide 27 28 Anion Gap 10 10 BUN 39 H 38 H Creatinine 2.8 H 2.8 H Est GFR ( Amer) 20 20 Est GFR (Non-Af Amer) 17 17 Random Glucose 65 69 Calcium 8.8 8.8 Microbiology 05/27/18 21:04 Urine,Brooks Urine Culture - Final No Growth (<1,000 CFU/ML) 05/26/18 16:00 Blood-Thru Central Line Blood Culture - Final 05/26/18 16:00 Blood-Thru Central Line Gram Stain - Final NO GROWTH AFTER 5 DAYS TEST NOT PERFORMED 05/26/18 15:45 Blood-Venous Blood Culture - Final 05/26/18 15:45 Blood-Venous Gram Stain - Final NO GROWTH AFTER 5 DAYS TEST NOT PERFORMED 05/25/18 01:45 Blood Blood Culture - Final 05/25/18 01:45 Blood Gram Stain - Final Escherichia Coli 05/25/18 01:30 Blood Blood Culture - Final 05/25/18 01:30 Blood Gram Stain - Final Escherichia Coli 04/03/18 05:09 Urine Urine Culture - Final Klebsiella Oxytoca 04/03/18 01:30 Blood Blood Culture - Final 04/03/18 01:30 Blood Gram Stain - Final NO GROWTH AFTER 5 DAYS TEST NOT PERFORMED 04/03/18 01:00 Blood Blood Culture - Final 04/03/18 01:00 Blood Gram Stain - Final NO GROWTH AFTER 5 DAYS TEST NOT PERFORMED Assessment and Plan (1) Bacteremia Status: Acute - Assessment and Plan (Free Text) Assessment: A/P- 72 year old female with multiple medical conditions including cervical ca s/p radiation and ctx s/p colostomy and ileostomy with h/o UTis and 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 afebrile leukocytosis has resolved. initial blood cx- e.coli pansensitive x 2 repeat blood cx - neg x 2 TTE- no mention of any vegetation as per report. urine cx- neg plan- has completed total of 14 days of IV abx for e.coli bacteremia treatment. repeat blood cx- negative remains afebrile and normal wbc count. will sign off the case at this time. Please re-consult PRN. All above also d/w who agrees with above.
--- NOTE | 2018-06-10 00:21 | PN ---
DATE: 06/09/2018 SUBJECTIVE: The patient is seen today, 06/09/2018. She is not in any cardiopulmonary distress. PHYSICAL EXAMINATION: VITAL SIGNS: Blood pressure 110/62, temperature 97.6, respiratory rate 20, and pulse 63. HEENT: Pupils equal and reactive to light. Normal-appearing mucosa of the conjunctivae, oropharynx, and nasal membrane mucosa. NECK: Supple. No JVD. No carotid bruit. No lymph node. No thyromegaly. CHEST AND LUNGS: Bilateral symmetrical expansion. Good air exchange. No rales, no rhonchi. CARDIOVASCULAR: PMI not localized. S1, S2. No additional sounds. ABDOMEN: Normoactive bowel sounds. No tenderness. No organomegaly. No masses. EXTREMITIES: No cyanosis, no clubbing, no edema. MARKETING SPECIALIST: Alert, awake, oriented x2. Moves all extremities equally. ASSESSMENT: 1. Acute on chronic kidney disease. 2. Metabolic acidosis, status post bacteremia that was treated with IV antibiotics. PLAN: Continue current medications and management and follow up with discharge planning. Greg Correa MD
[2018-06-10] MEDS: Saccharomyces Boulardi 250 mg Cap PO SCH ×2 (08:22→16:09)
[2018-06-10] MEDS: Magnesium Oxide 400 mg Tab UD PO SCH ×2 (08:23→20:08)
[2018-06-10] MEDS: Cholestyramine 4 gm/Pkt UD PO SCH ×2 (08:24→16:09)
[2018-06-10] MEDS: EPOETIN ALFA 10,000 UNIT/ML ML SC SCH (08:24)
[2018-06-11 08:15] VITALS: BP 134/74; PULSE 61; TEMP 97.2; O2SAT 99
[2018-06-11] MEDS: Cholestyramine 4 gm/Pkt UD PO SCH (08:53)
[2018-06-11] MEDS: Magnesium Oxide 400 mg Tab UD PO SCH (08:54)
[2018-06-11] MEDS: Saccharomyces Boulardi 250 mg Cap PO SCH (09:03)
== END 2018-06-11 14:59 | disposition home or self-care (01) | DRG 872 ==
LOC: H.TCU 05-30 14:38
PROVIDERS: ADMIT Internal Medicine; ATTEND Internal Medicine
PROC: F08Z1FZ Dressing Techniques Treatment using Assistive, Adaptive, Supportive or Protective Equipment (ICD-10-PCS; principal; 2018-05-30)
PROC: F07Z9FZ Gait Training/Functional Ambulation Treatment using Assistive, Adaptive, Supportive or Protective Equipment (ICD-10-PCS; 2018-05-30)
PROC: F07L6GZ Therapeutic Exercise Treatment of Musculoskeletal System - Lower Back / Lower Extremity using Aerobic Endurance and Conditioning Equipment (ICD-10-PCS; 2018-05-30)
PROC: F07Z8FZ Transfer Training Treatment using Assistive, Adaptive, Supportive or Protective Equipment (ICD-10-PCS; 2018-05-30)
DX: A41.51 Sepsis due to Escherichia coli [E. coli] (principal); E87.2 Acidosis; N17.9 Acute kidney failure, unspecified; F01.50 Vascular dementia, unspecified severity, without behavioral disturbance, psychotic disturbance, mood disturbance, and anxiety; Z85.41 Personal history of malignant neoplasm of cervix uteri; Z93.3 Colostomy status; Z87.891 Personal history of nicotine dependence; Z93.6 Other artificial openings of urinary tract status; D63.8 Anemia in other chronic diseases classified elsewhere; R62.7 Adult failure to thrive; Z85.42 Personal history of malignant neoplasm of other parts of uterus; Z96.641 Presence of right artificial hip joint; N18.9 Chronic kidney disease, unspecified; Z88.1 Allergy status to other antibiotic agents; Z88.3 Allergy status to other anti-infective agents

== ENCOUNTER 2018-07-07 09:28 | Observation (INO) | payer MEDICARE, OTHER ==
[2018-07-07 09:29] VITALS: BMI 17.5
[2018-07-07] MEDS ORDERED: Sodium Chloride 0.9% 1,000 ML IV STA (10:01)
--- NOTE | 2018-07-07 10:05 | ED PDOC ---
Syncope/Near Syncope/Dizziness Time Seen by Provider: 07/07/18 09:37 Chief Complaint (Nursing): Weakness/Neurological Deficit History Per: Family Onset/Duration Of Symptoms: Hrs (1) Current Symptoms Are (Timing): Better Associated Symptoms Preceding Syncopal Episode: No Predromal Symptoms (Sudden Onset) Seizure Or Post-ictal Symptoms: None Fall Associated With With Symptoms: No Additional Complaint(s): Brought by EMS after pt experienced syncopal episode while getting into car. Witnessed by family member, pt became weak and disoriented, unresponsive for few seconds. Pt normally comes for outpt hydration today. Pt has no recollection of episode but c/o generalized weakness. Denies chest pain, palpitations, dizziness, headache or focal weakness. NIHSS Stroke Scale - How Severe is the Stroke Level of Consciousness: 1=Drowsy LOC to Questions: 0=Both comments correct LOC to commands: 0=Obeys both correctly Best Gaze: 0=Normal Visual: 0=No visual loss Facial: 0=Normal Motor Arm - Left: 0=No drift Motor Arm - Right: 0=No drift Motor Leg - Left: 0=No drift Motor Leg - Right: 0=No drift Limb Ataxia: 0=Absent Sensory: 0=Normal Best Language: 0=No aphasia Dysarthia: 0=Normal articulation Extinction & Inattention (Neglect): 0=Normal, no object Score: 1 Past Medical History Vital Signs: Last Vital Signs Temp Pulse 95 H 07/07/18 09:46 Resp 17 07/07/18 09:46 BP 84/65 L 07/07/18 09:46 Pulse Ox - Medical History PMH: Anemia, Dementia, Depression, Deep Vein Thrombosis, HTN (Pt denies), Hypercholesterolemia (Pt denies), Malignancy (Cervical), Chronic Kidney Disease Denies: HIV, Sickle Cell Disease - Surgical History Other surgeries: Colstomy, ileostomy - Family History Family History: States: Unknown Family Hx - Home Medications Home Medications: Ambulatory Orders Medication Instructions Recorded Folic Acid 1 mg PO DAILY #7 tab 10/04/16 Escitalopram [Lexapro] 10 mg PO DAILY 03/28/17 Calcitriol [Rocaltrol] 0.25 mcg PO Q12 12/27/17 Magnesium Oxide [Magox 400] 400 mg PO Q12 12/27/17 Ferrous Gluconate [Fergon] 324 mg PO TID tab 04/08/18 Famotidine [Pepcid] 20 mg PO DAILY 04/21/18 Ergocalciferol [Drisdol 50,000 50,000 unit PO WE 05/19/18 Intl Units Cap] Potassium Chloride [K-Dur 20 mEq 20 meq PO Q12 05/19/18 ER Tab] Sodium Bicarbonate Tab 1,300 mg PO Q12 05/19/18 Midodrine [Proamatine] 5 mg PO TID #60 tab 05/23/18 Daktarin 20 gr EXT ASDIR 06/20/18 Epoetin Audi [Procrit] 10,000 unit SC .2X/WEEK 06/20/18 - Allergies Allergies/Adverse Reactions: Allergies Allergy/AdvReac Type Severity Reaction Status Date / Time ciprofloxacin [From Cipro] Allergy RASH Verified 06/30/18 10:51 ciprofloxacin HCl Allergy RASH Verified 06/30/18 10:51 [From Cipro] vancomycin Allergy RASH Verified 06/30/18 10:51 Review of Systems ROS Statement: Except As Marked, All Systems Reviewed And Found Negative Constitutional: Positive for: Weakness. Negative for: Fever Cardiovascular: Negative for: Chest Pain, Palpitations Gastrointestinal: Negative for: Vomiting, Abdominal Pain Neurological: Negative for: Weakness, Numbness, Headache Physical Exam - Reviewed Nursing Documentation Reviewed: Yes Vital Signs Reviewed: Yes - Physical Exam Appears: Positive for: Non-toxic, No Acute Distress Head Exam: Positive for: ATRAUMATIC, NORMAL INSPECTION, NORMOCEPHALIC Skin: Positive for: Normal Color, Warm, DRY Eye Exam: Positive for: EOMI, Normal appearance, PERRL ENT: Positive for: Other (Mucous membranes dry) Neck: Positive for: Normal, Painless ROM Cardiovascular/Chest: Positive for: Regular Rate, Rhythm Respiratory: Positive for: CNT, Normal Breath Sounds Gastrointestinal/Abdominal: Positive for: Normal Exam, Soft, Other (Colostmy and ileostomy filled with stool and urine). Negative for: Tenderness Back: Positive for: Normal Inspection Extremity: Positive for: Normal ROM Neurologic/Psych: Positive for: Alert, Oriented. Negative for: Motor/Sensory Deficits - Laboratory Results Result Diagrams: 07/07/18 11:50 07/07/18 11:50 Disposition - Clinical Impression Clinical Impression: Syncope, Dehydration - Patient ED Disposition Is Patient to be Admitted: Yes - Disposition Disposition Time: 12:59 Condition: FAIR Forms: [facility] (Turkmen) - Pt Status Changed To: Hospital Disposition Of: Observation - POA Present On Arrival: None
--- NOTE | 2018-07-07 11:07 | CT ---
Date of service: 07/07/2018 PROCEDURE: CT HEAD WITHOUT CONTRAST. HISTORY: r/o bleed COMPARISON: None available. TECHNIQUE: Axial computed tomography images were obtained through the head/brain without intravenous contrast. Radiation dose: Total exam DLP = 716.89 mGy-cm. This CT exam was performed using one or more of the following dose reduction techniques: Automated exposure control, adjustment of the mA and/or kV according to patient size, and/or use of iterative reconstruction technique. FINDINGS: HEMORRHAGE: No intracranial hemorrhage. BRAIN: There are severe chronic microangiopathic changes. There is no mass, mass effect or abnormal extra-axial fluid collection. There is no territorial infarction. The midline sagittal structures are normal. There are coarse atherosclerotic calcifications in the cavernous carotid and vertebral arteries. VENTRICLES: There is mild age-related global parenchymal volume loss and proportionate enlargement of the ventricles and cortical sulci. CALVARIUM: There is no calvarial fracture or extracranial soft tissue swelling. PARANASAL SINUSES: Predominantly clear. MASTOID AIR CELLS: Predominantly clear. OTHER FINDINGS: None. IMPRESSION: No acute intracranial abnormality. Severe chronic microangiopathic changes and moderate age-related global parenchymal volume loss.
[2018-07-07 12:16] LABS: BASO % 0.2 % (0.0-2.0); EOS # 0.1 K/uL (0.0-0.7); EOS % 0.8 % (0.0-4.0); HEMOGLOBIN 12.8 g/dL (12.0-16.0); LYMPH # 0.6 K/uL (1.0-4.3); LYMPH % 7.6 % (20.0-40.0); MEAN CELL VOLUME 106.5 fl (81.0-99.0); MEAN CORPUSCULAR HEMOGLOBIN 33.7 pg (27.0-31.0); MEAN CORPUSCULAR HGB CONC 31.6 g/dL (33.0-37.0); MEAN PLATELET VOLUME 7.5 fl (7.2-11.7); MONO # 0.4 K/uL (0.0-0.8); NEUT # 6.4 K/uL (1.8-7.0); NEUT % 86.4 % (50.0-75.0); NRBC % 0.1 % (0.0-0.0); PLATELET COUNT 168 K/uL (130-400); RBC 3.79 Mil/uL (3.80-5.20); RED CELL DISTRIBUTION WIDTH 18.6 % (11.5-14.5); WHITE BLOOD COUNT 7.4 K/uL (4.8-10.8)
[2018-07-07 12:41] LABS: ALB/GLOB RATIO 0.7 (1.0-2.1); ALBUMIN 2.6 g/dL (3.5-5.0); CALCIUM 9.3 mg/dL (8.4-10.2)
[2018-07-07 13:31] LABS: EOSINOPHIL 1 % (0-7); LYMPHOCYTE 12 % (20-50); MONOCYTE 7 % (0-10); MYELOCYTE 1 % (0-0); NEUTROPHIL 79 % (42-75); TOTAL CELLS COUNTED 100
[2018-07-07 13:32] LABS: PLATELET ESTIMATE NORMAL (NORMAL)
[2018-07-07 13:33] LABS: ANISOCYTOSIS SLIGHT; PLATELET CLUMPS PRESENT
--- NOTE | 2018-07-07 13:41 | RAD ---
Date of service: 07/07/2018 HISTORY: cough COMPARISON: 05/19/2018. FINDINGS: LUNGS: No active pulmonary disease. PLEURA: No significant pleural effusion identified, no pneumothorax apparent. CARDIOVASCULAR: No radiographic findings to suggest acute or significant cardiovascular disease. Atherosclerotic calcifications identified primarily aortic arch. Venous access catheter in stable, satisfactory position. OSSEOUS STRUCTURES: No significant abnormalities. VISUALIZED UPPER ABDOMEN: Normal. OTHER FINDINGS: None. IMPRESSION: No active disease. No significant interval change compared to the prior examination(s).
--- NOTE | 2018-07-07 17:43 | CARD ---
APPROVED REPORT Date of service: 07/07/2018 EKG Measurement Heart [id number] <Conclusion> Sinus rhythm with short W[place] Right atrial enlargement Borderline ECG
[2018-07-07] MEDS: Magnesium Oxide 400 mg Tab UD PO SCH (22:58)
[2018-07-07] MEDS: Cholestyramine 4 gm/Pkt UD PO SCH (22:59)
[2018-07-07] MEDS: Sodium Chloride 0.9% 1,000 ML IV SCH (23:03)
[2018-07-08] MEDS: Sodium Chloride 0.9% 1,000 ML IV SCH ×2 (08:00→21:13)
--- NOTE | 2018-07-08 08:03 | HP ---
HISTORY OF PRESENT ILLNESS: The patient is a 72-year-old female with history of multiple medical problems, was coming to the hospital today for fluid therapy when in her way to the car she had a presyncopal episode. The patient was brought by her daughter to the emergency room for evaluation where she was found to be dehydrated and hypotensive. The patient was started on IV fluid and admitted for further management. REVIEW OF SYSTEMS: Other review of systems is generalized weakness and forgetfulness. 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 SOCIAL HISTORY: Ex-alcohol abuser. No EtOH. No other substance abuse. No smoking. ALLERGIES: THE PATIENT HAS ALLERGY TO CIPROFLOXACIN AND VANCOMYCIN. MEDICATIONS: As per MAR, reviewed and ordered. PHYSICAL EXAMINATION: GENERAL: The patient is in bed, not in any cardiopulmonary distress. VITAL SIGNS: Blood pressure 124/86, temperature 97.4, respiratory rate 16 and pulse 86. HEENT: Pupils equal, reactive to light. Normal appearing mucosa of the conjunctivae, oropharynx, and nasal membrane mucosa. NECK: Supple. No JVD. No carotid bruit. No lymph node. No thyromegaly. CHEST AND LUNGS: Bilateral symmetrical expansion. Good air exchange. No rales. No rhonchi. CARDIOVASCULAR SYSTEM: PMI not localized. S1, S2. No additional sounds. ABDOMEN: Normoactive bowel sounds. No tenderness. No organomegaly. No masses. Colostomy bag and urine diversion ileostomy bag are in place. EXTREMITIES: No cyanosis. No clubbing. No edema. 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 No neurological deficit could be appreciated. ASSESSMENT: Acute on chronic kidney disease, dehydration, presyncope, history of cancer of cervix, and hyperkalemia. PLAN: Continue IV fluid and monitor electrolytes and give Kayexalate if it is needed. Start physical therapy. Greg Correa MD
[2018-07-08] MEDS: Magnesium Oxide 400 mg Tab UD PO SCH ×2 (08:51→21:12)
[2018-07-08] MEDS: Cholestyramine 4 gm/Pkt UD PO SCH ×2 (08:51→16:16)
[2018-07-08 12:59] LABS: CALCIUM 7.8 mg/dL (8.4-10.2)
--- NOTE | 2018-07-08 22:29 | PN ---
DATE: 07/08/2018 SUBJECTIVE: The patient is seen today, 07/08/2018. She is more awake and alert. Currently on IV fluid. PHYSICAL EXAMINATION: VITAL SIGNS: Blood pressure 124/81, temperature 98.3, respiratory rate 16, and pulse 78. HEENT: Pupils equal, reactive to light. Normal appearing mucosa of the conjunctivae, oropharynx and nasal membrane mucosa. NECK: Supple. No JVD. No carotid bruit. No lymph node. No thyromegaly. CHEST AND LUNGS: Bilateral symmetrical expansion. Good air exchange. No rales. No rhonchi. CARDIOVASCULAR SYSTEM: PMI not localized. S1, S2. No additional sounds. ABDOMEN: Normoactive bowel sounds. No tenderness. No organomegaly. No masses. EXTREMITIES: No cyanosis. No clubbing. No edema. CREATIVE SPECIALIST: Alert, awake, oriented x2. No neurological deficit could be appreciated. ASSESSMENT: Acute on chronic kidney disease, dehydration, presyncope, history of cancer of cervix, status post radiation and with complication that led to colostomy and urine diversion to ileostomy. PLAN: Continue current IV fluid and physical therapy. Continue current medications and follow up with social service for discharge planning. Greg Correa MD
[2018-07-09 05:39] LABS: HEMOGLOBIN 11.3 g/dL (12.0-16.0); MEAN CELL VOLUME 104.3 fl (81.0-99.0); MEAN CORPUSCULAR HEMOGLOBIN 33.2 pg (27.0-31.0); MEAN CORPUSCULAR HGB CONC 31.9 g/dL (33.0-37.0); RBC 3.4 Mil/uL (3.80-5.20); RED CELL DISTRIBUTION WIDTH 18.2 % (11.5-14.5); WHITE BLOOD COUNT 6.2 K/uL (4.8-10.8)
[2018-07-09 05:54] LABS: CALCIUM 7.5 mg/dL (8.4-10.2)
[2018-07-09 10:27] LABS: URINE BACTERIA RARE (<OCC); URINE BILIRUBIN NEGATIVE (NEGATIVE); URINE BLOOD SMALL (NEGATIVE); URINE CLARITY CLOUDY (Clear); URINE COLOR YELLOW (YELLOW); URINE GLUCOSE (UA) NEG (NEGATIVE); URINE LEUKOCYTE ESTERASE LARGE Leu/uL (Negative); URINE PROTEIN 30 mg/dL (NEGATIVE); URINE UROBILINOGEN 0.2-1.0 mg/dL (0.2-1.0)
[2018-07-09] MEDS: Cholestyramine 4 gm/Pkt UD PO SCH ×2 (10:28→16:55)
[2018-07-09] MEDS: Magnesium Oxide 400 mg Tab UD PO SCH (10:28)
[2018-07-09 15:59] VITALS: BP 128/80; PULSE 72; RESP 16; TEMP 98.2; O2SAT 98
[2018-07-09] MEDS ORDERED: Ergocalciferol 50,000 Intl Units Cap PO SCH (21:47)
--- NOTE | 2018-07-10 07:35 | DS ---
REASON FOR ADMISSION: This is a 72-year-old female with history of multiple medical problems, admitted for presyncope with dehydration and acute on chronic kidney injury. COURSE OF HOSPITALIZATION: The patient was admitted to telemetry floor, and she was monitored on the telemetry floor more than 24 hours. The patient did not show any signs of arrhythmia. The patient was continued on IV fluids and sodium bicarbonate. As per the patient's daughter and the patient' desire, the patient was discharged to nursing facility with possible long-term placement. FINAL DIAGNOSES: Dehydration, presyncope, acute on chronic kidney injury. [facility] MD Sunny
== END 2018-07-09 19:45 ==
LOC: H.ER 09:28 → H.ERHOLD 12:58 → H.TEL 18:45
PROVIDERS: ADMIT Internal Medicine; ATTEND Internal Medicine
DX: E86.0 Dehydration (principal); R55 Syncope and collapse; N17.9 Acute kidney failure, unspecified; N18.9 Chronic kidney disease, unspecified; Z92.3 Personal history of irradiation; Z85.41 Personal history of malignant neoplasm of cervix uteri; Z93.3 Colostomy status; E87.5 Hyperkalemia; Z93.2 Ileostomy status; Z88.1 Allergy status to other antibiotic agents; Z88.3 Allergy status to other anti-infective agents; F03.90 Unspecified dementia, unspecified severity, without behavioral disturbance, psychotic disturbance, mood disturbance, and anxiety; F32.9 Major depressive disorder, single episode, unspecified; Z86.718 Personal history of other venous thrombosis and embolism
CPT/HCPCS: 36415; 70450; 71045; 80048; 80053; 81003; 85025; 85027; 87040; 87086; 93005; 96360; 96361; 99285; G0378; J1644; J7030

== ENCOUNTER 2018-08-11 17:45 | Inpatient (IN) | payer MEDICARE, OTHER ==
[2018-08-11 17:46] VITALS: BMI 17.5
[2018-08-11] MEDS ORDERED: Sodium Chloride 0.9% 1,000 ML IV STA (18:02)
--- NOTE | 2018-08-11 18:16 | ED PDOC ---
Upper Extremity Pain/Injury Time Seen by Provider: 08/11/18 17:49 Chief Complaint (Nursing): Abnormal Labs Chief Complaint (Provider): Upper Extremity Evaluation History Per: EMS History/Exam Limitations: clinical condition Onset/Duration Of Symptoms: Days Current Symptoms Are (Timing): Still Present Additional History Per: Usp, Prior Records Additional Complaint(s): 72 y/o female with a PMHx of DVT, CKD, Dementia, Depression and Anemia sent from [facility] for re-evaluation of outpatient US that revealed a DVT with a possible hematoma to the left upper extremity. Patient is a limited historian secondary to her clinical condition. Prior medical record reviewed and demonstrates a brief admission at the end of June for a lower extremity DVT. At that time, patient placed and prescribed Lovenox. Medical records from [facility] reviewed patient has been taking Lovenox 50 mg daily. Otherwise, patient denies chest pain and shortness of breath. PMD: Bob Galarza Past Medical History Reviewed: Historical Data, Nursing Documentation, Vital Signs Vital Signs: Last Vital Signs Temp 97.9 F 08/11/18 17:47 Pulse Resp BP 71/56 L 08/11/18 17:47 Pulse Ox - Medical History PMH: Anemia, Dementia, Depression, Deep Vein Thrombosis, Malignancy (Cervical), Chronic Kidney Disease Denies: HIV, HTN, Sickle Cell Disease Other PMH: Uterine Cancer - Surgical History Other surgeries: Colostomy, uterine cancer and a port in the right chest - Family History Family History: States: Unknown Family Hx - Home Medications Home Medications: Ambulatory Orders Medication Instructions Recorded RX: Folic Acid 1 mg PO DAILY #7 tab 10/04/16 RX: Escitalopram [Lexapro] 10 mg PO DAILY 03/28/17 RX: Calcitriol [Rocaltrol] 0.25 mcg PO Q12 12/27/17 RX: Magnesium Oxide [Magox 400] 400 mg PO Q12 12/27/17 RX: Ferrous Gluconate [Fergon] 324 mg PO TID tab 04/08/18 RX: Famotidine [Pepcid] 20 mg PO DAILY 04/21/18 RX: Ergocalciferol [Drisdol 50,000 50,000 unit PO WE 05/19/18 Intl Units Cap] RX: Potassium Chloride [K-Dur 20 20 meq PO Q12 05/19/18 mEq ER Tab] RX: Sodium Bicarbonate Tab 1,300 mg PO Q12 05/19/18 RX: Midodrine [Proamatine] 5 mg PO TID #60 tab 05/23/18 RX: Cholestyramine [Questran] 4 gm PO BID 07/07/18 RX: Acetaminophen [Tylenol 325mg 650 mg PO Q6 PRN 08/11/18 tab] RX: Acetaminophen [Tylenol 325mg 650 mg PO Q6 PRN 08/11/18 tab] RX: Ascorbic Acid [Vitamin C 500 500 mg PO DAILY 08/11/18 mg Tab] RX: Magnesium Hydroxide [Milk Of 30 ml PO DAILY PRN 08/11/18 Magnesia] RX: Multivitamin [Multi-Vitamin 1 tab PO DAILY 08/11/18 Daily] - Allergies Allergies/Adverse Reactions: Allergies Allergy/AdvReac Type Severity Reaction Status Date / Time ciprofloxacin [From Cipro] Allergy RASH Verified 07/24/18 16:56 ciprofloxacin HCl Allergy RASH Verified 07/24/18 16:56 [From Cipro] vancomycin Allergy RASH Verified 07/24/18 16:56 Review of Systems Review Of Systems: ROS cannot be obtained secondary to pt's inabilty to answer questions. Cardiovascular: Negative for: Chest Pain Respiratory: Negative for: Shortness of Breath Physical Exam - Reviewed Nursing Documentation Reviewed: Yes Vital Signs Reviewed: Yes - Physical Exam Appears: Positive for: No Acute Distress (but chronically ill appearing) Head Exam: Positive for: ATRAUMATIC Skin: Positive for: Warm, Dry. Negative for: Normal Color (Multiple skin tears and small ecchymosis scattered to the extremities.) Eye Exam: Positive for: Normal appearance, EOMI, PERRL Neck: Positive for: Normal, Painless ROM Cardiovascular/Chest: Negative for: Murmur Respiratory: Positive for: Normal Breath Sounds Gastrointestinal/Abdominal: Positive for: Soft, Other (colostomy w air in bag). Negative for: Tenderness Extremity: Positive for: Other (scattered skin tears and ecchymosis, LUE mild edema w subcutaneous hematoma no bleeding or skin tears L bicep) Neurologic/Psych: Positive for: Alert, Oriented (to self and hospital), Other (global weakness) - Laboratory Results Result Diagrams: 08/14/18 04:40 08/14/18 04:40 - ECG ECG: Positive for: Interpreted By Me ECG Rhythm: Positive for: Sinus Tachycardia O2 Sat by Pulse Oximetry: 99 Pulse Ox Interpretation: Normal - Radiology X-Ray: Read By Radiologist X-Ray Interpretation: Other (COPD) - Critical Care Total Time (In Min): 45 Medical Decision Making Medical Decision Making: Time: 1801 A/P: Workup for upper extremity DVT wile on preventative dose of lovanox. -- Rule out Pulmonary Embolism given tachycardia and HTN. -- EKG -- CMP -- CBC with Differentials -- PTT -- Prothrombin Time -- CXR Portable -- Sodium Chloride IV 150 mls/hr -- Urinalysis Outpatient US report from [facility] reviewed Time: 1809 Plan: -- VBG -- CT Angio Chest unobtainable due to renal function, given tachycardia and upper multiple DVTs high concern for acute PE, BNP also elevated. d/w Dr Correa knows patient well, admit ICU empiric lovenox tonight, VQ in am Treatment for hyperkalemia initiated, one dose lovenox ordered Gentle IVF initiated Case d/w Dr Pitt ICU overnight patient full code advanced directive in SNF paperwork poor prognosis Scribe Attestation: Documented by Adelita Arce, acting as a scribe for Alden Solorzano III, DO. Provider Scribe Attestation: All medical record entries made by the Scribe were at my direction and p ersonally dictated by me. I have reviewed the chart and agree that the record accurately reflects my personal performance of the history, physical exam, medical decision making, and the department course for this patient. I have also personally directed, reviewed, and agree with the discharge instructions and disposition. Disposition - Clinical Impression Clinical Impression: Anemia, Deep venous thrombosis of upper extremity, Tachycardia, Lactic acidosis, Dehydration - Patient ED Disposition Is Patient to be Admitted: Yes Counseled Patient/Family Regarding: Studies Performed, Diagnosis, Need For Followup - Disposition Disposition Time: 19:00 Condition: CRITICAL
--- NOTE | 2018-08-11 18:47 | RAD ---
Date of service: 08/11/2018 HISTORY: SOB COMPARISON: 07/24/2018 FINDINGS: The right MediPort terminates in the SVC. LUNGS: The lungs are hyperinflated and there is peribronchial thickening with chronic changes in both lungs. No focal consolidation. PLEURA: No pleural effusions or pneumothorax. CARDIOVASCULAR: The heart is normal in size. There are aortic atherosclerotic calcifications present. OSSEOUS STRUCTURES: Within normal limits for the patient's age. VISUALIZED UPPER ABDOMEN: Normal. OTHER FINDINGS: Incompletely imaged is an IVC filter. IMPRESSION: No active pulmonary disease. COPD.
[2018-08-11 18:52] LABS: VENOUS BLOOD GAS BASE EXCESS -12.9 mmol/L (0.0-2.0); VENOUS BLOOD GAS PCO2 35 mmHg (40-60); VENOUS BLOOD GAS PO2 21 mm/Hg (30-55); VENOUS BLOOD PH 7.21 (7.32-7.43)
[2018-08-11 18:58] LABS: ALB/GLOB RATIO 0.6 (1.0-2.1); ALBUMIN 2.1 g/dL (3.5-5.0); CALCIUM 8.7 mg/dL (8.4-10.2)
[2018-08-11 19:02] LABS: INR 1.2; PROTHROMBIN TIME 13.9 Seconds (9.8-13.1)
[2018-08-11 19:05] LABS: PARTIAL THROMBOPLASTIN TIME 40.7 Seconds (25.6-37.1)
[2018-08-11] MEDS ORDERED: Dextrose 50% SYRINGE Inj (50 ml) IV PRN (19:20)
[2018-08-11] MEDS ORDERED: Dextrose 50% SYRINGE Inj (50 ml) IVP ONE (19:20)
[2018-08-11] MEDS ORDERED: Insulin Regular 100 units/ml IVP ONE (19:20)
[2018-08-11] MEDS ORDERED: Glucagon Recombinant 1 mg Inj IM PRN (19:20)
[2018-08-11 19:23] LABS: B-TYPE NATRIURETIC PEPTIDE 6850 pg/ml (0-900)
[2018-08-11 19:24] LABS: BASO % 0.1 % (0.0-2.0); HEMOGLOBIN 9.1 g/dL (12.0-16.0); LYMPH # 0.7 K/uL (1.0-4.3); LYMPH % 8.2 % (20.0-40.0); MEAN CELL VOLUME 106.1 fl (81.0-99.0); MEAN CORPUSCULAR HEMOGLOBIN 34.4 pg (27.0-31.0); MEAN CORPUSCULAR HGB CONC 32.5 g/dL (33.0-37.0); MONO # 0.6 K/uL (0.0-0.8); MONO % 6.4 % (0.0-10.0); NEUT # 7.7 K/uL (1.8-7.0); NEUT % 85.3 % (50.0-75.0); PLATELET COUNT 269 K/uL (130-400); RBC 2.63 Mil/uL (3.80-5.20); RED CELL DISTRIBUTION WIDTH 18.7 % (11.5-14.5)
[2018-08-11] MEDS ORDERED: Insulin Regular 100 units/ml ONE (19:43)
[2018-08-11] MEDS ORDERED: Dextrose 50% SYRINGE Inj (50 ml) ONE (19:44)
[2018-08-11] MEDS ORDERED: Enoxaparin 40 mg Syringe SC STA (20:45)
[2018-08-11] MEDS ORDERED: Magnesium Hydroxide Susp 30 ml UD PO PRN (20:50)
[2018-08-11] MEDS: Sodium Chloride 0.9% 1,000 ML IV SCH ×3 (21:15→23:15)
[2018-08-11] MEDS: Magnesium Oxide 400 mg Tab UD PO SCH (21:18)
[2018-08-11] MEDS: EPOETIN ALFA 10,000 UNIT/ML ML SC SCH (21:18)
[2018-08-11 21:22] LABS: ANISOCYTOSIS SLIGHT; LYMPHOCYTE 9 % (20-50); MONOCYTE 6 % (0-10); NEUTROPHIL 85 % (42-75); NUCLEATED RED BLOOD CELL 1 % (0-0); PLATELET ESTIMATE NORMAL (NORMAL); TOTAL CELLS COUNTED 100
[2018-08-11 21:23] LABS: OVALOCYTES SLIGHT; TEARDROP CELLS SLIGHT
--- NOTE | 2018-08-11 22:41 | CP.PCM.CON ---
History of Present Illness - History of Present Illness History of Present Illness: Attending: Greg Correa MD PMD: Bob Galarza MD Reason for Consult: Critical Care management The patient was seen and examined in the ED HPI: The Hx is obtained from the [facility] notes and after review of the medical records as the patient has Dementia with memory loss. This is a 72 years old female who was sent to the ED because of an Ultrasound result that showed Left Branchial Vein DVT along with hematoma of at the distal left arm and proximal forearm. She has hx of CKD V, Anemias and DVT of both lower extremities and now on Lovenox. She complains of pain to the left hand and wrist, no pain to the left arm, Fever, nausea, vomits. in the ED the BP was 71/65mmHg with lactate of 3.6 and Potassium of 6.0 PMH: Anemia, Dementia, Depression, Deep Vein Thrombosis, Malignancy (Cervical), Chronic Kidney Disease; Uterine Cancer PSH: Ileostaomy with Colectomy; Port access right chest SH: Never Smoked; no ETOH; no illegal drug use FH: States: No known family hx Allergies: Ciprofloxacin, Vancomycin Medication: Reviewed Review of Systems - Review of Systems Systems not reviewed;Unavailable: Dementia, Altered Mental Status Review of Systems: Review of system is limited because the patient has poor memory Past Patient History - Infectious Disease Hx of Infectious Diseases: None - Past Medical History & Family History Past Medical History?: Yes - Past Social History Smoking Status: Never Smoked Chewing Tobacco Use: No Cigar Use: No Alcohol: None Drugs: Denies Home Situation {Lives}: Jail - CARDIAC Hx Hypertension: No - PULMONARY Hx Respiratory Disorders: No - NEUROLOGICAL Hx Dementia: Yes - HEENT Hx HEENT Problems: No - RENAL Hx Chronic Kidney Disease: Yes - ENDOCRINE/METABOLIC Hx Endocrine Disorders: No - HEMATOLOGICAL/ONCOLOGICAL Hx Anemia: Yes Hx Human Immunodeficiency Virus (HIV): No Hx Sickle Cell Disease: No - INTEGUMENTARY Hx Dermatological Problems: No - MUSCULOSKELETAL/RHEUMATOLOGICAL Hx Musculoskeletal Disorders: No Hx Falls: Yes - GASTROINTESTINAL Hx Gastrointestinal Disorders: Yes Hx Colostomy: Yes Hx Ileostomy: Yes Other/Comment: Ileostomy - GENITOURINARY/GYNECOLOGICAL Hx Genitourinary Disorders: No - PSYCHIATRIC Hx Depression: Yes - SURGICAL HISTORY Hx Surgeries: Yes Hx Joint Replacement: Yes (R hip replacement) Other/Comment: Left Urostomy;R earline cath, R colostomy - ANESTHESIA Hx Anesthesia: Yes Hx Anesthesia Reactions: No Hx Malignant Hyperthermia: No Meds Allergies/Adverse Reactions: Allergies Allergy/AdvReac Type Severity Reaction Status Date / Time ciprofloxacin [From Cipro] Allergy RASH Verified 07/24/18 16:56 ciprofloxacin HCl Allergy RASH Verified 07/24/18 16:56 [From Cipro] vancomycin Allergy RASH Verified 07/24/18 16:56 - Medications Medications: Current Medications Acetaminophen (Tylenol 325mg Tab) 650 mg PO Q6 PRN PRN Reason: TEMP >101 Acetaminophen (Tylenol 325mg Tab) 650 mg PO Q4H PRN PRN Reason: Other Ascorbic Acid (Vitamin C 500 Mg Tab) 500 mg PO DAILY [facility] Calcitriol (Rocaltrol) 0.25 mcg PO Q12 [facility] Cholestyramine Resin (Questran) 4 gm PO BID [facility] Dextrose (Dextrose 50% Inj) 0 ml IV STAT PRN; Protocol PRN Reason: Hypoglycemia Protocol Dextrose (Glutose 15) 0 gm PO ONCE PRN; Protocol PRN Reason: Hypoglycemia Protocol Epoetin Audi (Procrit) 10,000 unit SC MOTH AASHISH Ergocalciferol (Drisdol 50,000 Intl Units Cap) 1 cap PO WE A[facility] Escitalopram Oxalate (Lexapro) 10 mg PO DAILY [facility] Famotidine (Pepcid) 20 mg PO DAILY [facility] Ferrous Gluconate (Fergon) 324 mg PO TID [facility] Folic Acid (Folic Acid) 1 mg PO DAILY [facility] Glucagon (Glucagen Diagnostic Kit) 0 mg IM STAT PRN; Protocol PRN Reason: Hypoglycemia Protocol Sodium Chloride (Sodium Chloride 0.9%) 1,000 mls @ 150 mls/hr IV .Q6H40M STA Stop: 08/12/18 00:41 Last Admin: 08/11/18 18:29 Dose: 150 mls/hr Sodium Chloride (Sodium Chloride 0.9%) 1,000 mls @ 1,000 mls/hr IV .Q1H [facility] Stop: 08/12/18 21:04 Magnesium Hydroxide (Milk Of Magnesia) 30 ml PO DAILY PRN PRN Reason: Constipation Magnesium Oxide (Mag-Ox) 400 mg PO Q12 [facility] Midodrine (Proamatine) 5 mg PO TID [facility] Multivitamins/Minerals (Therapeutic-M Tab) 1 tab PO DAILY [facility] Sodium Bicarbonate (Sodium Bicarbonate Tab) 1,300 mg PO Q12 [facility] Physical Exam - Constitutional Appears: No Acute Distress - Head Exam Head Exam: ATRAUMATIC, NORMAL INSPECTION, NORMOCEPHALIC - Eye Exam Eye Exam: EOMI, Normal appearance Pupil Exam: NORMAL ACCOMODATION, PERRL - ENT Exam ENT Exam: Mucous Membranes Dry, Normal Exam, Normal External Ear Exam - Neck Exam Neck exam: Positive for: Full Rom, Normal Inspection. Negative for: Lymphadenopathy, Tenderness - Respiratory Exam Respiratory Exam: Clear to Auscultation Bilateral. absent: Rales, Rhonchi, Wheezes - Cardiovascular Exam Cardiovascular Exam: REGULAR RHYTHM, RRR, +S1, +S2 - GI/Abdominal Exam GI & Abdominal Exam: Normal Bowel Sounds, Soft. absent: Mass, Organomegaly, Tenderness - Rectal Exam Rectal Exam: Deferred - Extremities Exam Additional comments: Range of motion decreased at tyhe left wrist and hand because of pain, no edema,radial pulse is present. Medial aspect of the distal left arm and proximal left forearm with hematoma 16X6cm, non tender to palpation. lower left leg with skin tear Redness to both heels - Back Exam Back exam: NORMAL INSPECTION. absent: CVA tenderness (L), CVA tenderness (R) - Neurological Exam Neurological exam: Alert, CN II-XII Intact, Oriented x3, Reflexes Normal - Psychiatric Exam Psychiatric exam: Flat Affect - Skin Skin Exam: Dry, Normal Color, Warm Results - Vital Signs Recent Vital Signs: Last Vital Signs Temp 97.9 F 08/11/18 17:47 Pulse Resp 119 H 08/11/18 18:55 BP 125/98 H 08/11/18 18:55 Pulse Ox 99 08/11/18 21:35 - Labs Result Diagrams: 08/11/18 18:26 08/11/18 18:26 Labs: Laboratory Results - last 24 hr 08/11/18 08/11/18 08/11/18 18:26 18:26 18:26 WBC 9.0 D RBC 2.63 L Hgb 9.1 L Hct 27.9 L MCV 106.1 H D MCH 34.4 H MCHC 32.5 L RDW 18.7 H Plt Count 269 D MPV 8.0 Neut % (Auto) 85.3 H Lymph % (Auto) 8.2 L [place] % (Auto) 6.4 Eos % (Auto) 0.0 Baso % (Auto) 0.1 Neut # (Auto) 7.7 H Lymph # (Auto) 0.7 L [place] # (Auto) 0.6 Eos # (Auto) 0.0 Baso # (Auto) 0.0 Neutrophils % (Manual) 85 H Lymphocytes % (Manual) 9 L Monocytes % (Manual) 6 Nucleated RBC % 1 H Platelet Estimate Normal Anisocytosis (manual) Slight Macrocytosis (manual) Slight Tear Drop Cells Slight Ovalocytes Slight PT 13.9 H INR 1.2 APTT 40.7 H pO2 VBG pH VBG pCO2 VBG HCO3 VBG Total CO2 VBG O2 Sat (Calc) VBG Base Excess VBG Potassium Glucose Lactate FiO2 Crit Value Called To Crit Value Called By Crit Value Read Back Blood Gas Notified Time Sodium 128 L Potassium 6.0 H Chloride 106 Carbon Dioxide 14 L Anion Gap 14 BUN 47 H Creatinine 3.8 H Est GFR ( Amer) 14 Est GFR (Non-Af Amer) 12 Random Glucose 183 H Calcium 8.7 Total Bilirubin 0.2 AST 26 ALT 27 Alkaline Phosphatase 95 Total Creatine Kinase Troponin I NT-Pro-B Natriuret Pep Total Protein 5.5 L Albumin 2.1 L Globulin 3.3 Albumin/Globulin Ratio 0.6 L Venous Blood Potassium 08/11/18 08/11/18 18:44 19:01 WBC RBC Hgb Hct MCV MCH MCHC RDW Plt Count MPV Neut % (Auto) Lymph % (Auto) [place] % (Auto) Eos % (Auto) Baso % (Auto) Neut # (Auto) Lymph # (Auto) [place] # (Auto) Eos # (Auto) Baso # (Auto) Neutrophils % (Manual) Lymphocytes % (Manual) Monocytes % (Manual) Nucleated RBC % Platelet Estimate Anisocytosis (manual) Macrocytosis (manual) Tear Drop Cells Ovalocytes PT INR APTT pO2 21 L VBG pH 7.21 L VBG pCO2 35 L VBG HCO3 12.8 VBG Total CO2 15.1 L VBG O2 Sat (Calc) 38.2 L VBG Base Excess -12.9 L VBG Potassium 6.2 H* Glucose 195 H Lactate 3.6 H FiO2 21.0 Crit Value Called To brook Solorzano do Crit Value Called By Catherine le Crit Value Read Back Y Blood Gas Notified Time 185 Sodium 126.0 L Potassium Chloride 104.0 Carbon Dioxide Anion Gap BUN Creatinine Est GFR ( Amer) Est GFR (Non-Af Amer) Random Glucose Calcium Total Bilirubin AST ALT Alkaline Phosphatase Total Creatine Kinase < 20 L Troponin I 0.0150 NT-Pro-B Natriuret Pep 6850 H Total Protein Albumin Globulin Albumin/Globulin Ratio Venous Blood Potassium 6.2 H* - Imaging and Cardiology Chest x-ray Status: Image reviewed by me Additional comment: No infiltrate Duplex Ultrasound of left upper extremity Additional comment: Branchial vein DVT [id number] near tht distal branchial vein Assessment & Plan - Assessment and Plan (Free Text) Assessment: #. Left upper Extremity DVT, (Left Branchial Vein DVT) #. Hx of Recent Bilateral Lower Extremity DVT #. Hypotension #. Metabolic Acidosis #. Left upper extremity Hematoma #. Hyperkalema #. CKD V #. Macrocytic Anemia #. Hyperglycemia Plan: 72 years old female who was sent to the ED with Ultrasound Positive for Left Branchial Vein DVT along with hematoma of at the distal left arm and proximal forearm. She has hx DVT of both lower extremities and now on Lovenox. She complains of pain to the left hand and wrist. In the ED the BP was 71/65mmHg with lactate of 3.6 and Potassium of 6.0 #. Left upper Extremity DVT, (Left Branchial Vein DVT), same area of the Hematoma at the upper left extremity. Probably due to some injury as patient also has pain to th eleft wrist and hand. - The Patient was on Lovenox which will be held until no evidence of further bleeding - Follow H&H #. Hypotension secondary to dehydration - IV fluids - Acute on chronic Kidney disease - Consult Dr Salas of Nephrology - IV Fluids - Follow Renal labs #. Metabolic Acidosis, caused by the Renal Failure and lactic acidosis - IV Fluids - Sodium Bicarbonate - Follow Lactic Acid #. Hyperkalema, Treated with Dextrose, Insulin an dkayexalate - Follow Electrolytes #. Macrocytic Anemia - Follow Hb #. Hyperglycemia - HbA1c #. DVT prophylaxis: No SCD because of Bilateral Leg DVT Hold lovenox until no sign of bleeding in the Left upper extremity Hematoma Pancho Pitt MD - Date & Time Date: 08/11/18 Time: 22:41
[2018-08-12 00:39] LABS: VENOUS BLOOD GAS BASE EXCESS -13.7 mmol/L (0.0-2.0); VENOUS BLOOD GAS PCO2 37 mmHg (40-60); VENOUS BLOOD GAS PO2 31 mm/Hg (30-55); VENOUS BLOOD PH 7.18 (7.32-7.43)
[2018-08-12 03:48] LABS: URINE BACTERIA MANY (<OCC); URINE BILIRUBIN NEGATIVE (NEGATIVE); URINE BLOOD SMALL (NEGATIVE); URINE CLARITY TURBID (Clear); URINE COLOR BLUE (YELLOW); URINE GLUCOSE (UA) NEG (NEGATIVE); URINE LEUKOCYTE ESTERASE MOD Leu/uL (Negative); URINE PROTEIN >=500 mg/dL (NEGATIVE); URINE UROBILINOGEN 0.2-1.0 mg/dL (0.2-1.0); WBC CLUMPS MANY /hpf
[2018-08-12] MEDS ORDERED: Sodium Chloride 0.9% 1,000 ML IV SCH (04:15)
[2018-08-12] MEDS ORDERED: Sodium Bicarbonate 7.5% (0.9 MEQ/ML) 50ML INJ IV ONE (04:16)
[2018-08-12 05:23] LABS: BASO % 0.1 % (0.0-2.0); HEMOGLOBIN 8.2 g/dL (12.0-16.0); LYMPH # 1.1 K/uL (1.0-4.3); LYMPH % 12.7 % (20.0-40.0); MEAN CELL VOLUME 107.5 fl (81.0-99.0); MEAN CORPUSCULAR HEMOGLOBIN 34.3 pg (27.0-31.0); MEAN CORPUSCULAR HGB CONC 31.9 g/dL (33.0-37.0); MEAN PLATELET VOLUME 8.2 fl (7.2-11.7); MONO # 0.4 K/uL (0.0-0.8); MONO % 4.6 % (0.0-10.0); NEUT # 6.9 K/uL (1.8-7.0); NEUT % 82.6 % (50.0-75.0); NRBC % 0.3 % (0.0-0.0); RBC 2.4 Mil/uL (3.80-5.20); RED CELL DISTRIBUTION WIDTH 19.1 % (11.5-14.5); WHITE BLOOD COUNT 8.3 K/uL (4.8-10.8)
[2018-08-12 05:31] LABS: CALCIUM 7.9 mg/dL (8.4-10.2)
[2018-08-12] MEDS: Magnesium Oxide 400 mg Tab UD PO SCH ×2 (08:29→20:33)
[2018-08-12] MEDS: Cholestyramine 4 gm/Pkt UD PO SCH ×2 (08:30→16:17)
[2018-08-12] MEDS: Multivitamin With Minerals Tab PO SCH (08:31)
--- NOTE | 2018-08-12 09:56 | RAD ---
Date of service: 08/11/2018 PROCEDURE: Left Wrist Radiographs. HISTORY: Painful left wrist and left hand COMPARISON: None. FINDINGS: BONES: No acute fracture. Deformity of distal radial diaphysis likely due to old healed fracture. Ulnar styloid process intact. JOINTS: Normal. No dislocation. SOFT TISSUES: Normal. OTHER FINDINGS: None. IMPRESSION: Probable old healed fracture distal radius. No evidence of acute fracture.
--- NOTE | 2018-08-12 09:57 | RAD ---
PROCEDURE: Left Hand Radiographs. HISTORY: Pain to left wrist and left hand COMPARISON: None. FINDINGS: BONES: Normal. No fracture. JOINTS: Normal. No osteoarthritic changes. SOFT TISSUES: Normal. OTHER FINDINGS: None. IMPRESSION: Normal left hand radiographs.
--- NOTE | 2018-08-12 12:32 | CP.PCM.CON ---
History of Present Illness - History of Present Illness History of Present Illness: 72 years old female with hx of Cervical Ca w/ colostomy and diveriting urinary iliostomy, ckd that presented w/ anemia. she goes twice weekly for IV fluid/ bicarb infusion. Patient was sent to the emergency room because of abnormal ul trasound with upper extremity deep vein thrombosis reported under ultrasound. And in the emergency room patient appears to be dehydrated and severely acidotic and she required to be given multiple intravenous infusion of normal saline and giving Kayexalate for hyperkalemia. I was called to see this patient because of abnormal kidney function and further evaluation. This patient known to me with multiple admissions in the past related to similar problem with dehydration metabolic acidosis chronic kidney disease stage III. Medications reviewed as noted in the medical record PMH: Anemia, CKD IV, cerical ca, depression, hypertension, chronic hypovolemia PSH: Colostomy; Ileostomy; Urostomy; IVC Filter; Hysterectomy with bilateral Oophorectomy 2006 SH: former Smoker Quit 31 years ago; Occasional Alcohol; No illegal drug use; live with daughter Review of Systems - Constitutional Constitutional: Lethargy, Malaise. absent: Chills, Excessive Sweating - EENT Eyes: absent: Exophthalmos Nose/Mouth/Throat: absent: Nasal Congestion, Sinus Pressure - Cardiovascular Cardiovascular: absent: Acrocyanosis, Chest Pain, Chest Pain at Rest, Leg Edema - Respiratory Respiratory: absent: Cough, Hemoptysis - Gastrointestinal Gastrointestinal: Nausea. absent: Coffee Ground Emesis, Hematemesis, Melena - Genitourinary Genitourinary: As Per HPI, Nocturia - Musculoskeletal Musculoskeletal: Loss of Height, Muscle Weakness - Neurological Neurological: absent: Confusion, Focal Weakness, Lack of Coordination, Syncope - Endocrine Endocrine: Fatigue - Hematologic/Lymphatic Hematologic: absent: Easy Bleeding Past Patient History - Infectious Disease Hx of Infectious Diseases: None - Past Medical History & Family History Past Medical History?: Yes - Past Social History Smoking Status: Never Smoked Chewing Tobacco Use: No Cigar Use: No Alcohol: None Drugs: Denies Home Situation {Lives}: Fpc - CARDIAC Hx Hypertension: No - PULMONARY Hx Respiratory Disorders: No - NEUROLOGICAL Hx Dementia: Yes - HEENT Hx HEENT Problems: No - RENAL Hx Chronic Kidney Disease: Yes - ENDOCRINE/METABOLIC Hx Endocrine Disorders: No - HEMATOLOGICAL/ONCOLOGICAL Hx Anemia: Yes Hx Human Immunodeficiency Virus (HIV): No Hx Sickle Cell Disease: No - INTEGUMENTARY Hx Dermatological Problems: No - MUSCULOSKELETAL/RHEUMATOLOGICAL Hx Musculoskeletal Disorders: No Hx Falls: Yes - GASTROINTESTINAL Hx Gastrointestinal Disorders: Yes Hx Colostomy: Yes Hx Ileostomy: Yes Other/Comment: Ileostomy - GENITOURINARY/GYNECOLOGICAL Hx Genitourinary Disorders: No - PSYCHIATRIC Hx Depression: Yes - SURGICAL HISTORY Hx Surgeries: Yes Hx Joint Replacement: Yes (R hip replacement) Other/Comment: Left Urostomy;R earline cath, R colostomy - ANESTHESIA Hx Anesthesia: Yes Hx Anesthesia Reactions: No Hx Malignant Hyperthermia: No Meds Allergies/Adverse Reactions: Allergies Allergy/AdvReac Type Severity Reaction Status Date / Time ciprofloxacin [From Cipro] Allergy RASH Verified 07/24/18 16:56 ciprofloxacin HCl Allergy RASH Verified 07/24/18 16:56 [From Cipro] vancomycin Allergy RASH Verified 07/24/18 16:56 - Medications Medications: Current Medications Acetaminophen (Tylenol 325mg Tab) 650 mg PO Q6 PRN PRN Reason: TEMP >101 Acetaminophen (Tylenol 325mg Tab) 650 mg PO Q4H PRN PRN Reason: Other Ascorbic Acid (Vitamin C 500 Mg Tab) 500 mg PO DAILY [facility] Last Admin: 08/12/18 08:31 Dose: 500 mg Calcitriol (Rocaltrol) 0.25 mcg PO Q12 [facility] Last Admin: 08/12/18 08:30 Dose: 0.25 mcg Cholestyramine Resin (Questran) 4 gm PO BID [facility] Last Admin: 08/12/18 08:30 Dose: 4 gm Dextrose (Dextrose 50% Inj) 0 ml IV STAT PRN; Protocol PRN Reason: Hypoglycemia Protocol Dextrose (Glutose 15) 0 gm PO ONCE PRN; Protocol PRN Reason: Hypoglycemia Protocol Epoetin Audi (Procrit) 10,000 unit SC MOTH [facility] Last Admin: 08/11/18 21:18 Dose: 10,000 unit Ergocalciferol (Drisdol 50,000 Intl Units Cap) 1 cap PO [facility] Escitalopram Oxalate (Lexapro) 10 mg PO DAILY [facility] Last Admin: 08/12/18 08:29 Dose: 10 mg Famotidine (Pepcid) 20 mg PO DAILY [facility] Last Admin: 08/12/18 08:32 Dose: 20 mg Ferrous Gluconate (Fergon) 324 mg PO TID [facility] Last Admin: 08/12/18 12:17 Dose: 324 mg Folic Acid (Folic Acid) 1 mg PO DAILY [facility] Last Admin: 08/12/18 08:29 Dose: 1 mg Glucagon (Glucagen Diagnostic Kit) 0 mg IM STAT PRN; Protocol PRN Reason: Hypoglycemia Protocol Sodium Chloride (Sodium Chloride 0.9%) 1,000 mls @ 100 mls/hr IV .Q10H [facility] Stop: 08/13/18 04:13 Last Admin: 08/12/18 04:55 Dose: 100 mls/hr Sodium Bicarbonate 44.6 meq/ (Dextrose/Sodium Chloride) 1,050 mls @ 100 mls/hr IV .[id number] [facility] Stop: 08/13/18 12:19 Magnesium Hydroxide (Milk Of Magnesia) 30 ml PO DAILY PRN PRN Reason: Constipation Magnesium Oxide (Mag-Ox) 400 mg PO Q12 [facility] Last Admin: 08/12/18 08:29 Dose: 400 mg Midodrine (Proamatine) 5 mg PO TID [facility] Last Admin: 08/12/18 12:17 Dose: 5 mg Multivitamins/Minerals (Therapeutic-M Tab) 1 tab PO DAILY [facility] Last Admin: 08/12/18 08:31 Dose: 1 tab Tramadol HCl (Ultram) 50 mg PO Q4 PRN PRN Reason: Pain, severe (8-10) Physical Exam - Constitutional Appears: No Acute Distress - Eye Exam Eye Exam: Conjunctival injection - ENT Exam ENT Exam: Mucous Membranes Moist - Neck Exam Neck exam: Negative for: Lymphadenopathy - Respiratory Exam Respiratory Exam: absent: Rhonchi, Stridor - Cardiovascular Exam Cardiovascular Exam: absent: Gallop, JVD, Rubs - GI/Abdominal Exam GI & Abdominal Exam: Guarding, Normal Bowel Sounds - Extremities Exam Extremities exam: Negative for: calf tenderness - Back Exam Back exam: absent: CVA tenderness (L), CVA tenderness (R) - Neurological Exam Neurological exam: Alert - Psychiatric Exam Psychiatric exam: Normal Affect Results - Vital Signs Recent Vital Signs: Last Vital Signs Temp 97.4 F L 08/12/18 12:00 Pulse 108 H 08/12/18 12:00 Resp 16 08/12/18 12:00 BP 122/82 08/12/18 12:00 Pulse Ox 100 08/12/18 12:00 - Labs Result Diagrams: 08/12/18 04:20 08/12/18 04:20 Labs: Laboratory Results - last 24 hr 08/11/18 08/11/18 08/11/18 18:26 18:26 18:26 WBC 9.0 D RBC 2.63 L Hgb 9.1 L Hct 27.9 L MCV 106.1 H D MCH 34.4 H MCHC 32.5 L RDW 18.7 H Plt Count 269 D MPV 8.0 Neut % (Auto) 85.3 H Lymph % (Auto) 8.2 L Love % (Auto) 6.4 Eos % (Auto) 0.0 Baso % (Auto) 0.1 Neut # (Auto) 7.7 H Lymph # (Auto) 0.7 L Love # (Auto) 0.6 Eos # (Auto) 0.0 Baso # (Auto) 0.0 Neutrophils % (Manual) 85 H Lymphocytes % (Manual) 9 L Monocytes % (Manual) 6 Nucleated RBC % 1 H Platelet Estimate Normal Anisocytosis (manual) Slight Macrocytosis (manual) Slight Tear Drop Cells Slight Ovalocytes Slight PT 13.9 H INR 1.2 APTT 40.7 H pO2 VBG pH VBG pCO2 VBG HCO3 VBG Total CO2 VBG O2 Sat (Calc) VBG Base Excess VBG Potassium Glucose Lactate FiO2 Crit Value Called To Crit Value Called By Crit Value Read Back Blood Gas Notified Time Sodium 128 L Potassium 6.0 H Chloride 106 Carbon Dioxide 14 L Anion Gap 14 BUN 47 H Creatinine 3.8 H Est GFR ( Amer) 14 Est GFR (Non-Af Amer) 12 POC Glucose (mg/dL) Random Glucose 183 H Calcium 8.7 Total Bilirubin 0.2 AST 26 ALT 27 Alkaline Phosphatase 95 Total Creatine Kinase Troponin I NT-Pro-B Natriuret Pep Total Protein 5.5 L Albumin 2.1 L Globulin 3.3 Albumin/Globulin Ratio 0.6 L Venous Blood Potassium Urine Color Urine Clarity Urine pH Ur Specific Shock Urine Protein Urine Glucose (UA) Urine Ketones Urine Blood Urine Nitrate Urine Bilirubin Urine Urobilinogen Ur Leukocyte Esterase Urine RBC (Auto) Urine WBC Clumps (Auto) Urine Microscopic WBC Urine Bacteria 08/11/18 08/11/18 08/12/18 18:44 19:01 00:33 WBC RBC Hgb Hct MCV MCH MCHC RDW Plt Count MPV Neut % (Auto) Lymph % (Auto) Love % (Auto) Eos % (Auto) Baso % (Auto) Neut # (Auto) Lymph # (Auto) Love # (Auto) Eos # (Auto) Baso # (Auto) Neutrophils % (Manual) Lymphocytes % (Manual) Monocytes % (Manual) Nucleated RBC % Platelet Estimate Anisocytosis (manual) Macrocytosis (manual) Tear Drop Cells Ovalocytes PT INR APTT pO2 21 L 31 VBG pH 7.21 L 7.18 L* VBG pCO2 35 L 37 L VBG HCO3 12.8 12.7 VBG Total CO2 15.1 L 14.9 L VBG O2 Sat (Calc) 38.2 L 61.1 VBG Base Excess -12.9 L -13.7 L VBG Potassium 6.2 H* 4.9 Glucose 195 H 97 Lactate 3.6 H 1.7 FiO2 21.0 21.0 Crit Value Called To brook Solorzano md Crit Value Called By Catherine le 333 Crit Value Read Back Y Y Blood Gas Notified Time 185 39 Sodium 126.0 L 132.0 Potassium Chloride 104.0 111.0 H Carbon Dioxide Anion Gap BUN Creatinine Est GFR ( Amer) Est GFR (Non-Af Amer) POC Glucose (mg/dL) Random Glucose Calcium Total Bilirubin AST ALT Alkaline Phosphatase Total Creatine Kinase < 20 L Troponin I 0.0150 NT-Pro-B Natriuret Pep 6850 H Total Protein Albumin Globulin Albumin/Globulin Ratio Venous Blood Potassium 6.2 H* 4.9 Urine Color Urine Clarity Urine pH Ur Specific Shock Urine Protein Urine Glucose (UA) Urine Ketones Urine Blood Urine Nitrate Urine Bilirubin Urine Urobilinogen Ur Leukocyte Esterase Urine RBC (Auto) Urine WBC Clumps (Auto) Urine Microscopic WBC Urine Bacteria 08/12/18 08/12/18 08/12/18 00:45 03:12 04:20 WBC 8.3 RBC 2.40 L Hgb 8.2 L Hct 25.8 L MCV 107.5 H MCH 34.3 H MCHC 31.9 L RDW 19.1 H Plt Count 196 MPV 8.2 Neut % (Auto) 82.6 H Lymph % (Auto) 12.7 L Love % (Auto) 4.6 Eos % (Auto) 0.0 Baso % (Auto) 0.1 Neut # (Auto) 6.9 Lymph # (Auto) 1.1 Love # (Auto) 0.4 Eos # (Auto) 0.0 Baso # (Auto) 0.0 Neutrophils % (Manual) Lymphocytes % (Manual) Monocytes % (Manual) Nucleated RBC % Platelet Estimate Anisocytosis (manual) Macrocytosis (manual) Tear Drop Cells Ovalocytes PT INR APTT pO2 VBG pH VBG pCO2 VBG HCO3 VBG Total CO2 VBG O2 Sat (Calc) VBG Base Excess VBG Potassium Glucose Lactate FiO2 Crit Value Called To Crit Value Called By Crit Value Read Back Blood Gas Notified Time Sodium Potassium Chloride Carbon Dioxide Anion Gap BUN Creatinine Est GFR ( Amer) Est GFR (Non-Af Amer) POC Glucose (mg/dL) 117 H Random Glucose Calcium Total Bilirubin AST ALT Alkaline Phosphatase Total Creatine Kinase Troponin I NT-Pro-B Natriuret Pep Total Protein Albumin Globulin Albumin/Globulin Ratio Venous Blood Potassium Urine Color Blue Urine Clarity Turbid Urine pH 7.0 Ur Specific Shock 1.010 Urine Protein >=500 Urine Glucose (UA) Neg Urine Ketones Negative Urine Blood Small Urine Nitrate Negative Urine Bilirubin Negative Urine Urobilinogen 0.2-1.0 Ur Leukocyte Esterase Mod Urine RBC (Auto) 126 H Urine WBC Clumps (Auto) Many H Urine Microscopic WBC 9377 H Urine Bacteria Many H 08/12/18 04:20 WBC RBC Hgb Hct MCV MCH MCHC RDW Plt Count MPV Neut % (Auto) Lymph % (Auto) Love % (Auto) Eos % (Auto) Baso % (Auto) Neut # (Auto) Lymph # (Auto) Love # (Auto) Eos # (Auto) Baso # (Auto) Neutrophils % (Manual) Lymphocytes % (Manual) Monocytes % (Manual) Nucleated RBC % Platelet Estimate Anisocytosis (manual) Macrocytosis (manual) Tear Drop Cells Ovalocytes PT INR APTT pO2 VBG pH VBG pCO2 VBG HCO3 VBG Total CO2 VBG O2 Sat (Calc) VBG Base Excess VBG Potassium Glucose Lactate FiO2 Crit Value Called To Crit Value Called By Crit Value Read Back Blood Gas Notified Time Sodium 132 Potassium 5.3 H Chloride 106 Carbon Dioxide 14 L Anion Gap 17 BUN 47 H Creatinine 3.4 H Est GFR ( Amer) 16 Est GFR (Non-Af Amer) 13 POC Glucose (mg/dL) Random Glucose 93 Calcium 7.9 L Total Bilirubin AST ALT Alkaline Phosphatase Total Creatine Kinase Troponin I NT-Pro-B Natriuret Pep Total Protein Albumin Globulin Albumin/Globulin Ratio Venous Blood Potassium Urine Color Urine Clarity Urine pH Ur Specific Shock Urine Protein Urine Glucose (UA) Urine Ketones Urine Blood Urine Nitrate Urine Bilirubin Urine Urobilinogen Ur Leukocyte Esterase Urine RBC (Auto) Urine WBC Clumps (Auto) Urine Microscopic WBC Urine Bacteria Assessment & Plan (1) Deep venous thrombosis of upper extremity Status: Acute (2) Dehydration Status: Acute (3) Lactic acidosis Status: Acute (4) Anemia Status: Chronic (5) Acute kidney injury Assessment and Plan: Patient admitted with upper extremity deep vein thrombosis. Acute kidney injury superimposed on chronic kidney disease stage III to stage IV on different occasion Dehydration Hyperkalemia And as noted in the past medical history and surgical history Anemia, CKD IV, cerical ca, depression, hypertension, chronic hypovolemia PSH: Colostomy; Ileostomy; Urostomy; IVC Filter; Hysterectomy with bilateral Oop horectomy 2006 The plan Patient given bolus of intravenous normal saline on the emergency room and overnight We will change his intravenous to D5 half-normal saline to add sodium bicarbo [place] to the IV fluid For the next 24 hours then we will switch to oral bicarbonate. And the rest of the management as noted with the primary team and the intensive care unit team. Status: Acute
[2018-08-12] MEDS: DEXTROSE IV SCH ×2 (13:01→23:18)
[2018-08-12] MEDS: SODIUM BICARBONATE IV SCH ×2 (13:01→23:18)
[2018-08-12] MEDS: [UNRECOGNIZED DRUG - OTHER] IV SCH ×2 (13:01→23:18)
--- NOTE | 2018-08-12 18:51 | CARD ---
APPROVED REPORT Date of service: 08/11/2018 EKG Measurement Heart [id number] <Conclusion> Sinus tachycardia Low voltage QRS Borderline ECG
[2018-08-12 20:33] LABS: CALCIUM 7.1 mg/dL (8.4-10.2)
--- NOTE | 2018-08-13 01:15 | PN ---
DATE: 08/12/2018 LOCATION: The patient in ICU, bed 422. TIME SPENT: 35 minutes. SUBJECTIVE: The patient is seen, evaluated at the bedside. Case discussed in multidisciplinary ICU rounds this morning. Past medical, surgical, family and social history reviewed. Also, case discussed with primary physician, Dr. Correa. 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 The patient was recently diagnosed with lower extremity deep venous thrombosis. She had an IVC filter placed. The patient was recently discharged from [facility] to senior care to continue on Lovenox 50 mg daily. She was noted to have left brachial vein thrombosis along with ecchymosis involving left upper arm associated with pain and swelling of the left arm. In ER, the patient was noted to be hypotensive and tachycardic. She was given IV fluid with improvement in blood pressure, admitted to ICU for further evaluation. Past medical history as noted significant for hypertension, chronic hypovolemia, depression, chronic kidney disease 4, cervical cancer, ileostomy and urostomy. MEDICATIONS: Current medications include Tylenol 650 every 6 hours p.r.n., vitamin C 500 mg daily, calcitriol 0.25 mcg p.o. every 12 hours, Questran powder 4 g p.o. twice daily, epoetin yesenia 10,000 units subcu calciferol 50,000 units 1 capsule weekly, magnesium oxide 400 mg p.o. every 12 hours, midodrine 5 mg p.o. three times daily, D5 half normal with sodium bicarbonate at 100 mL per hour, Ultram 50 mg p.o. every 4 hours p.r.n. LABORATORY DATA: WBC 8.3, hemoglobin 8.2, hematocrit 25.8, platelet count 196. Neutrophils 82.6, lymphocytes 12.7, monocytes 4.6. PT 13.9, INR 1.2, PTT 40.7. ABG, pH 7.18, pO2 of 31, saturation 61.1. with lactate 1.7. SMA-7: Sodium 132, potassium 5.3, chloride 106, CO2 of 14, blood urea nitrogen 47, creatinine 3.4, random glucose 117, hemoglobin A1c 4.3, calcium 7.9, total CK less than 20. Troponin 0.0150. ProBNP 6850. Microbiology: None reported. X-ray of the hand: No acute fracture. X-ray of the wrist: Old healed fracture and distal radius soft tissues normal. Electrocardiogram: Sinus tachycardia, low voltage QRS, borderline ECG. Chest x-ray: No active pulmonary disease, possible chronic obstructive pulmonary disease. IMPRESSION: 1. Neurologic: History of dementia. Remains alert and awake. Able to follow commands, appropriate. 2. Pulmonary: Possible chronic obstructive pulmonary disease but stable from respiratory point. 3. Cardiac: Tachycardia, hypertension, resolved after fluid challenge. History of chronic kidney disease stage III-IV with chronic hypovolemia, on weekly IV fluid with bicarbonate infusion. The patient is now at her baseline blood pressure. 4. Renal: Chronic renal insufficiency, stage 3-4. Appreciate renal followup. 5. Hematology: Anemia of chronic disease. Continue Epogen. 6. Oncology: History of uterine, cervical cancer, status post ileostomy and urostomy. 7. Infectious disease: Normal. No leukocytosis. X-ray negative. Left with hematoma, but no sign of cellulitis. History of chronic urinary tract infection. Current urine collected from the urostomy bag, repeat the urine, treat as needed, discussed with primary medical doctor. Recurrent deep venous thrombosis, status post inferior vena cava filter, currently with new deep venous thrombosis involving left arm. Received Lovenox early in the emergency room, we will hold, and we will follow recommendation from hematology-oncology consult. Consult requested with Dr. Manzo. 8. Endocrinology: No history of hypothyroidism. Diabetes mellitus type 2. Blood sugar 117. We will transfer the patient to med-surgery floor as discussed with primary, Dr. Correa. Jose Bedolla MD
[2018-08-13 05:59] LABS: BASO % 0.2 % (0.0-2.0); EOS % 0.7 % (0.0-4.0); HEMOGLOBIN 7.5 g/dL (12.0-16.0); LYMPH # 1.4 K/uL (1.0-4.3); LYMPH % 20.8 % (20.0-40.0); MEAN CELL VOLUME 106.6 fl (81.0-99.0); MEAN CORPUSCULAR HEMOGLOBIN 34.1 pg (27.0-31.0); MEAN PLATELET VOLUME 7.9 fl (7.2-11.7); MONO # 0.6 K/uL (0.0-0.8); MONO % 8.6 % (0.0-10.0); NEUT # 4.7 K/uL (1.8-7.0); NEUT % 69.7 % (50.0-75.0); NRBC % 0.6 % (0.0-0.0); RBC 2.19 Mil/uL (3.80-5.20); RED CELL DISTRIBUTION WIDTH 19.4 % (11.5-14.5); WHITE BLOOD COUNT 6.7 K/uL (4.8-10.8)
[2018-08-13 06:14] LABS: ALB/GLOB RATIO 0.6 (1.0-2.1); ALBUMIN 1.9 g/dL (3.5-5.0); CALCIUM 7.1 mg/dL (8.4-10.2)
--- NOTE | 2018-08-13 06:20 | HP ---
HISTORY OF PRESENT ILLNESS: This is a 72-year-old female with history of multiple medical problems, including recurrent DVT, was admitted through emergency room for swelling of the left upper extremity with large hematoma and cubital vein DVT. The patient was evaluated in the emergency room, and she had venous Doppler done as well as x-ray of the wrist and the hand, and the patient was admitted for further management after the patient was given one dose of Lovenox. The patient also was found to have anemia with hemoglobin 9.1 and hematocrit 27.9 as well as a potassium of 6, BUN of 47, creatinine 3.8. CO2 also was found to be 14. The patient is lethargic and poor historian at this point. The patient was admitted to intensive care unit for further management. REVIEW OF SYSTEMS: Other review of systems is negative. ALLERGIES: POSITIVE ALLERGY FOR CIPROFLOXACIN AND VANCOMYCIN. MEDICATIONS: Reviewed and ordered as per MAR. SOCIAL HISTORY: No history of smoking, EtOH, or substance abuse. FAMILY HISTORY: Noncontributory. PAST MEDICAL HISTORY: Cancer of cervix, status post surgery and radiation with complication that led to colostomy and urine diversion to an ileostomy bag; chronic kidney disease; recurrent DVT. PHYSICAL EXAMINATION: GENERAL: The patient is in bed, not in cardiopulmonary distress at the time of this examination. VITAL SIGNS: Blood pressure 104/74, temperature 97.3, respiratory rate 18, and pulse 109. HEENT: Pupils equal, reactive to light. Pale mucosa of the conjunctivae. NECK: Supple. No JVD. No carotid bruit. No lymph node. No thyromegaly. CHEST AND LUNGS: Bilateral symmetrical expansion. Good air exchange. No rales. No rhonchi. CARDIOVASCULAR SYSTEM: PMI not localized. S1, S2. No additional sounds. ABDOMEN: Normoactive bowel sounds. No tenderness. No organomegaly. No masses. EXTREMITIES: No cyanosis, no clubbing, no edema, but there are multiple subcutaneous hematomas in both lower extremities and diffuse ecchymotic left upper extremity. CENTRAL NERVOUS SYSTEM: The patient is awake, oriented x2, and moves all extremities equally. ASSESSMENT: 1. Deep venous thrombosis with possible hematoma to the left upper extremity. 2. Acute renal failure. 3. Metabolic acidosis. 4. History of cancer of cervix. PLAN: We will hold Lovenox at this time due to the large ecchymosis of the left upper extremity with large hematoma as well as multiple skin bruising, and we will repeat venous Doppler of the upper extremities. Discussed the patient with Dr. Salas and with desilverizer. Guarded prognosis given the patient's frailty and multiple medical comorbidities. [facility] MD Sunny
[2018-08-13 08:06] LABS: BASO % 0.2 % (0.0-2.0); EOS % 0.6 % (0.0-4.0); HEMOGLOBIN 7.3 g/dL (12.0-16.0); LYMPH # 1.2 K/uL (1.0-4.3); LYMPH % 20.3 % (20.0-40.0); MEAN CELL VOLUME 108.6 fl (81.0-99.0); MEAN CORPUSCULAR HEMOGLOBIN 33.9 pg (27.0-31.0); MEAN CORPUSCULAR HGB CONC 31.2 g/dL (33.0-37.0); MONO # 0.5 K/uL (0.0-0.8); MONO % 7.6 % (0.0-10.0); NEUT # 4.4 K/uL (1.8-7.0); NEUT % 71.3 % (50.0-75.0); NRBC % 0.6 % (0.0-0.0); RBC 2.16 Mil/uL (3.80-5.20); RED CELL DISTRIBUTION WIDTH 19.6 % (11.5-14.5); WHITE BLOOD COUNT 6.2 K/uL (4.8-10.8)
[2018-08-13 08:10] LABS: PARTIAL THROMBOPLASTIN TIME 27.5 Seconds (25.6-37.1)
[2018-08-13] MEDS: Cholestyramine 4 gm/Pkt UD PO SCH ×2 (08:12→16:22)
[2018-08-13] MEDS: Magnesium Oxide 400 mg Tab UD PO SCH ×2 (08:12→20:37)
[2018-08-13] MEDS: Multivitamin With Minerals Tab PO SCH (08:13)
[2018-08-13 11:38] LABS: INR 1.3; PROTHROMBIN TIME 14.3 Seconds (9.8-13.1)
--- NOTE | 2018-08-13 12:14 | US ---
Date of service: 08/13/2018 PROCEDURE: Duplex sonography left upper extremity HISTORY: DVT COMPARISON: None TECHNIQUE: Real-time ultrasound scan of the veins with color flow, spectral waveform analysis and compression FINDINGS: Patent internal jugular vein, subclavian vein, left axillary vein. Remaining vascular structures are not visible including brachial, basilic, cephalic arteries. At the level of the left brachial artery is a large, complex solid and cystic mass/fluid collection measuring 3.9 x 3.4 x 12.4 cm. IMPRESSION: Patent proximal venous system as described above. Large fluid collection/seroma/hematoma left upper extremity described in greater detail above.
[2018-08-13] MEDS ORDERED: SODIUM CHLORIDE 0.45% IV SCH (13:00)
[2018-08-13] MEDS ORDERED: SODIUM BICARBONATE IV SCH (13:00)
--- NOTE | 2018-08-13 13:03 | CP.PCM.PN ---
Subjective - Date & Time of Evaluation Date of Evaluation: 08/13/18 Time of Evaluation: 13:04 - Subjective Subjective: Patient awake and conscious she does not appears to be in distress Vital signs noted and stable No vomiting Objective - Vital Signs/Intake and Output Vital Signs (last 24 hours): Temp Pulse Resp BP Pulse Ox 97.8 F 128 H 11 L 99/71 L 100 08/13/18 08:00 08/13/18 08:00 08/13/18 08:00 08/13/18 08:00 08/13/18 08:00 Intake and Output: 08/13/18 08/13/18 06:59 18:59 Intake Total 200 Balance 200 - Medications Medications: Current Medications Acetaminophen (Tylenol 325mg Tab) 650 mg PO Q6 PRN PRN Reason: TEMP >101 Acetaminophen (Tylenol 325mg Tab) 650 mg PO Q4H PRN PRN Reason: Other Ascorbic Acid (Vitamin C 500 Mg Tab) 500 mg PO DAILY [facility] Last Admin: 08/13/18 08:13 Dose: 500 mg Calcitriol (Rocaltrol) 0.25 mcg PO Q12 [facility] Last Admin: 08/13/18 08:12 Dose: 0.25 mcg Cholestyramine Resin (Questran) 4 gm PO BID [facility] Last Admin: 08/13/18 08:12 Dose: 4 gm Dextrose (Dextrose 50% Inj) 0 ml IV STAT PRN; Protocol PRN Reason: Hypoglycemia Protocol Dextrose (Glutose 15) 0 gm PO ONCE PRN; Protocol PRN Reason: Hypoglycemia Protocol Epoetin Audi (Procrit) 10,000 unit SC MOTH [facility] Last Admin: 08/11/18 21:18 Dose: 10,000 unit Ergocalciferol (Drisdol 50,000 Intl Units Cap) 1 cap PO [facility] Escitalopram Oxalate (Lexapro) 10 mg PO DAILY [facility] Last Admin: 08/13/18 08:12 Dose: 10 mg Famotidine (Pepcid) 20 mg PO DAILY [facility] Last Admin: 08/13/18 08:15 Dose: 20 mg Ferrous Gluconate (Fergon) 324 mg PO TID [facility] Last Admin: 08/13/18 08:12 Dose: 324 mg Folic Acid (Folic Acid) 1 mg PO DAILY [facility] Last Admin: 08/13/18 08:12 Dose: 1 mg Glucagon (Glucagen Diagnostic Kit) 0 mg IM STAT PRN; Protocol PRN Reason: Hypoglycemia Protocol Sodium Bicarbonate 44.6 meq/ (Sodium Chloride) 1,044.6 mls @ 100 mls/hr IV .[id number] [facility] Stop: 08/14/18 12:56 Magnesium Hydroxide (Milk Of Magnesia) 30 ml PO DAILY PRN PRN Reason: Constipation Magnesium Oxide (Mag-Ox) 400 mg PO Q12 [facility] Last Admin: 08/13/18 08:12 Dose: 400 mg Midodrine (Proamatine) 5 mg PO TID [facility] Last Admin: 08/13/18 08:12 Dose: 5 mg Multivitamins/Minerals (Therapeutic-M Tab) 1 tab PO DAILY [facility] Last Admin: 08/13/18 08:13 Dose: 1 tab Tramadol HCl (Ultram) 50 mg PO Q4 PRN PRN Reason: Pain, severe (8-10) Last Admin: 08/13/18 04:09 Dose: 50 mg - Labs Labs: 08/13/18 07:58 08/13/18 05:30 PT 14.3 Seconds (9.8-13.1) H 08/13/18 07:58 INR 1.3 08/13/18 07:58 APTT 27.5 Seconds (25.6-37.1) 08/13/18 07:58 - Constitutional Appears: No Acute Distress - Eye Exam Eye Exam: Conjunctival injection - ENT Exam ENT Exam: Mucous Membranes Dry - Respiratory Exam Respiratory Exam: NORMAL BREATHING PATTERN. absent: Chest Wall Tenderness - Cardiovascular Exam Cardiovascular Exam: absent: Gallop, JVD, Rubs - GI/Abdominal Exam GI & Abdominal Exam: Guarding, Normal Bowel Sounds - Extremities Exam Extremities Exam: absent: Calf Tenderness - Back Exam Back Exam: absent: CVA tenderness (L), CVA tenderness (R) - Neurological Exam Neurological Exam: Alert - Psychiatric Exam Psychiatric exam: absent: Anxious - Skin Skin Exam: absent: Cyanosis Assessment and Plan (1) Deep venous thrombosis of upper extremity Status: Acute (2) Dehydration Status: Acute (3) Lactic acidosis Status: Acute (4) Anemia Status: Chronic (5) Acute kidney injury Assessment & Plan: Patient admitted with upper extremity deep vein thrombosis. Acute kidney injury superimposed on chronic kidney disease stage 5 on different occasion Dehydration Hyperkalemia ,corrected Hyponatremia worsening serum sodium 129 And as noted in the past medical history and surgical history Anemia, CKD IV, cerical ca, depression, hypertension, chronic hypovolemia PSH: Colostomy; Ileostomy; Urostomy; IVC Filter; Hysterectomy with bilateral Oophorectomy 2006 The plan Patient apparently was prescribed D5 half-normal with sodium bicarbonate was given D5W with sodium bicarbonate that can explain some of the hyponatremia perhaps I will change the IV fluids to half-normal saline with sodium bicarbonate 100 cc/h Worsening kidney function patient may need dialysis if not improving in the next 48 hours or so Severe anemia patient may need blood transfusion Status: Acute
[2018-08-13] MEDS ORDERED: Sodium Chloride 0.9% 1,000 ML IV SCH ×2 (13:15)
--- NOTE | 2018-08-13 15:59 | PQF ---
PROVIDER RESPONSE TEXT: Failure to thrive REVIEWER QUERY TEXT: Clarification of Clinical Diagnostic Findings Please clarify if you are in agreement with the RD documentation of: Underweight and are there any other nutritional diagnoses to go along with the BMI:18.3 OR: Disagree OR: Other explanation of clinical findings Albumin/Globulin Ratio: 0.6 08/12: RD consult: BMI: 18.3 94lb 3.2oz : Underweight: Consider switching to Ensure Clear if electro lytes are abnormal upon evaluation next few days. Improve PO intake. Monitor pt. PO intake, weight, meds, labs and skin see full consult in the EMR The patient's Clinical Indicators include: --- Query created by: Lakia Gomez on 08/13/2018 9:33 AM Electronically signed by: Greg Correa MD 08/13/2018 3:56 PM
[2018-08-13] MEDS ORDERED: Ergocalciferol 50,000 Intl Units Cap PO SCH (20:50)
--- NOTE | 2018-08-13 21:46 | PN ---
DATE: 08/13/2018 SUBJECTIVE: The patient is seen today on 08/13/2018. She is not in any cardiopulmonary distress. The patient still has large hematoma on the left upper extremity. PHYSICAL EXAMINATION: VITAL SIGNS: Blood pressure is 132/94, temperature 97.8, respiratory rate is 10, and pulse is 104. HEENT: Pale mucosa of the conjunctivae. NECK: Supple. No JVD. No carotid bruit. No lymph node. No thyromegaly. CHEST AND LUNGS: Bilateral symmetrical expansion. Good air exchange. No rales, no rhonchi. CARDIOVASCULAR: PMI not localized. S1, S2. No additional sounds. ABDOMEN: Normoactive bowel sounds. Colostomy and urine diversion ileostomy are in place. EXTREMITIES: Large hematoma of the left upper extremity with generalized edema. Multiple hematomas on both lower extremities. INSTRUCTOR BRIDGE: Alert, awake, oriented x1 and moves all extremities equally. Repeated venous Doppler of the left upper extremity showed patent proximal veins with large fluid collections. ASSESSMENT: 1. Large hematoma of the left upper extremity. 2. Acute renal failure. 3. Metabolic acidosis. 4. History of cancer of uterine cervix, status post surgery and radiation that complicated with colostomy as well as urine diversion to ileostomy. 5. Anemia of acute blood loss. PLAN: Transfuse the patient two units of packed RBCs. Continue IV fluid and follow recommendations of arranger assembler. The patient also has failure to thrive and she is underweight with BMI of 18. Greg Correa MD
[2018-08-13 22:14] LABS: HEMOGLOBIN 11.2 g/dL (12.0-16.0); MEAN CELL VOLUME 97.7 fl (81.0-99.0); MEAN CORPUSCULAR HEMOGLOBIN 32.4 pg (27.0-31.0); MEAN CORPUSCULAR HGB CONC 33.2 g/dL (33.0-37.0); RBC 3.44 Mil/uL (3.80-5.20); RED CELL DISTRIBUTION WIDTH 16.8 % (11.5-14.5); WHITE BLOOD COUNT 6.3 K/uL (4.8-10.8)
--- NOTE | 2018-08-13 22:38 | CP.PCM.CON ---
History of Present Illness - History of Present Illness History of Present Illness: 72 years old female with a history of dementia, CKD, cervical cancer s/p chemoradiation with colostomy and iliostomy, recurrent DVT on lovenox, sent to the ER after being found to have a left brachial vein DVT and left arm hematoma. I am unable to obtain a history from the patient due to her dementia. Her anticoagulation has been held. Past medical, surgical, family, social history cannot be obtained. Allergies: Ciprofloxacin, vancomycin Review of systems cannot be obtained. Past Patient History - Infectious Disease Hx of Infectious Diseases: None - Past Medical History & Family History Past Medical History?: Yes - Past Social History Smoking Status: Never Smoked Chewing Tobacco Use: No Cigar Use: No Alcohol: None Drugs: Denies Home Situation {Lives}: Correction - CARDIAC Hx Hypertension: No - PULMONARY Hx Respiratory Disorders: No - NEUROLOGICAL Hx Dementia: Yes - HEENT Hx HEENT Problems: No - RENAL Hx Chronic Kidney Disease: Yes - ENDOCRINE/METABOLIC Hx Endocrine Disorders: No - HEMATOLOGICAL/ONCOLOGICAL Hx Anemia: Yes Hx Human Immunodeficiency Virus (HIV): No Hx Sickle Cell Disease: No - INTEGUMENTARY Hx Dermatological Problems: No - MUSCULOSKELETAL/RHEUMATOLOGICAL Hx Musculoskeletal Disorders: No Hx Falls: Yes - GASTROINTESTINAL Hx Gastrointestinal Disorders: Yes Hx Colostomy: Yes Hx Ileostomy: Yes Other/Comment: Ileostomy - GENITOURINARY/GYNECOLOGICAL Hx Genitourinary Disorders: No - PSYCHIATRIC Hx Depression: Yes - SURGICAL HISTORY Hx Surgeries: Yes Hx Joint Replacement: Yes (R hip replacement) Other/Comment: Left Urostomy;R earline cath, R colostomy - ANESTHESIA Hx Anesthesia: Yes Hx Anesthesia Reactions: No Hx Malignant Hyperthermia: No Meds Allergies/Adverse Reactions: Allergies Allergy/AdvReac Type Severity Reaction Status Date / Time ciprofloxacin [From Cipro] Allergy RASH Verified 07/24/18 16:56 ciprofloxacin HCl Allergy RASH Verified 07/24/18 16:56 [From Cipro] vancomycin Allergy RASH Verified 07/24/18 16:56 - Medications Medications: Current Medications Acetaminophen (Tylenol 325mg Tab) 650 mg PO Q6 PRN PRN Reason: TEMP >101 Acetaminophen (Tylenol 325mg Tab) 650 mg PO Q4H PRN PRN Reason: Other Ascorbic Acid (Vitamin C 500 Mg Tab) 500 mg PO DAILY [facility] Last Admin: 08/13/18 08:13 Dose: 500 mg Calcitriol (Rocaltrol) 0.25 mcg PO Q12 [facility] Last Admin: 08/13/18 20:37 Dose: 0.25 mcg Cholestyramine Resin (Questran) 4 gm PO BID [facility] Last Admin: 08/13/18 16:22 Dose: 4 gm Dextrose (Dextrose 50% Inj) 0 ml IV STAT PRN; Protocol PRN Reason: Hypoglycemia Protocol Dextrose (Glutose 15) 0 gm PO ONCE PRN; Protocol PRN Reason: Hypoglycemia Protocol Epoetin Audi (Procrit) 10,000 unit SC MOTH [facility] Last Admin: 08/11/18 21:18 Dose: 10,000 unit Ergocalciferol (Drisdol 50,000 Intl Units Cap) 1 cap PO WE [facility] Last Admin: 08/13/18 20:37 Dose: 1 cap Escitalopram Oxalate (Lexapro) 10 mg PO DAILY [facility] Last Admin: 08/13/18 08:12 Dose: 10 mg Famotidine (Pepcid) 20 mg PO DAILY [facility] Last Admin: 08/13/18 08:15 Dose: 20 mg Ferrous Gluconate (Fergon) 324 mg PO TID [facility] Last Admin: 08/13/18 16:22 Dose: 324 mg Folic Acid (Folic Acid) 1 mg PO DAILY [facility] Last Admin: 08/13/18 08:12 Dose: 1 mg Glucagon (Glucagen Diagnostic Kit) 0 mg IM STAT PRN; Protocol PRN Reason: Hypoglycemia Protocol Sodium Chloride (Sodium Chloride 0.9%) 1,000 mls @ 100 mls/hr IV .Q10H [facility] Stop: 08/14/18 13:12 Last Admin: 08/13/18 13:16 Dose: 100 mls/hr Magnesium Hydroxide (Milk Of Magnesia) 30 ml PO DAILY PRN PRN Reason: Constipation Magnesium Oxide (Mag-Ox) 400 mg PO Q12 [facility] Last Admin: 08/13/18 20:37 Dose: 400 mg Midodrine (Proamatine) 5 mg PO TID [facility] Last Admin: 08/13/18 16:22 Dose: 5 mg Multivitamins/Minerals (Therapeutic-M Tab) 1 tab PO DAILY [facility] Last Admin: 08/13/18 08:13 Dose: 1 tab Sodium Bicarbonate (Sodium Bicarbonate Tab) 1,300 mg PO Q8 [facility] Last Admin: 08/13/18 16:23 Dose: 1,300 mg Tramadol HCl (Ultram) 50 mg PO Q4 PRN PRN Reason: Pain, severe (8-10) Last Admin: 08/13/18 19:42 Dose: 50 mg Physical Exam - Head Exam Head Exam: ATRAUMATIC - Eye Exam Eye Exam: Normal appearance - ENT Exam ENT Exam: Mucous Membranes Dry - Respiratory Exam Respiratory Exam: NORMAL BREATHING PATTERN - Cardiovascular Exam Cardiovascular Exam: +S1, +S2 - GI/Abdominal Exam GI & Abdominal Exam: Normal Bowel Sounds - Neurological Exam Neurological exam: Altered - Psychiatric Exam Psychiatric exam: Normal Affect, Normal Mood - Skin Skin Exam: Warm Results - Vital Signs Recent Vital Signs: Last Vital Signs Temp 97.9 F 08/13/18 17:05 Pulse 111 H 08/13/18 17:05 Resp 10 L 08/13/18 17:05 BP 117/83 08/13/18 17:05 Pulse Ox 100 08/13/18 16:00 - Labs Result Diagrams: 08/13/18 21:23 08/13/18 05:30 Labs: Laboratory Results - last 24 hr 08/13/18 08/13/18 08/13/18 05:30 05:30 07:58 WBC 6.7 6.2 RBC 2.19 L 2.16 L Hgb 7.5 L 7.3 L Hct 23.3 L 23.5 L MCV 106.6 H 108.6 H D MCH 34.1 H 33.9 H MCHC 32.0 L 31.2 L RDW 19.4 H 19.6 H Plt Count 206 231 MPV 7.9 8.0 Neut % (Auto) 69.7 71.3 Lymph % (Auto) 20.8 20.3 [place] % (Auto) 8.6 7.6 Eos % (Auto) 0.7 0.6 Baso % (Auto) 0.2 0.2 Neut # (Auto) 4.7 4.4 Lymph # (Auto) 1.4 1.2 [place] # (Auto) 0.6 0.5 Eos # (Auto) 0.0 0.0 Baso # (Auto) 0.0 0.0 PT INR APTT Sodium 129 L Potassium 4.3 Chloride 103 Carbon Dioxide 19 L Anion Gap 11 BUN 45 H Creatinine 3.4 H Est GFR ( Amer) 16 Est GFR (Non-Af Amer) 13 Random Glucose 100 Calcium 7.1 L Total Bilirubin 0.1 L AST 22 ALT 33 Alkaline Phosphatase 84 Total Protein 4.8 L Albumin 1.9 L Globulin 2.9 Albumin/Globulin Ratio 0.6 L Blood Type Antibody Screen Crossmatch BBK History Checked 08/13/18 08/13/18 08/13/18 07:58 08:25 21:23 WBC 6.3 RBC 3.44 L Hgb 11.2 L D Hct 33.6 L MCV 97.7 D MCH 32.4 H MCHC 33.2 RDW 16.8 H Plt Count 139 MPV Neut % (Auto) Lymph % (Auto) [place] % (Auto) Eos % (Auto) Baso % (Auto) Neut # (Auto) Lymph # (Auto) [place] # (Auto) Eos # (Auto) Baso # (Auto) PT 14.3 H INR 1.3 APTT 27.5 Sodium Potassium Chloride Carbon Dioxide Anion Gap BUN Creatinine Est GFR ( Amer) Est GFR (Non-Af Amer) Random Glucose Calcium Total Bilirubin AST ALT Alkaline Phosphatase Total Protein Albumin Globulin Albumin/Globulin Ratio Blood Type O NEGATIVE Antibody Screen Negative Crossmatch See Detail BBK History Checked Patient has bt Assessment & Plan (1) Deep venous thrombosis of upper extremity Assessment and Plan: Recurrent DVT despite anticoagulation noted hematoma ? recent trauma anticoagulation on hold restart anticoagulation once no further bleeding Status: Acute (2) Anemia Assessment and Plan: retic count, b12, folate, ferritin to further characterize transfusion support PRN Status: Chronic (3) History of cervical cancer Assessment and Plan: s/p chemoradiation CT A/P 03/2018 did not suggest overt evidence of recurrent disease Thank you for this interesting consult. Status: Acute
[2018-08-14 05:36] LABS: HEMOGLOBIN 12.2 g/dL (12.0-16.0); MEAN CELL VOLUME 97.5 fl (81.0-99.0); MEAN CORPUSCULAR HEMOGLOBIN 33.1 pg (27.0-31.0); MEAN CORPUSCULAR HGB CONC 33.9 g/dL (33.0-37.0); RBC 3.68 Mil/uL (3.80-5.20); RED CELL DISTRIBUTION WIDTH 17.2 % (11.5-14.5); WHITE BLOOD COUNT 5.3 K/uL (4.8-10.8)
[2018-08-14 05:52] LABS: BLOOD UREA NITROGEN 46 mg/dl (7-17); GFR NON-AFRICAN AMERICAN 14
[2018-08-14] MEDS: Magnesium Oxide 400 mg Tab UD PO SCH ×2 (08:28→20:40)
[2018-08-14] MEDS: Cholestyramine 4 gm/Pkt UD PO SCH (08:29)
[2018-08-14] MEDS: Multivitamin With Minerals Tab PO SCH (08:29)
--- NOTE | 2018-08-14 09:29 | CP.PCM.PN ---
Subjective - Date & Time of Evaluation Date of Evaluation: 08/14/18 Time of Evaluation: 09:29 - Subjective Subjective: Patient awake and conscious Vital signs stable Patient reported that she is eating Objective - Vital Signs/Intake and Output Vital Signs (last 24 hours): Temp Pulse Resp BP Pulse Ox 98.0 F 105 H 6 L 138/89 100 08/14/18 08:00 08/14/18 08:00 08/14/18 08:00 08/14/18 08:00 08/14/18 08:00 Intake and Output: 08/14/18 08/14/18 06:59 18:59 Intake Total 576 Output Total 600 Balance -24 - Medications Medications: Current Medications Acetaminophen (Tylenol 325mg Tab) 650 mg PO Q6 PRN PRN Reason: TEMP >101 Acetaminophen (Tylenol 325mg Tab) 650 mg PO Q4H PRN PRN Reason: Other Ascorbic Acid (Vitamin C 500 Mg Tab) 500 mg PO DAILY [facility] Last Admin: 08/14/18 08:30 Dose: 500 mg Calcitriol (Rocaltrol) 0.25 mcg PO Q12 [facility] Last Admin: 08/14/18 08:29 Dose: 0.25 mcg Cholestyramine Resin (Questran) 4 gm PO BID [facility] Last Admin: 08/14/18 08:29 Dose: 4 gm Dextrose (Dextrose 50% Inj) 0 ml IV STAT PRN; Protocol PRN Reason: Hypoglycemia Protocol Dextrose (Glutose 15) 0 gm PO ONCE PRN; Protocol PRN Reason: Hypoglycemia Protocol Epoetin Audi (Procrit) 10,000 unit SC MOTH [facility] Last Admin: 08/11/18 21:18 Dose: 10,000 unit Ergocalciferol (Drisdol 50,000 Intl Units Cap) 1 cap PO WE [facility] Last Admin: 08/13/18 20:37 Dose: 1 cap Escitalopram Oxalate (Lexapro) 10 mg PO DAILY [facility] Last Admin: 08/14/18 08:28 Dose: 10 mg Famotidine (Pepcid) 20 mg PO DAILY [facility] Last Admin: 08/14/18 08:31 Dose: 20 mg Ferrous Gluconate (Fergon) 324 mg PO TID [facility] Last Admin: 08/14/18 08:28 Dose: 324 mg Folic Acid (Folic Acid) 1 mg PO DAILY [facility] Last Admin: 08/14/18 08:28 Dose: 1 mg Glucagon (Glucagen Diagnostic Kit) 0 mg IM STAT PRN; Protocol PRN Reason: Hypoglycemia Protocol Sodium Chloride (Sodium Chloride 0.9%) 1,000 mls @ 100 mls/hr IV .Q10H [facility] Stop: 08/14/18 13:12 Last Admin: 08/13/18 13:16 Dose: 100 mls/hr Magnesium Hydroxide (Milk Of Magnesia) 30 ml PO DAILY PRN PRN Reason: Constipation Magnesium Oxide (Mag-Ox) 400 mg PO Q12 [facility] Last Admin: 08/14/18 08:28 Dose: 400 mg Midodrine (Proamatine) 5 mg PO TID [facility] Last Admin: 08/14/18 08:29 Dose: 5 mg Multivitamins/Minerals (Therapeutic-M Tab) 1 tab PO DAILY [facility] Last Admin: 08/14/18 08:29 Dose: 1 tab Sodium Bicarbonate (Sodium Bicarbonate Tab) 1,300 mg PO Q8 [facility] Last Admin: 08/14/18 08:29 Dose: 1,300 mg Tramadol HCl (Ultram) 50 mg PO Q4 PRN PRN Reason: Pain, severe (8-10) Last Admin: 08/13/18 19:42 Dose: 50 mg - Labs Labs: 08/14/18 04:40 08/14/18 04:40 PT 14.3 Seconds (9.8-13.1) H 08/13/18 07:58 INR 1.3 08/13/18 07:58 APTT 27.5 Seconds (25.6-37.1) 08/13/18 07:58 - Constitutional Appears: No Acute Distress - Eye Exam Eye Exam: Conjunctival injection - ENT Exam ENT Exam: Mucous Membranes Moist - Neck Exam Neck Exam: absent: Lymphadenopathy - Respiratory Exam Respiratory Exam: NORMAL BREATHING PATTERN. absent: Chest Wall Tenderness - Cardiovascular Exam Cardiovascular Exam: absent: Gallop, JVD, Rubs - GI/Abdominal Exam GI & Abdominal Exam: Soft, Normal Bowel Sounds - Extremities Exam Extremities Exam: Pedal Edema. absent: Calf Tenderness - Back Exam Back Exam: absent: CVA tenderness (L), CVA tenderness (R) - Neurological Exam Neurological Exam: Alert - Psychiatric Exam Psychiatric exam: Normal Affect - Skin Skin Exam: absent: Cyanosis Assessment and Plan (1) Deep venous thrombosis of upper extremity Status: Acute (2) Dehydration Status: Acute (3) Lactic acidosis Status: Acute (4) Anemia Status: Chronic (5) Acute kidney injury Assessment & Plan: Patient admitted with upper extremity deep vein thrombosis. Acute kidney injury superimposed on chronic kidney disease stage 5 Hyperkalemia ,corrected Hyponatremia worsening serum sodium 127 , patient became edematous and this hyponatremia possibly now dilutional And as noted in the past medical history and surgical history Anemia, CKD IV, cerical ca, depression, hypertension, chronic hypovolemia PSH: Colostomy; Ileostomy; Urostomy; IVC Filter; Hysterectomy with bilateral Oophorectomy 2006 The plan DC IV fluid completely Continue sodium bicarbonate p.o. Lasix 40 mg stat 1 dose and monitor urine output I spoke to the 2 visitors in the room her 2 daughters I spoke with the patient and the family and the room about possible dialysis if she is not improving Status: Acute
[2018-08-14 12:31] LABS: FOLATE > 20.0 ng/mL
[2018-08-14] MEDS: EPOETIN ALFA 10,000 UNIT/ML ML SC SCH (21:52)
--- NOTE | 2018-08-14 23:48 | PN ---
DATE: 08/14/2018 SUBJECTIVE: The patient is seen today, 08/14/2018. She is awake but she is confused. PHYSICAL EXAMINATION: VITAL SIGNS: Blood pressure 126/68, temperature 97.5, respiratory rate 20 and pulse 101. HEENT: Pupils equal, reactive to light. Normal-appearing mucosa of the conjunctivae, oropharynx and nasal membrane mucosa. NECK: Supple. No JVD. No carotid bruit. No lymph node. No thyromegaly. CHEST AND LUNGS: Bilateral symmetrical expansion. Good air exchange. No rales, no rhonchi. CARDIOVASCULAR SYSTEM: PMI not localized. S1, S2. No additional sounds. ABDOMEN: Colostomy bag and urine diversion ileostomy bag are in place. EXTREMITIES: Multiple hematomas in all extremities with massive hematoma on the left upper extremity that prevents the range of motion of the left elbow. CENTRAL NERVOUS SYSTEM: Alert, awake, oriented x1. Moves all extremities equally. ASSESSMENT: 1. Large hematoma, left upper extremity. 2. Metabolic acidosis. 3. [id number] kidney disease. 4. Dehydration. PLAN: Monitor hemoglobin and hematocrit. Follow Nephrology recommendation regarding IV fluid. Continue current medications and management. Discussed with the patient's daughter regarding further treatment and plan is to discharge back to subacute rehabilitation. Greg Correa MD
[2018-08-15 08:38] VITALS: TEMP 97.5
[2018-08-15] MEDS: Multivitamin With Minerals Tab PO SCH (10:31)
[2018-08-15] MEDS: Cholestyramine 4 gm/Pkt UD PO SCH (10:31)
[2018-08-15] MEDS: Magnesium Oxide 400 mg Tab UD PO SCH (10:32)
--- NOTE | 2018-08-15 15:05 | CP.PCM.PN ---
Subjective - Date & Time of Evaluation Date of Evaluation: 08/15/18 Time of Evaluation: 15:07 - Subjective Subjective: Patient awake and conscious Not in acute distress Vital signs stable No chest pain Objective - Vital Signs/Intake and Output Vital Signs (last 24 hours): Temp Pulse Resp BP Pulse Ox 97.5 F L 102 H 20 115/83 98 08/15/18 08:37 08/15/18 08:37 08/15/18 08:37 08/15/18 10:32 08/15/18 08:37 Intake and Output: 08/15/18 08/15/18 06:59 18:59 Intake Total 100 Output Total 1100 Balance -1000 - Medications Medications: Current Medications Acetaminophen (Tylenol 325mg Tab) 650 mg PO Q6 PRN PRN Reason: TEMP >101 Acetaminophen (Tylenol 325mg Tab) 650 mg PO Q4H PRN PRN Reason: Other Ascorbic Acid (Vitamin C 500 Mg Tab) 500 mg PO DAILY [facility] Last Admin: 08/15/18 10:30 Dose: 500 mg Calcitriol (Rocaltrol) 0.25 mcg PO Q12 [facility] Last Admin: 08/15/18 10:31 Dose: 0.25 mcg Cholestyramine Resin (Questran) 4 gm PO BID [facility] Last Admin: 08/15/18 10:31 Dose: 4 gm Dextrose (Dextrose 50% Inj) 0 ml IV STAT PRN; Protocol PRN Reason: Hypoglycemia Protocol Dextrose (Glutose 15) 0 gm PO ONCE PRN; Protocol PRN Reason: Hypoglycemia Protocol Epoetin Audi (Procrit) 10,000 unit SC MOTH [facility] Last Admin: 08/14/18 21:52 Dose: 10,000 unit Ergocalciferol (Drisdol 50,000 Intl Units Cap) 1 cap PO WE [facility] Last Admin: 08/13/18 20:37 Dose: 1 cap Escitalopram Oxalate (Lexapro) 10 mg PO DAILY [facility] Last Admin: 08/15/18 10:31 Dose: 10 mg Famotidine (Pepcid) 20 mg PO DAILY [facility] Last Admin: 08/15/18 11:17 Dose: 20 mg Ferrous Gluconate (Fergon) 324 mg PO TID [facility] Last Admin: 08/15/18 13:39 Dose: 324 mg Folic Acid (Folic Acid) 1 mg PO DAILY [facility] Last Admin: 08/15/18 10:49 Dose: 1 mg Furosemide (Lasix) 40 mg PO DAILY [facility] Last Admin: 08/15/18 10:32 Dose: 40 mg Glucagon (Glucagen Diagnostic Kit) 0 mg IM STAT PRN; Protocol PRN Reason: Hypoglycemia Protocol Magnesium Hydroxide (Milk Of Magnesia) 30 ml PO DAILY PRN PRN Reason: Constipation Magnesium Oxide (Mag-Ox) 400 mg PO Q12 [facility] Last Admin: 08/15/18 10:32 Dose: 400 mg Midodrine (Proamatine) 5 mg PO TID [facility] Last Admin: 08/15/18 13:39 Dose: 5 mg Multivitamins/Minerals (Therapeutic-M Tab) 1 tab PO DAILY [facility] Last Admin: 08/15/18 10:31 Dose: 1 tab Sodium Bicarbonate (Sodium Bicarbonate Tab) 1,300 mg PO Q8 [facility] Last Admin: 08/15/18 10:31 Dose: 1,300 mg Tramadol HCl (Ultram) 50 mg PO Q4 PRN PRN Reason: Pain, severe (8-10) Last Admin: 08/13/18 19:42 Dose: 50 mg - Labs Labs: 08/14/18 04:40 08/14/18 04:40 PT 14.3 Seconds (9.8-13.1) H 08/13/18 07:58 INR 1.3 08/13/18 07:58 APTT 27.5 Seconds (25.6-37.1) 08/13/18 07:58 - Constitutional Appears: No Acute Distress - Eye Exam Eye Exam: Conjunctival injection - ENT Exam ENT Exam: Mucous Membranes Moist - Respiratory Exam Respiratory Exam: absent: Chest Wall Tenderness, Rhonchi, NORMAL BREATHING PATTERN - Cardiovascular Exam Cardiovascular Exam: absent: Gallop, JVD, Rubs - GI/Abdominal Exam GI & Abdominal Exam: Guarding, Soft, Normal Bowel Sounds - Extremities Exam Extremities Exam: absent: Calf Tenderness - Back Exam Back Exam: absent: CVA tenderness (L), CVA tenderness (R) - Neurological Exam Neurological Exam: Alert - Psychiatric Exam Psychiatric exam: Anxious - Skin Skin Exam: absent: Cyanosis Assessment and Plan (1) Deep venous thrombosis of upper extremity Status: Acute (2) Dehydration Status: Acute (3) Lactic acidosis Status: Acute (4) Anemia Status: Chronic (5) Acute kidney injury Assessment & Plan: .Large hematoma of the left upper extremity Acute kidney injury superimposed on chronic kidney disease stage 5 Hyperkalemia ,corrected Hyponatremia worsening serum sodium 127 , patient became edematous and this hyponatremia possibly now dilutional And as noted in the past medical history and surgical history Anemia, CKD IV, cerical ca, depression, hypertension, chronic hypovolemia PSH: Colostomy; Ileostomy; Urostomy; IVC Filter; Hysterectomy with bilateral Oophorectomy 2006 The plan DC IV fluid completely Continue sodium bicarbonate p.o. Lasix 40 mg stat 1 dose and monitor urine output BMP still pending for today Repeat BMP tomorrow And DC Lasix tomorrow unless she is still edematous Discussed with the patient and the family for possible need of dialysis if her condition and kidney function worsening Status: Acute
[2018-08-15 15:58] VITALS: BP 119/81; PULSE 68; RESP 18
[2018-08-16 07:46] VITALS: O2SAT 99
--- NOTE | 2018-08-17 08:54 | DS ---
REASON FOR ADMISSION: This is a 72-year-old female with history of multiple medical problems who was admitted for a large hematoma of the right upper extremity and acute renal failure with metabolic acidosis. COURSE OF HOSPITALIZATION: The patient was admitted to intensive care unit and she was started on IV fluids. Hemoglobin dropped and the patient was transfused packed RBCs. The patient had a repeated venous Doppler that did not show any deep venous thrombosis at the left upper extremity. Lovenox was held and the patient was treated with IV fluid and blood transfusion. As per the patient's wish and the family, they decided to have comforting care for the patient and hospice evaluation was done and the patient was discharged to home hospice care. The patient was to continue oral medications and comforting care. FINAL DIAGNOSES: Acute metabolic acidosis, acute renal failure, chronic kidney disease stage III, anemia of acute blood loss, large hematoma of the left upper extremity, history of cancer, uterine cervix, status post surgery and radiation that was complicated with colostomy and urine diversion to ileostomy. Greg Correa MD
--- NOTE | 2018-08-19 22:22 | PQF ---
PROVIDER RESPONSE TEXT: Unknown cause of hematoma REVIEWER QUERY TEXT: Documentation Clarification Your help is requested in clarifying the following clinical documentation, if you can please further specify in the medical record and discharge summary cause or source of pt's hematomas if known. The patient's Clinical Indicators include: Multiple hematomas both lower extremities, large hematoma of the left upper extremity. Query created by: Aaliyah Tapia on 08/19/2018 8:55 AM Electronically signed by: Greg Correa MD 08/19/2018 10:19 PM
== END 2018-08-15 17:15 | disposition hospice, home (50) | DRG 300 ==
LOC: H.ER 17:45 → H.ERHOLD 19:37 → H.ICU/CCU 08-12 01:40 → H.MEDSURG1 08-14 15:20
PROVIDERS: ADMIT Internal Medicine; ATTEND Internal Medicine
PROC: 30233N1 Transfusion of Nonautologous Red Blood Cells into Peripheral Vein, Percutaneous Approach (ICD-10-PCS; principal; 2018-08-13)
DX: I82.622 Acute embolism and thrombosis of deep veins of left upper extremity (principal); E87.2 Acidosis; N17.9 Acute kidney failure, unspecified; E87.1 Hypo-osmolality and hyponatremia; D62 Acute posthemorrhagic anemia; Z93.3 Colostomy status; E86.0 Dehydration; D53.9 Nutritional anemia, unspecified; I12.9 Hypertensive chronic kidney disease with stage 1 through stage 4 chronic kidney disease, or unspecified chronic kidney disease; E11.22 Type 2 diabetes mellitus with diabetic chronic kidney disease; E11.65 Type 2 diabetes mellitus with hyperglycemia; E87.5 Hyperkalemia; Z93.2 Ileostomy status; D63.1 Anemia in chronic kidney disease; R62.7 Adult failure to thrive; N18.3 Chronic kidney disease, stage 3 (moderate); R63.6 Underweight; Z96.641 Presence of right artificial hip joint; Z87.891 Personal history of nicotine dependence; Z86.718 Personal history of other venous thrombosis and embolism; Z85.41 Personal history of malignant neoplasm of cervix uteri; F03.90 Unspecified dementia, unspecified severity, without behavioral disturbance, psychotic disturbance, mood disturbance, and anxiety; E86.1 Hypovolemia; F32.9 Major depressive disorder, single episode, unspecified; D63.8 Anemia in other chronic diseases classified elsewhere; I95.9 Hypotension, unspecified; Z88.1 Allergy status to other antibiotic agents; Z88.3 Allergy status to other anti-infective agents; S40.022A Contusion of left upper arm, initial encounter